=== PATIENT | female | born 1940 | race Caucasian/White ===

== ENCOUNTER 2016-05-26 11:51 | Emergency (ER) | payer OTHER ==
[~2016-05-26] VITALS: Ht 160 cm; Wt 85.0 kg
[~2016-05-26 11:51] MED LIST: ACET-1311 PO; ASPI81TA28 PO; ATOR-24 PO; DIPH25CA65 PO; EPP3/2 IM; FURO-85 PO; GUAI1TAB75 PO; HYDR-4717 PO; HYDR5SYP11 PO; METO25TA56 PO; MULT-506 PO; POTA-74 PO; PRLSR20 PO
[2016-05-26 12:00] VITALS: TEMP 37.7; Ht 160 cm; Wt 85.0 kg
[2016-05-26] MEDS ORDERED: PHEN-905 PO (12:45)
--- NOTE | 2016-05-26 12:51 | EMERGENCY ROOM VISIT NOTE ---
History Report prepared by Lina: Benedict Montague Under the Supervision of: Dr. James Pedersen M.D. First contact with patient: 12:45 Chief Complaint: SHORTNESS OF BREATH Stated Complaint: CHEST PAIN, SOB NOT FELT WELL ALL WEEK Nursing Triage Summary: presents to the ER with c/o shortness of breath that started approx 1 week ago, spouse wanted to take to doctors and decline. progressively worsened. States hard to get air in, feels like tugging to get air in, heaviness. Came to er today with c/o freq cough, productive clear to yellow.Generalized aching pain, nausea, loose stools starting today has not been eating, sm amt oatmeal this am, drinking small amounts, not at norm. History of Present Illness The patient is a 75 year old female who presents to the Emergency Room with complaints of a persistent productive cough for the past week. The cough produces yellowish-clear sputum. The patient experiences some chest pain when she coughs. She also complains of shortness of breath and generalized body aches. The patient was febrile upon arrival to the ED. She did not have any Tylenol today. She denies abdominal pain or pain/swelling of the legs. The patient has lost weight recently. She is not on blood thinners. The patient had her influenza immunizations this year. Her is also sick with similar symptoms. The patient denies any history of lung disease. She does have a history of CAD and is s/p CABG. Source of History: patient Onset: one week Position: other (respiratory) Quality: other (productive cough) Timing: other (persistent) Associated Symptoms: + SOB, + chest pain, + fevers, No abdominal pain Review of Systems See HPI for pertinent positives & negatives. A total of 10 systems reviewed and were otherwise negative. Past Medical & Surgical Medical Problems: (1) Accelerated hypertension (2) Acute respiratory failure (3) Angioedema (4) HTN (hypertension) (5) Varicose veins Old medical records were reviewed. Nurse's notes were reviewed and I agree with. Family History Hypertension Social History Smoking Status: Never Smoker Drug Use: none Marital Status: Housing Status: lives with significant other Occupation Status: retired Current/Historical Medications Scheduled Aspirin (Aspirin Ec), 81 MG PO DAILY Atorvastatin (Lipitor), 40 MG PO QAM Furosemide (Lasix), 20 MG PO QAM Hydralazine Hcl (Apresoline), 50 MG PO TID Levofloxacin (Levaquin), 500 MG PO DAILY Metoprolol Tartrate (Lopressor) (Lopressor), 25 MG PO BID Multivitamin (Multivitamin), 1 TAB PO QAM Omeprazole (Prilosec), 20 MG PO BID Potassium Chloride (Potassium Chloride Er), 10 MEQ PO QPM Scheduled PRN Acetaminophen (Tylenol), 650 MG PO Q4H PRN for Pain or Fever Diphenhydramine Hcl (Benadryl Allergy), 25 MG PO Q8 PRN for Allergy Needs Epinephrine (Epipen 2-Derrick), 0.3 MG IM UD PRN for ALLERGIC REACTION Guaifenesin La (Guaifenesin Er), 600 MG PO Q12H PRN for Congestion Gxhjhbvgizxwq-Krwujjrwbp-Ctswa (Nyquil Severe Cold/Flu 5-6.25-10-325 mg/15Ml), Unknown Dose PO PM PRN for Cough Allergies Coded Allergies: Lisinopril (Verified Allergy, Severe, Angioedema, 05/26/16) Physical Exam Vital Signs Date Time Temp Pulse Resp B/P Pulse Ox O2 Delivery O2 Flow Rate FiO2 05/26/16 16:12 67 18 160/80 95 05/26/16 15:17 75 24 175/89 95 Room Air 05/26/16 13:00 95 Room Air 05/26/16 13:00 66 05/26/16 12:35 66 18 184/74 95 Room Air 05/26/16 12:29 95 Room Air 05/26/16 12:00 37.7 73 18 203/91 96 Room Air Physical Exam General: Older female who has a dry intermittent hacking cough. No respiratory distress. Alert and oriented 3. HEENT: Normal cephalic atraumatic. Pupils are equal round and reactive to light. Sclerae anicteric. Extraocular movements are intact. Oropharynx is pink with moist mucous membranes. No swelling of the mouth lips or tongue. Neck: Supple with a midline trachea. No meningeal signs or stiffness, no JVD or bruits. No Stridor. Chest: Scattered rhonchi with good air movement. Heart: regular rate and rhythm. Abdomen: Soft nontender, nondistended without rebound guarding or rigidity. Extremities: No cyanosis clubbing or edema. No calf tenderness or assymetry Spine/Back. Non tender to palpation. No CVA tenderness Skin: Good turgor without rashes. Neurologic exam: Cranial nerves two through 12 are intact. Motor and sensation are intact and symmetrical throughout. Medical Decision & Procedures ER Provider Diagnostic Interpretation: X-ray results as stated below per interpretation by me and the radiologist: CHEST ONE VIEW PORTABLE CLINICAL HISTORY: Chest pain. COMPARISON STUDY: Chest radiograph December 03, 2015. FINDINGS: Lung volumes are normal. There is no pneumothorax or pleural effusion. Mild left basilar opacity is suggestive of atelectasis. There are median sternotomy wires. Mild cardiomegaly is unchanged. There is no evidence of pulmonary edema. IMPRESSION: No acute findings. Stable cardiomegaly. Electronically signed by: Adarsh Kessler M.D. 05/26/2016 1:17 PM Dictated Date/Time: 05/26/2016 1:16 PM Laboratory Results 05/26/16 13:20 Red Blood Count 4.03, Mean Corpuscular Volume 94.8, Mean Corpuscular Hemoglobin 32.8, Mean Corpuscular Hemoglobin Concent 34.6, Mean Platelet Volume 9.8, Neutrophils (%) (Auto) 76.2, Lymphocytes (%) (Auto) 14.2, Monocytes (%) (Auto) 7.4, Eosinophils (%) (Auto) 1.6, Basophils (%) (Auto) 0.3, Neutrophils # (Auto) 5.67, Lymphocytes # (Auto) 1.06, Monocytes # (Auto) 0.55, Eosinophils # (Auto) 0.12, Basophils # (Auto) 0.02 05/26/16 13:20 Test 05/26/16 12:40 05/26/16 13:20 05/26/16 13:35 Influenza Type A Antigen Neg for Influ A (NEG) Influenza Type B Antigen Neg for Influ B (NEG) White Blood Count 7.44 K/uL (4.8-10.8) Red Blood Count 4.03 M/uL (4.2-5.4) Hemoglobin 13.2 g/dL (12.0-16.0) Hematocrit 38.2 % (37-47) Mean Corpuscular Volume 94.8 fL (80-100) Mean Corpuscular Hemoglobin 32.8 pg (25-34) Mean Corpuscular Hemoglobin Concent 34.6 g/dl (32-36) Platelet Count 136 K/uL (130-400) Mean Platelet Volume 9.8 fL (7.4-10.4) Neutrophils (%) (Auto) 76.2 % Lymphocytes (%) (Auto) 14.2 % Monocytes (%) (Auto) 7.4 % Eosinophils (%) (Auto) 1.6 % Basophils (%) (Auto) 0.3 % Neutrophils # (Auto) 5.67 K/uL (1.4-6.5) Lymphocytes # (Auto) 1.06 K/uL (1.2-3.4) Monocytes # (Auto) 0.55 K/uL (0.11-0.59) Eosinophils # (Auto) 0.12 K/uL (0-0.5) Basophils # (Auto) 0.02 K/uL (0-0.2) RDW Standard Deviation 46.7 fL (36.4-46.3) RDW Coefficient of Variation 13.5 % (11.5-14.5) Immature Granulocyte % (Auto) 0.3 % Immature Granulocyte # (Auto) 0.02 K/uL (0.00-0.02) Prothrombin Time 11.8 SECONDS (9.0-12.0) Prothromb Time International Ratio 1.1 (0.9-1.1) Activated Partial Thromboplast Time 36.0 SECONDS (21.0-31.0) Partial Thromboplastin Ratio 1.4 Anion Gap 12.0 mmol/L (3-11) Est Creatinine Clear Calc Drug Dose 30.4 ml/min Estimated GFR () 35.7 Estimated GFR (Non- 30.8 BUN/Creatinine Ratio 11.8 (10-20) Calcium Level 8.8 mg/dl (8.5-10.1) Total Bilirubin 0.9 mg/dl (0.2-1) Direct Bilirubin 0.4 mg/dl (0-0.2) Aspartate Amino Transf (AST/SGOT) 92 U/L (15-37) Alanine Aminotransferase (ALT/SGPT) 112 U/L (12-78) Alkaline Phosphatase 81 U/L (45-117) Total Creatine Kinase 51 U/L (26-192) Creatine Kinase MB 1.0 ng/ml (0.5-3.6) Creatine Kinase MB Ratio 2.0 (0-3.0) Total Protein 7.6 gm/dl (6.4-8.2) Albumin 3.4 gm/dl (3.4-5.0) Lipase 185 U/L (73-393) Bedside Troponin I 0.020 ng/ml (0-0.045) NM-Zew-P-Type Natriuretic Peptide 1306 pg/ml (0-1800) Laboratory studies as stated above per my review. Medications Administered Medications (Trade) Dose Ordered Sig/Isidro Route Start Time Stop Time Status Last Admin Dose Admin Sodium Chloride 250 ml @ 999 mls/hr Q16M STAT IV 05/26/16 12:53 05/26/16 13:08 DC 05/26/16 14:20 999 MLS/HR Sodium Chloride (Nss 1000ml) 1,000 ml @ 100 mls/hr Q10H STAT IV 05/26/16 12:53 05/26/16 16:28 DC 05/26/16 14:50 100 MLS/HR Albuterol/ Ipratropium (Duoneb) 3 ml NOW STAT INH 05/26/16 12:53 05/26/16 12:56 DC 05/26/16 14:20 3 ML Levofloxacin (Levaquin Tab) 500 mg NOW STAT PO 05/26/16 15:29 05/26/16 15:32 DC 05/26/16 15:29 500 MG Albuterol (Ventolin Hfa Inhaler) 2 puffs NOW ONCE INH 05/26/16 15:30 05/26/16 15:32 DC 05/26/16 15:30 2 PUFFS ECG Indication: SOB/dyspnea Rate (beats per minute): 74 Rhythm: normal sinus Findings: no acute ischemic change, other (LVH with repolarization) Comparison ECG Date: 2015 Change: no significant change ED Course 1247: Past medical records reviewed. The patient was evaluated in room C3, and a complete history and physical examination were performed. 1253: DuoNeb 3 ml INH, NSS 1000 ml @ 100 mls/hr, NSS 250 ml @ 999 mls/hr. 1525: Reassessed the patient. Discussed the findings with her. She verbalized understanding and agreement of the treatment plan. The patient is ready for discharge. 1529: Levofloxacin 500 mg PO. 1530: Albuterol 2 puffs INH. Medical Decision Differential diagnosis includes influenza, bronchitis, pneumonia, CHF, ACS, arrhythmia, electrolyte or metabolic abnormality. This patient comes in as described above. She was placed in room C3. She is here for treatment and evaluation of a cough and URI type symptoms. She has some mild rhonchi on exam. She appears in no respiratory distress. She has a hacking cough. Her is also sick. IV access was established. EKG was obtained as well as multiple blood testing obtained. EKG compared to the old shows no acute ischemic changes or significant ectopy. Her troponin is not elevated and her symptoms are atypical for cardiac disease. Chest x-ray was unremarkable. She is resting comfortably. Influenza swab was negative. I think most likely this is a bronchitis. She's had this before. In fact, her last visit was for bronchitis she tolerated Levaquin well I will put her on Levaquin 500 mg was given here orally as well as prescription once a day. She was also given an inhaler that she can use albuterol if needed. She was given a DuoNeb here and she is resting comfortably. She should follow with her regular doctor on Saturday for recheck and return to the ER if: Worsening of symptoms, shortness of breath, fever or chills, any new problems or concerns Impression Primary Impression: Acute bronchitis Scribe Attestation The scribe's documentation has been prepared under my direction and personally reviewed by me in its entirety. I confirm that the note above accurately reflects all work, treatment, procedures, and medical decision making performed by me. Departure Information Dispostion Home / Self-Care Prescriptions Levofloxacin (Levaquin) 500 Mg Tab 500 MG PO DAILY, #7 TAB Prov: James Pedersen M.D. 05/26/16 Referrals No Doctor, Assigned (PCP) Forms HOME CARE DOCUMENTATION FORM, IMPORTANT VISIT INFORMATION Patient Instructions My [facility] Additional Instructions Rest. Drink plenty of fluids. Use Levaquin once a day for next 10 days. May use inhaler 2 puffs every 4 hours as needed. Follow-up with your doctor Saturday for recheck. Return sooner if: Worsening of symptoms, shortness of breath, fever or chills, any new problems or concerns. Return to ER over the weekend if symptoms worsen.
[2016-05-26] MEDS ORDERED: SODIUM CHLORIDE 0.9% 1000ML 1,000 ML IV STA (12:53)
[2016-05-26] MEDS ORDERED: SODIUM CHLORIDE 0.9% 1000ML 250 ML IV STA (12:53)
[2016-05-26] MEDS ORDERED: ALBUT/IPRATROP 3MG/0.5MG NEB 3 ML VIAL INH STA (12:53)
[2016-05-26 13:00] VITALS: O2SAT 95
--- NOTE | 2016-05-26 13:18 | DIAGNOSTIC IMAGING REPORT ---
CHEST ONE VIEW PORTABLE CLINICAL HISTORY: Chest pain. COMPARISON STUDY: Chest radiograph December 03, 2015. FINDINGS: Lung volumes are normal. There is no pneumothorax or pleural effusion. Mild left basilar opacity is suggestive of atelectasis. There are median sternotomy wires. Mild cardiomegaly is unchanged. There is no evidence of pulmonary edema. IMPRESSION: No acute findings. Stable cardiomegaly. Electronically signed by: Adarsh Kessler M.D. 05/26/2016 1:17 PM Dictated Date/Time: 05/26/2016 1:16 PM
[2016-05-26 13:43] LABS: BASO % 0.3 %; BASO ABS # 0.02 K/uL (0-0.2); COMPLETE YES; EOS % 1.6 %; HEMATOCRIT 38.2 % (37-47); IG% 0.3 %; LYMPH % 14.2 %; LYMPH ABS # 1.06 K/uL (1.2-3.4); MEAN CELL VOLUME 94.8 fL (80-100); MEAN CORPUSCULAR HEMOGLOBIN 32.8 pg (25-34); MEAN CORPUSCULAR HGB CONC 34.6 g/dl (32-36); MEAN PLATELET VOLUME 9.8 fL (7.4-10.4); MONO % 7.4 %; NEUT % 76.2 %; PLATELET COUNT 136 K/uL (130-400); RED BLOOD COUNT 4.03 M/uL (4.2-5.4); WHITE BLOOD COUNT 7.44 K/uL (4.8-10.8)
[2016-05-26 13:50] LABS: POINT OF CARE TROPONIN I 0.02 ng/ml (0-0.045)
[2016-05-26 13:51] LABS: INR 1.1 (0.9-1.1); PARTIAL THROMBOPLASTIN RATIO 1.4; PROTHROMBIN TIME (PATIENT) 11.8 SECONDS (9.0-12.0)
[2016-05-26 14:09] LABS: BUN/CREATININE RATIO 11.8 (10-20); CALCIUM 8.8 mg/dl (8.5-10.1); CREATININE 1.6 mg/dl (0.60-1.20); POTASSIUM 3.4 mmol/L (3.5-5.1)
[2016-05-26] MEDS ORDERED: LEVOFLOXACIN 500 MG TAB PO STA (15:29)
[2016-05-26] MEDS ORDERED: ALBUTEROL HFA 8 GM INHALER INH ONE (15:30)
[2016-05-26] MEDS ORDERED: LEVO-366 PO (15:36)
[2016-05-26 16:12] VITALS: BP 160/80; PULSE 67; O2SAT 95
== END 2016-05-26 16:14 | disposition home or self-care (01) ==
LOC: C.EDB 11:52 → C.EDC 16:14
DX: J20.9 Acute bronchitis, unspecified (principal); I10 Essential (primary) hypertension; I25.10 Atherosclerotic heart disease of native coronary artery without angina pectoris; Z95.1 Presence of aortocoronary bypass graft; Z79.82 Long term (current) use of aspirin; Z79.899 Other long term (current) drug therapy; Z82.49 Family history of ischemic heart disease and other diseases of the circulatory system

== ENCOUNTER → 2016-07-06 | Outpatient (CLI) | payer OTHER ==
[~2016-07-06] MED LIST changes: -HYDR5SYP11 PO; +IBUP-1050 PO; +LEVO-366 PO; +LPT/20 PO; +OXYC1TAB3 PO; +PHEN-905 PO
--- NOTE | 2016-07-06 15:35 | DIAGNOSTIC IMAGING REPORT ---
PELVIS AND RIGHT HIP RADIOGRAPHS CLINICAL HISTORY: Right hip pain. No known injury. COMPARISON: CT of the chest abdomen and pelvis March 30, 2015. FINDINGS: The sacroiliac joints and symphysis pubis are intact. There is no acute fracture within visualized portions of the pelvis or hips. The iliac crests were not included on this exam. Alignment of both hips is anatomic. There is mild to moderate joint space narrowing and osteophytosis of both hips. There is no evidence for avascular necrosis. IMPRESSION: 1. No acute fracture of the right hip. 2. 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 Electronically signed by: Adarsh Kessler M.D. 07/06/2016 3:34 PM Dictated Date/Time: 07/06/2016 3:32 PM
== END | disposition home or self-care (01) ==
LOC: C.RDSM 15:15
PROVIDERS: ATTEND Physician Assistant
DX: M16.0 Bilateral primary osteoarthritis of hip (principal)

== ENCOUNTER 2016-09-26 15:11 | Emergency (ER) | payer OTHER ==
[~2016-09-26] VITALS: Ht 160 cm; Wt 88.2 kg
[~2016-09-26 15:11] MED LIST changes: -ACET-1311 PO; -EPP3/2 IM; -FURO-85 PO; -HYDR-4717 PO; -IBUP-1050 PO; -LPT/20 PO; -MULT-506 PO; -OXYC1TAB3 PO; -POTA-74 PO
[2016-09-26 15:16] VITALS: TEMP 36.7
[2016-09-26] MEDS ORDERED: OXYCODONE HCL IR 5 MG TAB (IMMEDIATE RELEASE) PO STA (15:37)
[2016-09-26] MEDS ORDERED: ONDANSETRON INJ 2 MG/ML 2 ML VIAL IV STA (15:40)
[2016-09-26] MEDS ORDERED: MoRPHine SULFATE 4 MG/ML 1 ML CARP\\VIAL IV PRN (15:45)
--- NOTE | 2016-09-26 15:50 | DIAGNOSTIC IMAGING REPORT ---
SINGLE VIEW CHEST CLINICAL HISTORY: Dyspnea. FINDINGS: An AP, portable, upright chest radiograph is compared to study dated 05/26/2016. The examination is degraded by portable technique, large body habitus, and patient rotation. The patient is status post midline sternotomy. The heart is enlarged and there is atherosclerotic calcification of the thoracic aorta. The pulmonary vasculature is noncongested. Chronic interstitial thickening is similar to previous. There is mild bibasilar atelectasis. No airspace consolidation or large pleural effusion is identified. No pneumothorax is seen. The skeletal structures are osteopenic. The bony thorax is grossly intact. IMPRESSION: Cardiomegaly with no acute cardiopulmonary abnormality. Electronically signed by: Get Hanson M.D. 09/26/2016 3:49 PM Dictated Date/Time: 09/26/2016 3:47 PM
[2016-09-26 15:52] VITALS: O2SAT 93
[2016-09-26 16:09] VITALS: Ht 160 cm; Wt 88.2 kg
[2016-09-26 16:27] LABS: BASO % 0.3 %; BASO ABS # 0.02 K/uL (0-0.2); COMPLETE YES; EOS % 2.4 %; HEMATOCRIT 38.7 % (37-47); IG% 0.5 %; LYMPH % 27.9 %; LYMPH ABS # 1.85 K/uL (1.2-3.4); MEAN CELL VOLUME 99.2 fL (80-100); MEAN CORPUSCULAR HEMOGLOBIN 32.1 pg (25-34); MEAN CORPUSCULAR HGB CONC 32.3 g/dl (32-36); MEAN PLATELET VOLUME 9.8 fL (7.4-10.4); MONO % 7.2 %; NEUT % 61.7 %; PLATELET COUNT 185 K/uL (130-400); WHITE BLOOD COUNT 6.64 K/uL (4.8-10.8)
[2016-09-26 16:51] LABS: PARTIAL THROMBOPLASTIN RATIO 1.3; PROTHROMBIN TIME (PATIENT) 10.8 SECONDS (9.0-12.0)
[2016-09-26 16:52] LABS: ALB/GLOB RATIO 0.9 (0.9-2); ALKALINE PHOSPHATASE 93 U/L (45-117); ALT/SGPT 47 U/L (12-78); AST/SGOT 41 U/L (15-37); BLOOD UREA NITROGEN 19 mg/dl (7-18); BUN/CREATININE RATIO 12.4 (10-20); CALCIUM 8.6 mg/dl (8.5-10.1); CARBON DIOXIDE 24 mmol/L (21-32); CHLORIDE 109 mmol/L (98-107); GLUCOSE 107 mg/dl (70-99); MAGNESIUM 2.5 mg/dl (1.8-2.4); POTASSIUM 3.8 mmol/L (3.5-5.1); SODIUM 141 mmol/L (136-145)
--- NOTE | 2016-09-26 17:14 | DIAGNOSTIC IMAGING REPORT ---
ULTRASOUND VENOUS DOPPLER LWR EXT BILA CLINICAL HISTORY: Bilateral leg pain and cramping COMPARISON STUDY: September 2012 FINDINGS: Real-time and color flow Doppler imaging were performed. Flow was seen within the femoral, popliteal and calf veins with no intraluminal thrombus demonstrated. The saphenous vein is patent. IMPRESSION: No evidence of lower extremity DVT. Electronically signed by: Nitin Cavanaugh M.D. 09/26/2016 5:12 PM Dictated Date/Time: 09/26/2016 5:12 PM
[2016-09-26 17:48] LABS: URINE APPEARANCE CLEAR (CLEAR); URINE BILIRUBIN NEG (NEG); URINE COLOR YELLOW; URINE NITRITE NEG (NEG); URINE SPECIFIC GRAVITY 1.008 (1.000-1.030); UROBILINOGEN NEG (NEG)
[2016-09-26 17:54] LABS: MANUAL MICROSCOPIC REQUIRED? NO; REVIEW REQ? NO
[2016-09-26] MEDS ORDERED: OXYC1TAB3 PO (19:50)
--- NOTE | 2016-09-26 19:56 | EMERGENCY ROOM VISIT NOTE ---
History Report prepared by Lina: Tevin Luna Under the Supervision of: Dr. Gibson Trejo D.O. First contact with patient: 15:20 Chief Complaint: ILLNESS Stated Complaint: NAUSEATED,LEG AND FOOT CRAMPING History of Present Illness The patient is a 75 year old female who presents to the Emergency Room with complaints of waxing and waning bilateral foot and leg cramping beginning four days ago. She states that her entire legs are cramping. She also complains of bilateral foot swelling today. The patient denies any nausea, vomiting, or SOB. She notes that she has been having intermittent "jags" of lower chest pain. She has no history of similar symptoms. The patient has a history of a quadruple bypass. She called her PCP who referred her to the ED for concerns of her potassium level. She has a history of chronic low back pain, but denies any new back pain. The patient has no known history of DVT or PE. Source of History: patient Onset: Four days ago Position: leg (bilateral), foot (bilateral) Quality: cramping Timing: waxes/wanes Associated Symptoms: + chest pain (intermittent "jags"), No SOB, No nausea, No vomiting, No back pain (new) Review of Systems See HPI for pertinent positives & negatives. A total of 10 systems reviewed and were otherwise negative. Past Medical & Surgical Medical Problems: (1) Accelerated hypertension (2) Acute respiratory failure (3) Angioedema (4) HTN (hypertension) (5) Varicose veins Family History Hypertension Social History Smoking Status: Never Smoker Drug Use: none Marital Status: Housing Status: lives with significant other Occupation Status: retired Current/Historical Medications Scheduled Atorvastatin (Lipitor), 40 MG PO QAM Furosemide (Lasix), 20 MG PO QAM Hydralazine Hcl (Apresoline), 50 MG PO TID Metoprolol Tartrate (Lopressor) (Lopressor), 25 MG PO BID Multivitamin (Multivitamin), 1 TAB PO QAM Omeprazole (Prilosec), 20 MG PO BID Potassium Chloride (Potassium Chloride Er), 10 MEQ PO QPM Scheduled PRN Acetaminophen (Tylenol), 650 MG PO Q4H PRN for Pain or Fever Epinephrine (Epipen 2-Derrick), 0.3 MG IM UD PRN for ALLERGIC REACTION Oxycodone Immediate Rel Tab (Roxicodone Ir), 1 TAB PO Q4H PRN for Severe Pain Allergies Coded Allergies: Lisinopril (Verified Allergy, Severe, Angioedema, 09/26/16) Physical Exam Vital Signs Date Time Temp Pulse Resp B/P (MAP) Pulse Ox O2 Delivery O2 Flow Rate FiO2 09/26/16 20:07 60 18 146/82 94 09/26/16 17:43 60 18 184/99 97 Room Air 09/26/16 17:20 64 16 187/72 94 Room Air 09/26/16 16:12 56 09/26/16 15:52 93 Room Air 09/26/16 15:16 36.7 61 20 193/81 97 Room Air Physical Exam GENERAL: Patient is awake, alert, and very anxious appearing. Appears uncomfortable and anxious. EYES: The conjunctivae are clear. The pupils are round and reactive. EARS, NOSE, MOUTH AND THROAT: The nose is without any evidence of any deformity. Mucous membranes are moist tongue is midline NECK: The neck is nontender and supple. RESPIRATORY: Diminished at both bases. No tachypnea or conversational dyspnea. CARDIOVASCULAR: Regular rate and rhythm noted there no murmurs rubs or gallops normal S1 normal S2 GASTROINTESTINAL: The abdomen is soft. Bowel sounds are present in all quadrants. Abdomen is nontender MUSCULOSKELETAL/EXTREMITIES: There is no evidence of gross deformity full range of motion is noted in the hips and shoulders. No swelling noted over the joints. ROM intact. Diffuse muscle tenderness appreciated. SKIN: There is no obvious evidence of any rash. Pedal edema bilaterally. DP pulses symmetric. Warm and dry NEUROLOGIC: Patient is awake alert and oriented x3 strength is symmetric patellar reflexes are 2+ bilaterally Medical Decision & Procedures ER Provider Diagnostic Interpretation: Radiology results as stated below per my review and radiologist interpretation: ULTRASOUND VENOUS DOPPLER LWR EXT BILA FINDINGS: Real-time and color flow Doppler imaging were performed. Flow was seen within the femoral, popliteal and calf veins with no intraluminal thrombus demonstrated. The saphenous vein is patent. IMPRESSION: No evidence of lower extremity DVT. Electronically signed by: Nitin Cavanaugh M.D. SINGLE VIEW CHEST FINDINGS: An AP, portable, upright chest radiograph is compared to study dated 05/26/2016. The examination is degraded by portable technique, large body habitus, and patient rotation. The patient is status post midline sternotomy. The heart is enlarged and there is atherosclerotic calcification of the thoracic aorta. The pulmonary vasculature is noncongested. Chronic interstitial thickening is similar to previous. There is mild bibasilar atelectasis. No airspace consolidation or large pleural effusion is identified. No pneumothorax is seen. The skeletal structures are osteopenic. The bony thorax is grossly intact. IMPRESSION: Cardiomegaly with no acute cardiopulmonary abnormality. Electronically signed by: Get Hanson M.D. Laboratory Results 09/26/16 16:01 Red Blood Count 3.90, Mean Corpuscular Volume 99.2, Mean Corpuscular Hemoglobin 32.1, Mean Corpuscular Hemoglobin Concent 32.3, Mean Platelet Volume 9.8, Neutrophils (%) (Auto) 61.7, Lymphocytes (%) (Auto) 27.9, Monocytes (%) (Auto) 7.2, Eosinophils (%) (Auto) 2.4, Basophils (%) (Auto) 0.3, Neutrophils # (Auto) 4.10, Lymphocytes # (Auto) 1.85, Monocytes # (Auto) 0.48, Eosinophils # (Auto) 0.16, Basophils # (Auto) 0.02 09/26/16 16:01 Test 09/26/16 16:01 09/26/16 17:30 White Blood Count 6.64 K/uL (4.8-10.8) Red Blood Count 3.90 M/uL (4.2-5.4) Hemoglobin 12.5 g/dL (12.0-16.0) Hematocrit 38.7 % (37-47) Mean Corpuscular Volume 99.2 fL (80-100) Mean Corpuscular Hemoglobin 32.1 pg (25-34) Mean Corpuscular Hemoglobin Concent 32.3 g/dl (32-36) Platelet Count 185 K/uL (130-400) Mean Platelet Volume 9.8 fL (7.4-10.4) Neutrophils (%) (Auto) 61.7 % Lymphocytes (%) (Auto) 27.9 % Monocytes (%) (Auto) 7.2 % Eosinophils (%) (Auto) 2.4 % Basophils (%) (Auto) 0.3 % Neutrophils # (Auto) 4.10 K/uL (1.4-6.5) Lymphocytes # (Auto) 1.85 K/uL (1.2-3.4) Monocytes # (Auto) 0.48 K/uL (0.11-0.59) Eosinophils # (Auto) 0.16 K/uL (0-0.5) Basophils # (Auto) 0.02 K/uL (0-0.2) RDW Standard Deviation 49.6 fL (36.4-46.3) RDW Coefficient of Variation 13.9 % (11.5-14.5) Immature Granulocyte % (Auto) 0.5 % Immature Granulocyte # (Auto) 0.03 K/uL (0.00-0.02) Prothrombin Time 10.8 SECONDS (9.0-12.0) Prothromb Time International Ratio 1.0 (0.9-1.1) Activated Partial Thromboplast Time 33.4 SECONDS (21.0-31.0) Partial Thromboplastin Ratio 1.3 Anion Gap 8.0 mmol/L (3-11) Est Creatinine Clear Calc Drug Dose 33.1 ml/min Estimated GFR () 38.5 Estimated GFR (Non- 33.3 BUN/Creatinine Ratio 12.4 (10-20) Calcium Level 8.6 mg/dl (8.5-10.1) Magnesium Level 2.5 mg/dl (1.8-2.4) Total Bilirubin 0.5 mg/dl (0.2-1) Aspartate Amino Transf (AST/SGOT) 41 U/L (15-37) Alanine Aminotransferase (ALT/SGPT) 47 U/L (12-78) Alkaline Phosphatase 93 U/L (45-117) Total Creatine Kinase 39 U/L (26-192) Creatine Kinase MB < 0.5 ng/ml (0.5-3.6) Creatine Kinase MB Ratio (0-3.0) Troponin I < 0.015 ng/ml (0-0.045) Pro-B-Type Natriuretic Peptide 1165 pg/ml (0-1800) Total Protein 7.0 gm/dl (6.4-8.2) Albumin 3.3 gm/dl (3.4-5.0) Globulin 3.7 gm/dl (2.5-4.0) Albumin/Globulin Ratio 0.9 (0.9-2) Urine Color YELLOW Urine Appearance CLEAR (CLEAR) Urine pH 5.0 (4.5-7.5) Urine Specific [place] 1.008 (1.000-1.030) Urine Protein NEG (NEG) Urine Glucose (UA) NEG (NEG) Urine Ketones NEG (NEG) Urine Occult Blood NEG (NEG) Urine Nitrite NEG (NEG) Urine Bilirubin NEG (NEG) Urine Urobilinogen NEG (NEG) Urine Leukocyte Esterase NEG (NEG) Laboratory results per my review. Medications Administered Medications (Trade) Dose Ordered Sig/Isidro Route Start Time Stop Time Status Last Admin Dose Admin Morphine Sulfate (MoRPHine SULFATE INJ) 4 mg Q15M PRN IV 09/26/16 15:45 09/26/16 20:28 DC 09/26/16 17:45 4 MG Ondansetron HCl (Zofran Inj) 4 mg NOW STAT IV 09/26/16 15:40 09/26/16 15:41 DC 09/26/16 16:10 4 MG Oxycodone HCl (Roxicodone Immediate Rel 5MG Home Pack) 1 homepack UD ONCE PO 09/26/16 20:00 09/26/16 20:01 DC 09/26/16 20:03 1 HOMEPACK ECG Indication: chest pain Rate (beats per minute): 57 Rhythm: sinus bradycardia Findings: no ectopy, other (LVH by voltage criteria. Diffuse T-wave abnormality. ) Comparison ECG Date: May 26, 2016 Change: no significant change ED Course 1535: The patient was evaluated in room B5. A complete history and physical examination were performed. 1537: Ordered Roxicodone Immediate Rel Tab 5 mg PO. 1540: Ordered Zofran Inj 4 mg IV. 1545: Ordered Morphine Sulfate 4 mg IV. 2000: Ordered Roxicodone Immediate Rel 5 mg homepack PO Upon reevaluation, the patient is resting comfortably. I discussed the results and treatment plan with her. She verbalized agreement of the treatment plan. The patient was discharged home. Medical Decision Differential diagnosis: Etiologies such as DVT, musculoskeletal, infection, joint effusion, trauma, lymphedema, idiopathic, CHF, as well as others were entertained. Blood pressure screening: Patient was found to have an elevated blood pressure and was referred to their primary doctor for recheck and further treatment. Medication Reconciliation: I attest that I have personally reviewed the patient' s current medications list. Nursing notes reviewed. Additional history is obtained from the patient's significant other. The patient is a 75-year-old female who presented to the emergency department for an evaluation of lower extremity pain. The patient had no trauma. She states that she has back pain but this is chronic and not new. The patient did not have any focal neurologic deficits. Her pulses were symmetric in both feet. She did not have any signs of cellulitis. Dopplers did not reveal any signs of DVT. The patient at this time does not complaining of any chest pain or shortness of breath. I asked her this question multiple times. She has a mild elevation in her creatinine and with normal lower extremity Dopplers I do not feel that she requires any further workup for venous thromboembolic disease. I discussed the patient's laboratory and radiographic studies with her. I recommended that she rest and avoid any strenuous activity. She was treated with pain medication in the emergency department and on subsequent reevaluation was feeling much better. She was encouraged to follow-up with the family doctor soon as possible and discuss the possibility that she may require further testing if symptoms do not improve such as arterial Dopplers or the workup to ensure that this is not referred pain from her chronic back pain. She was also encouraged return to the emergency department immediately if symptoms change worsen or the need arises. Impression Primary Impression: Lower extremity pain Additional Impression: Muscle cramp Scribe Attestation The scribe's documentation has been prepared under my direction and personally reviewed by me in its entirety. I confirm that the note above accurately reflects all work, treatment, procedures, and medical decision making performed by me. Departure Information Dispostion Home / Self-Care Prescriptions Oxycodone Immediate Rel Tab (ROXICODONE IR) 5 Mg Tab 1 TAB PO Q4H Y for Severe Pain, #20 TAB Prov: Gibson Trejo, DO 09/26/16 Referrals Suleman Sands M.D. (PCP) Forms HOME CARE DOCUMENTATION FORM, IMPORTANT VISIT INFORMATION, WORK / SCHOOL INSTRUCTIONS Patient Instructions My [facility] Additional Instructions Call your family in the morning to schedule a follow-up appointment. I would recommend further studies if the pain is not improved. You may require Dopplers of the legs to evaluate the blood supply or possibly further workup on her back to determine if this pain is coming from your back pain. Rest and avoid any strenuous activity. Continue taking Tylenol as directed for mild pain. Return to the emergency Department immediately if symptoms change worsen or the need arises. Problem Qualifiers
[2016-09-26] MEDS ORDERED: OXYCODONE IR HOME PACK PO ONE (20:00)
[2016-09-26 20:07] VITALS: BP 146/82; PULSE 60; O2SAT 94
[2017-01-22] MEDS ORDERED: MULT-506 PO (12:33)
== END 2016-09-26 20:07 | disposition home or self-care (01) ==
LOC: C.EDB 15:12
DX: R25.2 Cramp and spasm (principal); Z95.1 Presence of aortocoronary bypass graft; M54.5 Low back pain; G89.29 Other chronic pain; I10 Essential (primary) hypertension; Z82.49 Family history of ischemic heart disease and other diseases of the circulatory system; Z79.899 Other long term (current) drug therapy

== ENCOUNTER 2017-01-22 14:49 | Emergency (ER) | payer OTHER ==
[~2017-01-22] VITALS: Ht 157.5 cm; Wt 82.0 kg
[~2017-01-22 14:49] MED LIST changes: -ASPI81TA28 PO; -DIPH25CA65 PO; -GUAI1TAB75 PO; -LEVO-366 PO; +MULT-506 PO; +OXYC1TAB3 PO; -PHEN-905 PO
[2017-01-22 14:52] VITALS: TEMP 36.5; Ht 157.5 cm; Wt 82.0 kg
[2017-01-22] MEDS ORDERED: TRAMADOL/ACETAMINOPHEN 37.5/325MG TAB PO PRN (15:45)
--- NOTE | 2017-01-22 15:45 | EMERGENCY ROOM VISIT NOTE ---
History First contact with patient: 14:56 Chief Complaint: LEG PAIN,LEG INJURY Stated Complaint: LEFT LEG PAIN History of Present Illness The patient is a 76 year old female who presents to the Emergency Room with complaints of with left leg pain for 1.5 days. -Pt says that the pain began suddenly on Saturday evening as a sharp pain isolated to the upper anterior, left lower extremity. -Pt says that throughout the day on Saturday, the pain began to migrate down the extremity to just below the knee. -Pt denies that the pain is better or worse with walking. Pt says that the pain stays the same no matter how much she walks -Pt denies a precipitating injury. The pain seems to have began suddenly Saturday evening. -The patient does report falling a couple weeks ago, but denies any subsequent injuries and denies trouble with her left leg following the fall. -Pt denies recent immobilization: long car rides or surgery -Pt denies cough, but does report subjective feeling of fever. -Pt has a PMH of ACS, CAD with a 4 vessel CABG -Pt is not currently on a anticoagulant. Review of Systems see below Constitutional: No fever, No chills, No sweats Respiratory: No cough, No sputum, No wheezing, No shortness of breath Cardiovascular: No chest pain, No edema, No palpitations Abdomen: No pain, No nausea, No vomiting, No diarrhea, No constipation Musculoskeletal: + joint pain, + muscle pain, + calf pain, No swelling Past Medical/Surgical History Medical Problems: (1) Accelerated hypertension (2) Acute respiratory failure (3) Angioedema (4) HTN (hypertension) (5) Varicose veins Family History Hypertension Social History Smoking Status: Never Smoker Drug Use: none Marital Status: Housing Status: lives with significant other Occupation Status: retired Current/Historical Medications Scheduled Atorvastatin (Atorvastatin Calcium), 20 MG PO DAILY Furosemide (Lasix), 20 MG PO QAM Hydralazine Hcl (Apresoline), 50 MG PO TID Metoprolol Tartrate (Lopressor) (Lopressor), 25 MG PO BID Multivitamin (Multivitamin), 1 TAB PO WK Omeprazole (Prilosec), 20 MG PO BID Potassium Chloride (Potassium Chloride Er), 10 MEQ PO QPM Scheduled PRN Acetaminophen (Tylenol), 650 MG PO Q4H PRN for Pain or Fever Epinephrine (Epipen 2-Derrick), 0.3 MG IM UD PRN for ALLERGIC REACTION Ibuprofen (Advil), 400 MG PO Q6 PRN for Pain Oxycodone Immediate Rel Tab (Roxicodone Ir), 1 TAB PO Q4H PRN for Severe Pain Physical Exam Vital Signs Date Time Temp Pulse Resp B/P (MAP) Pulse Ox O2 Delivery O2 Flow Rate FiO2 01/22/17 18:00 60 18 179/83 98 Room Air 01/22/17 16:31 53 22 213/89 98 Room Air 01/22/17 14:52 36.5 57 20 203/82 95 Room Air Physical Exam see below General Appearance: WD/WN, + mild distress Head: normocephalic, atraumatic Respiratory/Chest: chest non-tender, lungs clear, normal breath sounds, no respiratory distress, no accessory muscle use Cardiovascular: regular rate, rhythm, no edema, no gallop, no JVD, no murmur , normal peripheral pulses Extremities: no pedal edema, normal range of motion, + pertinent finding ( popliteal, dorsalis pedis and posterior tibial pulses are symmetric between bialteral limbs. Pt has no appreciable changes in color or temp of the skin of the left extremity. ) Medical Decision & Procedures ER Provider Diagnostic Interpretation: L VENOUS DOPP LOWER EXT UNILAT HISTORY: 76 years-old Female left lower extremity pain acute left lower extremity pain COMPARISON: Duplex study 09/26/2016 TECHNIQUE: Multiple real-time sonographic images of the left lower extremity deep venous structures were obtained assessing grayscale appearance, color and spectral flow FINDINGS: There is normal flow, augmentation and phasicity within the left lower extremity deep venous system. IMPRESSION: No sonographic evidence of deep venous thrombosis within the left lower extremity. The above report was generated using voice recognition software. It may contain grammatical, syntax or spelling errors. Laboratory Results 01/22/17 15:55 Red Blood Count 3.79, Mean Corpuscular Volume 97.1, Mean Corpuscular Hemoglobin 31.1, Mean Corpuscular Hemoglobin Concent 32.1, Mean Platelet Volume 10.0, Neutrophils (%) (Auto) 69.5, Lymphocytes (%) (Auto) 20.9, Monocytes (%) (Auto) 6.2, Eosinophils (%) (Auto) 3.0, Basophils (%) (Auto) 0.3, Neutrophils # (Auto) 4.86, Lymphocytes # (Auto) 1.46, Monocytes # (Auto) 0.43, Eosinophils # (Auto) 0.21, Basophils # (Auto) 0.02 01/22/17 15:55 Test 01/22/17 15:55 White Blood Count 6.99 K/uL (4.8-10.8) Red Blood Count 3.79 M/uL (4.2-5.4) Hemoglobin 11.8 g/dL (12.0-16.0) Hematocrit 36.8 % (37-47) Mean Corpuscular Volume 97.1 fL (80-100) Mean Corpuscular Hemoglobin 31.1 pg (25-34) Mean Corpuscular Hemoglobin Concent 32.1 g/dl (32-36) Platelet Count 161 K/uL (130-400) Mean Platelet Volume 10.0 fL (7.4-10.4) Neutrophils (%) (Auto) 69.5 % Lymphocytes (%) (Auto) 20.9 % Monocytes (%) (Auto) 6.2 % Eosinophils (%) (Auto) 3.0 % Basophils (%) (Auto) 0.3 % Neutrophils # (Auto) 4.86 K/uL (1.4-6.5) Lymphocytes # (Auto) 1.46 K/uL (1.2-3.4) Monocytes # (Auto) 0.43 K/uL (0.11-0.59) Eosinophils # (Auto) 0.21 K/uL (0-0.5) Basophils # (Auto) 0.02 K/uL (0-0.2) RDW Standard Deviation 52.0 fL (36.4-46.3) RDW Coefficient of Variation 14.7 % (11.5-14.5) Immature Granulocyte % (Auto) 0.1 % Immature Granulocyte # (Auto) 0.01 K/uL (0.00-0.02) Activated Partial Thromboplast Time 35.8 SECONDS (21.0-31.0) Partial Thromboplastin Ratio 1.4 Anion Gap 8.0 mmol/L (3-11) Est Creatinine Clear Calc Drug Dose 43.4 ml/min Estimated GFR () 58.2 Estimated GFR (Non- 50.3 BUN/Creatinine Ratio 14.7 (10-20) Calcium Level 9.1 mg/dl (8.5-10.1) Medications Administered Medications (Trade) Dose Ordered Sig/Isidro Route Start Time Stop Time Status Last Admin Dose Admin Tramadol/ Acetaminophen (Ultracet Tab) 1 tab ONE PRN PO 01/22/17 15:45 01/22/17 16:32 DC 01/22/17 16:36 1 TAB Tramadol HCl (Ultram Home Pack) 1 homepack UD ONCE PO 01/22/17 18:00 01/22/17 18:01 DC 01/22/17 17:59 1 HOMEPACK Medical Decision 76 year old female presents to the ED with 2 days of left leg pain Considering the following differential: DVT, peripheral artery disease, myositis , muscle strain Considering patient's PMHx of CAD and development of the pain without a precipitating injury, the pt was evaluated for vascular causes of lower extremity pain. During the physical exam, I was looking for acute signs of arterial occlusion, comparing the left extremity to the right. There were no noticeable changes in the color, temperature of the skin and patients had symmetrical pulses between the two limbs. This exam included palpating the following pulses: popliteal, dorsalis pedis and posterior tibial. Pt had normal ROM throughout left lower extremity. Pt denies point tenderness with palpation of the joint space of the knee. While the patient described constant pain, the patient did appear to have increased pain with palpation of the anterior femur. Following the vascular exam, we decided to order a Doppler USG of the left lower extremity to evaluate for possible DVT. The USG should no evidence of DVT. At this point it is unclear if the cause of the pain is vascular or MSK in etiology. While the patients history of CAD causes suspicion, the exam of the leg was otherwise unremarkable for acute ischemia. Pt describes a fall a couple weeks ago, but denies any issues with her leg following this fall. The leg pain appears to developed without a clear precipitating event. The patient needs an outpatient workup. Pt's pain is currently controlled. Impression Primary Impression: Leg pain, left Departure Information Dispostion Home / Self-Care Condition GOOD Referrals Suleman Sands M.D. (PCP) Patient Instructions My [facility] Additional Instructions Mrs. Parker, Elpidio came into the Emergency department with left leg pain. After doing a physical exam, you were found to have normal color, pulses and temperature which is reassuring. Additionally, we did a venous ultrasound of your leg to see if you had a blood clot. The ultrasound was normal, no blood clots were seen. We advise you to follow up with your primary care doctor regarding your leg pain. We also recommend physical therapy. The pain maybe related to the previous fall that you mentioned.
[2017-01-22] MEDS ORDERED: LPT/20 PO (15:55)
[2017-01-22] MEDS ORDERED: IBUP-1050 PO (15:56)
--- NOTE | 2017-01-22 16:02 | EMERGENCY ROOM VISIT NOTE ---
ED Visit Note First contact with patient: 14:56 The patient was seen and examined with Dr. Laguerre, resident physician. We discussed the case and treatments ordered, reviewed the results, and determine the disposition. Please refer to the resident's note for additional details. I have been directly involved with the management and disposition as well as independently evaluated the patient as documented in this note. Seen and evaluated at bedside. Diffuse pain. However, no symptoms of claudication noted. Patient w/ excellent DP pulse, warm extremity. Did have calf pain and +Pamella's sign. patient does not take ASA or plavix even given h/o of CABG x 4. 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 Patient had labs completed. DVT US neg acute. Patient's pain mildly improved. Able to ambulate. No obvious signs of trauma, no falls, NV intact to DP/SP/tib nerves to motor and sensory. Patient given f/u, d/c, and return precautions and d/c'ed to home.
[2017-01-22 16:08] LABS: BASO % 0.3 %; BASO ABS # 0.02 K/uL (0-0.2); COMPLETE YES; HEMATOCRIT 36.8 % (37-47); IG% 0.1 %; LYMPH % 20.9 %; LYMPH ABS # 1.46 K/uL (1.2-3.4); MEAN CELL VOLUME 97.1 fL (80-100); MEAN CORPUSCULAR HEMOGLOBIN 31.1 pg (25-34); MEAN CORPUSCULAR HGB CONC 32.1 g/dl (32-36); MONO % 6.2 %; NEUT % 69.5 %; PLATELET COUNT 161 K/uL (130-400); RED BLOOD COUNT 3.79 M/uL (4.2-5.4); WHITE BLOOD COUNT 6.99 K/uL (4.8-10.8)
[2017-01-22 16:17] LABS: PARTIAL THROMBOPLASTIN RATIO 1.4
[2017-01-22 16:29] LABS: BUN/CREATININE RATIO 14.7 (10-20); CALCIUM 9.1 mg/dl (8.5-10.1); CREATININE 1.06 mg/dl (0.60-1.20); POTASSIUM 3.9 mmol/L (3.5-5.1)
--- NOTE | 2017-01-22 17:13 | DIAGNOSTIC IMAGING REPORT ---
L VENOUS DOPP LOWER EXT UNILAT HISTORY: 76 years-old Female left lower extremity pain acute left lower extremity pain COMPARISON: Duplex study 09/26/2016 TECHNIQUE: Multiple real-time sonographic images of the left lower extremity deep venous structures were obtained assessing grayscale appearance, color and spectral flow FINDINGS: There is normal flow, augmentation and phasicity within the left lower extremity deep venous system. IMPRESSION: No sonographic evidence of deep venous thrombosis within the left lower extremity. The above report was generated using voice recognition software. It may contain grammatical, syntax or spelling errors. Electronically signed by: Vikas Braxton M.D. 01/22/2017 5:12 PM Dictated Date/Time: 01/22/2017 5:10 PM
[2017-01-22 18:00] VITALS: BP 179/83; PULSE 60; O2SAT 98
[2017-01-22] MEDS ORDERED: TRAMADOL HCL 50 MG HOME PACK PO ONE (18:00)
[2017-01-22] MEDS ORDERED: ACET-1311 PO (18:53)
[2017-01-22] MEDS ORDERED: HYDR-4717 PO (18:58)
[2017-01-22] MEDS ORDERED: EPP3/2 IM (18:58)
[2017-01-22] MEDS ORDERED: FURO-85 PO (19:03)
[2017-01-22] MEDS ORDERED: POTA-74 PO (19:03)
== END 2017-01-22 18:06 | disposition home or self-care (01) ==
LOC: C.EDB 14:50 → C.EDC 18:06
DX: M79.605 Pain in left leg (principal); I25.10 Atherosclerotic heart disease of native coronary artery without angina pectoris; Z95.1 Presence of aortocoronary bypass graft; I10 Essential (primary) hypertension; Z82.49 Family history of ischemic heart disease and other diseases of the circulatory system; Z79.899 Other long term (current) drug therapy

== ENCOUNTER 2018-12-29 20:23 | Observation (INO) ==
--- OUTSIDE RECORDS SUMMARY | 2018-12-29 20:25 | External Medical Summary | Continuity of Care Document ---
:1940 Author Name Paramjit Ortiz Address Unavailable Unavailable , Care Team Providers Name Role Phone Lisa Okeefe M.D. Unavailable [email or web address] Loco OKEEFE M.D. Unavailable Unavailable Brenda PACKER Unavailable Unavailable Cesar CASTRO Unavailable Unavailable Unavailable Unavailable Unavailable Problems Postnasal drip (784.91) (R09.82) Bowel incontinence (787.60) (R15.9) Joint pain, hip (719.45) (M25.559) Calf cramp (729.82) (R25.2) Pain in joint of left shoulder (719.41) (M25.512) Varicose veins (454.9) (I83.90) Lumbago (724.2) (M54.5) Diverticulosis (562.10) (K57.90) Urticaria (708.9) (L50.9) Screening for thyroid disorder (V77.0) (Z13.29) Limb pain (729.5) (M79.609) Encounter for screening for cardiovascular disorders (V81.2) (Z13.6) Tonsillar calculus (474.8) (J35.8) 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) Pre-operative exam (V72.84) (Z01.818) Plantar fasciitis (728.71) (M72.2) Seborrheic keratosis (702.19) (L82.1) Impaired fasting glucose (790.21) (R73.01) Dyspnea on exertion (786.09) (R06.09) Atypical chest pain (786.59) (R07.89) Hypertension (401.9) (I10) Back pain (724.5) (M54.9) Medical non-compliance (V15.81) (Z91.19) Angina pectoris (413.9) (I20.9) Renal artery stenosis (440.1) (I70.1) Postoperative pain (338.18) (G89.18) Postoperative anemia (285.9) (D64.9) Need for prophylactic measure (V07.9) (Z29.9) Constipation (564.00) (K59.00) Respiratory arrest (799.1) (R09.2) Angioedema (995.1) (T78.3XXA) CAD (coronary artery disease) (414.00) (I25.10) Ankle joint pain (719.47) (M25.579) Acute respiratory distress (518.82) (R06.03) Allergies and Adverse Reactions Lisinopril TABS (Allergy) Reaction: Lis oedema Medications Atorvastatin Calcium 80 MG Oral Tablet; Take 1 tablet daily Refills: 0 Aspirin EC Low Dose 81 MG Oral Tablet Delayed Release; Take 1 tablet daily Refills: 0 hydrALAZINE HCl - 50 MG Oral Tablet; HANNA E TABLET 3 times daily-hold when systolic bl pressure<90 Refills: 0 Combivent Respimat AERS; 1 puff qid Refills: 0 EpiPen 2-Derrick 0.3 MG/0.3ML DAVION; 0.3mg IM prnthroat swelling-use only when have severe throat/tongue swelling and not able to get medical service right away Refills: 0 Metoprolol Tartrate 25 MG Oral Tablet; Take 1 tablet twice d aily Refills: 0 PredniSONE (Derrick) TABS; as directed Refills: 0 Colace 100 MG Oral Capsule; Take 1 capsule twice daily Refills: 0 Plus 27-1 MG TABS; TAKE 1 TABLET DAILY. Quantity: 1 Refills: 3 Omeprazole 20 MG Oral Capsule Delayed Release; Take 1 capsul e twice daily Refills: 0 Procedures History of Cholecystectomy Status: Compl eted History of Total Abd Hysterect W/ Bilat Ovary Remov & Entero kenyetta Status: Completed Repair History of Appendectomy Status: Complete d History of Fiberoptic Examinations Sigmoidoscopy Status: Completed History of Colonoscopy (Fiberoptic) Stat us: Completed Immunizations Pneumococcal polysaccharide vaccine, 23 valent On: 0 16:10 Lot #: [id number], [employer] Influenza On: 09-Jan-2010 16:09 Lot #: [id number], [employer] Influenza On: 06-Apr-2013 10:06 Lot #: [id number], [employer] Family History Father Family history of Coronary Artery Disease Status: Active Mother Family history of Dementia Status: Active Brother Family history of Family Health Status Of Brother - Status: Active Sister Family history of Family Health Status Of Sister - Alive Sta tus: Active Social History - Smoking Status Never smoker Plan of Treatment Planned Observations Planned Goals not documented Results No Known Results Results not documented
[2018-12-29] MEDS ORDERED: ALBUT/IPRATROP 3MG/0.5MG NEB 3 ML VIAL NEB STA ×2 (21:20→22:42)
--- NOTE | 2018-12-29 21:52 | XRay Report ---
XR chest 1V portable HISTORY: 78 years-old Female sob acute shortness of breath COMPARISON: Chest radiograph 09/26/2016 TECHNIQUE: Portable AP view of the chest FINDINGS: Cardiac silhouette is mildly enlarged, unchanged. Prior median sternotomy with findings suggestive of probable CABG. No pneumothorax, pleural effusion, focal airspace consolidation or overt pulmonary ed swapna. Degenerative changes of the shoulders and spine. IMPRESSION: Cardiomegaly without acute process. The above report was generated using voice recognition software. It may contain grammatical, syntax o r spelling errors. Electronically signed by: Vikas Braxton M.D. 12/29/2018 9:51 PM
[2018-12-29 21:54] LABS: Basophils # (auto) 0.02 K/uL (0-0.2); Basophils % (auto) 0.3 %; Eosinophils # (auto) 0.21 K/uL (0-0.5); Eosinophils % (auto) 2.7 %; Hematocrit (blood only) 34.8 % (37-47); Hemoglobin 11.3 g/dL (12.0-16.0); Immature Granulocytes # (auto) 0.04 K/uL (0.00-0.02); Immature Granulocytes % (auto) 0.5 %; Lymphocytes # (auto) 1.23 K/uL (1.2-3.4); Lymphocytes % (auto) 15.8 %; Mean Corpuscular Hgb Conc 32.5 g/dL (32-36); Mean Corpuscular Volume 95.6 fL (80-100); Mean Platelet Volume 10.2 fL (7.4-10.4); Monocytes % (auto) 5.1 %; Neutrophils # (auto) 5.89 K/uL (1.4-6.5); Neutrophils % (auto) 75.6 %; Platelet Count 173 K/uL (130-400); RDW Coefficient of Variation 15.8 % (11.5-14.5); RDW Standard Deviation 55.2 fL (36.4-46.3); Red Blood Count 3.64 M/uL (4.2-5.4); White Blood Count 7.79 K/uL (4.8-10.8)
[2018-12-29 22:03] LABS: INR 1.1 (0.9-1.1); Prothrombin Time 10.9 Seconds (9.0-12.0)
[2018-12-29 22:17] LABS: Alanine Aminotransferase 21 U/L (12-78); Albumin Level 3.5 gm/dl (3.4-5.0); Aspartate Aminotransferase 20 U/L (15-37); BUN Creatinine Ratio 14.5 (10-20); Blood Urea Nitrogen 18 mg/dl (7-18); Calcium 9.2 mg/dl (8.5-10.1); Carbon Dioxide 24 mmol/L (21-32); Chloride 108 mmol/L (98-107); Est GFR (African American) 48.9; Est GFR (Non-African American) 42.2; Glucose 90 mg/dl (70-99); Magnesium 2.3 mg/dl (1.8-2.4); Potassium 3.6 mmol/L (3.5-5.1); Sodium 141 mmol/L (136-145)
[2018-12-29 22:28] LABS: Albumin Globulin Ratio 0.8 (0.9-2); Alkaline Phosphatase 95 U/L (45-117); Bilirubin,Total 0.8 mg/dl (0.2-1); Globulin 4.5 gm/dl (2.5-4.0); NT Pro B Type Natriuretic Pept 2087 pg/ml (0-1800); Troponin I < 0.015 ng/ml (0-0.045)
[2018-12-29] MEDS ORDERED: BENZONATATE 100 MG CAPSULE PO ONE (22:42)
[2018-12-29] MEDS ORDERED: IOVERSOL 100ml IV PRN (23:13)
[2018-12-29] MEDS ORDERED: methylPREDNISolone 125 MG/2 ML VIAL IV STA (23:33)
[2018-12-29] MEDS ORDERED: cefTRIAXone SODIUM 2,000 MG/70 ML BAG IV STA (23:55)
[2018-12-29] MEDS ORDERED: AZITHROMYCIN 250 MG TAB PO ONE (23:55)
[2018-12-30] MEDS ORDERED: ONDANSETRON INJ 2 MG/ML 2 ML VIAL IV PRN (01:12)
[2018-12-30] MEDS ORDERED: ACETAMINOPHEN 325 MG TAB PO PRN (01:12)
[2018-12-30] MEDS ORDERED: EPINEPHRINE ADULT AUTO-INJECT 0.3 MG SYR IM PRN (01:12)
[2018-12-30] MEDS ORDERED: ALBUT/IPRATROP 3MG/0.5MG NEB 3 ML VIAL NEB PRN (01:12)
[2018-12-30] MEDS ORDERED: GUAIFENESIN/CODEINE 100MG/10MG 5ML UDC ONE (01:41)
--- NOTE | 2018-12-30 01:47 | History and Physical Report ---
DATE OF ADMISSION: 12/30/2018 CHIEF COMPLAINT: Cough and fever. HISTORY OF PRESENT ILLNESS: This is an 78-year-old female with past medical history significant for hyperlipidemia, renal artery stenosis, hypertension, CAD status post CABG, chronic kidney disease stage III, generalized osteoarthritis, nocturnal muscle cramps, history of angioedema, presents with cough and shortness of breath going on for the last 1 week. The patient says symptoms started last Saturday with runny nose, cough, not feeling well, states it lasted for 2-3 days and she improved for a couple of days. Again, the symptoms came back and not feeling well. She lives with her daughter and son-in-law , but right now, they are in [place] and daughter actually visited a couple of times last week and she took her temperature, they were running high at 100-102 degrees. As she was not feeling well, she came here. Her vitals were stable. No leukocytosis. Chest x-ray was okay, but CAT scan showed right middle lobe infiltrates. Received Rocephin and azithromycin. We were called for admission. She has some chest pain while she is coughing. She ambulates without any help at home, but lately she is feeling weak and tired, poor appetite. No nausea, no vomiting, mild sweating, no headache, no dizziness, no blurred visions, no earache, no sore throat. Normal bowel movements. No bloody stools or black stools. She is having frequent urination, but denies any burning micturition or hematuria. No swelling in the legs, no rash. Currently resting comfortably and hemodynamically stable. ALLERGIES: LISINOPRIL CAUSED ANGIOEDEMA. PAST MEDICAL HISTORY: As mentioned above. PAST SURGICAL HISTORY: CABG, ligation of oviducts, appendectomy, cholecystectomy, total abdominal hysterectomy with removal of tubes. MEDICATIONS: The patient is on atorvastatin 20 mg p.o. daily, Lasix 20 mg p.o. daily, Lopressor 25 mg p.o. b.i.d., omeprazole 20 mg p.o. daily, potassium chloride 10 mEq p.o. daily, hydralazine 50 mg p.o. t.i.d., Claritin 10 mg p.o. daily, epinephrine p.r.n., aspirin 81 mg p.o. daily. FAMILY HISTORY: Significant for brother who of [place] at age 68. Father of [place] at age of 68. Paternal grandmother at age 60. SOCIAL HISTORY: , currently lives with daughter and son-in-law. No smoking, alcohol or drug use. REVIEW OF SYMPTOMS: As per HPI. Rest of review of symptoms is negative. PHYSICAL EXAMINATION: GENERAL: The patient is of moderate built, not in acute distress. VITAL SIGNS: Temperature 36.6, pulse 66, respiratory rate 20, blood pressure 117/67, oxygen 96% on room air. HEENT: No pallor, no icterus. Pupils equal, round, and reactive to light. NECK: No JVD, no neck masses, no carotid bruits. CARDIOVASCULAR: S1, S2 heard, regular rate and rhythm, no murmur, no gallop. RESPIRATORY SYSTEM: Normal AP diameter. No accessory muscle use. No wheezing, no crackles. ABDOMEN: Soft, bowel sounds present, nontender. No distention. CENTRAL NERVOUS SYSTEM: Cranial nerves II-XII grossly intact. Nonfocal. EXTREMITIES: No edema, no erythema. LABORATORY DATA: WBC 7.7, hemoglobin 11.3, hematocrit 34.8, platelets 173. PT 10.9, INR 1.1. Sodium 141, potassium 3.6, chloride 108, bicarbonate 24, BUN 18, creatinine 1.2, serum glucose 90, calcium 9.2, magnesium 2.3, total bilirubin 0.8, AST 20, ALT 21, alkaline phosphatase is 95. Troponin I less than 0.015. BNP 2087. TSH 3.8. Chest x-ray, cardiomegaly without acute process. CT of the chest, unofficial report, right middle lobe infiltrate. EKG: Sinus bradycardia with first-degree AV block with rate of 58, incomplete right bundle branch block, no acute ST changes seen. ASSESSMENT AND PLAN: This is an 78-year-old female who presents with cough and fever going on for 1 week. 1. Cough and fever, most likely secondary to community-acquired pneumonia, right middle lobe infiltrate on CAT scan. We will follow the official report. The patient does not have any symptoms of dysphagia and aspiration. Received Rocephin and azithromycin in the ER. We will continue with Rocephin and p.o. doxycycline. Follow the cultures. Follow the response. Monitor on the medical floor. Grayson smith 2. Coronary artery disease, status post coronary artery bypass graft. Continue statin, Lopressor and aspirin. Currently stable. 3. History of hypertension. Continue hydralazine, Lopressor, and Lasix. Monitor the blood pressure. 4. Hyperlipidemia. Continue statin. 5. Chronic kidney disease stage III, baseline creatinine of 1.2, which is baseline. We will follow the labs. 6. Deep venous thrombosis prophylaxis, sequential compression devices for now. 7. Disposition: Admit to medical floor. PT and OT prior to discharge. Expect to discharge home and follow with family doctor and Social Service to help with discharge planning. Level 1 full code. MTDD
[2018-12-30] MEDS ORDERED: SODIUM CHLORIDE 0.9% 1000ML 1,000 ML IV SCH ×2 (03:20→16:00)
--- NOTE | 2018-12-30 06:50 | CT Scan Report ---
CT OF THE CHEST WITH IV CONTRAST CLINICAL HISTORY: Shortness of breath. Cough. COMPARISON STUDY: Chest CT March 30, 2015. Chest radiograph performed December 29, 2018. TECHNIQUE: Following IV administration of 94 mL of Optiray-320, helical axial images of the chest we re obtained. Sagittal and coronal reconstructions were viewed as well as maximal intensity projectio ns on an independent 3-D workstation. Automated exposure control was utilized for the study. A dose lowering technique was utilized adhering to the principles of ALARA. CT DOSE: 675.03 mGy.cm FINDINGS: There are median sternotomy wires and postoperative findings from bypass grafting. The hea rt is moderately enlarged. There is no pericardial effusion. No central pulmonary embolus is identifi ed. There is no pneumothorax or pleural effusion. Mild groundglass opacities within the right middle lobe are noted. Minimal lingular groundglass opacity is noted. Central airways are patent. No suspici ous osseous lesions are noted. There are calcified granulomas within the liver and spleen. Visualized portions of several left renal lesions measure water attenuation. IMPRESSION: 1. Minimal groundglass opacities within the right middle lobe and lingula which favor a mild infectio us process. 2. Moderate cardiomegaly. Electronically signed by: Adarsh Kessler M.D. 12/30/2018 6:48 AM
[2018-12-30] MEDS: FUROSEMIDE 20 MG TAB PO SCH (08:58)
[2018-12-30] MEDS: ATORVASTATIN 20 MG TAB PO SCH (08:58)
[2018-12-30] MEDS: METOPROLOL TARTRATE 25 MG TAB PO SCH ×2 (08:58→20:03)
[2018-12-30] MEDS: HydrALAZINE TAB 50 MG TAB PO SCH ×3 (08:58→20:02)
[2018-12-30] MEDS: MULTIVITAMIN TAB PO SCH (08:58)
[2018-12-30] MEDS: PANTOprazole 40 MG TAB PO SCH (08:58)
[2018-12-30] MEDS: LORATADINE 10 MG TAB PO SCH (08:58)
[2018-12-30] MEDS: ASPIRIN 81 MG ECTAB PO SCH (08:58)
[2018-12-30] MEDS: DOXYCYCLINE HYCLATE 100 MG CAP PO SCH ×2 (08:59→20:01)
[2018-12-30 14:32] LABS: Appearance Urine Clear (Clear); Bacteria Urine Automated Negative (Negative); Bilirubin Urine Negative (Negative); Blood Urine Negative (Negative); Color Urine Dark Yellow; Glucose Urine UA Negative (Negative); Ketones Urine Negative (Negative); Leukocyte Esterase Urine 1+ (Negative); Nitrite Urine Negative (Negative); Protein Urine Negative (Negative); RBC Urine Automated 0-4 /hpf (0-4); Specific Gravity Urine 1.041 (1.000-1.030); Urobilinogen Urine Negative (Negative)
[2018-12-30] MEDS: AMLODIPINE BESYLATE 5 MG TAB PO SCH (16:37)
--- NOTE | 2018-12-30 16:52 | Hospitalist Progress Note ---
Date of Service December 30, 2018 Assessment & Plan (1) Pneumonia: Complaining of shortness of breath with cough for a few days before admission CT of the chest showed infiltration involving the right middle lobe and lingular area She has been getting intravenous ceftriaxone and oral doxycycline Clinically little better We will continue current antibiotics (2) Accelerated hypertension: Has history of high blood pressure Has been on beta-giovanni metoprolol 25 mg twice a day Systolic blood pressure noted to be more than 180 Heart rate is 61-will not increase any beta-giovanni Add amlodipine 5 mg daily (3) History of quadruple bypass: History of cardiac bypass surgery Denies any chest pain in the palpitation No change in her current medications for the heart Hyperlipidemia Continue statin Chronic kidney disease stage III Kidney function is worse compared with yesterday We will monitor p.m. DVT prophylaxis SCDs and subcu heparin CODE STATUS Full Subjective 12/30 Patient is seen and examined in medical floor She was admitted cough and fever for some time to have right middle lobe and lingular infiltration A little better since admission with decreasing cough and shortness of breath Denies any fever and/or chills and no chest pain and/or palpitation Review of Systems Review of Systems: All systems reviewed and are unremarkable except as noted Respiratory: + cough; no dyspnea and no hemoptysis Cardiovascular: no chest pain Gastrointestinal: no abdominal pain Physical Exam Physical Exam: No apparent distress at rest Constitutional: well developed, well nourished, + ill appearing and + obese; no acute distress Eyes: PERRL, conjunctivae normal, anicteric sclerae ENMT: external ear and nose normal, oropharynx normal Neck: trachea midline, no thyromegaly Respiratory: no respiratory distress Auscultation: + diminished lung sounds Cardiovascular: Rate/Rhythm: regular rate and regular rhythm Heart Sounds: no murmur Gastrointestinal (Abdomen): Inspection/Auscultation: abdomen normal to inspection Percussion/Palpation: abdomen soft Musculoskeletal: No acute arthritis in any of the joints Neurologic: moves all extremities; no focal motor deficits Lymphatic: no cervical or axillary lymphadenopathy Results & Data Vital Signs (Past 12 Hours) Vital Signs Temp Pulse Resp BP Pulse Ox 12/30/18 15:00 36.6 C 61 18 180/77 H 97 12/30/18 07:10 36.9 C 62 16 169/79 H 94 Laboratory Results Short CBC 12/29/18 Range/Units 21:31 WBC 7.79 (4.8-10.8) K/uL Hgb 11.3 L (12.0-16.0) g/dL Hct 34.8 L (37-47) % Plt Count 173 (130-400) K/uL BMP 12/29/18 21:31 Sodium 141 Potassium 3.6 Chloride 108 H Carbon Dioxide 24 BUN 18 Creatinine 1.21 H Glucose 90 Calcium 9.2 Cardiac Enzymes 12/29/18 Range/Units 21:31 Troponin I < 0.015 (0-0.045) ng/ml Liver Function 12/29/18 Range/Units 21:31 Total Bilirubin 0.8 (0.2-1) mg/dl AST 20 (15-37) U/L ALT 21 (12-78) U/L Alkaline Phosphatase 95 (45-117) U/L Albumin 3.5 (3.4-5.0) gm/dl Urine 12/30/18 Range/Units 13:40 Urine Color Dark Yellow Urine Appearance Clear (Clear) Urine pH 5.0 (4.5-7.5) Ur Specific Collins 1.041 H (1.000-1.030) Urine Protein Negative (Negative) Urine Glucose (UA) Negative (Negative) Medications Administered Current Inpatient Medications Acetaminophen (Tylenol) 650 mg PO Q4H PRN PRN Reason: pain/fever Stop: 01/29/19 01:11 Albuterol (Duoneb) 3 ml NEB Q4H PRN PRN Reason: Shortness Of Breath Or Wheezing Stop: 01/29/19 01:11 Amlodipine Besylate (Norvasc) [facility] Stop: 01/29/19 15:59 Last Admin: 12/30/18 16:37 Dose: 5 mg Documented by: Aspirin (Ecotrin Ectab) 81 mg PO DAILY [facility] Stop: 01/29/19 08:59 Last Admin: 12/30/18 08:58 Dose: 81 mg Documented by: Atorvastatin Calcium (Lipitor) 20 mg PO DAILY [facility] Stop: 01/29/19 08:59 Last Admin: 12/30/18 08:58 Dose: 20 mg Documented by: Doxycycline Hyclate (Vibramycin) 100 mg PO BID [facility] Stop: 01/06/19 08:59 Last Admin: 12/30/18 08:59 Dose: 100 mg Documented by: Epinephrine HCl (Epipen) 0.3 mg IM UD PRN PRN Reason: Allergic Reaction Stop: 01/29/19 01:11 Furosemide (Lasix) 20 mg PO QAM [facility] Stop: 01/29/19 08:59 Last Admin: 12/30/18 08:58 Dose: 20 mg Documented by: Guaifenesin/Codeine Phosphate (Robitussin-Ac Sugar Free) 5 ml PO Q6H PRN PRN Reason: Cough Stop: 01/29/19 01:11 Hydralazine HCl (Apresoline) 50 mg PO TID [facility] Stop: 01/29/19 08:59 Last Admin: 12/30/18 13:06 Dose: 50 mg Documented by: Ceftriaxone Sodium 1,000 mg/ (Dextrose) 60 mls @ 100 mls/hr IV Q24H [facility]; Protocol Stop: 01/06/19 21:59 Loratadine (Claritin) 10 mg PO DAILY [facility] Stop: 01/29/19 08:59 Last Admin: 12/30/18 08:58 Dose: 10 mg Documented by: Metoprolol Tartrate (Lopressor) 25 mg PO BID [facility] Stop: 01/29/19 08:59 Last Admin: 12/30/18 08:58 Dose: 25 mg Documented by: Multivitamins (Multivitamin Tab) 1 tab PO DAILY [facility] Stop: 01/29/19 08:59 Last Admin: 12/30/18 08:58 Dose: 1 tab Documented by: Ondansetron HCl (Zofran) 4 mg IV Q6H PRN PRN Reason: Nausea Stop: 01/29/19 01:11 Pantoprazole Sodium (Protonix) 40 mg PO DAILY [facility] Stop: 01/29/19 08:59 Last Admin: 12/30/18 08:58 Dose: 40 mg Documented by: Potassium Chloride (Klor-Con M10) 10 meq PO QPM [facility] Stop: 01/29/19 20:59 (1) Pneumonia Laterality: right Lung location: middle lobe of lung Pneumonia type: due to unspecified organism Qualified Code(s): J18.1 - Lobar pneumonia, unspecified organism
[2018-12-30] MEDS: POTASSIUM CHLORIDE 10 MEQ TABCR PO SCH (20:02)
[2018-12-30] MEDS: cefTRIAXone SODIUM 1,000 MG in DEXTROSE 5% 50 ML IV SCH (21:19)
[2018-12-30] MEDS: HEPARIN SOD 5,000 UNIT/0.5 ML VIAL SQ SCH (21:19)
[2018-12-30] MEDS: GUAIFENESIN/CODEINE 100MG/10MG 5ML UDC PO PRN (21:29)
[2018-12-31 07:33] LABS: Basophils # (auto) 0.02 K/uL (0-0.2); Basophils % (auto) 0.2 %; Eosinophils # (auto) 0.07 K/uL (0-0.5); Eosinophils % (auto) 0.7 %; Hematocrit (blood only) 30.7 % (37-47); Hemoglobin 9.8 g/dL (12.0-16.0); Immature Granulocytes # (auto) 0.03 K/uL (0.00-0.02); Immature Granulocytes % (auto) 0.3 %; Mean Corpuscular Hemoglobin 30.2 pg (25-34); Mean Corpuscular Hgb Conc 31.9 g/dL (32-36); Mean Corpuscular Volume 94.5 fL (80-100); Monocytes # (auto) 0.68 K/uL (0.11-0.59); Monocytes % (auto) 7.2 %; Neutrophils # (auto) 6.79 K/uL (1.4-6.5); Neutrophils % (auto) 71.6 %; Platelet Count 175 K/uL (130-400); RDW Standard Deviation 55.4 fL (36.4-46.3); Red Blood Count 3.25 M/uL (4.2-5.4); White Blood Count 9.49 K/uL (4.8-10.8)
[2018-12-31 07:58] LABS: BUN Creatinine Ratio 22.7 (10-20); Calcium 9.3 mg/dl (8.5-10.1); Creatinine Clr Calc Pharmacy 32.8 ml/min; Est GFR (African American) 42.5; Est GFR (Non-African American) 36.7; Magnesium 2.2 mg/dl (1.8-2.4); Potassium 3.9 mmol/L (3.5-5.1)
[2018-12-31] MEDS: HydrALAZINE TAB 50 MG TAB PO SCH ×3 (08:47→20:27)
[2018-12-31] MEDS: DOXYCYCLINE HYCLATE 100 MG CAP PO SCH ×2 (08:47→20:27)
[2018-12-31] MEDS: MULTIVITAMIN TAB PO SCH (08:47)
[2018-12-31] MEDS: FUROSEMIDE 20 MG TAB PO SCH (08:47)
[2018-12-31] MEDS: AMLODIPINE BESYLATE 5 MG TAB PO SCH (08:47)
[2018-12-31] MEDS: ASPIRIN 81 MG ECTAB PO SCH (08:47)
[2018-12-31] MEDS: LORATADINE 10 MG TAB PO SCH (08:47)
[2018-12-31] MEDS: ATORVASTATIN 20 MG TAB PO SCH (08:47)
[2018-12-31] MEDS: PANTOprazole 40 MG TAB PO SCH (08:47)
[2018-12-31] MEDS: HEPARIN SOD 5,000 UNIT/0.5 ML VIAL SQ SCH ×2 (08:48→20:31)
[2018-12-31] MEDS: METOPROLOL TARTRATE 25 MG TAB PO SCH ×2 (08:52→20:27)
[2018-12-31] MEDS: GUAIFENESIN/CODEINE 100MG/10MG 5ML UDC PO PRN ×3 (08:55→22:02)
--- NOTE | 2018-12-31 14:43 | Emergency Department Note ---
Entered by Teodora Mabry acting as a scribe for Rivka Gallardo DO History of Present Illness General Chief complaint: Respiratory Problems Stated complaint: COLD, CHEST Time Seen by Provider: 12/29/18 20:55 Source: patient History of Present Illness Onset (ago): week(s) 1 Location: left (lung) and right (lung) Pain Consistency: + other (Worsening) Quality: + other (Pressure) Exacerbated By: + movement Associated symptoms: + chest pain, + cough, + fever/chills (Positive fever. Negative chills.), + shortness of breath and + other (Cold, sore throat, wheezing) Treatments prior to arrival: none The patient is an 78 year old female presenting to the Emergency Department complaining of worsening shortness of breath starting 1 week ago. The patient reports that she has a cough and cold. She states that her throat is sore. She explains that she had a fever a few days ago but did not have chills. She notes that she is short of breath and wheezing. She adds that she felt a pain in her chest [employer] that she describes as a pressure. The patient reports that moving around worsens her symptoms. She states that she took no medications for her symptoms [employer]. She denies smoking tobacco, history of pneumonia, history of asthma and history of COPD. No recent travel, no known sick contacts. No hx of CHF. Home Medications Home Medications Medication Instructions Recorded Confirmed Type acetaminophen [Tylenol Extra 1,000 mg PO Q6H PRN 12/29/18 12/29/18 History Strength] aspirin 81 mg PO DAILY 12/29/18 12/29/18 History atorvastatin 20 mg PO DAILY 12/29/18 12/29/18 History epinephrine [EpiPen] 0.3 mg IM DIRECTED PRN 12/29/18 12/29/18 History furosemide 20 mg PO QAM 12/29/18 12/29/18 History hydralazine 50 mg PO TID 12/29/18 12/29/18 History loratadine 10 mg PO DAILY 12/29/18 12/29/18 History metoprolol tartrate 25 mg PO BID 12/29/18 12/29/18 History multivitamin 1 tab PO DAILY 12/29/18 12/29/18 History omeprazole 20 mg PO QAM 12/29/18 12/29/18 History potassium chloride 10 meq PO QPM 12/29/18 12/29/18 History Allergies Allergy/AdvReac Type Severity Reaction Status Date / Time lisinopril Allergy Severe Angioedema Verified 12/29/18 22:20 Past Med/Surg History Medical History Varicose veins Accelerated hypertension Surgical History History of quadruple bypass Social History Preferred Language: Cuban Communication Ability: Effective [employer]ossing [employer] Required: No Beliefs That Will Affect Care: None marital status: Single Current Living Situation: Alone Other Information That Helps Us Care for You: No Feels Safe at Home: Yes Safety Concerns: Feels Safe At This Time Smoking Status: Never smoker Do You Dip or Chew Tobacco: No ; Hx Alcohol Use: No Hx Substance Use: No Review of Systems See HPI for pertinent positives & negatives. and A total of 10 systems reviewed and were otherwise negative Physical Exam Vital Signs Vital Signs - 24 hr 12/29/18 20:28 12/29/18 20:43 12/29/18 20:57 Temperature 97.9 F Temperature Source Oral Sepsis Recent Fever Within 48 Hours No Sepsis Action Taken by Nursing No Action Required Pulse Rate 53 L 59 L Pulse Rate [Apical] Pulse Rate [Exercises] Pulse Rate [Left Apical] Respiratory Rate 18 24 Respiratory Rate [Exercises] Respiratory Effort / Characteristics Respiratory Depth Normal Blood Pressure 163/79 H Blood Pressure [Right Arm] Blood Pressure Mean 107 Blood Pressure Mean [Right Arm] Pulse Oximetry 96 97 Pulse Oximetry [Exercises] Oxygen Delivery Method Room Air Room Air Room Air 12/29/18 21:32 12/29/18 21:49 12/29/18 22:15 Temperature Temperature Source Sepsis Recent Fever Within 48 Hours Sepsis Action Taken by Nursing Pulse Rate Pulse Rate [Apical] 54 L Pulse Rate [Exercises] Pulse Rate [Left Apical] 53 L 64 Respiratory Rate 20 18 17 Respiratory Rate [Exercises] Respiratory Effort / Characteristics Non-Labored Spontaneous Respiratory Depth Normal Blood Pressure Blood Pressure [Right Arm] 208/84 H 181/79 H Blood Pressure Mean Blood Pressure Mean [Right Arm] 125 113 Pulse Oximetry 96 96 96 Pulse Oximetry [Exercises] Oxygen Delivery Method Room Air Room Air Room Air 12/29/18 22:51 12/29/18 23:55 12/30/18 00:00 Temperature Temperature Source Sepsis Recent Fever Within 48 Hours Sepsis Action Taken by Nursing Pulse Rate Pulse Rate [Apical] Pulse Rate [Exercises] 74 Pulse Rate [Left Apical] 61 66 Respiratory Rate 18 20 Respiratory Rate [Exercises] 22 Respiratory Effort / Characteristics Non-Labored Spontaneous Respiratory Depth Blood Pressure Blood Pressure [Right Arm] 178/67 H Blood Pressure Mean Blood Pressure Mean [Right Arm] 104 Pulse Oximetry 96 96 Pulse Oximetry [Exercises] 95 Oxygen Delivery Method Room Air Room Air Room Air GENERAL: alert, ill appearing, well nourished, no distress, non-toxic EYE EXAM: normal conjunctiva, PERRL and EOM's grossly intact OROPHARYNX: no exudate, no erythema, lips, buccal mucosa, and tongue normal and mucous membranes are moist NECK: supple, no nuchal rigidity, no adenopathy, non-tender LUNGS: Clear to auscultation. Normal chest wall mechanics. Frequent cough. Bilateral expiratory wheeze. HEART: no murmurs, S1 normal and S2 normal ABDOMEN: abdomen soft, non-tender, normo-active bowel sounds, no masses, no rebound or guarding. BACK: Back is symmetrical on inspection and there is no deformity, no midline tenderness, no CVA tenderness. SKIN: no rashes and no bruising UPPER EXTREMITIES: upper extremities are grossly normal. FROM, nml pulses b/l. LOWER EXTREMITIES: No pitting edema. FROM, nml pulses b/l. NEURO EXAM: Normal sensorium, cranial nerves II-XII grossly intact, normal speech, no gross weakness of arms, no gross weakness of legs. Course 2103: The patient was evaluated in room A4B, and a complete history and physical examination were performed. 2231: I reevaluated the patient at this time who reported that she feels improved after her nebulizer. Decreased wheezing on repeat lung exam. 4: The patient is undergoing an ambulatory trial at this time. Increased WOB despite no hypoxia. 0000: I reevaluated the patient at this time. Pneumonia seen on CT. I discussed the patients options. Patient with increased work of breathing despite hypoxia. Patient lives alone. 0006: I discussed the patient's case with Dr. Gloria Goodwin hospitalist. He will evaluate the patient for further management. Consultations Consultation #1: I discussed the patient's case [facility]. He will evaluate the patient for further management. Time: 00:06 Administered Medications Acetaminophen (Tylenol) 650 mg PO Q4H PRN PRN Reason: pain/fever Stop: 01/29/19 01:11 Last Admin: 12/31/18 14:03 Dose: 650 mg Documented by: [id number] Albuterol (Duoneb) 3 ml NEB Q4H PRN PRN Reason: Shortness Of Breath Or Wheezing Stop: 01/29/19 01:11 Last Admin: 12/31/18 13:25 Dose: 3 ml Documented by: [id number] Amlodipine Besylate (Norvasc) 5 mg PO QAM [facility] Stop: 01/29/19 15:59 Last Admin: 12/31/18 08:47 Dose: 5 mg Documented by: [id number] Admin: 12/30/18 16:37 Dose: 5 mg Documented by: [id number] Aspirin (Ecotrin Ectab) 81 mg PO DAILY [facility] Stop: 01/29/19 08:59 Last Admin: 12/31/18 08:47 Dose: 81 mg Documented by: [id number] Admin: 12/30/18 08:58 Dose: 81 mg Documented by: [id number] Atorvastatin Calcium (Lipitor) 20 mg PO DAILY [facility] Stop: 01/29/19 08:59 Last Admin: 12/31/18 08:47 Dose: 20 mg Documented by: [id number] Admin: 12/30/18 08:58 Dose: 20 mg Documented by: [id number] Doxycycline Hyclate (Vibramycin) 100 mg PO BID [facility] Stop: 01/06/19 08:59 Last Admin: 12/31/18 08:47 Dose: 100 mg Documented by: [id number] Admin: 12/30/18 20:01 Dose: 100 mg Documented by: [id number] Admin: 12/30/18 08:59 Dose: 100 mg Documented by: [id number] Furosemide (Lasix) 20 mg PO QAM [facility] Stop: 01/29/19 08:59 Last Admin: 12/31/18 08:47 Dose: 20 mg Documented by: [id number] Admin: 12/30/18 08:58 Dose: 20 mg Documented by: [id number] Guaifenesin/Codeine Phosphate (Robitussin-Ac Sugar Free) 5 ml PO Q6H PRN PRN Reason: Cough Stop: 01/29/19 01:11 Last Admin: 12/31/18 08:55 Dose: 5 ml Documented by: [id number] Admin: 12/30/18 21:29 Dose: 5 ml Documented by: [id number] Heparin Sodium (Porcine) (Heparin Sodium (Porcine)) 5,000 units SQ Q12 [facility]OLE Stop: 01/29/19 20:59 Last Admin: 12/31/18 08:48 Dose: 5,000 units Documented by: [id number] Cosigned by: [id number] Admin: 12/30/18 21:19 Dose: 5,000 units Documented by: [id number] Cosigned by: [id number] Hydralazine HCl (Apresoline) 50 mg PO TID CAROLE Stop: 01/29/19 08:59 Last Admin: 12/31/18 14:05 Dose: 50 mg Documented by: [id number] Admin: 12/31/18 08:47 Dose: 50 mg Documented by: [id number] Admin: 12/30/18 20:02 Dose: 50 mg Documented by: [id number] Admin: 12/30/18 13:06 Dose: 50 mg Documented by: [id number] Admin: 12/30/18 08:58 Dose: 50 mg Documented by: [id number] Ceftriaxone Sodium 1,000 mg/ (Dextrose) 60 mls @ 100 mls/hr IV Q24H [facility]; Protocol Stop: 01/06/19 21:59 Last Infusion: 12/30/18 21:58 Dose: 0 mls/hr Documented by: [id number] Admin: 12/30/18 21:19 Dose: 100 mls/hr Documented by: [id number] Loratadine (Claritin) 10 mg PO DAILY CAROLE Stop: 01/29/19 08:59 Last Admin: 12/31/18 08:47 Dose: 10 mg Documented by: [id number] Admin: 12/30/18 08:58 Dose: 10 mg Documented by: [id number] Metoprolol Tartrate (Lopressor) 25 mg PO BID CAROLE Stop: 01/29/19 08:59 Last Admin: 12/31/18 08:52 Dose: Not Given Documented by: [id number] Admin: 12/30/18 20:03 Dose: Not Given Documented by: [id number] Admin: 12/30/18 08:58 Dose: 25 mg Documented by: [id number] Multivitamins (Multivitamin Tab) 1 tab PO DAILY CAROLE Stop: 01/29/19 08:59 Last Admin: 12/31/18 08:47 Dose: 1 tab Documented by: [id number] Admin: 12/30/18 08:58 Dose: 1 tab Documented by: [id number] Pantoprazole Sodium (Protonix) 40 mg PO DAILY CAROLE Stop: 01/29/19 08:59 Last Admin: 12/31/18 08:47 Dose: 40 mg Documented by: [id number] Admin: 12/30/18 08:58 Dose: 40 mg Documented by: [id number] Potassium Chloride (Klor-Con M10) 10 meq PO QPM CAROLE Stop: 01/29/19 20:59 Last Admin: 12/30/18 20:02 Dose: 10 meq Documented by: [id number] Discontinued Medications Albuterol (Duoneb) 3 ml NEB NOW STA Stop: 12/29/18 21:21 Last Admin: 12/29/18 21:48 Dose: 3 ml Documented by: [id number] Albuterol (Duoneb) 3 ml NEB NOW STA Stop: 12/29/18 22:43 Last Admin: 12/29/18 22:51 Dose: 3 ml Documented by: [id number] Azithromycin (Zithromax) 500 mg PO NOW ONE Stop: 12/29/18 23:56 Last Admin: 12/30/18 00:13 Dose: 500 mg Documented by: [id number] Benzonatate (Tessalon Perle) 100 mg PO NOW ONE Stop: 12/29/18 22:43 Last Admin: 12/29/18 22:47 Dose: 100 mg Documented by: [id number] Guaifenesin/Codeine Phosphate (Robitussin-Ac Sugar Free) Confirm Administered Dose 5 ml .ROUTE .STK-MED ONE Stop: 12/30/18 01:42 Last Admin: 12/30/18 01:43 Dose: 5 ml Documented by: [id number] Ceftriaxone Sodium (Rocephin) 2,000 mg in 70 mls @ 140 mls/hr IV NOW STA Stop: 12/30/18 00:24 Last Infusion: 12/30/18 00:44 Dose: 0 mls/hr Documented by: [id number] Admin: 12/30/18 00:13 Dose: 140 mls/hr Documented by: [id number] Sodium Chloride (Nss 1000ml) 1,000 mls @ 75 mls/hr IV .[id number] CAROLE Stop: 12/30/18 16:00 Last Infusion: 12/30/18 16:18 Dose: 0 mls/hr Documented by: [id number] Admin: 12/30/18 04:04 Dose: 75 mls/hr Documented by: [id number] Ioversol (Optiray 320 100ml) 100 ml IV ONCE PRN PRN Reason: Interaction Checking Stop: 01/02/19 23:12 Last Admin: 12/29/18 23:14 Dose: 94 ml Documented by: [id number] Methylprednisolone (Solumedrol) 60 mg IV NOW STA Stop: 12/29/18 23:34 Last Admin: 12/29/18 23:46 Dose: 60 mg Documented by: [id number] Medical Decision Making Differential Diagnosis Differential diagnoses includes but is not limited to pneumonia, bronchitis, COPD/Asthma exacerbation, pneumothorax, pulmonary embolism, congestive heart failure, acute coronary syndrome. Medical Records Attestation: I reviewed the patient's medical records. Home Medications Current Medication List: was personally reviewed by me Laboratory Data Attestation: I reviewed the patient's lab results. Result diagrams: 12/31/18 07:13 12/31/18 07:13 Lab Results 12/29/18 12/29/18 12/29/18 Range/Units 21:31 21:31 21:31 WBC 7.79 (4.8-10.8) K/uL RBC 3.64 L (4.2-5.4) M/uL Hgb 11.3 L (12.0-16.0) g/dL Hct 34.8 L (37-47) % MCV 95.6 (80-100) fL MCH 31.0 (25-34) pg MCHC 32.5 (32-36) g/dL RDW Std Deviation 55.2 H (36.4-46.3) fL RDW Coeff of Filiberto 15.8 H (11.5-14.5) % Plt Count 173 (130-400) K/uL MPV 10.2 (7.4-10.4) fL Immature Gran % (Auto) 0.5 % Neut % (Auto) 75.6 % Lymph % (Auto) 15.8 % Sutton % (Auto) 5.1 % Eos % (Auto) 2.7 % Baso % (Auto) 0.3 % Immature Gran # (Auto) 0.04 H (0.00-0.02) K/uL Neut # (Auto) 5.89 (1.4-6.5) K/uL Lymph # (Auto) 1.23 (1.2-3.4) K/uL Sutton # (Auto) 0.40 (0.11-0.59) K/uL Eos # (Auto) 0.21 (0-0.5) K/uL Baso # (Auto) 0.02 (0-0.2) K/uL PT 10.9 (9.0-12.0) Seconds INR 1.1 (0.9-1.1) Sodium 141 (136-145) mmol/L Potassium 3.6 (3.5-5.1) mmol/L Chloride 108 H (98-107) mmol/L Carbon Dioxide 24 (21-32) mmol/L Anion Gap 8.0 (3-11) BUN 18 (7-18) mg/dl Creatinine 1.21 H (0.6-1.2) mg/dl Est Cr Clr Drug Dosing Not Reportable Est GFR ( Amer) 48.9 Est GFR (Non-Af Amer) 42.2 BUN/Creatinine Ratio 14.5 (10-20) Glucose 90 (70-99) mg/dl Calcium 9.2 (8.5-10.1) mg/dl Magnesium 2.3 (1.8-2.4) mg/dl Total Bilirubin 0.8 (0.2-1) mg/dl AST 20 (15-37) U/L ALT 21 (12-78) U/L Alkaline Phosphatase 95 (45-117) U/L Troponin I < 0.015 (0-0.045) ng/ml NT-Pro-B Natriuret Pep 2087 H (0-1800) pg/ml Total Protein 8.0 (6.4-8.2) gm/dl Albumin 3.5 (3.4-5.0) gm/dl Globulin 4.5 H (2.5-4.0) gm/dl Albumin/Globulin Ratio 0.8 L (0.9-2) TSH 3.820 (0.300-4.500) uIu/ml Imaging Data Radiologist's Impression: Radiology results as stated below per my review and the radiologist's interpretation: CT CHEST With Contrast: Enhancement is not veryrobust. No central pulmonaryembolus. Verymild groundglass opacities in the right middle lobe. Patchyatelectasis and scarring. No effusion. Cardiomegalyand surgical changes. Old granulomatous disease. Radiologist: Ana Hightower M.D. Study ready at 23:24 and initial results transmitted at 23:50 XR chest 1V portable HISTORY: 78 years-old Female sob acute shortness of breath COMPARISON: Chest radiograph 09/26/2016 TECHNIQUE: Portable AP view of the chest FINDINGS: Cardiac silhouette is mildly enlarged, unchanged. Prior median sternotomy with findings suggestive of probable CABG. No pneumothorax, pleural effusion, focal airspace consolidation or overt pulmonary edema. Degenerative changes of the shoulders and spine. IMPRESSION: Cardiomegaly without acute process. The above report was generated using voice recognition software. It may contain grammatical, syntax or spelling errors. Electronically signed by: Vikas Braxton M.D. 12/29/2018 9:51 PM ECG Data Attestation: I personally reviewed and interpreted this ECG as follows: Indication: back/shoulder pain Rate (beats per minute): 58 Rhythm: sinus bradycardia Findings: + other (Normal QRS and QTC. ), + 1st degree AV block and + left axis deviation; no acute ischemic change Blood Pressure Blood Pressure Findings: Elevated blood pressure Blood Pressure Disposition: further management by hospitalist MDM Narrative Pt ill appearing with initial wheezing and increased WOB despite no hypoxia. Pt found to have right sided pneumonia on CT chest. No fever and VS stable. Based on CURB 65 score, I offered by discharge vs additional inpatient observation. Given that she lives alone and feels markedly SOB with exertion, she would prefer to have additional evaluation. I do feel this is reasonable given her age. Pt improved with nebs here. No recent hospitalizations. Pt covered for CAP. No evidence of overt CHF despite elevated BNP. No evidence of bact eremia/sepsis. Impression & Plan Pneumonia, Acute dyspnea, Elevated brain natriuretic peptide (BNP) level Discharge Plan Visit Data *Final* Discharge Date/Time: 12/30/18 01:02 Chief Complaint: Respiratory Problems Stated Complaint: COLD, CHEST ED Provider: Rivka Gallardo Discharge Problem: Pneumonia, Acute dyspnea, Elevated brain natriuretic peptide (BNP) level Patient Disposition: Admitted As Inpatient Discharge Instructions Interventions: ED Discharge Assessment Last Done: 12/30/18 01:02 Discharge Problem: Pneumonia Qualifiers: Pneumonia type: due to unspecified organism Laterality: right Lung location: middle lobe of lung Qualified Code(s): J18.1 - Lobar pneumonia, unspecified organism The scribe's documentation has been prepared under my direction and personally reviewed by me in its entirety. I confirm that the note above accurately reflects all work, treatment, procedures, and medical decision making performed by me.
[2018-12-31] MEDS ORDERED: COUGH DROP (SUGAR FREE) LOZ 24 LOZ/1 BOX BUCCAL ONE (16:00)
--- NOTE | 2018-12-31 19:37 | Hospitalist Progress Note ---
Date of Service December 31, 2018 Assessment & Plan (1) Pneumonia: Complaining of shortness of breath with cough for a few days before admission CT of the chest showed infiltration involving the right middle lobe and lingular area Continue intravenous ceftriaxone and oral doxycycline Clinically improves (2) Accelerated hypertension: Has history of high blood pressure Continue metoprolol 25 mg twice a day and amlodipine BP stable (3) History of quadruple bypass: History of cardiac bypass surgery Denies any chest pain in the palpitation No change in her current medications for the heart Hyperlipidemia Continue statin Chronic kidney disease stage III Kidney function is worse compared with yesterday We will monitor p.m. DVT prophylaxis SCDs and subcu heparin CODE STATUS Full Subjective Pt was seen and examined Lying in bed with no distress Pt said that breathing seems to improve now She said that early today she was not feeling well Denies any chest pain, palpitation, dizziness and SOB Physical Exam Physical Exam: General- No acute distress Head- atraumatic Eyes- PERRL, EOMI, ENT- oropharynx clear Neck- supple, no JVD Lungs- +diminished breath sound Heart- regular rhythm; no murmur Abdomen- normal bowel sounds, soft, nontender Extremities- no calf tenderness Neuro- alert, oriented x 3; PERRL, EOMI; no facial palsy; no dysarthria Skin- warm & dry Results & Data Vital Signs (Past 12 Hours) Vital Signs Temp Pulse Resp BP BP Pulse Ox 12/31/18 15:03 36.3 C L 71 22 129/66 94 12/31/18 14:05 78 132/66 95 12/31/18 13:25 71 17 98 12/31/18 12:57 36.6 C 72 20 138/74 98 (1) Pneumonia Laterality: right Lung location: middle lobe of lung Pneumonia type: due to unspecified organism Qualified Code(s): J18.1 - Lobar pneumonia, unspecified organism
[2018-12-31] MEDS: POTASSIUM CHLORIDE 10 MEQ TABCR PO SCH (20:27)
[2018-12-31] MEDS: cefTRIAXone SODIUM 1,000 MG in DEXTROSE 5% 50 ML IV SCH (22:02)
[2019-01-01] MEDS: AMLODIPINE BESYLATE 5 MG TAB PO SCH (07:44)
[2019-01-01] MEDS: ATORVASTATIN 20 MG TAB PO SCH (07:44)
[2019-01-01] MEDS: FUROSEMIDE 20 MG TAB PO SCH (07:45)
[2019-01-01] MEDS: ASPIRIN 81 MG ECTAB PO SCH (07:45)
[2019-01-01] MEDS: HydrALAZINE TAB 50 MG TAB PO SCH ×2 (07:45→14:02)
[2019-01-01] MEDS: HEPARIN SOD 5,000 UNIT/0.5 ML VIAL SQ SCH (07:46)
[2019-01-01] MEDS: PANTOprazole 40 MG TAB PO SCH (07:46)
[2019-01-01] MEDS: LORATADINE 10 MG TAB PO SCH (07:46)
[2019-01-01] MEDS: METOPROLOL TARTRATE 25 MG TAB PO SCH (07:46)
[2019-01-01] MEDS: DOXYCYCLINE HYCLATE 100 MG CAP PO SCH (07:46)
[2019-01-01] MEDS: MULTIVITAMIN TAB PO SCH (07:46)
[2019-01-01 09:18] LABS: Hematocrit (blood only) 34.3 % (37-47); Mean Corpuscular Hemoglobin 30.7 pg (25-34); Mean Corpuscular Hgb Conc 32.1 g/dL (32-36); Mean Corpuscular Volume 95.8 fL (80-100); Mean Platelet Volume 10.3 fL (7.4-10.4); Platelet Count 196 K/uL (130-400); RDW Coefficient of Variation 16.4 % (11.5-14.5); Red Blood Count 3.58 M/uL (4.2-5.4); White Blood Count 6.94 K/uL (4.8-10.8)
[2019-01-01 10:12] LABS: BUN Creatinine Ratio 19.3 (10-20); Calcium 9.1 mg/dl (8.5-10.1); Creatinine Clr Calc Pharmacy 30.8 ml/min; Est GFR (African American) 39.3; Est GFR (Non-African American) 33.9; Potassium 3.3 mmol/L (3.5-5.1)
[2019-01-01] MEDS ORDERED: POTASSIUM CHLORIDE 10 MEQ TABCR PO STA (12:03)
--- NOTE | 2019-01-01 15:06 | Hospitalist Progress Note ---
Date of Service January 01, 2019 Assessment & Plan (1) Pneumonia: Complaining of shortness of breath with cough for a few days before admission CT of the chest showed infiltration involving the right middle lobe and lingular area Continue intravenous ceftriaxone and oral doxycycline Clinically improves (2) Accelerated hypertension: Has history of high blood pressure Continue metoprolol 25 mg twice a day and amlodipine BP stable (3) History of quadruple bypass: History of cardiac bypass surgery Denies any chest pain in the palpitation No change in her current medications for the heart Hyperlipidemia Continue statin Chronic kidney disease stage III Creatinine 1.4 today, baseline 1.2 to 1.4 Advised pt to hold Lasix tomorrow and Saturday Will check BMP on Saturday DVT prophylaxis SCDs and subcu heparin CODE STATUS Full Disposition Follow up with your primary care provider Dr. Sands on 01/05 @ 3:10 PM Check BMP on Saturday Subjective Pt was seen and examined Sitting in chair with no distress Pt said that she feels much better today She said that her breathing feels much better She said that cough improves She would like to go home today Denies any chest pain, palpitation, dizziness and SOB Physical Exam Physical Exam: General- No acute distress Head- atraumatic Eyes- PERRL, EOMI, ENT- oropharynx clear Neck- supple, no JVD Lungs- +diminished breath sound Heart- regular rhythm; no murmur Abdomen- normal bowel sounds, soft, nontender Extremities- no calf tenderness Neuro- alert, oriented x 3; PERRL, EOMI; no facial palsy; no dysarthria Skin- warm & dry Results & Data Vital Signs (Past 12 Hours) Vital Signs Temp Pulse Resp BP BP Pulse Ox 01/01/19 14:01 68 156/74 H 01/01/19 07:08 36.7 C 68 20 157/81 H 95 (1) Pneumonia Laterality: right Lung location: middle lobe of lung Pneumonia type: due to unspecified organism Qualified Code(s): J18.1 - Lobar pneumonia, unspecified or ganism
[2019-01-01] MEDS: GUAIFENESIN/CODEINE 100MG/10MG 5ML UDC PO PRN (15:51)
--- NOTE | 2019-01-02 08:52 | Discharge Summary ---
Date of Service January 01, 2019 Admission HPI Per Admitting Provider CHIEF COMPLAINT: Cough and fever. HISTORY OF PRESENT ILLNESS: This is an 78-year-old female with past medical history significant for hyperlipidemia, renal artery stenosis, hypertension, CAD status post CABG, chronic kidney disease stage III, generalized osteoarthritis, nocturnal muscle cramps, history of angioedema, presents with cough and shortness of breath going on for the last 1 week. The patient says symptoms started last Saturday with runny nose, cough, not feeling well, states it lasted for 2-3 days and she improved for a couple of days. Again, the symptoms came back and not feeling well. She lives with her daughter and son-in-law , but right now, they are in [place] and daughter actually visited a couple of times last week and she took her temperature, they were running high at 100-102 degrees. As she was not feeling well, she came here. Her vitals were stable. No leukocytosis. Chest x-ray was okay, but CAT scan showed right middle lobe infiltrates. Received Rocephin and azithromycin. We were called for admission. She has some chest pain while she is coughing. She ambulates without any help at home, but lately she is feeling weak and tired, poor appetite. No nausea, no vomiting, mild sweating, no headache, no dizziness, no blurred visions, no earache, no sore throat. Normal bowel movements. No bloody stools or black stools. She is having frequent urination, but denies any burning micturition or hematuria. No swelling in the legs, no rash. Currently resting comfortably and hemodynamically stable. Admission Exam Per Admitting Provider GENERAL: The patient is of moderate built, not in acute distress. VITAL SIGNS: Temperature 36.6, pulse 66, respiratory rate 20, blood pressure 117/67, oxygen 96% on room air. HEENT: No pallor, no icterus. Pupils equal, round, and reactive to light. NECK: No JVD, no neck masses, no carotid bruits. CARDIOVASCULAR: S1, S2 heard, regular rate and rhythm, no murmur, no gallop. RESPIRATORY SYSTEM: Normal AP diameter. No accessory muscle use. No wheezing, no crackles. ABDOMEN: Soft, bowel sounds present, nontender. No distention. CENTRAL NERVOUS SYSTEM: Cranial nerves II-XII grossly intact. Nonfocal. EXTREMITIES: No edema, no erythema. Principal Diagnosis Pneumonia Hypertension Chronic kidney disease stage III Dyslipidemia Discharge Exam General- No acute distress Head- atraumatic Eyes- PERRL, EOMI, ENT- oropharynx clear Neck- supple, no JVD Lungs- +diminished breath sound Heart- regular rhythm; no murmur Abdomen- normal bowel sounds, soft, nontender Extremities- no calf tenderness Neuro- alert, oriented x 3; PERRL, EOMI; no facial palsy; no dysarthria Skin- warm & dry Discharge Data Allergies Allergy/AdvReac Type Severity Reaction Status Date / Time lisinopril Allergy Severe Angioedema Verified 12/29/18 22:20 Consultations 12/30/18 01:12 Consult Case Management - Discharge Planning Routine Ordered Studies 12/29/18 22:42 CT chest w con Urgent CT OF THE CHEST WITH IV CONTRAST CLINICAL HISTORY: Shortness of breath. Cough. COMPARISON STUDY: Chest CT March 30, 2015. Chest radiograph performed December 29, 2018. TECHNIQUE: Following IV administration of 94 mL of Optiray-320, helical axial images of the chest were obtained. Sagittal and coronal reconstructions were viewed as well as maximal intensity projections on an independent 3-D workstation. Automated exposure control was utilized for the study. A dose lowering technique was utilized adhering to the principles of ALARA. CT DOSE: 675.03 mGy.cm FINDINGS: There are median sternotomy wires and postoperative findings from bypass grafting. The heart is moderately enlarged. There is no pericardial effusion. No central pulmonary embolus is identified. There is no pneumothorax or pleural effusion. Mild groundglass opacities within the right middle lobe are noted. Minimal lingular groundglass opacity is noted. Central airways are patent. No suspicious osseous lesions are noted. There are calcified granulomas within the liver and spleen. Visualized portions of several left renal lesions measure water attenuation. IMPRESSION: 1. Minimal groundglass opacities within the right middle lobe and lingula which favor a mild infectious process. 2. Moderate cardiomegaly. Electronically signed by: Adarsh Kessler M.D. 12/30/2018 6:48 AM Dictated: 12/30/18641 Transcribed: 12/30/18641 XR chest 1V portable HISTORY: 78 years-old Female sob acute shortness of breath COMPARISON: Chest radiograph 09/26/2016 TECHNIQUE: Portable AP view of the chest FINDINGS: Cardiac silhouette is mildly enlarged, unchanged. Prior median sternotomy with findings suggestive of probable CABG. No pneumothorax, pleural effusion, focal airspace consolidation or overt pulmonary edema. Degenerative changes of the shoulders and spine. IMPRESSION: Cardiomegaly without acute process. The above report was generated using voice recognition software. It may contain grammatical, syntax or spelling errors. Electronically signed by: Vikas Braxton M.D. 12/29/2018 9:51 PM Dictated: 12/29/182149 Transcribed: 12/29/182149 Hospital Course (1) Pneumonia: Complaining of shortness of breath with cough for a few days before admission CT of the chest showed infiltration involving the right middle lobe and lingular area Continue intravenous ceftriaxone and oral doxycycline Clinically improves (2) Accelerated hypertension: Has history of high blood pressure Continue metoprolol 25 mg twice a day and amlodipine BP stable (3) History of quadruple bypass: History of cardiac bypass surgery Denies any chest pain in the palpitation No change in her current medications for the heart Hyperlipidemia Continue statin Chronic kidney disease stage III Creatinine 1.4 today, baseline 1.2 to 1.4 Advised pt to hold Lasix tomorrow and Saturday Will check BMP on Saturday DVT prophylaxis SCDs and subcu heparin CODE STATUS Full Disposition Follow up with your primary care provider Dr. Sands on 01/05 @ 3:10 PM Check BMP on Saturday Total Time Total Time Spent Total Time Spent (In Minutes): 35 minutes Total Time Includes: Examination of the Patient, Discharge Planning, Medication Reconciliation, Communication With Other Providers and Other Discharge Plan Discharge Items Patient Disposition: Home - Self-Care Reason For Visit: COUGH/FEVER, ILLNESS Discharge Diagnosis: Pneumonia Hypertension Chronic kidney disease stage III Activity: Resume your previous activity Activity Comment: as tolerated Non-emergency contact: Primary Care Provider Call non-emergency contact if: you have any medication questions and your temperature is above 101 Follow-up/Referrals: Suleman Sands MD [Primary Care Provider] - Diet: Heart Healthy Addtl Attending Provider Instructions: Follow up with your primary care provider Dr. Sands on 01/05 @ 3:10 PM Check BMP on Saturday to monitor electrolytes and kidney function (Lab order given) Hold Lasix tomorrow and Saturday, OK to resume it on Saturday Fall precaution Complete course of antibiotic Continue monitor your blood pressure and bring blood pressure log at your next appointment with your physician Pending Studies at Discharge: No Stand-Alone Forms: My [facility] Medications and DC Order Prescriptions: New doxycycline hyclate 100 mg Capsule 100 mg PO BID 5 Days Qty: 10 RF: 0 amlodipine [Norvasc] 5 mg Tablet 5 mg PO QAM 30 Days Qty: 30 RF: 0 guaifenesin 200 mg tablet 200 mg PO TID PRN (Reason: cough) Qty: 15 RF: 0 Continued multivitamin Tablet 1 tab PO DAILY RF: 0 atorvastatin 20 mg tablet 20 mg PO DAILY RF: 0 potassium chloride 10 mEq tablet extended release 10 meq PO QPM RF: 0 acetaminophen [Tylenol Extra Strength] 500 mg Tablet 1,000 mg PO Q6H PRN (Reason: Fever Or Pain) RF: 0 omeprazole 20 mg capsule,delayed release(DR/EC) 20 mg PO QAM RF: 0 hydralazine 50 mg tablet 50 mg PO TID RF: 0 furosemide 20 mg tablet 20 mg PO QAM RF: 0 epinephrine [EpiPen] 0.3 mg/0.3 mL Auto-Injector 0.3 mg IM DIRECTED PRN (Reason: Allergic Reaction) RF: 0 metoprolol tartrate 25 mg tablet 25 mg PO BID RF: 0 aspirin 81 mg Tablet,Delayed Release (Dr/Ec) 81 mg PO DAILY RF: 0 loratadine 10 mg Tablet 10 mg PO DAILY RF: 0 Discharge Orders: Discharge Order (Routine); Ordered 01/01/19 Ordered By: Travis Balderas Admission Data Admit Date/Time: 12/30/18 01:01 Attending Provider: Travis Balderas Admit Provider: Malik Castro Primary Care Provider: Suleman Sands Other Providers: Davie Mcdowell Other Interventions: Discharge Summary Assessment (RN) Last Done: 01/01/19 15:46 DC Date/Time DO NOT enter until pt leaves facility: 01/01/19 18:23
== END 2019-01-01 18:23 | disposition home or self-care (01) ==
LOC: ED 20:23 → 3W 20:23 → SUATTDRO 12-30 01:01 → 3W 12-30 01:02

== ENCOUNTER 2019-06-13 14:32 | Inpatient (IN) ==
[2019-06-13] MEDS ORDERED: SODIUM CHLORIDE 0.9% 250 ML IV PRN ×3 (14:49→21:17)
[2019-06-13] MEDS ORDERED: SODIUM CHLORIDE 0.9% 500 ML IV SCH (15:00)
[2019-06-13 15:31] LABS: Basophils # (auto) 0.02 K/uL (0-0.2); Basophils % (auto) 0.5 %; Eosinophils # (auto) 0.05 K/uL (0-0.5); Eosinophils % (auto) 1.3 %; Hematocrit (blood only) 21.7 % (37-47); Immature Granulocytes # (auto) 0.01 K/uL (0.00-0.02); Immature Granulocytes % (auto) 0.3 %; Lymphocytes % (auto) 23.7 %; Mean Corpuscular Hemoglobin 30.7 pg (25-34); Mean Corpuscular Hgb Conc 32.3 g/dL (32-36); Mean Corpuscular Volume 95.2 fL (80-100); Monocytes # (auto) 0.23 K/uL (0.11-0.59); Monocytes % (auto) 6.1 %; Neutrophils # (auto) 2.58 K/uL (1.4-6.5); Neutrophils % (auto) 68.1 %; Platelet Count 192 K/uL (130-400); RDW Coefficient of Variation 17.4 % (11.5-14.5); RDW Standard Deviation 60.6 fL (36.4-46.3); Red Blood Count 2.28 M/uL (4.2-5.4); White Blood Count 3.79 K/uL (4.8-10.8)
[2019-06-13 15:42] LABS: INR 1.1 (0.9-1.1); Partial Thromboplastin Time 27.9 Seconds (21.0-31.0); Prothrombin Time 11.5 Seconds (9.0-12.0)
[2019-06-13 15:47] LABS: Alanine Aminotransferase 15 U/L (12-78); Albumin Level 3.2 gm/dl (3.4-5.0); Aspartate Aminotransferase 12 U/L (15-37); BUN Creatinine Ratio 16.3 (10-20); Blood Urea Nitrogen 41 mg/dl (7-18); Calcium 8.9 mg/dl (8.5-10.1); Carbon Dioxide 25 mmol/L (21-32); Chloride 111 mmol/L (98-107); Est GFR (African American) 20.5; Est GFR (Non-African American) 17.6; Glucose 128 mg/dl (70-99); Lipase 149 U/L (73-393); Potassium 3.7 mmol/L (3.5-5.1); Sodium 141 mmol/L (136-145)
[2019-06-13 15:52] LABS: Albumin Globulin Ratio 0.7 (0.9-2); Alkaline Phosphatase 71 U/L (45-117); Bilirubin,Total 0.6 mg/dl (0.2-1); Globulin 4.6 gm/dl (2.5-4.0); Total Protein 7.8 gm/dl (6.4-8.2); Troponin I < 0.015 ng/ml (0-0.045)
[2019-06-13 15:58] LABS: Ovalocytes 1+
[2019-06-13] MEDS ORDERED: FUROSEMIDE 40 MG/4 ML VIAL IV ONE (16:41)
--- NOTE | 2019-06-13 16:50 | History & Physical Report ---
Date of Service June 13, 2019 Assessment & Plan (1) GI bleed: Complains to have bright red blood per rectum with intermittent black tarry stool for the last 2 weeks Went to see her PCP with shortness of breath and extreme tiredness Noted to hemoglobin of 6.9 and was advised to come into the hospital In ER stool was negative for any blood and her hemoglobin noted to be 7.0 Likely has upper/lower GI bleed Besides aspirin she has been taking any other NSAID She has had colonoscopy many many years back and EGD years back as well We will monitor H&H every 6 hourly and give her 2 units of blood transfusion with Lasix in between Continue Protonix 40 mg IV twice daily Check a stool for Hemoccult GI consult for possible EGD and colonoscopy on Saturday Present on Admission?: Yes (2) Anemia: Presented with symptomatic anemia Denies any chest pain (3) FORREST (acute kidney injury): She has FORREST on CKD Creatinine went up to 2.49 from her usual of 1.5 In part due to dehydration and in part due to bleeding with increasing BUN We will give cautious amount of intravenous fluid Monitor PRP Has history of renal artery stenosis which is contributing (4) S/P CABG x 4: Remote history of CAD status post CABG x4 Denies any chest pain but complains to have shortness of breath on exertion EKG did show junctional rhythm, LV hypertrophy with associated T wave changes difficult to pinpoint on ischemic changes Troponin has been negative but will trend We will hold any beta-giovanni for now We will get echo to evaluate LV function with recent shortness of breath on minimal exertion May need to have cardiac evaluation while in the hospital (5) Hypertension: Blood pressure remains stable (6) Renal artery stenosis: Sees Dr. Graves. DVT prophylaxis SCDs with ongoing GI bleed CODE STATUS DNR/DNI Discussed with the patient and the daughter History of Present Illness Chief Complaint: Weakness, tiredness and very short of breath with minimal exertion for the last 2 weeks Primary Care Provider: Suleman Sands MD She is an 78-year-old female with significant past medical history of renal artery stenosis, hypertensive kidney disease stage III, status post CABG x4, hypertension, hyperlipidemia, generalized osteoarthritis and benign essential tremor and apparently has been complaining of increasing weakness, tiredness with legs giving way and shortness of breath which has been going on for the last 2 weeks. She was seen by her PCP today and was noted to have a hemoglobin of 6.9 from that point she was sent into the emergency room for further evaluation. She mentioned to have bright red rectal bleed occasionally for the last 2 weeks and also black tarry stool in between. She denies any abdominal pain but complains to have some epigastric discomfort without nausea and or vomiting. She has been taking her usual dose of aspirin but has not taken any NSAID use as an outpatient. She has had colonoscopy years ago and cannot remember when she had any upper endoscopy. She denies any chest pain and/or palpitation at rest. Denies any fever and/or chills. Denies any numbness and/or tingling involving any of the extremities. Allergies Allergy/AdvReac Type Severity Reaction Status Date / Time lisinopril Allergy Severe Angioedema Verified 06/13/19 15:38 Home Medications Home Medications Medication Instructions Recorded Confirmed Type acetaminophen [Tylenol Extra 1,000 mg PO Q6H PRN 12/29/18 06/13/19 History Strength] aspirin 81 mg PO QAM 12/29/18 06/13/19 History atorvastatin 20 mg PO QPM 12/29/18 06/13/19 History epinephrine [EpiPen] 0.3 mg IM DIRECTED PRN 12/29/18 06/13/19 History furosemide 20 mg PO DIRECTED 12/29/18 06/13/19 History hydralazine 50 mg PO TID 12/29/18 06/13/19 History loratadine 10 mg PO QPM 12/29/18 06/13/19 History metoprolol tartrate 25 mg PO BID 12/29/18 06/13/19 History potassium chloride 10 meq PO DIRECTED 12/29/18 06/13/19 History amlodipine 5 mg PO DIRECTED 06/13/19 06/13/19 History citalopram 10 mg PO QAM 06/13/19 06/13/19 History Past Med/Surg History Social History Preferred Language: German Communication Ability: Effective Casserole Preparer Required: No Beliefs That Will Affect Care: None marital status: Single Current Living Situation: Alone Other Information That Helps Us Care for You: No Feels Safe at Home: Yes Safety Concerns: Feels Safe At This Time Smoking Status: Never smoker Do You Dip or Chew Tobacco: No ; Second Hand Exposure: No ; Tobacco Cessation Education Requested by Patient: No Hx Alcohol Use: No Hx Substance Use: No Review of Systems Review of Systems: All systems reviewed & are unremarkable except as noted in HPI & below Physical Exam Physical Exam: Lying in bed comfortably with minimal shortness of breath at re st Constitutional: well developed, well nourished, + ill appearing and + obese; no acute distress Eyes: PERRL, conjunctivae normal, anicteric sclerae ENMT: external ear and nose normal, oropharynx normal Neck: trachea midline, no thyromegaly Respiratory: normal respiratory effort Auscultation: lungs clear to auscultation bilaterally and + crackles (Minimal crackles at the bases) Cardiovascular: Rate/Rhythm: regular rate and regular rhythm Heart Sounds: no murmur Extremities: no edema Gastrointestinal (Abdomen): Inspection/Auscultation: abdomen normal to inspection and normal bowel sounds Percussion/Palpation: + abdomen tender (Mildly tender in the epigastrium) and abdomen soft Musculoskeletal: No acute arthritis in any joints Neurologic: Alert, awake and oriented times, generally weak but no focal sensory or motor deficit appreciated Lymphatic: no cervical or axillary lymphadenopathy Results & Data Vital Signs (Past 12 Hours) Vital Signs Temp Pulse Resp BP Pulse Ox 06/13/19 15:11 60 20 96 06/13/19 14:36 36.4 C L 62 16 119/66 97 Laboratory Results Short CBC 06/13/19 Range/Units 15:10 WBC 3.79 L (4.8-10.8) K/uL Hgb 7.0 L (12.0-16.0) g/dL Hct 21.7 L (37-47) % Plt Count 192 (130-400) K/uL BMP 06/13/19 15:10 Sodium 141 Potassium 3.7 Chloride 111 H Carbon Dioxide 25 BUN 41 H Creatinine 2.49 H Glucose 128 H Calcium 8.9 Cardiac Enzymes 06/13/19 Range/Units 15:10 Troponin I < 0.015 (0-0.045) ng/ml Liver Function 06/13/19 Range/Units 15:10 Total Bilirubin 0.6 (0.2-1) mg/dl AST 12 L (15-37) U/L ALT 15 (12-78) U/L Alkaline Phosphatase 71 (45-117) U/L Albumin 3.2 L (3.4-5.0) gm/dl Medications Administered Current Inpatient Medications Sodium Chloride (Nss) 250 mls @ 15 mls/hr IV .[id number] PRN PRN Reason: For Transfusion Stop: 06/14/19 00:50 Sodium Chloride (Nss) 250 mls @ 15 mls/hr IV .[id number] PRN PRN Reason: For Transfusion Stop: 06/14/19 03:39 Code Status & VTE Plan VTE Prophylaxis Plan VTE Prophylaxis will be ordered: Yes (1) GI bleed GI bleed type/associated pathology: unspecified gastrointestinal hemorrhage type Qualified Code(s): K92.2 - Gastrointestinal hemorrhage, unspecified (2) Anemia Anemia type: unspecified type Qualified Code(s): D64.9 - Anemia, unspecified
[2019-06-13] MEDS ORDERED: PANTOprazole 40 MG in SYRINGE 0 ML IV ONE (17:00)
--- NOTE | 2019-06-13 17:20 | XRay Report ---
XR chest 1V portable CLINICAL HISTORY: 78 years-old Female presenting with SOB. TECHNIQUE: Portable upright AP view of the chest was obtained. COMPARISON: 12/29/2018. FINDINGS: Atherosclerosis of the aortic arch. Cardiac silhouette enlarged. Median sternotomy wires and coronary artery bypass graft rings noted. Mild pulmonary vascular prominence. No focal opacity. No large effu varghese or pneumothorax. Degenerative changes of the thoracic spine. Upper abdomen normal. IMPRESSION: 1. Cardiomegaly with mild volume overload. No advanced congestive changes. No other evidence of acut e cardiopulmonary disease. ACT 112: Negative or not required by law. Electronically signed by: Christiano Arreguin M.D. 06/13/2019 5:18 PM
--- NOTE | 2019-06-13 18:51 | Emergency Department Note ---
Entered by Larissa Hernández acting as a scribe for Gaudencio Painting DO History of Present Illness General Chief complaint: Abnormal Labs/Diagnostic Testing Stated complaint: ABNORMAL LAB WORK Source: patient and family History of Present Illness Onset (ago): week(s) 3 Location: abdomen Pain Consistency: + constant Maximum Pain Intensity: 0 Current Pain Intensity: 0 Relieved By: + none Associated symptoms: + weakness and + other (bloody stool, fatigue) The patient is a 78 year old female who presents to the Emergency Room with complaints of abnormal hemoglobin and bloody stool. The patients hemoglobin is at 6. She has had bloody stool for the past few weeks. She notes that it is brighter red, and the blood is within the stool and on the outside. The patient confirms that she has noticed dark stool at times too. She has complains of weakness and fatigue. The patient takes Aspirin each morning and is not on any blood thinners. She complains of shortness of breath when she is up and walking. She denies chest pain. Her daughter reports that she has lost 6-7 pounds in the last week or so. Home Medications Home Medications Medication Instructions Recorded Confirmed Type acetaminophen [Tylenol Extra 1,000 mg PO Q6H PRN 12/29/18 06/13/19 History Strength] aspirin 81 mg PO QAM 12/29/18 06/13/19 History atorvastatin 20 mg PO QPM 12/29/18 06/13/19 History epinephrine [EpiPen] 0.3 mg IM DIRECTED PRN 12/29/18 06/13/19 History furosemide 20 mg PO DIRECTED 12/29/18 06/13/19 History hydralazine 50 mg PO TID 12/29/18 06/13/19 History loratadine 10 mg PO QPM 12/29/18 06/13/19 History metoprolol tartrate 25 mg PO BID 12/29/18 06/13/19 History potassium chloride 10 meq PO DIRECTED 12/29/18 06/13/19 History amlodipine 5 mg PO DIRECTED 06/13/19 06/13/19 History citalopram 10 mg PO QAM 06/13/19 06/13/19 History Allergies Allergy/AdvReac Type Severity Reaction Status Date / Time lisinopril Allergy Severe Angioedema Verified 06/13/19 15:38 Past Med/Surg History Social History Preferred Language: Hungarian Communication Ability: Effective Clinical Lab Clerk Required: No Beliefs That Will Affect Care: None marital status: Single Current Living Situation: Alone Other Information That Helps Us Care for You: No Feels Safe at Home: Yes Safety Concerns: Feels Safe At This Time Smoking Status: Never smoker Do You Dip or Chew Tobacco: No ; Second Hand Exposure: No ; Tobacco Cessation Education Requested by Patient: No Hx Alcohol Use: No Hx Substance Use: No Review of Systems See HPI for pertinent positives & negatives. and A total of 10 systems reviewed and were otherwise negative Physical Exam Vital Signs Vital Signs - 24 hr 06/13/19 14:36 06/13/19 15:11 06/13/19 15:19 Temperature 36.4 C L Temperature Source Oral Pulse Rate 62 60 58 L Pulse Rate from SpO2 Sensor 59 L Pulse Rhythm Regular Pulse Strength Normal Respiratory Rate 16 20 21 Respiratory Effort / Characteristics Non-Labored Respiratory Depth Normal Respiratory Pattern Regular Blood Pressure 119/66 Blood Pressure Mean 83 Blood Pressure Position Sitting Pulse Oximetry 97 96 96 Oxygen Delivery Method Room Air Room Air Sepsis Recent Fever Within 48 Hours No Sepsis New/Unexplained Change in Mental Status No Sepsis Action Taken by Nursing No Action Required 06/13/19 15:20 06/13/19 15:24 06/13/19 15:30 Temperature Temperature Source Pulse Rate 58 L 60 57 L Pulse Rate from SpO2 Sensor 58 L 58 L 60 Pulse Rhythm Pulse Strength Respiratory Rate 20 20 18 Respiratory Effort / Characteristics Respiratory Depth Respiratory Pattern Blood Pressure 136/58 L Blood Pressure Mean 85 Blood Pressure Position Pulse Oximetry 97 95 96 Oxygen Delivery Method Sepsis Recent Fever Within 48 Hours Sepsis New/Unexplained Change in Mental Status Sepsis Action Taken by Nursing 06/13/19 15:40 06/13/19 15:50 06/13/19 16:00 Temperature Temperature Source Pulse Rate 57 L 56 L 59 L Pulse Rate from SpO2 Sensor 58 L 56 L 58 L Pulse Rhythm Pulse Strength Respiratory Rate 19 20 17 Respiratory Effort / Characteristics Respiratory Depth Respiratory Pattern Blood Pressure Blood Pressure Mean Blood Pressure Position Pulse Oximetry 96 97 97 Oxygen Delivery Method Sepsis Recent Fever Within 48 Hours Sepsis New/Unexplained Change in Mental Status Sepsis Action Taken by Nursing 06/13/19 16:06 06/13/19 16:10 06/13/19 16:20 Temperature Temperature Source Pulse Rate 59 L 60 54 L Pulse Rate from SpO2 Sensor 59 L 59 L 56 L Pulse Rhythm Pulse Strength Respiratory Rate 17 22 14 Respiratory Effort / Characteristics Respiratory Depth Respiratory Pattern Blood Pressure 137/61 Blood Pressure Mean 93 Blood Pressure Position Pulse Oximetry 95 96 96 Oxygen Delivery Method Sepsis Recent Fever Within 48 Hours Sepsis New/Unexplained Change in Mental Status Sepsis Action Taken by Nursing 06/13/19 16:30 Temperature Temperature Source Pulse Rate 59 L Pulse Rate from SpO2 Sensor 63 Pulse Rhythm Pulse Strength Respiratory Rate 21 Respiratory Effort / Characteristics Respiratory Depth Respiratory Pattern Blood Pressure Blood Pressure Mean Blood Pressure Position Pulse Oximetry 95 Oxygen Delivery Method Sepsis Recent Fever Within 48 Hours Sepsis New/Unexplained Change in Mental Status Sepsis Action Taken by Nursing GENERAL: Sitting up in bed, pale, disheveled, alert, well nourished, no dis tress, non-toxic EYE EXAM: normal conjunctiva OROPHARYNX: no exudate, no erythema, lips, buccal mucosa, and tongue normal and mucous membranes are moist NECK: supple, no nuchal rigidity, no adenopathy, non-tender LUNGS: Clear to auscultation. Normal chest wall mechanics HEART: no murmurs, S1 normal and S2 normal ABDOMEN: abdomen soft, non-tender, normo-active bowel sounds, no masses, no rebound or guarding. BACK: Back is symmetrical on inspection and there is no deformity, no midline tenderness, no CVA tenderness. SKIN: no rashes and no bruising UPPER EXTREMITIES: upper extremities are grossly normal. LOWER EXTREMITIES: No pitting edema. NEURO EXAM: Normal sensorium, cranial nerves II-XII grossly intact, normal speech, no gross weakness of arms, no gross weakness of legs. Course Course ED COURSE: Vital signs were reviewed and were normal. The patients medical record was reviewed The above diagnostic studies were performed and reviewed. ED treatments and interventions as stated above. 1441: The patient was evaluated in room A04B. A complete history and physical examination was performed. 1449: The rectal exam was heme negative. 1553: I spoke to Dr. Pitt, [facility] hospitalist, who agreed to take over care of the patient. The patient is agreeable to this. I discussed my findings with the patient and she understands and agrees with the treatment plan. Based on the patients age, coexisting illnesses, exam and lab findings the decision to treat as an inpatient was made. The patient remained stable while under my care. The patient will be evaluated for further management. Administered Medications Discontinued Medications Sodium Chloride (Nss) 500 mls @ 999 mls/hr IV .Q31M CAROLE Stop: 06/13/19 15:30 Last Infusion: 06/13/19 16:07 Dose: 0 mls/hr Documented by: [id number] Admin: 06/13/19 15:30 Dose: 999 mls/hr Documented by: [id number] Pantoprazole Sodium 40 mg/ (Syringe) 10 mls @ 5 mls/min IV NOW ONE Stop: 06/13/19 17:01 Last Admin: 06/13/19 17:15 Dose: 5 mls/min Documented by: [id number] Medical Decision Making Differential Diagnosis Differential diagnosis includes etiologies such as diverticulosis, AVM, coag ulopathy, colitis, inflammatory bowel disease, malignancy, Belinda-Marie tear, esophagitis, peptic ulcer disease, variceal bleed, gastritis, epistaxis, fissure, hemorrhoids, as well as others were entertained. Medical Records Attestation: I reviewed the patient's medical records. Home Medications Current Medication List: was personally reviewed by me Laboratory Data Attestation: I reviewed the patient's lab results. Result diagrams: 06/13/19 15:10 06/13/19 15:10 Lab Results 06/13/19 06/13/19 06/13/19 Range/Units 15:10 15:10 15:10 WBC 3.79 L (4.8-10.8) K/uL RBC 2.28 L (4.2-5.4) M/uL Hgb 7.0 L (12.0-16.0) g/dL Hct 21.7 L (37-47) % MCV 95.2 (80-100) fL MCH 30.7 (25-34) pg MCHC 32.3 (32-36) g/dL RDW Std Deviation 60.6 H (36.4-46.3) fL RDW Coeff of Filiberto 17.4 H (11.5-14.5) % Plt Count 192 (130-400) K/uL MPV 9.0 (7.4-10.4) fL Immature Gran % (Auto) 0.3 % Neut % (Auto) 68.1 % Lymph % (Auto) 23.7 % [place] % (Auto) 6.1 % Eos % (Auto) 1.3 % Baso % (Auto) 0.5 % Immature Gran # (Auto) 0.01 (0.00-0.02) K/uL Neut # (Auto) 2.58 (1.4-6.5) K/uL Lymph # (Auto) 0.90 L (1.2-3.4) K/uL [place] # (Auto) 0.23 (0.11-0.59) K/uL Eos # (Auto) 0.05 (0-0.5) K/uL Baso # (Auto) 0.02 (0-0.2) K/uL Ovalocytes 1+ PT (9.0-12.0) Seconds INR (0.9-1.1) APTT (21.0-31.0) Seconds PTT Ratio Sodium 141 (136-145) mmol/L Potassium 3.7 (3.5-5.1) mmol/L Chloride 111 H (98-107) mmol/L Carbon Dioxide 25 (21-32) mmol/L Anion Gap 5.0 (3-11) BUN 41 H (7-18) mg/dl Creatinine 2.49 H (0.6-1.2) mg/dl Est Cr Clr Drug Dosing Not Reportable Est GFR ( Amer) 20.5 Est GFR (Non-Af Amer) 17.6 BUN/Creatinine Ratio 16.3 (10-20) Glucose 128 H (70-99) mg/dl Calcium 8.9 (8.5-10.1) mg/dl Total Bilirubin 0.6 (0.2-1) mg/dl AST 12 L (15-37) U/L ALT 15 (12-78) U/L Alkaline Phosphatase 71 (45-117) U/L Troponin I < 0.015 (0-0.045) ng/ml Total Protein 7.8 (6.4-8.2) gm/dl Albumin 3.2 L (3.4-5.0) gm/dl Globulin 4.6 H (2.5-4.0) gm/dl Albumin/Globulin Ratio 0.7 L (0.9-2) Lipase 149 (73-393) U/L Blood Type A Positive Blood Type Recheck Antibody Screen NEGATIVE Crossmatch See Detail 06/13/19 06/13/19 Range/Units 15:10 16:33 WBC (4.8-10.8) K/uL RBC (4.2-5.4) M/uL Hgb (12.0-16.0) g/dL Hct (37-47) % MCV (80-100) fL MCH (25-34) pg MCHC (32-36) g/dL RDW Std Deviation (36.4-46.3) fL RDW Coeff of Filiberto (11.5-14.5) % Plt Count (130-400) K/uL MPV (7.4-10.4) fL Immature Gran % (Auto) % Neut % (Auto) % Lymph % (Auto) % [place] % (Auto) % Eos % (Auto) % Baso % (Auto) % Immature Gran # (Auto) (0.00-0.02) K/uL Neut # (Auto) (1.4-6.5) K/uL Lymph # (Auto) (1.2-3.4) K/uL [place] # (Auto) (0.11-0.59) K/uL Eos # (Auto) (0-0.5) K/uL Baso # (Auto) (0-0.2) K/uL Ovalocytes PT 11.5 (9.0-12.0) Seconds INR 1.1 (0.9-1.1) APTT 27.9 (21.0-31.0) Seconds PTT Ratio 1.0 Sodium (136-145) mmol/L Potassium (3.5-5.1) mmol/L Chloride (98-107) mmol/L Carbon Dioxide (21-32) mmol/L Anion Gap (3-11) BUN (7-18) mg/dl Creatinine (0.6-1.2) mg/dl Est Cr Clr Drug Dosing Est GFR ( Amer) Est GFR (Non-Af Amer) BUN/Creatinine Ratio (10-20) Glucose (70-99) mg/dl Calcium (8.5-10.1) mg/dl Total Bilirubin (0.2-1) mg/dl AST (15-37) U/L ALT (12-78) U/L Alkaline Phosphatase (45-117) U/L Troponin I (0-0.045) ng/ml Total Protein (6.4-8.2) gm/dl Albumin (3.4-5.0) gm/dl Globulin (2.5-4.0) gm/dl Albumin/Globulin Ratio (0.9-2) Lipase (73-393) U/L Blood Type Blood Type Recheck A Positive Antibody Screen Crossmatch ECG Data Attestation: I personally reviewed and interpreted this ECG as follows: Indication: + abdominal pain Rate (beats per minute): 58 Rhythm: + sinus rhythm ECG [place]: + Left axis deviation ECG ST segments: + T-wave inversions (lateral, septal) ECG Findings: + PVCs and + Other (poor baseline) Comparison ECG Date: from (12/29/18) Change: the following changes noted (TWI and PVCs are new) Blood Pressure Blood Pressure Findings: Normal blood pressure Blood Pressure Disposition: did not require urgent referral MDM Narrative Patient is an 78-year-old female who presents the ER for weakness referred in by PCP for low hemoglobin. She also admits to exertional shortness of breath. IV was established blood work was obtained and showed a mild leukopenia 3.7. Hemoglobin was down to 7 from 11. She admits to bright red blood per rectum for the past month and some intermittent dark tarry stools. Denies any blood thinners. INR is normal. BMP with a creatinine 2.49 up from a baseline of 1.4. BUN was elevated consistent with dehydration and possible combination of GI bleed. No significant transaminitis. Bilirubin unremarkable. Troponin was negative. Lipase unremarkable. Patient was typed and crossed for 2 units. Blood never present while in the ER. Chest x-ray was unremarkable. She has absolutely no abdominal pain. Discussed with hospitalist for admission and patient was updated bedside. Continuous Cardiac Monitoring: An order was placed for continuous cardiac monitoring. The monitor shows a rate of 60 with 119/66. Impression & Plan GI bleed, Anemia, FORREST (acute kidney injury) Discharge Plan Visit Data *Final* Discharge Date/Time: 06/13/19 16:58 Chief Complaint: Abnormal Labs/Diagnostic Testing Stated Complaint: ABNORMAL LAB WORK ED Provider: Gaudencio Painting Discharge Problem: GI bleed, Anemia, FORREST (acute kidney injury) Patient Disposition: Admitted As Inpatient Discharge Instructions Interventions: ED Discharge Assessment Last Done: 06/13/19 16:58 Discharge Problem: GI bleed Qualifiers: GI bleed type/associated pathology: unspecified gastrointestinal hemorrhage type Qualified Code(s): K92.2 - Gastrointestinal hemorrhage, unspecified Anemia Qualifiers: Anemia type: unspecified type Qualified Code(s): D64.9 - Anemia, unspecified The figueroaibe's documentation has been prepared under my direction and personally reviewed by me in its entirety. I confirm that the note above accurately reflects all work, treatment, procedures, and medical decision making performed by me.
[2019-06-13] MEDS: POTASSIUM CHLORIDE 10 MEQ TABCR PO SCH (20:16)
[2019-06-13] MEDS: PANTOprazole 40 MG in SYRINGE 0 ML IV SCH (20:16)
[2019-06-13] MEDS: HydrALAZINE TAB 50 MG TAB PO SCH (20:20)
[2019-06-13] MEDS: LORATADINE 10 MG TAB PO SCH (20:21)
[2019-06-13] MEDS: ATORVASTATIN 20 MG TAB PO SCH (20:21)
[2019-06-13] MEDS ORDERED: FUROSEMIDE 40 MG in SYRINGE 0 ML IV ONE (20:30)
[2019-06-13 21:11] LABS: Hemoglobin 7.4 g/dL (12.0-16.0)
[2019-06-14 05:47] LABS: Basophils # (auto) 0.01 K/uL (0-0.2); Basophils % (auto) 0.3 %; Eosinophils # (auto) 0.06 K/uL (0-0.5); Eosinophils % (auto) 1.5 %; Hematocrit (blood only) 26.3 % (37-47); Hemoglobin 8.5 g/dL (12.0-16.0); Immature Granulocytes # (auto) 0.01 K/uL (0.00-0.02); Immature Granulocytes % (auto) 0.3 %; Lymphocytes # (auto) 0.79 K/uL (1.2-3.4); Lymphocytes % (auto) 20.3 %; Mean Corpuscular Hemoglobin 29.9 pg (25-34); Mean Corpuscular Hgb Conc 32.3 g/dL (32-36); Mean Corpuscular Volume 92.6 fL (80-100); Mean Platelet Volume 9.8 fL (7.4-10.4); Monocytes # (auto) 0.29 K/uL (0.11-0.59); Monocytes % (auto) 7.4 %; Neutrophils # (auto) 2.74 K/uL (1.4-6.5); Neutrophils % (auto) 70.2 %; Platelet Count 168 K/uL (130-400); RDW Coefficient of Variation 17.4 % (11.5-14.5); RDW Standard Deviation 58.5 fL (36.4-46.3); Red Blood Count 2.84 M/uL (4.2-5.4)
[2019-06-14 06:16] LABS: BUN Creatinine Ratio 16.4 (10-20); Calcium 8.7 mg/dl (8.5-10.1); Creatinine Clr Calc Pharmacy 19.4 ml/min; Est GFR (African American) 23.5; Est GFR (Non-African American) 20.3; Potassium 3.4 mmol/L (3.5-5.1)
[2019-06-14] MEDS: CITALOPRAM 20 MG TAB PO SCH (08:51)
[2019-06-14] MEDS: PANTOprazole 40 MG in SYRINGE 0 ML IV SCH ×2 (08:51→21:18)
[2019-06-14] MEDS: HydrALAZINE TAB 50 MG TAB PO SCH ×3 (08:51→21:18)
[2019-06-14] MEDS: POTASSIUM CHLORIDE 10 MEQ TABCR PO SCH ×2 (08:52→21:18)
[2019-06-14] MEDS: AMLODIPINE BESYLATE 5 MG TAB PO SCH (08:52)
--- NOTE | 2019-06-14 13:26 | History & Physical Report ---
Date of Service June 14, 2019 History of Present Illness Primary Care Provider: Suleman Sands MD Chart reviewed. 78 yo female with PMh sig mult comorbids, CKD seen by PCP on Saturday c/o SOB x 2-3 weeks, incidentally noted to have hgb of 6.9 from baseline 10-11 with normal MCV referred for admission. Intermittent dark stool x 2-3 weeks + daily ASA, no other NSAIDs. On admission, normotensive, soto, heme neg. Overnight, received 2 U PRBC with rise in hgb to 8. A/p: Anemia - DDX = AVM's, PUD, occult malignancy, outlet bleeding. EGD, cscopy tomorrow. Allergies Allergy/AdvReac Type Severity Reaction Status Date / Time lisinopril Allergy Severe Angioedema Verified 06/13/19 15:38 Home Medications Home Medications Medication Instructions Recorded Confirmed Type acetaminophen [Tylenol Extra 1,000 mg PO Q6H PRN 12/29/18 06/13/19 History Strength] aspirin 81 mg PO QAM 12/29/18 06/13/19 History atorvastatin 20 mg PO QPM 12/29/18 06/13/19 History epinephrine [EpiPen] 0.3 mg IM DIRECTED PRN 12/29/18 06/13/19 History furosemide 20 mg PO DIRECTED 12/29/18 06/13/19 History hydralazine 50 mg PO TID 12/29/18 06/13/19 History loratadine 10 mg PO QPM 12/29/18 06/13/19 History metoprolol tartrate 25 mg PO BID 12/29/18 06/13/19 History potassium chloride 10 meq PO DIRECTED 12/29/18 06/13/19 History amlodipine 5 mg PO DIRECTED 06/13/19 06/13/19 History citalopram 10 mg PO QAM 06/13/19 06/13/19 History Past Med/Surg History Social History Preferred Language: Maltese Communication Ability: Effective Gift Shop Assistant Required: No Beliefs That Will Affect Care: None marital status: Single Current Living Situation: Alone Other Information That Helps Us Care for You: No Feels Safe at Home: Yes Safety Concerns: Feels Safe At This Time Smoking Status: Never smoker Do You Dip or Chew Tobacco: No ; Second Hand Exposure: No ; Tobacco Cessation Education Requested by Patient: No Hx Alcohol Use: No Hx Substance Use: No Results & Data Vital Signs (Past 12 Hours) Vital Signs Temp Pulse Pulse Resp BP Pulse Ox 06/14/19 11:37 36.6 C 62 24 125/59 L 93 06/14/19 07:52 62 06/14/19 07:29 36.7 C 57 L 23 134/58 L 96 06/14/19 03:19 36.5 C 67 19 145/65 H 95 Code Status & VTE Plan VTE Prophylaxis Plan VTE Prophylaxis will be ordered: Yes
[2019-06-14] MEDS ORDERED: LAVAGE SOLUTION 4000ML PO SCH (15:00)
[2019-06-14] MEDS ORDERED: bisacodyL 10 MG SUPP PR ONE (17:00)
--- NOTE | 2019-06-14 20:46 | Hospitalist Progress Note ---
Date of Service June 14, 2019 Assessment & Plan (1) GI bleed: Hemodynamically stable. Hgb 7.0 --> 8.5 after 2 units pRBC's. Continue PPI. GI consulted. Upper and lower endoscopies planned for tomorrow. (2) Acute blood loss anemia: As noted above. (3) Coronary artery disease: No anginal symptoms. Hold aspirin temporarily because of GI bleed. Metoprolol held for suspected junctional rhythm. EKG's reviewed. Difficult to interpret initial EKG due to baseline artifact. EKG this morning looks like SR vs WAP. Resume metoprolol with caution pending final EKG review. Continue amlodipine. (4) Hypertension: As noted above. (5) FORREST (acute kidney injury): Serum creatinine at time of admission 2.49 compared to baseline of 1.4 in December 2018. Acute kidney injury, probably secondary to GI bleeding. Hold furosemide. Creatinine today 2.22. Follow. (6) CKD (chronic kidney disease), stage III: As noted above. (7) DVT prophylaxis: No anticoagulants secondary to GI bleeding. SCDs. Ambulate. (8) Discharge planning issues: Anticipated discharge to home. Family Medicine follow-up with Dr. Sands. Admission and Anticipated Discharge Date Admission Date: June 13, 2019 Subjective Recheck for GI bleeding and other problems. Patient seen in their room around 1330. No further rectal bleeding. No abdominal pain, nausea, vomiting. Received 2 units pRBC's yesterday. Review of Systems: Constitutional- no fever. Cardiac- no chest pain. Pulmonary- no cough or SOB. GI- as noted above. - no urinary symptoms. Otherwise, as noted above. Physical Exam Constitutional: no acute distress Respiratory: no respiratory distress Auscultation: lungs clear to auscultation bilaterally Cardiovascular: Rate/Rhythm: regular rate and regular rhythm Vessels: no JVD Extremities: no calf tenderness and no edema Gastrointestinal (Abdomen): normal bowel sounds, soft, nontender, no hepatosplenomegaly Skin: no rashes, warm and dry Psychiatric: Orientation: alert and oriented x 3 (O x 3, but with some mild confusion (e.g., meds)) Results & Data ([facility]) Vital Signs (Past 12 Hours) Vital Signs Temp Pulse Pulse Pulse Resp BP Pulse Ox 06/14/19 19:05 36.3 C L 62 17 150/57 H 98 06/14/19 15:29 64 06/14/19 15:07 36.9 C 64 16 119/52 L 95 06/14/19 13:36 63 151/61 H 06/14/19 11:37 36.6 C 62 24 125/59 L 93 Laboratory Results 06/14/19 05:20 06/14/19 05:20 (1) GI bleed GI bleed type/associated pathology: unspecified gastrointestinal hemorrhage type Qualified Code(s): K92.2 - Gastrointestinal hemorrhage, unspecified
[2019-06-14] MEDS: ACETAMINOPHEN 500 MG TAB PO PRN (21:18)
[2019-06-14] MEDS: LORATADINE 10 MG TAB PO SCH (21:18)
[2019-06-14] MEDS: ATORVASTATIN 20 MG TAB PO SCH (21:18)
[2019-06-14] MEDS: METOPROLOL TARTRATE 25 MG TAB PO SCH (21:20)
[2019-06-15 05:54] LABS: Hemoglobin 9.6 g/dL (12.0-16.0); Mean Corpuscular Hemoglobin 29.8 pg (25-34); Mean Corpuscular Volume 93.2 fL (80-100); Platelet Count 214 K/uL (130-400); RDW Coefficient of Variation 17.6 % (11.5-14.5); RDW Standard Deviation 59.1 fL (36.4-46.3); Red Blood Count 3.22 M/uL (4.2-5.4); White Blood Count 5.26 K/uL (4.8-10.8)
[2019-06-15 06:31] LABS: BUN Creatinine Ratio 13.3 (10-20); Calcium 8.9 mg/dl (8.5-10.1); Est GFR (African American) 21.4; Est GFR (Non-African American) 18.4; Potassium 3.4 mmol/L (3.5-5.1)
[2019-06-15] MEDS ORDERED: D5W AND 1/2NSS + 20MEQ KCL 20 MEQ/1,000 ML BAG IV SCH (07:15)
--- NOTE | 2019-06-15 08:54 | Anesthesiology Consultation ---
Date of Service June 15, 2019 Assessment & Plan (1) Encounter for pre-operative examination: Chart Review Chart Review: Acceptable Risk for Surgery and Patient NOT seen in Pre Admission Testing Consults Requested none ASA ASA3 Proposed Anesthesia Anesthesia Type: MAC Risk / Benefits Reviewed With: PT / POA / Parent / Guardian, Accepts Plan and Informed Consent Obtained Additional Notes GI bleed s/p 2 PRBCs - no N/V right now History Surgery Operation Date: 06/15/19 16:00 Proposed Procedures p Colonoscopy EGD Dr. Gould - Bouchra Gould MD Height/Weight Height: 5 ft 2 in Weight: 77 kg Allergies Allergy/AdvReac Type Severity Reaction Status Date / Time lisinopril Allergy Severe Angioedema Verified 06/13/19 15:38 Medications Home Medications Medication Instructions Recorded Confirmed Last Taken acetaminophen [Tylenol Extra 1,000 mg PO Q6H PRN 12/29/18 06/13/19 06/13/19 08:3 0 Strength] 1000 MG aspirin 81 mg PO QAM 12/29/18 06/13/19 06/13/19 atorvastatin 20 mg PO QPM 12/29/18 06/13/19 06/12/19 epinephrine [EpiPen] 0.3 mg IM DIRECTED PRN 12/29/18 06/13/19 Unknown furosemide 20 mg PO DIRECTED 12/29/18 06/13/19 06/13/19 hydralazine 50 mg PO TID 12/29/18 06/13/19 06/13/19 08:30 loratadine 10 mg PO QPM 12/29/18 06/13/19 06/12/19 metoprolol tartrate 25 mg PO BID 12/29/18 06/13/19 06/13/19 08:30 potassium chloride 10 meq PO DIRECTED 12/29/18 06/13/19 06/12/19 amlodipine 5 mg PO DIRECTED 06/13/19 06/13/19 Unknown citalopram 10 mg PO QAM 06/13/19 06/13/19 06/13/19 Active Medications Generic Name Dose Route Start Last Admin Trade Name Freq PRN Reason Stop Dose Admin Acetaminophen 1,000 mg 06/13/19 17:26 06/14/19 21:18 Tylenol PO 07/13/19 17:25 1,000 mg Q6H PRN Administration Fever Or Pain Amlodipine Besylate 5 mg 06/14/19 09:00 06/15/19 09:31 Norvasc PO 07/14/19 08:59 5 mg DAILY CAROLE Administration Atorvastatin Calcium 20 mg 06/13/19 21:00 06/14/19 21:18 Lipitor PO 07/13/19 20:59 20 mg QPM CAROLE Administration Citalopram Hydrobromide 10 mg 06/14/19 09:00 06/15/19 09:31 Celexa PO 07/14/19 08:59 10 mg QAM CAROLE Administration Hydralazine HCl 50 mg 06/13/19 21:00 06/15/19 09:30 Apresoline PO 07/13/19 20:59 50 mg TID CAROLE Administration Pantoprazole Sodium 40 mg/ 10 mls @ 5 mls/min 06/13/19 21:00 06/15/19 09:32 Syringe IV 07/13/19 20:59 5 mls/min BID@0900,2100 CAROLE Administration Potassium Chloride/Dextrose/Sod Cl 20 meq in 1,000 mls @ 150 mls/hr 06/15/19 07:15 06/15/19 09:29 D5w And 1/2nss + 20meq Kcl IV 06/15/19 13:54 150 mls/hr .Q6H40M CAROLE Administration Loratadine 10 mg 06/13/19 21:00 06/14/19 21:18 Claritin PO 07/13/19 20:59 10 mg QPM CAROLE Administration Metoprolol Tartrate 25 mg 06/14/19 21:00 06/15/19 09:30 Lopressor PO 07/14/19 20:59 25 mg BID CAROLE Administration Potassium Chloride 10 meq 06/13/19 21:00 06/15/19 09:31 Klor-Con M10 PO 07/13/19 20:59 10 meq BID CAROLE Administration NPO Date Last Intake of Fluids: 06/15/19 Time Last Intake of Fluids: 09:45 Date Last Intake of Solids: 06/11/19 Time Last Intake of Solids: 18:00 Past Medical History Medical History Accelerated hypertension Coronary artery disease Varicose veins Exercise / Class Metabolic Activity III < 4 Walking/Shop/Light housework Negative for chest pain, positive for sob Past Surgical History Surgical History History of quadruple bypass Past Anesthesia History No Hx of Anesthesia Complications History of PONV No Hx of PONV Social History Smoking Status: Never smoker Do You Dip or Chew Tobacco: No Hx Alcohol Use: No Hx Substance Use: No substance use type: does not use Review of Systems Patient denies active symptoms of GERD. Positive for nausea during prep. Physical Exam Vital Signs Last Vital Signs Temp 36.8 C 06/15/19 09:38 Pulse 62 06/15/19 08:01 Resp 16 06/15/19 08:01 BP 145/53 H 06/15/19 08:01 Pulse Ox 93 06/15/19 08:01 Constitutional + obese ENMT Mouth: + dentures and + edentulous; no TMJ abnormality and oral opening not small Thyromental Distance: < 3.5 Finger Breadths Mallampati Class: II Neck normal visual inspection; neck extension not limited Respiratory normal respiratory effort Auscultation: lungs clear to auscultation bilaterally Cardiovascular Rate/Rhythm: regular rate and regular rhythm Heart Sounds: no murmur Neurologic moves all extremities Psychiatric Orientation: alert and oriented x 3 Testing Laboratory Results 06/15/19 05:35 06/15/19 05:35 PT 11.5 Seconds (9.0-12.0) 06/13/19 15:10 INR 1.1 (0.9-1.1) 06/13/19 15:10 APTT 27.9 Seconds (21.0-31.0) 06/13/19 15:10 Blood Type A Positive 06/13/19 15:10 Antibody Screen NEGATIVE 06/13/19 15:10 Electrocardiogram Date: 06/14/19 Sinus rhythm (61) with 1st degree A-V block with frequent Premature ventricular complexes and Fusion complexes ST & T wave abnormality, consider inferolateral ischemia Prolonged QT Abnormal ECG When compared with ECG of 13-JUN-2019 15:11, (unconfirmed) Sinus rhythm has replaced Junctional rhythm Chest X-Ray Date: 06/13/19 1. Cardiomegaly with mild volume overload. No advanced congestive changes. No other evidence of acute cardiopulmonary disease. Echocardiogram Date: 06/14/19 EF: 55-60% LV Function: normal moderate tricuspid regurg, mild pulmonary HTN, mild concentric LVH
[2019-06-15] MEDS: METOPROLOL TARTRATE 25 MG TAB PO SCH ×2 (09:30→20:56)
[2019-06-15] MEDS: HydrALAZINE TAB 50 MG TAB PO SCH ×3 (09:30→20:55)
[2019-06-15] MEDS: CITALOPRAM 20 MG TAB PO SCH (09:31)
[2019-06-15] MEDS: POTASSIUM CHLORIDE 10 MEQ TABCR PO SCH ×2 (09:31→20:56)
[2019-06-15] MEDS: AMLODIPINE BESYLATE 5 MG TAB PO SCH (09:31)
[2019-06-15] MEDS: PANTOprazole 40 MG in SYRINGE 0 ML IV SCH ×2 (09:32→20:57)
[2019-06-15] MEDS ORDERED: LIDOCAINE HCL 2% 2 ML VIAL/AMP(20MG/ML) INFIL ONE (12:03)
[2019-06-15] MEDS ORDERED: PROPOFOL IV EMULSION 10 MG/ML 20 ML VIAL IV ONE ×2 (12:03→12:54)
--- NOTE | 2019-06-15 12:04 | History & Physical Bridge Note ---
Date of Service June 15, 2019 History & Physical Bridge Note I have examined the patient, reviewed the History & Physical and in the interval since the performance of the History & Physical I have noted the following changes of clinical significance: no changes noted EGD/Colonoscopy today
--- NOTE | 2019-06-15 12:52 | GI REPORT ---
Patient Name: Vani Parker Procedure Date: 06/15/2019 12:11 PM Date of : 1940 Admit Type: Inpatient Age: 78 Gender: Female Attending MD: Bouchra Gould MD Procedure: Upper GI endoscopy Providers: Bouchra Gould MD Referring MD: Richi Hastings Indications: Anemia Medicines: Propofol per Anesthesia Complications: No immediate complications. Estimated Blood Loss: Estimated blood loss: none. Procedure: Pre-Anesthesia Assessment: - Prior to the procedure, a History and Physical was performed, and patient medications, allergies and sensitivities were reviewed. The patient's tolerance of previous anesthesia was reviewed. - The risks and benefits of the procedure and the sedation options and risks were discussed with the patient. All questions were answered and informed consent was obtained. - Patient identification and proposed procedure were verified prior to the procedure by the physician and the nurse. The procedure was verified in the procedure room. - Pre-procedure physical examination revealed no contraindications to sedation. After obtaining informed consent, the endoscope was passed under direct vision. Throughout the procedure, the patient's blood pressure, pulse, and oxygen saturations were monitored continuously. The Endoscope was introduced through the mouth, and advanced to the second part of duodenum. The upper GI endoscopy was accomplished without difficulty. The patient tolerated the procedure well. Findings: The examined esophagus was normal. The entire examined stomach was normal. One non-bleeding superficial duodenal ulcer with no stigmata of bleeding was found in the duodenal bulb. The lesion was 4 mm in largest dimension. The second portion of the duodenum was normal. Impression: - Normal esophagus. - Normal stomach. - One small superficial non-bleeding duodenal ulcer with no stigmata of bleeding. - Normal second portion of the duodenum. Recommendation: - No ibuprofen, naproxen, or other non-steroidal anti-inflammatory drugs. - Use a proton pump inhibitor PO daily for 3 months. - Perform a colonoscopy today. Bouchra Gould MD 06/15/2019 12:51:56 PM This report has been signed electronically. Note Initiated On: 06/15/2019 12:11 PM Number of Addenda: 0 I attest to the content of the Intraoperative Record and orders documented therein, exceptions below {[id number]}
[2019-06-15] MEDS ORDERED: ePHEDrine sulfate 50 MG/ML SYR ONE (12:54)
--- NOTE | 2019-06-15 12:55 | GI REPORT ---
Patient Name: Vani Parker Procedure Date: 06/15/2019 12:10 PM Date of : 1940 Admit Type: Inpatient Age: 78 Gender: Female Attending MD: Bouchra Gould MD Procedure: Colonoscopy Providers: Bouchra Gould MD Referring MD: Richi Hastings Indications: Anemia Medicines: Propofol per Anesthesia Complications: No immediate complications. Estimated Blood Loss: Estimated blood loss: none. Procedure: Pre-Anesthesia Assessment: - Prior to the procedure, a History and Physical was performed, and patient medications, allergies and sensitivities were reviewed. The patient's tolerance of previous anesthesia was reviewed. - The risks and benefits of the procedure and the sedation options and risks were discussed with the patient. All questions were answered and informed consent was obtained. - Patient identification and proposed procedure were verified prior to the procedure by the physician and the nurse. The procedure was verified in the procedure room. - Pre-procedure physical examination revealed no contraindications to sedation. After I obtained informed consent, the scope was passed under direct vision. Throughout the procedure, the patient's blood pressure, pulse, and oxygen saturations were monitored continuously. The Colonoscope was introduced through the anus and advanced to the terminal ileum. The colonoscopy was performed without difficulty. The patient tolerated the procedure well. The quality of the bowel preparation was good. The terminal ileum, ileocecal valve, appendiceal orifice, and rectum were photographed. Findings: The perianal and digital rectal examinations were normal. The terminal ileum appeared normal. Two sessile polyps were found in the ascending colon. The polyps were 6 mm in size. These polyps were removed with a cold snare. Resection and retrieval were complete. Verification of patient identification for the specimen was done by the physician and nurse using the patient's name and date. Multiple small and large-mouthed diverticula were found in the sigmoid colon. Non-bleeding internal hemorrhoids were found during retroflexion. The hemorrhoids were small. Impression: - The examined portion of the ileum was normal. No blood seen in the entire exam. - Two 6 mm polyps in the ascending colon, removed with a cold snare. Resected and retrieved. - Diverticulosis in the sigmoid colon. - Non-bleeding internal hemorrhoids. Recommendation: - Await pathology results. - Repeat colonoscopy for surveillance based on pathology results. - To visualize the small bowel, perform video capsule endoscopy at appointment to be scheduled as OP. - Recall GI if needed. Bouchra Gould MD 06/15/2019 12:55:09 PM This report has been signed electronically. Note Initiated On: 06/15/2019 12:10 PM Number of Addenda: 0 I attest to the content of the Intraoperative Record and orders documented therein, exceptions below {[id number]}
--- NOTE | 2019-06-15 13:06 | Electrocardiogram Report ---
Test Reason : Blood Pressure : / mmHG Vent. Rate : 058 BPM Atrial Rate : 277 BPM P-R Int : 000 ms QRS Dur : 110 ms QT Int : 504 ms P-R-T Axes : 000 -20 128 degrees QTc Int : 494 ms Sinus rhythm with 1st degree A-V block with pvcs Incomplete left bundle block Left ventricular hypertrophy with repolarization abnormality Prolonged QT Abnormal ECG When compared with ECG of 29-DEC-2018 21:30, T wave amplitude has increased in Inferior leads T wave inversion more evident in Lateral leads Confirmed by Tee Mcwilliams ([id number]) on 06/15/2019 1:06:17 PM Referred By: REFERRED SELF Confirmed By:Tee Mcwilliams
--- NOTE | 2019-06-15 13:10 | Anesthesiology Progress Note ---
Date of Service June 15, 2019 Anesthesia Post Procedure Vital Signs Vital Signs: Temp Pulse Pulse Pulse Resp BP Pulse Ox 06/15/19 13:07 60 16 118/52 L 95 06/15/19 12:55 67 16 134/61 97 06/15/19 11:48 36.7 C 61 18 126/77 97 06/15/19 09:38 36.8 C 06/15/19 08:01 36.3 C L 62 16 145/53 H 93 06/15/19 03:54 36.4 C L 55 L 18 119/62 96 06/15/19 00:05 55 L 06/14/19 23:32 37.0 C 57 L 17 109/49 L 95 06/14/19 19:05 36.3 C L 62 17 150/57 H 98 06/14/19 15:29 64 06/14/19 15:07 36.9 C 64 16 119/52 L 95 06/14/19 13:36 63 151/61 H Transfer of Care Handoff Completed per policy Notes Mental Status: alert / awake / arousable and participated in evaluation Nausea / Vomiting: adequately controlled Pain: adequately controlled Airway Patency, RR, SpO2: stable & adequate BP & HR: stable & adequate Hydration State: stable & adequate Anesthetic Complications: no major complications apparent and Pt Satisfied with anesthetic care
--- NOTE | 2019-06-15 13:21 | Electrocardiogram Report ---
Test Reason : Blood Pressure : / mmHG Vent. Rate : 061 BPM Atrial Rate : 061 BPM P-R Int : 270 ms QRS Dur : 112 ms QT Int : 488 ms P-R-T Axes : 060 -28 135 degrees QTc Int : 491 ms Sinus rhythm with 1st degree A-V block with frequent Premature ventricular complexes and Fusion compl exes Prolonged QT Abnormal ECG When compared with ECG of 13-JUN-2019 15:11, (unconfirmed) No significant change Confirmed by Tee Mcwilliams ([id number]) on 06/15/2019 1:21:18 PM Referred By: REFERRED SELF Confirmed By:Tee Mcwilliams
[2019-06-15] MEDS: ACETAMINOPHEN 500 MG TAB PO PRN ×2 (14:46→23:31)
[2019-06-15] MEDS: ATORVASTATIN 20 MG TAB PO SCH (20:56)
[2019-06-15] MEDS: LORATADINE 10 MG TAB PO SCH (20:56)
--- NOTE | 2019-06-15 21:27 | Hospitalist Progress Note ---
Date of Service June 15, 2019 Assessment & Plan (1) GI bleed: Received PPI. Hemodynamically stable. Hgb 7.0 --> 8.6 after 2 units pRBC's. GI consulted. EGD- small duodenal ulcer with no stigmata of bleeding. Colonoscopy-diverticulosis without bleeding, small polyps, internal hemorrhoids not currently bleeding. Outpatient capsule endoscopy recommended. (2) Acute blood loss anemia: As noted above. (3) Coronary artery disease: No anginal symptoms. Hold aspirin temporarily because of GI bleed. Metoprolol held for possible junctional rhythm, but EKG is interpreted as sinus rhythm upon formal interpretation. Resumed metoprolol. Continue amlodipine. (4) Hypertension: As noted above. (5) FORREST (acute kidney injury): Serum creatinine at time of admission 2.49 compared to baseline of 1.4 in December 2018. Acute kidney injury, probably secondary to GI bleeding. Hold furosemide. Creatinine today 2.40. Follow. (6) CKD (chronic kidney disease), stage III: As noted above. (7) DVT prophylaxis: No anticoagulants secondary to GI bleeding. SCDs. Ambulate. (8) Discharge planning issues: Anticipated discharge to home. Family Medicine follow-up with Dr. Sands. Admission and Anticipated Discharge Date Admission Date: June 13, 2019 Subjective Recheck for GI bleeding and other problems. Patient seen in their room around 1850. Busy day with EGD and colonoscopy. Patient thought that maybe she saw some blood this morning with bowel prep, but none reported by nursing staff. Mild nausea, no emesis. Review of Systems: Constitutional- no fever. Cardiac- no chest pain. Pulmonary- no cough or SOB. GI- as noted above. - no urinary symptoms. Otherwise, as noted above. Physical Exam Constitutional: no acute distress Respiratory: no respiratory distress Auscultation: lungs clear to auscultation bilaterally Cardiovascular: Rate/Rhythm: regular rate and regular rhythm Vessels: no JVD Extremities: no calf tenderness and no edema Gastrointestinal (Abdomen): normal bowel sounds, soft, nontender, no hepatosplenomegaly Skin: no rashes, warm and dry Psychiatric: Orientation: alert Results & Data ([facility] [place]) Vital Signs (Past 12 Hours) Vital Signs Temp Pulse Pulse Resp BP BP Pulse Ox 06/15/19 19:05 36.9 C 58 L 16 126/48 L 95 06/15/19 18:30 54 L 13 06/15/19 18:15 56 L 16 06/15/19 18:00 58 L 21 06/15/19 17:45 60 16 06/15/19 17:30 59 L 14 06/15/19 17:15 60 17 06/15/19 17:00 59 L 17 06/15/19 16:45 60 13 06/15/19 16:30 62 15 06/15/19 16:17 36.7 C 61 61 17 119/48 L 119/48 L 96 06/15/19 16:15 63 19 06/15/19 16:00 61 20 06/15/19 15:45 64 21 06/15/19 15:30 65 22 06/15/19 15:15 63 21 133/54 L 06/15/19 15:00 63 38 H 139/57 L 06/15/19 14:45 65 15 132/57 L 06/15/19 14:30 63 24 131/60 06/15/19 14:15 58 L 23 142/59 H 06/15/19 14:00 65 28 H 138/63 06/15/19 13:51 63 25 H 140/53 L 06/15/19 13:50 63 23 128/55 L 06/15/19 13:46 12 06/15/19 13:24 63 18 115/56 L 93 06/15/19 13:07 60 16 118/52 L 95 06/15/19 12:55 67 16 134/61 97 06/15/19 11:48 36.7 C 61 18 126/77 97 06/15/19 09:38 36.8 C Laboratory Results Laboratory Results - last 24 hr 06/13/19 06/15/19 06/15/19 15:10 05:35 05:35 WBC 5.26 RBC 3.22 L Hgb 9.6 L Hct 30.0 L MCV 93.2 MCH 29.8 MCHC 32.0 RDW Std Deviation 59.1 H RDW Coeff of Filiberto 17.6 H Plt Count 214 MPV 10.0 Sodium 137 Potassium 3.4 L Chloride 107 Carbon Dioxide 21 Anion Gap 9.0 BUN 32 H Creatinine 2.40 H Est Cr Clr Drug Dosing 18.0 Est GFR ( Amer) 21.4 Est GFR (Non-Af Amer) 18.4 BUN/Creatinine Ratio 13.3 Glucose 102 H Calcium 8.9 Crossmatch See Detail (1) GI bleed GI bleed type/associated pathology: unspecified gastrointestinal hemorrhage type Qualified Code(s): K92.2 - Gastrointestinal hemorrhage, unspecified
[2019-06-16 05:54] LABS: Hematocrit (blood only) 25.1 % (37-47); Hemoglobin 8.1 g/dL (12.0-16.0); Mean Corpuscular Hemoglobin 29.9 pg (25-34); Mean Corpuscular Hgb Conc 32.3 g/dL (32-36); Mean Corpuscular Volume 92.6 fL (80-100); Mean Platelet Volume 9.2 fL (7.4-10.4); Platelet Count 148 K/uL (130-400); RDW Coefficient of Variation 17.4 % (11.5-14.5); RDW Standard Deviation 58.7 fL (36.4-46.3); Red Blood Count 2.71 M/uL (4.2-5.4); White Blood Count 4.27 K/uL (4.8-10.8)
[2019-06-16 06:39] LABS: Calcium 8.1 mg/dl (8.5-10.1); Creatinine Clr Calc Pharmacy 18.8 ml/min; Est GFR (African American) 22.5; Est GFR (Non-African American) 19.4; Potassium 3.6 mmol/L (3.5-5.1)
--- NOTE | 2019-06-16 07:08 | Gastroenterology Progress Note ---
Date of Service June 16, 2019 Assessment & Plan (1) Acute blood loss anemia: 78 year old female s/p EGD/Colonoscopy yesterday for evaluation of dark stools, anemia. Non-bleeding duodenal ulcer, Two 6 mm polyps in the ascending colon, removed with a cold snare. Diverticulosis in the sigmoid colon, Non- bleeding internal hemorrhoids. - PO PPI daily - OP VCE - No NSAIDs - Advance diet as tolerated - Trend H&H - Monitor and document GI output - Transfuse PRN per primary service - GI to sign off. Thank you for allowing us to participate in the care of this patient. Please call with any acute changes, questions or concerns. Please see addendum below with additional recommendation from my supervising physician. Admission and Anticipated Discharge Date Admission Date: June 13, 2019 Supervising Physician Co-Signing Physician Notes I have discussed the patient's management with the advanced practitioner. Please refer to the nurse practitioner's note for the documented findings and plan of care. Subjective Pt was seen and evaluated, chart reviewed No acute events overnight No abd pain No nausea, vomiting Yet to move bowels since EGD/Colonoscopy yesterday Review of Systems Constitutional: no fever and no body aches Respiratory: no cough and no dyspnea Cardiovascular: no chest pain Gastrointestinal: no abdominal pain, no coffee ground emesis, no hematemesis, no blood in stools and no melena Physical Exam Constitutional: WD/WN, vitals as above Neck: trachea midline Gastrointestinal (Abdomen): Percussion/Palpation: abdomen soft; abdomen nontender, no guarding and abdomen not rigid Skin: no rashes, warm and dry Results & Data ([facility]) Vital Signs (Past 12 Hours) Vital Signs Temp Pulse Pulse Resp BP Pulse Ox 06/16/19 03:03 36.9 C 59 L 18 121/54 L 94 06/16/19 00:02 60 06/15/19 23:23 37.0 C 62 17 124/49 L 95 Laboratory Results 06/16/19 06/16/19 06/13/19 Range/Units 05:39 05:39 15:10 WBC 4.27 L (4.8-10.8) K/uL RBC 2.71 L (4.2-5.4) M/uL Hgb 8.1 L (12.0-16.0) g/dL Hct 25.1 L (37-47) % MCV 92.6 (80-100) fL MCH 29.9 (25-34) pg MCHC 32.3 (32-36) g/dL RDW Std Deviation 58.7 H (36.4-46.3) fL RDW Coeff of Filiberto 17.4 H (11.5-14.5) % Plt Count 148 (130-400) K/uL MPV 9.2 (7.4-10.4) fL Sodium 140 (136-145) mmol/L Potassium 3.6 (3.5-5.1) mmol/L Chloride 112 H (98-107) mmol/L Carbon Dioxide 21 (21-32) mmol/L Anion Gap 7.0 (3-11) BUN 28 H (7-18) mg/dl Creatinine 2.30 H (0.6-1.2) mg/dl Est Cr Clr Drug Dosing 18.8 ml/min Est GFR ( Amer) 22.5 Est GFR (Non-Af Amer) 19.4 BUN/Creatinine Ratio 12.0 (10-20) Glucose 91 (70-99) mg/dl Calcium 8.1 L (8.5-10.1) mg/dl Crossmatch See Detail
--- NOTE | 2019-06-16 07:52 | Anesthesiology Progress Note ---
Date of Service June 16, 2019 Anesthesia Post Procedure Vital Signs Vital Signs: Temp Pulse Pulse Resp BP BP Pulse Ox 06/16/19 03:03 36.9 C 59 L 18 121/54 L 94 06/16/19 00:02 60 06/15/19 23:23 37.0 C 62 17 124/49 L 95 06/15/19 19:05 36.9 C 58 L 16 126/48 L 95 06/15/19 18:30 54 L 13 06/15/19 18:15 56 L 16 06/15/19 18:00 58 L 21 06/15/19 17:45 60 16 06/15/19 17:30 59 L 14 06/15/19 17:15 60 17 06/15/19 17:00 59 L 17 06/15/19 16:45 60 13 06/15/19 16:30 62 15 06/15/19 16:17 36.7 C 61 61 17 119/48 L 119/48 L 96 06/15/19 16:15 63 19 06/15/19 16:00 61 20 06/15/19 15:45 64 21 06/15/19 15:30 65 22 06/15/19 15:15 63 21 133/54 L 06/15/19 15:00 63 38 H 139/57 L 06/15/19 14:45 65 15 132/57 L 06/15/19 14:30 63 24 131/60 06/15/19 14:15 58 L 23 142/59 H 06/15/19 14:00 65 28 H 138/63 06/15/19 13:51 63 25 H 140/53 L 06/15/19 13:50 63 23 128/55 L 06/15/19 13:46 12 06/15/19 13:24 63 18 115/56 L 93 06/15/19 13:07 60 16 118/52 L 95 06/15/19 12:55 67 16 134/61 97 06/15/19 11:48 36.7 C 61 18 126/77 97 06/15/19 09:38 36.8 C 06/15/19 08:01 36.3 C L 62 16 145/53 H 93 Notes Mental Status: alert / awake / arousable and participated in evaluation Nausea / Vomiting: adequately controlled Pain: adequately controlled Airway Patency, RR, SpO2: stable & adequate BP & HR: stable & adequate Hydration State: stable & adequate
[2019-06-16] MEDS: POTASSIUM CHLORIDE 10 MEQ TABCR PO SCH ×2 (08:03→20:17)
[2019-06-16] MEDS: HydrALAZINE TAB 50 MG TAB PO SCH ×3 (08:03→20:17)
[2019-06-16] MEDS: METOPROLOL TARTRATE 25 MG TAB PO SCH ×2 (08:03→20:17)
[2019-06-16] MEDS: CITALOPRAM 20 MG TAB PO SCH (08:04)
[2019-06-16] MEDS: PANTOprazole 40 MG TAB PO SCH (08:04)
[2019-06-16] MEDS: AMLODIPINE BESYLATE 5 MG TAB PO SCH (08:04)
--- NOTE | 2019-06-16 19:28 | Hospitalist Progress Note ---
Date of Service June 16, 2019 Assessment & Plan (1) GI bleed: Dark stools for 2-3 weeks. Hgb 6.9 in clinic. Takes low dose aspirin, no NSAID's. Received PPI. Hemodynamically stable. Hgb 7.0 --> 9.6 after 2 units pRBC's. GI consulted. EGD- small duodenal ulcer with no stigmata of bleeding. Colonoscopy-diverticulosis without bleeding, small polyps, internal hemorrhoids not currently bleeding. Outpatient capsule endoscopy recommended. (2) Duodenal ulcer: EGD- small duodenal ulcer with no stigmata of bleeding. Avoid NSAID's. Continue PPI. (3) Colonic polyp: Colonoscopy-diverticulosis without bleeding, small polyps (sessile, 6 mm, ascending colon), internal hemorrhoids not currently bleeding. Pathology = tubular adenomas. Surveillance per GI. (4) Acute blood loss anemia: Baseline Hgb around 11. Hgb 7.0 at time of admission and becky to 9.6 after 2 units pRBC's. Hgb today = 8.1. No need for further transfusion at this time. Recheck H/H in a.m. (5) Coronary artery disease: No anginal symptoms. Hold aspirin temporarily because of GI bleed. Metoprolol held for possible junctional rhythm, but EKGs interpreted as sinus rhythm upon formal interpretation. Resumed metoprolol. Continue amlodipine. Restart aspirin in a few days. (6) Hypertension: As noted above. (7) FORREST (acute kidney injury): Serum creatinine at time of admission 2.49 compared to baseline of 1.4 in December 2018. Acute kidney injury, probably secondary to GI bleeding +/- ATN. Hold furosemide. Creatinine today 2.30. IV fluids tonight. Recheck labs in a.m. (8) CKD (chronic kidney disease), stage III: As noted above. (9) DVT prophylaxis: No anticoagulants secondary to GI bleeding. SCDs. Ambulate. (10) Discharge planning issues: Anticipated discharge to home. Family Medicine follow-up with Dr. Sands. Daughter given update by phone. Admission and Anticipated Discharge Date Admission Date: June 13, 2019 Subjective Recheck for GI bleeding and other problems. Patient seen in their room around 1900. Doing fairly well. Noted a small amount of blood in toilet water. No nausea, vomiting, abdominal pain. Ambulated in hallway. Review of Systems: Constitutional- no fever. Cardiac- no chest pain. Pulmonary- no cough or SOB. GI- as noted above. - no urinary symptoms. Otherwise, as noted above. Physical Exam Constitutional: no acute distress Respiratory: no respiratory distress Auscultation: lungs clear to auscultation bilaterally Cardiovascular: Rate/Rhythm: regular rate and regular rhythm Heart Sounds: + murmur (II/ sys murmur LSB) Vessels: no JVD Extremities: no calf tenderness and no edema Gastrointestinal (Abdomen): normal bowel sounds, soft, nontender, no hepatosplenomegaly Skin: no rashes, warm and dry Psychiatric: Orientation: alert Results & Data ([facility]) Vital Signs (Past 12 Hours) Vital Signs Temp Pulse Pulse Resp BP Pulse Ox 06/16/19 16:00 78 06/16/19 15:14 37.2 C 63 17 128/52 L 95 06/16/19 10:53 36.9 C 75 25 H 155/61 H 95 06/16/19 09:11 61 06/16/19 08:00 36.8 C 58 L 15 128/53 L 96 Laboratory Results 06/16/19 05:39 06/16/19 05:39 (1) GI bleed GI bleed type/associated pathology: unspecified gastrointestinal hemorrhage type Qualified Code(s): K92.2 - Gastrointestinal hemorrhage, unspecified
[2019-06-16] MEDS ORDERED: LACTATED RINGER'S 1,000 ML IV SCH (20:15)
[2019-06-16] MEDS: LORATADINE 10 MG TAB PO SCH (20:17)
[2019-06-16] MEDS: ATORVASTATIN 20 MG TAB PO SCH (20:17)
[2019-06-17 07:29] LABS: Hematocrit (blood only) 24.1 % (37-47); Hemoglobin 7.8 g/dL (12.0-16.0); Mean Corpuscular Hemoglobin 29.9 pg (25-34); Mean Corpuscular Hgb Conc 32.4 g/dL (32-36); Mean Corpuscular Volume 92.3 fL (80-100); Mean Platelet Volume 9.6 fL (7.4-10.4); Platelet Count 142 K/uL (130-400); RDW Coefficient of Variation 17.4 % (11.5-14.5); RDW Standard Deviation 58.8 fL (36.4-46.3); Red Blood Count 2.61 M/uL (4.2-5.4); White Blood Count 4.18 K/uL (4.8-10.8)
[2019-06-17 08:04] LABS: BUN Creatinine Ratio 11.9 (10-20); Calcium 8.3 mg/dl (8.5-10.1); Creatinine Clr Calc Pharmacy 19.2 ml/min; Est GFR (African American) 22.8; Est GFR (Non-African American) 19.6; Potassium 3.7 mmol/L (3.5-5.1)
[2019-06-17] MEDS ORDERED: SODIUM CHLORIDE 0.9% 250 ML IV PRN (08:30)
[2019-06-17] MEDS: AMLODIPINE BESYLATE 5 MG TAB PO SCH (09:19)
[2019-06-17] MEDS: HydrALAZINE TAB 50 MG TAB PO SCH ×3 (09:20→20:47)
[2019-06-17] MEDS: PANTOprazole 40 MG TAB PO SCH (09:20)
[2019-06-17] MEDS: METOPROLOL TARTRATE 25 MG TAB PO SCH ×2 (09:21→20:46)
[2019-06-17] MEDS: CITALOPRAM 20 MG TAB PO SCH (09:21)
[2019-06-17] MEDS: POTASSIUM CHLORIDE 10 MEQ TABCR PO SCH ×2 (10:09→20:46)
--- NOTE | 2019-06-17 14:05 | Hospitalist Progress Note ---
Date of Service June 17, 2019 Assessment & Plan (1) GI bleed: Dark stools for 2-3 weeks. Hgb 6.9 in clinic. Takes low dose aspirin, no NSAID's. Received PPI. Hemodynamically stable. Hgb 7.0 --> 9.6 after 2 units pRBC's. Now Hgb 7.8, transfuse another 1 unit of pRBC (06/16) GI consulted. EGD- small duodenal ulcer with no stigmata of bleeding. Colonoscopy-diverticulosis without bleeding, small polyps, internal hemorrhoids not currently bleeding. Outpatient capsule endoscopy recommended. (2) Duodenal ulcer: EGD- small duodenal ulcer with no stigmata of bleeding. Avoid NSAID's. Continue PPI. (3) Colonic polyp: Colonoscopy-diverticulosis without bleeding, small polyps (sessile, 6 mm, ascending colon), internal hemorrhoids not currently bleeding. Pathology = tubular adenomas. Surveillance per GI. (4) Acute blood loss anemia: Baseline Hgb around 11. Hgb 7.0 at time of admission and becky to 9.6 after 2 units pRBC's. Hgb today = 7.8, will transfuse 1 unit of pRBC (06/16), goal Hgb above 8 Cont. to monitor H/H (5) Coronary artery disease: No anginal symptoms. Hold aspirin temporarily because of GI bleed. Metoprolol held for possible junctional rhythm, but EKGs interpreted as sinus rhythm upon formal interpretation. Resumed metoprolol. Continue amlodipine. Restart aspirin in a few days. Reported per nursing poss. second degree block, will obtain 12 lead EKG (06/17/2019) Pt w/o any symptoms (6) Hypertension: As noted above. (7) FORREST (acute kidney injury): Serum creatinine at time of admission 2.49 compared to baseline of 1.4 in December 2018. Acute kidney injury, probably secondary to GI bleeding +/- ATN. Hold furosemide. Creatinine today 2.30. IV fluids received, Cr essentially unchanged at 2.3 Cont. to monitor renal function Try to avoid nephrotoxic agents (8) CKD (chronic kidney disease), stage III: As noted above. (9) DVT prophylaxis: No anticoagulants secondary to GI bleeding. SCDs. Ambulate. (10) Discharge planning issues: Anticipated discharge to home. Family Medicine follow-up with Dr. Rozick. Daughter given update by phone by Dr. Evans. Admission and Anticipated Discharge Date Admission Date: June 13, 2019 Subjective Pt is sitting up in the chair, in NAD but appears tired. Reports seeing blood in toilet bowl but can not remember when . Denies any blood today. Per nursing staff no BM and no blood reported since colonoscopy. Will need to cont. to monitor. Hgb 7.8 today, will transfuse 1 unit of pRBC. Cr remains elevated at 2.3 Review of Systems Review of Systems: All systems reviewed & are unremarkable except as noted in HPI & below Constitutional: + fatigue; no fever and no chills Respiratory: no cough and no dyspnea Cardiovascular: no chest pain and no palpitations Gastrointestinal: + blood in stools; no abdominal pain, no nausea and no vomiting Physical Exam Physical Exam: Constitutional: elderly female sitting up in the chair, in no acute distress, appears tired HEENT: NC/AT, EOMI Respiratory: no respiratory distress Auscultation: lungs clear to auscultation bilaterally, no wheezing, rhonchi, crackles noted Cardiovascular: Rate/Rhythm: regular rate and regular rhythm Heart Sounds: + murmur (II/ sys murmur LSB) Vessels: no JVD Extremities: no calf tenderness and no edema Gastrointestinal (Abdomen): normal bowel sounds, soft,obese, nontender, nondistended Skin: no rashes, warm and dry Neuro: no facial asymmetry, speech fluent, moves extremities spontaneously Psychiatric: Orientation: alert and oriented, answers questions appropriately Results & Data ([facility]) Vital Signs (Past 12 Hours) Vital Signs Temp Pulse Pulse Resp BP BP Pulse Ox 06/17/19 12:36 36.8 C 63 18 138/67 06/17/19 12:35 36.6 C 58 L 18 145/67 H 93 06/17/19 12:06 36.8 C 61 20 149/67 H 06/17/19 11:51 36.1 C L 55 L 18 134/66 97 06/17/19 11:31 36.8 C 57 L 18 123/66 96 06/17/19 07:00 37 C 59 L 20 136/65 93 06/17/19 05:06 36.8 C 63 18 133/65 94 Laboratory Results 06/17/19 06/17/19 06/17/19 Range/Units 09:01 07:09 07:09 WBC 4.18 L (4.8-10.8) K/uL RBC 2.61 L (4.2-5.4) M/uL Hgb 7.8 L (12.0-16.0) g/dL Hct 24.1 L (37-47) % MCV 92.3 (80-100) fL MCH 29.9 (25-34) pg MCHC 32.4 (32-36) g/dL RDW Std Deviation 58.8 H (36.4-46.3) fL RDW Coeff of Filiberto 17.4 H (11.5-14.5) % Plt Count 142 (130-400) K/uL MPV 9.6 (7.4-10.4) fL Sodium 137 (136-145) mmol/L Potassium 3.7 (3.5-5.1) mmol/L Chloride 111 H (98-107) mmol/L Carbon Dioxide 19 L (21-32) mmol/L Anion Gap 7.0 (3-11) BUN 27 H (7-18) mg/dl Creatinine 2.28 H (0.6-1.2) mg/dl Est Cr Clr Drug Dosing 19.2 ml/min Est GFR ( Amer) 22.8 Est GFR (Non-Af Amer) 19.6 BUN/Creatinine Ratio 11.9 (10-20) Glucose 92 (70-99) mg/dl Calcium 8.3 L (8.5-10.1) mg/dl Blood Type A Positive Antibody Screen NEGATIVE Crossmatch See Detail Medications Administered Current Inpatient Medications Acetaminophen (Tylenol) 1,000 mg PO Q6H PRN PRN Reason: Fever Or Pain Stop: 07/13/19 17:25 Last Admin: 06/15/19 23:31 Dose: 1,000 mg Documented by: Amlodipine Besylate (Norvasc) 5 mg PO DAILY [facility] Stop: 07/14/19 08:59 Last Admin: 06/17/19 09:19 Dose: 5 mg Documented by: Atorvastatin Calcium (Lipitor) 20 mg PO QPM [facility] Stop: 07/13/19 20:59 Last Admin: 06/16/19 20:17 Dose: 20 mg Documented by: Citalopram Hydrobromide (Celexa) 10 mg PO QAM [facility] Stop: 07/14/19 08:59 Last Admin: 06/17/19 09:21 Dose: 10 mg Documented by: Diphenhydramine HCl (Benadryl Capsule) 25 mg PO Q6H PRN PRN Reason: Itching Stop: 07/16/19 11:37 Last Admin: 06/16/19 12:47 Dose: 25 mg Documented by: Hydralazine HCl (Apresoline) 50 mg PO TID [facility] Stop: 07/13/19 20:59 Last Admin: 06/17/19 09:20 Dose: 50 mg Documented by: Sodium Chloride (Nss) 250 mls @ 15 mls/hr IV .[id number] PRN PRN Reason: For Transfusion Stop: 06/17/19 18:31 Loratadine (Claritin) 10 mg PO QPM [facility] Stop: 07/13/19 20:59 Last Admin: 06/16/19 20:17 Dose: 10 mg Documented by: Metoprolol Tartrate (Lopressor) 25 mg PO BID [facility] Stop: 07/14/19 20:59 Last Admin: 06/17/19 09:21 Dose: 25 mg Documented by: Pantoprazole Sodium (Protonix) 40 mg PO QAM [facility] Stop: 07/16/19 08:59 Last Admin: 06/17/19 09:20 Dose: 40 mg Documented by: Potassium Chloride (Klor-Con M10) 10 meq PO BID [facility] Stop: 07/13/19 20:59 Last Admin: 06/17/19 10:09 Dose: 10 meq Documented by: (1) GI bleed GI bleed type/associated pathology: unspecified gastrointestinal hemorrhage type Qualified Code(s): K92.2 - Gastrointestinal hemorrhage, unspecified
[2019-06-17 15:16] LABS: Hematocrit (blood only) 28.9 % (37-47); Hemoglobin 9.6 g/dL (12.0-16.0)
--- NOTE | 2019-06-17 16:38 | Electrocardiogram Report ---
Test Reason : Blood Pressure : / mmHG Vent. Rate : 060 BPM Atrial Rate : 060 BPM P-R Int : 304 ms QRS Dur : 110 ms QT Int : 478 ms P-R-T Axes : 088 -25 125 degrees QTc Int : 478 ms Sinus rhythm with 1st degree A-V block Left ventricular hypertrophy with QRS widening and repolarization abnormality ST depression in Inferolateral leads , consider ischemia Abnormal ECG When compared with ECG of 14-JUN-2019 06:37, Fusion complexes are no longer Present Premature ventricular complexes are no longer Present Otherwise no significant change Confirmed by Augusto Ayon ([id number]) on 06/17/2019 4:38:02 PM Referred By: REFERRED SELF Confirmed By:Augusto Ayon
[2019-06-17] MEDS: ATORVASTATIN 20 MG TAB PO SCH (20:46)
[2019-06-17] MEDS: LORATADINE 10 MG TAB PO SCH (20:47)
[2019-06-18 07:20] LABS: Hematocrit (blood only) 27.4 % (37-47); Hemoglobin 9.1 g/dL (12.0-16.0); Mean Corpuscular Hemoglobin 30.7 pg (25-34); Mean Corpuscular Hgb Conc 33.2 g/dL (32-36); Mean Corpuscular Volume 92.6 fL (80-100); Mean Platelet Volume 9.5 fL (7.4-10.4); Platelet Count 141 K/uL (130-400); RDW Coefficient of Variation 17.7 % (11.5-14.5); RDW Standard Deviation 59.7 fL (36.4-46.3); Red Blood Count 2.96 M/uL (4.2-5.4); White Blood Count 4.57 K/uL (4.8-10.8)
[2019-06-18 07:56] LABS: BUN Creatinine Ratio 14.1 (10-20); Calcium 8.8 mg/dl (8.5-10.1); Creatinine Clr Calc Pharmacy 19.3 ml/min; Est GFR (African American) 22.8; Est GFR (Non-African American) 19.6; Magnesium 1.8 mg/dl (1.8-2.4); Phosphorus 3.2 mg/dl (2.5-4.9); Potassium 4.1 mmol/L (3.5-5.1)
[2019-06-18] MEDS: CITALOPRAM 20 MG TAB PO SCH (08:07)
[2019-06-18] MEDS: HydrALAZINE TAB 50 MG TAB PO SCH ×3 (08:07→20:07)
[2019-06-18] MEDS: PANTOprazole 40 MG TAB PO SCH (08:08)
[2019-06-18] MEDS: POTASSIUM CHLORIDE 10 MEQ TABCR PO SCH ×2 (08:08→20:08)
[2019-06-18] MEDS: AMLODIPINE BESYLATE 5 MG TAB PO SCH (08:08)
--- NOTE | 2019-06-18 10:05 | Communication Note ---
Date of Service: June 18, 2019 Outpatient appointment for Video Capsule Endoscopy consent scheduled on 07/15/2019 at 2PM. Patient to arrive at [facility] at 1:45PM. Address: [address] [place] [address] Jayne RODRÍGUEZ [id number]. Call [phone] if need to change or cancel appointment
[2019-06-18] MEDS: METOPROLOL TARTRATE 25 MG TAB PO SCH ×2 (10:30→20:07)
[2019-06-18] MEDS ORDERED: POLYETHYLENE (MIRALAX) 17 GM PACK PO PRN (11:37)
--- NOTE | 2019-06-18 18:37 | Hospitalist Progress Note ---
Date of Service June 18, 2019 Assessment & Plan (1) GI bleed: Dark stools for 2-3 weeks. Hgb 6.9 in clinic. Takes low dose aspirin, no NSAID's. Received PPI. Hemodynamically stable. Hgb 7.0 --> 9.6 after 2 units pRBC's. Hgb 7.8 on 06/16, transfused another 1 unit of pRBC (06/16) GI consulted. EGD- small duodenal ulcer with no stigmata of bleeding. Colonoscopy-diverticulosis without bleeding, small polyps, internal hemorrhoids not currently bleeding. Outpatient capsule endoscopy recommended. Outpatient appointment for Video Capsule Endoscopy consent scheduled on 07/15/2019 at 2PM. Patient to arrive at [facility] at 1:45PM. Address: [address] [place] [id number]. Call [phone] if need to change or cancel appointment (2) Duodenal ulcer: EGD- small duodenal ulcer with no stigmata of bleeding. Avoid NSAID's. Continue PPI. (3) Colonic polyp: Colonoscopy-diverticulosis without bleeding, small polyps (sessile, 6 mm, ascending colon), internal hemorrhoids not currently bleeding. Pathology = tubular adenomas. Surveillance per GI. (4) Acute blood loss anemia: Baseline Hgb around 11. Hgb 7.0 at time of admission and becky to 9.6 after 2 units pRBC's. Hgb 7.8 on 06/16, transfused 1 unit of pRBC (06/16), goal Hgb above 8 Cont. to monitor H/H current hgb 9.1, no blood reported since colonoscopy on 06/14 (5) Coronary artery disease: No anginal symptoms. Hold aspirin temporarily because of GI bleed. Metoprolol held for possible junctional rhythm, but EKGs interpreted as sinus rhythm upon formal interpretation. Resumed metoprolol. Continue amlodipine. Restart aspirin in a few days. Reported per nursing poss. second degree block, obtained 12 lead EKG (06/17/2019) Pt w/o any symptoms Per official report - NSR w/ 1 st degree AV block (6) Hypertension: As noted above. (7) FORREST (acute kidney injury): Serum creatinine at time of admission 2.49 compared to baseline of 1.4 in December 2018. Acute kidney injury, probably secondary to GI bleeding +/- ATN. Hold furosemide. Creatinine today 2.30. IV fluids received, Cr essentially unchanged at 2.3 Cont. to monitor renal function Try to avoid nephrotoxic agents (8) CKD (chronic kidney disease), stage III: As noted above. (9) DVT prophylaxis: No anticoagulants secondary to GI bleeding. SCDs. Ambulate. (10) Discharge planning issues: Anticipated discharge to home. Family Medicine follow-up with Dr. Sands. Daughter updated over the phone today, on 06/17. She can be reached at [phone]. Admission and Anticipated Discharge Date Admission Date: June 13, 2019 Subjective Pt is sitting up in the chair, in NAD but appears tired. Per nursing staff no BM and no blood reported since colonoscopy. Will need to cont. to monitor. Hgb 9.1 today, s/p transfusion of 1 unit of pRBC yesterday. Cr remains elevated at 2.3 Also, pt has lower lip tremor, discussed with her daughter over the phone today - this is chronic and not a new finding. Review of Systems Review of Systems: All systems reviewed & are unremarkable except as noted in HPI & below Constitutional: no fever and no chills Respiratory: no cough and no dyspnea Cardiovascular: no chest pain, no palpitations and no edema Gastrointestinal: no abdominal pain, no nausea and no vomiting no BM since colonoscopy Physical Exam Physical Exam: Constitutional: elderly female sitting up in the chair, in no acute distress, appears tired HEENT: NC/AT, EOMI Respiratory: no respiratory distress Auscultation: lungs clear to auscultation bilaterally, no wheezing, rhonchi, crackles noted Cardiovascular: Rate/Rhythm: regular rate and regular rhythm Heart Sounds: + murmur (II/ sys murmur LSB) Vessels: no JVD Extremities: no calf tenderness and no edema Gastrointestinal (Abdomen): normal bowel sounds, soft,obese, nontender, nondis tended Skin: no rashes, warm and dry Neuro: no facial asymmetry, speech fluent,lower lip tremor (chronic), moves extremities spontaneously Psychiatric: Orientation: alert and oriented, answers questions appropriately Results & Data ([facility]) Vital Signs (Past 12 Hours) Vital Signs Temp Pulse Pulse Pulse Resp BP Pulse Ox 06/18/19 16:03 56 L 06/18/19 16:01 36.7 C 61 20 128/64 94 06/18/19 13:35 150/67 H 06/18/19 11:16 36.6 C 59 L 18 133/75 96 06/18/19 10:29 67 124/66 06/18/19 07:52 36.6 C 55 L 18 141/66 H 96 06/18/19 07:31 56 L Laboratory Results 06/18/19 06/18/19 06/17/19 Range/Units 06:58 06:58 09:01 WBC 4.57 L (4.8-10.8) K/uL RBC 2.96 L (4.2-5.4) M/uL Hgb 9.1 L (12.0-16.0) g/dL Hct 27.4 L (37-47) % MCV 92.6 (80-100) fL MCH 30.7 (25-34) pg MCHC 33.2 (32-36) g/dL RDW Std Deviation 59.7 H (36.4-46.3) fL RDW Coeff of Filiberto 17.7 H (11.5-14.5) % Plt Count 141 (130-400) K/uL MPV 9.5 (7.4-10.4) fL Sodium 138 (136-145) mmol/L Potassium 4.1 (3.5-5.1) mmol/L Chloride 111 H (98-107) mmol/L Carbon Dioxide 22 (21-32) mmol/L Anion Gap 6.0 (3-11) BUN 32 H (7-18) mg/dl Creatinine 2.28 H (0.6-1.2) mg/dl Est Cr Clr Drug Dosing 19.3 ml/min Est GFR ( Amer) 22.8 Est GFR (Non-Af Amer) 19.6 BUN/Creatinine Ratio 14.1 (10-20) Glucose 93 (70-99) mg/dl Calcium 8.8 (8.5-10.1) mg/dl Phosphorus 3.2 (2.5-4.9) mg/dl Magnesium 1.8 (1.8-2.4) mg/dl Crossmatch See Detail Medications Administered Current Inpatient Medications Acetaminophen (Tylenol) 1,000 mg PO Q6H PRN PRN Reason: Fever Or Pain Stop: 07/13/19 17:25 Last Admin: 06/15/19 23:31 Dose: 1,000 mg Documented by: Amlodipine Besylate (Norvasc) 5 mg PO DAILY [facility] Stop: 07/14/19 08:59 Last Admin: 06/18/19 08:08 Dose: 5 mg Documented by: Atorvastatin Calcium (Lipitor) 20 mg PO QPM [facility] Stop: 07/13/19 20:59 Last Admin: 06/17/19 20:46 Dose: 20 mg Documented by: Citalopram Hydrobromide (Celexa) 10 mg PO QAM [facility] Stop: 07/14/19 08:59 Last Admin: 06/18/19 08:07 Dose: 10 mg Documented by: Diphenhydramine HCl (Benadryl Capsule) 25 mg PO Q6H PRN PRN Reason: Itching Stop: 07/16/19 11:37 Last Admin: 06/16/19 12:47 Dose: 25 mg Documented by: Hydralazine HCl (Apresoline) 50 mg PO TID [facility] Stop: 07/13/19 20:59 Last Admin: 06/18/19 13:35 Dose: 50 mg Documented by: Loratadine (Claritin) 10 mg PO QPM [facility] Stop: 07/13/19 20:59 Last Admin: 06/17/19 20:47 Dose: 10 mg Documented by: Metoprolol Tartrate (Lopressor) 25 mg PO BID [facility] Stop: 07/14/19 20:59 Last Admin: 06/18/19 10:30 Dose: 25 mg Documented by: Pantoprazole Sodium (Protonix) 40 mg PO QAM [facility] Stop: 07/16/19 08:59 Last Admin: 06/18/19 08:08 Dose: 40 mg Documented by: Polyethylene Glycol (Miralax Powder Packet) 17 gm PO DAILY PRN PRN Reason: Constipation Stop: 07/18/19 11:36 Last Admin: 06/18/19 12:27 Dose: 17 gm Documented by: Polyethylene Glycol (Miralax Powder Packet) 17 gm PO QAM [facility] Stop: 07/19/19 08:59 Potassium Chloride (Klor-Con M10) 10 meq PO BID [facility] Stop: 07/13/19 20:59 Last Admin: 06/18/19 08:08 Dose: 10 meq Documented by: (1) GI bleed GI bleed type/associated pathology: unspecified gastrointestinal hemorrhage type Qualified Code(s): K92.2 - Gastrointestinal hemorrhage, unspecified
[2019-06-18] MEDS ORDERED: SODIUM CHLORIDE 0.9% 1000ML 500 ML IV ONE (18:57)
[2019-06-18] MEDS ORDERED: POLYETHYLENE (MIRALAX) 17 GM PACK PO ONE (19:00)
[2019-06-18] MEDS: ATORVASTATIN 20 MG TAB PO SCH (20:07)
[2019-06-18] MEDS: LORATADINE 10 MG TAB PO SCH (20:07)
[2019-06-19 06:51] LABS: Hematocrit (blood only) 28.7 % (37-47); Hemoglobin 9.4 g/dL (12.0-16.0)
[2019-06-19 07:28] LABS: BUN Creatinine Ratio 15.9 (10-20); Calcium 8.8 mg/dl (8.5-10.1); Creatinine Clr Calc Pharmacy 20.3 ml/min; Est GFR (African American) 24.2; Est GFR (Non-African American) 20.8; Potassium 4.4 mmol/L (3.5-5.1)
[2019-06-19] MEDS: CITALOPRAM 20 MG TAB PO SCH (08:42)
[2019-06-19] MEDS: HydrALAZINE TAB 50 MG TAB PO SCH ×2 (08:42→14:35)
[2019-06-19] MEDS: AMLODIPINE BESYLATE 5 MG TAB PO SCH (08:43)
[2019-06-19] MEDS: POTASSIUM CHLORIDE 10 MEQ TABCR PO SCH (08:43)
[2019-06-19] MEDS: METOPROLOL TARTRATE 25 MG TAB PO SCH (08:43)
[2019-06-19] MEDS: PANTOprazole 40 MG TAB PO SCH (08:44)
[2019-06-19] MEDS ORDERED: POLYETHYLENE (MIRALAX) 17 GM PACK PO SCH (09:00)
--- NOTE | 2019-06-19 10:34 | Ultrasound Report ---
US renal/blad retro comp HISTORY: 78 years-old Female FORREST on CKD ? hydronephrosis acute on chronic kidney disease COMPARISON: Duplex renal artery study and CTA exam 03/30/2015 TECHNIQUE: Multiple real-time sonographic images of the kidneys and urinary bladder were obtained ass essing grayscale appearance and color flow FINDINGS: The right kidney measures 10.3 x 4.4 x 4.1 cm and demonstrates diffuse cortical thinning with mildly increased echogenicity of the parenchyma. No right-sided renal calculi, hydronephrosis or suspicious mass lesions. Multiple right-sided renal cysts are redemonstrated measuring up to 2.7 x 3.2 x 2.7 cm. There is an inferior pole hypoechoic lesion (thick-walled which is suboptimally visualized secondary to obscuring ribs which measures 3.4 x 2.4 x 2.8 cm. Left kidney measures 10.1 x 5.1 x 5.7 cm. Diffuse cortical thinning of the left kidney is noted with increased echogenicity. Multiple large left-sided renal cysts redemonstrated measuring up to 5.1 x 4. 1 x 6.2 cm. No definite left-sided renal calculi or hydronephrosis. Urinary bladder is decompressed and not well evaluated. Ureteral jets not identified. IMPRESSION: 1. Mild atrophy with increased echogenicity of the bilateral kidneys suggests chronic medical renal d isease. 2. No renal calculi or hydronephrosis. 3. Multiple bilateral renal cysts. Hypoechoic lesion of the inferior pole right kidney measuring up t o 3.4 cm is suboptimally evaluated secondary to shadowing from overlying ribs and is incompletely katya racterized on this study. This likely represents a complex cyst however could be correlated with a no nemergent follow-up renal protocol CT of the abdomen. ACT 112: Positive. There are findings on this exam that require communication between the performing entity and the patient following Patient Test Result Information Act ([place] Act 112) guidelines. The above report was generated using voice recognition software. It may contain grammatical, syntax o r spelling errors. Electronically signed by: Vikas Braxton M.D. 06/19/2019 10:33 AM
--- NOTE | 2019-06-19 11:12 | Nephrology Consultation ---
Date of Consultation June 19, 2019 Assessment & Plan (1) FORREST (acute kidney injury): Patient with acute kidney injury on CKD. Baseline creatinine of 1.3 and creatinine now at 2.1. Etiology of worsening renal function likely hemodynamically been entered in setting of anemia and possibly blood loss. Will obtain urinalysis, urine protein creatinine ratio and renal ultrasound to rule out obstructive uropathy. -From renal standpoint patient can be discharged and continue monitoring of deja l function as an outpatient. If discharged patient will need to repeat a BMP next week and follow-up with PCP and Dr. Menjivar in 1 to 2 weeks. (2) Hypertension: Blood pressure is controlled on current regimen. Given advanced age systolic blood pressure of 140 at 150 is a reasonable goal. (3) Anemia of renal disease: Patient with anemia of renal disease and possibly GI blood loss. Patient will need erythropoietin but this can be given as outpatient. Recommend referral to [facility] anemia clinic. This will be coordinated by the nephrology office. History of Present Illness Reason for Consultation: FORREST on CKD Requesting Physician: Pablo Coughlin MD Attending Physician: Pablo Coughlin MD History of Present Illness This is 78-year-old female with past medical history of hypertension, coronary disease status post four-vessel CABG, osteoarthritis, obstructive sleep apnea on CPAP and CKD stage III with baseline creatinine of 1.3 in February 2019 was admitted on 06/13/2019 with symptomatic anemia hemoglobin of 7.6. She required up to 3 units of blood this admission. Her creatinine on admission was 2.49 and has slightly decreased to 2.1 today. Patient feels well denies any shortness of breath or leg swelling. She denies NSAID use. Hemoglobin is fairly stable at 9.4. She is status post EGD and colonoscopy and there was no source of active bleeding although she had another bleeding ulcer and diverticulosis. She follows with Dr. Menjivar in renal clinic. Allergies Allergy/AdvReac Type Severity Reaction Status Date / Time lisinopril Allergy Severe Angioedema Verified 06/13/19 15:38 Home Medications Home Medications Medication Instructions Recorded Confirmed Type acetaminophen [Tylenol Extra 1,000 mg PO Q6H PRN 12/29/18 06/13/19 History Strength] aspirin 81 mg PO QAM 12/29/18 06/13/19 History atorvastatin 20 mg PO QPM 12/29/18 06/13/19 History epinephrine [EpiPen] 0.3 mg IM DIRECTED PRN 12/29/18 06/13/19 History furosemide 20 mg PO DIRECTED 12/29/18 06/13/19 History hydralazine 50 mg PO TID 12/29/18 06/13/19 History loratadine 10 mg PO QPM 12/29/18 06/13/19 History metoprolol tartrate 25 mg PO BID 12/29/18 06/13/19 History potassium chloride 10 meq PO DIRECTED 12/29/18 06/13/19 History amlodipine 5 mg PO DIRECTED 06/13/19 06/13/19 History citalopram 10 mg PO QAM 06/13/19 06/13/19 History Patient History Medical History Accelerated hypertension Coronary artery disease Varicose veins Surgical History History of quadruple bypass Social History Preferred Language: Chadian Communication Ability: Effective Communications Equipment Operator Required: No Beliefs That Will Affect Care: None marital status: Single Current Living Situation: Alone Other Information That Helps Us Care for You: No Feels Safe at Home: Yes Safety Concerns: Feels Safe At This Time Smoking Status: Never smoker Do You Dip or Chew Tobacco: No ; Second Hand Exposure: No ; Tobacco Cessation Education Requested by Patient: No Hx Alcohol Use: No Hx Substance Use: No Review of Systems Review of Systems: All systems reviewed & are unremarkable except as noted in HPI & below Physical Exam Physical Exam: General exam: Appears comfortable, no acute distress HEENT: Pupils are equal and reactive to light Neck: No JVD, neck is supple trachea is midline Respiratory system: Clear breath sounds bilaterally. Gastrointestinal: Abdomen is soft, non distended, non tender, bowel sounds are present CVS: Regular rate and rhythm. No murmurs, rubs or gallops Musculoskeletal: No joint or muscle tenderness Extremities: Non tender, no edema, peripheral pulses are present Neuro: Oriented, no tremors, no focal neurological deficits Skin: No rashes Results & Data Vital Signs (Past 12 Hours) Vital Signs Temp Pulse Pulse Resp BP Pulse Ox 06/19/19 07:30 63 06/19/19 07:12 37.4 C 62 18 146/68 H 93 06/19/19 03:15 37.6 C H 66 18 126/67 92 06/18/19 23:35 62 Laboratory Results 06/19/19 06:40
--- NOTE | 2019-06-19 12:45 | Discharge Summary ---
Date of Service June 19, 2019 Admission HPI Per Admitting Provider She is an 78-year-old female with significant past medical history of renal artery stenosis, hypertensive kidney disease stage III, status post CABG x4, hypertension, hyperlipidemia, generalized osteoarthritis and benign essential tremor and apparently has been complaining of increasing weakness, tiredness with legs giving way and shortness of breath which has been going on for the last 2 weeks. She was seen by her PCP today and was noted to have a hemoglobin of 6.9 from that point she was sent into the emergency room for further evaluation. She mentioned to have bright red rectal bleed occasionally for the last 2 weeks and also black tarry stool in between. She denies any abdominal pain but complains to have some epigastric discomfort without nausea and or vomiting. She has been taking her usual dose of aspirin but has not taken any NSAID use as an outpatient. She has had colonoscopy years ago and cannot remember when she had any upper endoscopy. She denies any chest pain and/or palpitation at rest. Denies any fever and/or chills. Denies any numbness and/or tingling involving any of the extremities. Admission Exam Per Admitting Provider Physical Exam: Lying in bed comfortably with minimal shortness of breath at rest Constitutional: well developed, well nourished, + ill appearing and + obese; no acute distress Eyes: PERRL, conjunctivae normal, anicteric sclerae ENMT: external ear and nose normal, oropharynx normal Neck: trachea midline, no thyromegaly Respiratory: normal respiratory effort Auscultation: lungs clear to auscultation bilaterally and + crackles (Minimal crackles at the bases) Cardiovascular: Rate/Rhythm: regular rate and regular rhythm Heart Sounds: no murmur Extremities: no edema Gastrointestinal (Abdomen): Inspection/Auscultation: abdomen normal to inspection and normal bowel sounds Percussion/Palpation: + abdomen tender (Mildly tender in the epigastrium) and abdomen soft Musculoskeletal: No acute arthritis in any joints Neurologic: Alert, awake and oriented times, generally weak but no focal sensory or motor deficit appreciated Lymphatic: no cervical or axillary lymphadenopathy Principal Diagnosis Anemia (symptomatic) likely secondary to CKD and poss. GI bleed FORREST on CKD GI bleed Discharge Exam Constitutional: elderly female sitting up in the chair, in no acute distress HEENT: NC/AT, EOMI Respiratory: no respiratory distress Auscultation: lungs clear to auscultation bilaterally, no wheezing, rhonchi, crackles noted Cardiovascular: Rate/Rhythm: regular rate and regular rhythm Heart Sounds: + murmur (II/ sys murmur LSB) Vessels: no JVD Extremities: no calf tenderness and no edema Gastrointestinal (Abdomen): normal bowel sounds, soft,obese, nontender, nondistended Skin: no rashes, warm and dry Neuro: no facial asymmetry, speech fluent,lower lip tremor (chronic), moves extremities spontaneously Psychiatric: Orientation: alert and oriented, answers questions appropriately Discharge Data Allergies Allergy/AdvReac Type Severity Reaction Status Date / Time lisinopril Allergy Severe Angioedema Verified 06/13/19 15:38 Consultations 06/13/19 15:51 ED Decision to Admit Stat 06/13/19 16:36 Consult Gastroenterology Routine 06/18/19 13:50 Consult Nephrology Routine Procedures Performed Operation Date: 06/15/19 16:00 Actual Procedures p Esophagogastroduodenoscopy - Bouchra Gould MD s Colonoscopy Polypectomy - Bouchra Gould MD Ordered Studies 06/19/19 10:00 US renal/blad retro comp Routine IMPRESSION: 1. Mild atrophy with increased echogenicity of the bilateral kidneys suggests chronic medical renal disease. 2. No renal calculi or hydronephrosis. 3. Multiple bilateral renal cysts. Hypoechoic lesion of the inferior pole right kidney measuring up to 3.4 cm is suboptimally evaluated secondary to shadowing from overlying ribs and is incompletely characterized on this study. This likely represents a complex cyst however could be correlated with a nonemergent follow- up renal protocol CT of the abdomen. Renal CT 06/19/2019 IMPRESSION: 1. Suboptimal examination without IV contrast. The examination is also degraded by motion artifact. 2. No acute abnormality is identified in the abdomen. 3. There are numerous bilateral renal cysts, similar appearance to 03/30/2015 CT scan. There is no evidence of solid mass lesion on this unenhanced examination. 4. Cardiomegaly and trace pleural effusions. 5. Groundglass change is noted at both lung bases. This could represent a component of congestive failure or possibly a mild infectious/inflammatory pneumonitis. Clinical correlation will be required. CXR 06/13/2019 IMPRESSION: 1. Cardiomegaly with mild volume overload. No advanced congestive changes. No other evidence of acute cardiopulmonary disease. Echocardiogram 06/14/2019 Mild conc. LVH, EF 55-60% LV syst. function is normal RV syst. function is normal LA size is normal RA size is normal Moderate tricuspid regurg. Mild pulmonary hypertension. Hospital Course (1) GI bleed: Dark stools for 2-3 weeks. Bright red blood per rectum reported. Hgb 6.9 in clinic. Takes low dose aspirin, no NSAID's. Received PPI. Hemodynamically stable. Hgb 7.0 --> 9.6 after 2 units pRBC's. Hgb 7.8 on 06/16, transfused another 1 unit of pRBC (06/16) Current Hgb 9.4, stable (06/19/2019), pt had BM, no blood reported GI consulted. EGD- small duodenal ulcer with no stigmata of bleeding. Colonoscopy-diverticulosis without bleeding, small polyps, internal hemorrhoids not currently bleeding. Outpatient capsule endoscopy recommended. Outpatient appointment for Video Capsule Endoscopy consent scheduled on 07/15/2019 at 2PM. Patient to arrive at [facility] at 1:45PM. Address: [address] [place] [id number]. Call [phone] if need to change or cancel appointment (2) Duodenal ulcer: EGD- small duodenal ulcer with no stigmata of bleeding. Avoid NSAID's. Continue PPI. (3) Colonic polyp: Colonoscopy-diverticulosis without bleeding, small polyps (sessile, 6 mm, ascending colon), internal hemorrhoids not currently bleeding. Pathology = tubular adenomas. Surveillance per GI. (4) Acute blood loss anemia: Acute blood loss anemia in the setting of Chronic Anemia secondary to CKD Baseline Hgb around 11. Hgb 7.0 at time of admission and becky to 9.6 after 2 units pRBC's. Hgb 7.8 on 06/16, transfused 1 unit of pRBC (06/16), goal Hgb above 8 Cont. to monitor H/H current hgb 9.4, no blood reported since colonoscopy on 06/14 Recommend to check H/H as outpt - Patient will need erythropoietin but this can be given as outpatient. Recommend referral to [facility] anemia clinic. This will be coordinated by the nephrology office. (5) Coronary artery disease: No anginal symptoms. Hold aspirin temporarily because of GI bleed. Metoprolol held for possible junctional rhythm, but EKGs interpreted as sinus rhythm upon formal interpretation. Resumed metoprolol. Continue amlodipine. Restart aspirin on discharge if no new issues arise. Reported per nursing poss. second degree block, obtained 12 lead EKG (06/17/2019) Pt w/o any symptoms Per official report - NSR w/ 1 st degree AV block (6) Hypertension: As noted above. (7) FORREST (acute kidney injury): Serum creatinine at time of admission 2.49 compared to baseline of 1.4 in December 2018. Acute kidney injury, probably secondary to GI bleeding +/- ATN, poor hemodynamic status in the setting of poss. blood loss Held furosemide on admission Creatinine 2.30. IV fluids received, Cr essentially unchanged at 2.3 Cont. to monitor renal function Try to avoid nephrotoxic agents Nephrology consulted - UA, urine protein/Cr ratio and renal U/S obtained, labs pending Pt will need to follow up w/ plumbing contractor Dr. Menjivar in 1-2 weeks. (8) CKD (chronic kidney disease), stage III: As noted above. (9) Discharge planning issues: Anticipated discharge to home. Family Medicine follow-up with Dr. Sands. Daughter updated at the bedside. She can also be reached at [phone]. Total Time Total Time Spent Total Time Spent (In Minutes): 50 Total Time Includes: Examination of the Patient, Discharge Planning, Medication Reconciliation and Communication With Other Providers Discharge Plan Discharge Items Patient Disposition: Home - Self-Care Reason For Visit: SYMPTOMATIC ANEMIA, GI BLEED Discharge Diagnosis: Anemia (symptomatic) likely secondary to CKD and poss. GI bleed FORREST on CKD GI bleed Activity: As commented below Non-emergency contact: Primary Care Provider, [id number] [employer] Er Call non-emergency contact if: you have any medication questions and your symptoms worsen Follow-up/Referrals: Suleman Sands MD [Primary Care Provider] - 06/24/19 3:15 pm Diet: Heart Healthy Addtl Attending Provider Instructions: Make sure to follow up with primary care doctor in 1 week. Start taking pantoprazole daily. Do not take any NSAIDs - such as Ibuprofen, Motrin, Aleve. You can take Tylenol (acetaminophen) for pain - 1,000mg 3 times a day, max dose is 3,000 mg. For more severe pain, please take tramadol half a tablet (25 mg) or whole tablet (50 mg) 2 to 3 times a day. You will need to have blood work checked to monitor your kidney function (BMP) and anemia (Hemoglobin/ Hematocrit). Also recommend to monitor your blood pressure at home and keep a log of these numbers. Bring this log to your appointment with primary care doctor and as well as to your kidney doctor appointment. Please bring this discharge information to your primary care doctor appointment. Addtl [employer] Consultant Provider Instructions: Per Nephrology (kidney doctor): Patient will need to repeat a BMP next week and follow-up with Primary care doctor and Dr. Menjivar (kidney doctor) in 1 to 2 weeks. Patient will need erythropoietin but this can be given as outpatient. Recommend referral to [facility] anemia clinic. This will be coordinated by the nephrology office. Per Gastroenterology: Outpatient appointment for Video Capsule Endoscopy consent scheduled on 07/15/2019 at 2PM. Patient to arrive at [facility] at 1:45PM. Address: [address] [place] [id number]. Call [phone] if need to change or cancel appointment Pending Studies at Discharge: Yes Studies:: UA, protein/Cr ratio - ordered by nephrology Stand-Alone Forms: My [facility], Smoking Cessation Medications and DC Order Prescriptions: New pantoprazole 40 mg Tablet,Delayed Release (Dr/Ec) 40 mg PO QAM 30 Days Qty: 30 RF: 0 tramadol 50 mg tablet 50 mg PO BID PRN (Reason: pain) Qty: 10 RF: 0 Continued atorvastatin 20 mg tablet 20 mg PO QPM RF: 0 potassium chloride 10 mEq tablet extended release 10 meq PO DIRECTED RF: 0 acetaminophen [Tylenol Extra Strength] 500 mg Tablet 1,000 mg PO Q6H PRN (Reason: Fever Or Pain) RF: 0 hydralazine 50 mg tablet 50 mg PO TID RF: 0 furosemide 20 mg tablet 20 mg PO DIRECTED RF: 0 epinephrine [EpiPen] 0.3 mg/0.3 mL Auto-Injector 0.3 mg IM DIRECTED PRN (Reason: Allergic Reaction) RF: 0 metoprolol tartrate 25 mg tablet 25 mg PO BID RF: 0 aspirin 81 mg Tablet,Delayed Release (Dr/Ec) 81 mg PO QAM RF: 0 loratadine 10 mg Tablet 10 mg PO QPM RF: 0 citalopram 10 mg tablet 10 mg PO QAM RF: 0 amlodipine 5 mg tablet 5 mg PO DIRECTED RF: 0 Discharge Orders: Discharge Order (Routine); Ordered 06/19/19 Ordered By: Pablo Coughlin Admission Data Admit Date/Time: 06/13/19 16:36 Attending Provider: Pablo Coughlin Admit Provider: Davie Mcdowell Primary Care Provider: Suleman Sands Other Providers: Davie Mcdowell ; Mindy Cornejo ; Richi Evans ; Kelley Todd
[2019-06-19] MEDS: ACETAMINOPHEN 500 MG TAB PO PRN (13:14)
[2019-06-19] MEDS ORDERED: OXYCODONE HCL IR 5 MG TAB (IMMEDIATE RELEASE) PO STA (14:02)
--- NOTE | 2019-06-19 14:27 | CT Scan Report ---
CT SCAN OF THE ABDOMEN WITHOUT IV CONTRAST CLINICAL HISTORY: Left renal lesion questioned by ultrasound. COMPARISON STUDY: Abdominal CT dated 03/30/2015. Renal ultrasound dated 06/19/2019. TECHNIQUE: CT scan of the abdomen is performed from the lung bases to the pelvic inlet. Images are re viewed in the axial, sagittal, and coronal planes. IV contrast was not administered for this examinat ion. Note that the examination is suboptimal without IV contrast. The examination is also degraded by motion artifact. A dose lowering technique was utilized adhering to the principles of ALARA. CT DOSE: 518.92 mGy.cm FINDINGS: Lung bases: The heart is enlarged and without pericardial effusion. The coronary arteries are densely calcified. There is diminished attenuation of the cardiac blood pool as compared to the myocardium s uggesting anemia. There are trace pleural effusions. Patchy groundglass change is present at both cassidy g bases. Liver: The unenhanced liver is normal in size, contour, and attenuation. There is minimal intrahepati c biliary ductal dilatation. Scattered hepatic granulomas are observed. Gallbladder: Surgically absent. Spleen: Normal in size and attenuation. There are numerous calcified splenic granulomas. Pancreas: The unenhanced pancreas is atrophic and grossly unremarkable. Adrenal glands: Unremarkable. Kidneys: The unenhanced kidneys demonstrate cortical atrophy and are without hydronephrosis. There ar e no renal calculi identified. There are numerous bilateral renal cysts which measure up to 5.7 cm. A thin calcified septation is noted within a left upper pole cyst. There is no evidence of contour def orming solid renal mass lesion by CT. Abdominal vasculature: The abdominal aorta is normal in course and caliber noting advanced atheroscle rotic calcification. Bowel: There is no evidence of bowel obstruction Peritoneum: There is no intraperitoneal free air or abdominal ascites. Lymphadenopathy: None. Skeletal structures: The skeletal structures are osteopenic. Moderate lumbosacral spondylosis is obse rved. No lytic or blastic lesions are seen. IMPRESSION: 1. Suboptimal examination without IV contrast. The examination is also degraded by motion artifact. 2. No acute abnormality is identified in the abdomen. 3. There are numerous bilateral renal cysts, similar appearance to 03/30/2015 CT scan. There is no ev idence of solid mass lesion on this unenhanced examination. 4. Cardiomegaly and trace pleural effusions. 5. Groundglass change is noted at both lung bases. This could represent a component of congestive alberto lure or possibly a mild infectious/inflammatory pneumonitis. Clinical correlation will be required. ACT 112: Negative or not required by law. Electronically signed by: Get Hanson M.D. 06/19/2019 2:25 PM
[2019-06-19] MEDS ORDERED: TRAMADOL HCL 50 MG TABLET PO STA (15:46)
[2019-06-19 16:11] LABS: Appearance Urine Clear (Clear); Bacteria Urine Automated Negative (Negative); Bilirubin Urine Negative (Negative); Blood Urine 3+ (Negative); Cast Urine Automated 0 /lpf (0-5); Color Urine Yellow; Glucose Urine UA Negative (Negative); Ketones Urine Negative (Negative); Leukocyte Esterase Urine Negative (Negative); Nitrite Urine Negative (Negative); Protein Urine 1+ (Negative); RBC Urine Automated >30 /hpf (0-4); Specific Gravity Urine 1.012 (1.000-1.030); Urobilinogen Urine Negative (Negative); pH Urine 5.5 (4.5-7.5)
[2019-06-19 16:27] LABS: Creatinine Urine Random 53.6 mg/dl; Protein Creatinine Ratio Urine 0.8 (0-0.2); Total Protein Urine Random 42.5 mg/dl (0-11.9)
== END 2019-06-19 16:45 | disposition home or self-care (01) | DRG 377 ==
LOC: ED 14:32 → SUATTDRO 16:36 → 2E 16:36 → 2W 06-16 20:07

== ENCOUNTER 2019-06-23 12:34 | Inpatient (IN) ==
[2019-06-23] MEDS ORDERED: ONDANSETRON INJ 2 MG/ML 2 ML VIAL IV STA ×2 (12:53→13:18)
--- NOTE | 2019-06-23 12:53 | Emergency Department Note ---
History of Present Illness General Chief complaint: Abdominal Pain Stated complaint: SEVERE STOMACH PAIN,WEAK Time Seen by Provider: 06/23/19 12:48 History of Present Illness Provider complaint: Abdominal Pain Onset (ago): day(s) 2 Location: abdomen Severity: severe Maximum Pain Intensity: 7 78-year-old female presents emergency department abdominal pain. Patient is reports that her abdominal pain began 2 days ago. She reports her abdominal pain is located in the left upper quadrant. No radiation of the pain. She reports her pain is severe. She denies any blood in her stools or dark black stools. No vomiting. She does report nausea. Home Medications Home Medications Medication Instructions Recorded Confirmed Type aspirin 81 mg PO QAM 12/29/18 06/23/19 History atorvastatin 20 mg PO QAM 12/29/18 06/23/19 History epinephrine [EpiPen] 0.3 mg IM DIRECTED PRN 12/29/18 06/23/19 History furosemide 20 mg PO DIRECTED 12/29/18 06/23/19 History hydralazine 50 mg PO TID 12/29/18 06/23/19 History loratadine 10 mg PO HS 12/29/18 06/23/19 History metoprolol tartrate 25 mg PO BID 12/29/18 06/23/19 History potassium chloride 10 meq PO DIRECTED 12/29/18 06/23/19 History amlodipine 5 mg PO DIRECTED 06/13/19 06/23/19 History pantoprazole 40 mg PO QAM 30 Days #30 tab 06/19/19 06/23/19 Rx tramadol 50 mg PO BID PRN #10 tab 06/19/19 06/23/19 Rx Allergies Allergy/AdvReac Type Severity Reaction Status Date / Time lisinopril Allergy Severe Angioedema Verified 06/23/19 14:12 Past Med/Surg History Medical History (Updated 06/23/19 @ 18:38 by Nasir Lewis) Anemia of renal disease Benign essential tremor CKD (chronic kidney disease), stage III Colonic polyp Coronary artery disease Duodenal ulcer Hyperlipidemia Hypertension Renal artery stenosis Surgical History (Updated 06/23/19 @ 16:40 by Nicolette Mitchell PA-C) History of appendectomy History of cholecystectomy History of hysterectomy with oophorectomy History of quadruple bypass S/P CABG x 4 Family History (Updated 06/23/19 @ 16:40 by Nicolette Mitchell PA-C) Father Coronary heart disease Pulmonary embolism Mother Cancer Sister Parkinson disease Social History (Updated 06/23/19 @ 16:44 by Nicolette Mitchell PA-C) Preferred Language: Croatian Communication Ability: Effective [employer] Administrative Technician Required: No Beliefs That Will Affect Care: None marital status: Current Living Situation: Alone Current Living Situation Comment: apartment; filing for divorce Feels Safe at Home: Yes Smoking Status: Never smoker Second Hand Exposure: No ; Hx Alcohol Use: No Hx Substance Use: No Review of Systems A total of 10 systems reviewed and were otherwise negative Physical Exam Vital Signs Vital Signs - 24 hr 06/23/19 12:37 06/23/19 13:14 06/23/19 13:52 Temperature 36.5 C Temperature Source Oral Pulse Rate 65 Pulse Rate [Left] 59 L Pulse Rate from SpO2 Sensor Pulse Rhythm [Left] Regular Respiratory Rate 20 20 Respiratory Effort / Characteristics Non-Labored Respiratory Depth Normal Respiratory Pattern Regular Blood Pressure 120/58 L Blood Pressure [Left Arm] 141/69 H Blood Pressure Mean 78 Blood Pressure Mean [Left Arm] 93 Blood Pressure Position Sitting Pulse Oximetry 91 95 91 Oxygen Delivery Method Room Air Room Air Oxygen Flow Rate Sepsis Recent Fever Within 48 Hours No Sepsis New/Unexplained Change in Mental Status No Sepsis Action Taken by Nursing No Action Required 06/23/19 14:12 06/23/19 14:30 06/23/19 14:58 Temperature Temperature Source Pulse Rate 56 L 57 L Pulse Rate [Left] Pulse Rate from SpO2 Sensor 59 L 57 L Pulse Rhythm [Left] Respiratory Rate 21 17 Respiratory Effort / Characteristics Respiratory Depth Respiratory Pattern Blood Pressure 142/68 H 162/66 H Blood Pressure [Left Arm] Blood Pressure Mean 113 101 Blood Pressure Mean [Left Arm] Blood Pressure Position Pulse Oximetry 91 90 87 L Oxygen Delivery Method Room Air Oxygen Flow Rate Sepsis Recent Fever Within 48 Hours Sepsis New/Unexplained Change in Mental Status Sepsis Action Taken by Nursing 06/23/19 15:00 06/23/19 15:30 06/23/19 16:00 Temperature Temperature Source Pulse Rate 59 L 59 L 57 L Pulse Rate [Left] 59 L Pulse Rate from SpO2 Sensor 59 L 58 L 58 L Pulse Rhythm [Left] Regular Respiratory Rate 21 16 14 Respiratory Effort / Characteristics Non-Labored Respiratory Depth Normal Respiratory Pattern Regular Blood Pressure 141/61 H 131/67 127/75 Blood Pressure [Left Arm] 141/61 H Blood Pressure Mean 95 104 102 Blood Pressure Mean [Left Arm] 87 Blood Pressure Position Pulse Oximetry 94 95 95 Oxygen Delivery Method Nasal Cannula Nasal Cannula Oxygen Flow Rate 2 2 Sepsis Recent Fever Within 48 Hours Sepsis New/Unexplained Change in Mental Status Sepsis Action Taken by Nursing 06/23/19 16:31 06/23/19 17:00 06/23/19 17:44 Temperature Temperature Source Pulse Rate 59 L 59 L 59 L Pulse Rate [Left] Pulse Rate from SpO2 Sensor 59 L 59 L 59 L Pulse Rhythm [Left] Respiratory Rate 18 18 16 Respiratory Effort / Characteristics Respiratory Depth Respiratory Pattern Blood Pressure 138/54 L 137/63 139/63 Blood Pressure [Left Arm] Blood Pressure Mean 95 106 91 Blood Pressure Mean [Left Arm] Blood Pressure Position Pulse Oximetry 94 96 94 Oxygen Delivery Method Oxygen Flow Rate Sepsis Recent Fever Within 48 Hours Sepsis New/Unexplained Change in Mental Status Sepsis Action Taken by Nursing Physical Exam GENERAL: She is oriented to person, place, and time. She appears well-developed and well-nourished. She does not appear distressed. HENT: Exam performed. -Head: Normocephalic and atraumatic. -Right Ear: External ear normal. No mastoid tenderness. -Left Ear: External ear normal. No mastoid tenderness. -Mouth/Throat: The oropharynx is clear and moist. No trismus in the jaw. No dental abscesses or uvula swelling. No oropharyngeal exudate or tonsillar abscesses. EYES: Conjunctivae and EOM are normal. Pupils are equal, round, and reactive to light. Right eye exhibits no discharge. Left eye exhibits no discharge. No scleral icterus. NECK: Normal range of motion. Neck supple. No JVD present. No spinous process tenderness present. No carotid bruit present. No rigidity. No tracheal deviation and normal range of motion present. No Brudzinski's sign and no Kernig's sign noted. CV: Normal rate, regular rhythm, normal heart sounds and intact distal pulses. There is no peripheral edema. Palpable radial pulses bue. PULM/CHEST: Effort normal and breath sounds normal. No respiratory distress. No stridor. She has no wheezes. She has no rales. -Chest Wall: She exhibits no tenderness. ABD: The abdomen is soft. Bowel sounds are normal. She has no distension. No mass is present. Pain on palpation of her left upper quadrant.. There is no rebound, no guarding, no Goode's sign and no tenderness at McBurney's point. Rovsig negative MUSC/SKEL: Normal range of motion. There is no peripheral edema, tenderness or deformity. LYMPH: No cervical adenopathy. NEURO: She is alert and oriented to person, place, and time. She has normal strength. No cranial nerve deficit or sensory deficit. Coordination and gait normal. GCS eye subscore is 4. GCS verbal subscore is 5. GCS motor subscore is 6. Cerebellar tests wnl. SKIN: Skin is warm and dry. She is not diaphoretic. PSYCH: She has a normal mood and affect. Behavior is normal. Judgment and thought content normal. Course Course 1249: The patient was evaluated in room B9. A complete history and physical exam was performed. EMR reviewed. Patient was seen in the emergency department on June 12 and admitted for GI bleed and acute kidney injury. Her hemoglobin at that time was down to 7 from baseline 11. Her creatinine was up to 2.49 from baseline of 1.4. She was discharged from the hospital 4 days ago. She also has a history of renal artery stenosis, hypertensive kidney disease stage III, status post CABG 4, hypertension, hyperlipidemia. Colonoscopy was done on June 14 which showed 2 polyps that were removed. There were also multiple diverticula. EGD done on June 14 showed normal esophagus normal stomach with 1 superficial nonbleeding duodenal ulcer. Patient was discharged with a hemoglobin of 9.4 on June 18 and a creatinine of 2.[address] of the abdomen on June 18 showed no acute abnormality. 1540: Labs within normal limits. Patient's oxygen saturation did drop to the 80s on room air. Supplemental oxygen was applied which improved the patient's oxygen saturation. Spoke with Nicolette Isabel [facility] hospitalist who states to admit to Dr. Castro. She is requesting that a CT of the abdomen reordered. Given her CT of the abdomen without contrast was -4 days ago, will obtain CT of the abdomen with oral contrast due to impaired kidney function. Administered Medications Sodium Chloride (Nss) 500 mls @ 125 mls/hr IV .Q4H CAROLE Stop: 07/23/19 12:59 Last Admin: 06/23/19 14:51 Dose: 125 mls/hr Documented by: [id number] Discontinued Medications Morphine Sulfate (Morphine Sulfate) 4 mg IV NOW STA Stop: 06/23/19 13:19 Last Admin: 06/23/19 14:51 Dose: 4 mg Documented by: [id number] Ondansetron HCl (Zofran) 4 mg IV NOW STA Stop: 06/23/19 12:54 Last Admin: 06/23/19 14:52 Dose: 4 mg Documented by: [id number] Medical Decision Making Laboratory Data Result diagrams: 06/23/19 14:07 06/23/19 14:11 Lab Results 06/23/19 06/23/19 06/23/19 Range/Units 13:24 13:24 13:24 WBC Not Reportable RBC Not Reportable Hgb Not Reportable Hct Not Reportable MCV Not Reportable MCH Not Reportable MCHC (32-36) g/dL RDW Std Deviation (36.4-46.3) fL RDW Coeff of Filiberto (11.5-14.5) % Plt Count (130-400) K/uL MPV (7.4-10.4) fL Immature Gran % (Auto) % Neut % (Auto) % Lymph % (Auto) % Carson % (Auto) % Eos % (Auto) % Baso % (Auto) % Immature Gran # (Auto) (0.00-0.02) K/uL Neut # (Auto) (1.4-6.5) K/uL Lymph # (Auto) (1.2-3.4) K/uL Carson # (Auto) (0.11-0.59) K/uL Eos # (Auto) (0-0.5) K/uL Baso # (Auto) (0-0.2) K/uL Absolute Nucleated RBC (0-0) K/uL Nucleated RBC % (auto) % PT Cancelled INR Cancelled APTT Cancelled PTT Ratio Cancelled Sodium 137 (136-145) mmol/L Potassium TNP Chloride 109 H (98-107) mmol/L Carbon Dioxide 22 (21-32) mmol/L Anion Gap 7.0 (3-11) BUN 34 H (7-18) mg/dl Creatinine 2.56 H (0.6-1.2) mg/dl Est Cr Clr Drug Dosing 18.1 ml/min Est GFR ( Amer) 19.8 Est GFR (Non-Af Amer) 17.1 BUN/Creatinine Ratio 13.2 (10-20) Glucose 145 H (70-99) mg/dl Lactate (0.4-2.0) mmol/L Calcium 9.2 (8.5-10.1) mg/dl Magnesium TNP Total Bilirubin 1.4 H (0.2-1) mg/dl Direct Bilirubin TNP AST TNP ALT 17 (12-78) U/L Alkaline Phosphatase 75 (45-117) U/L Troponin I (0-0.045) ng/ml NT-Pro-B Natriuret Pep (0-1800) pg/ml Total Protein 8.1 (6.4-8.2) gm/dl Albumin 2.9 L (3.4-5.0) gm/dl Lipase 83 (73-393) U/L Procalcitonin (0-0.5) ng/ml Stl C. diff Tox B Gene (Neg) Influenza Type A (PCR) (Neg) Influenza Type B (PCR) (Neg) 06/23/19 06/23/19 06/23/19 Range/Units 13:24 13:30 14:07 WBC 5.65 RBC 3.04 L Hgb 9.2 L Hct 28.3 L MCV 93.1 MCH 30.3 MCHC 32.5 (32-36) g/dL RDW Std Deviation 56.3 H (36.4-46.3) fL RDW Coeff of Filiberto 16.5 H (11.5-14.5) % Plt Count 152 (130-400) K/uL MPV 9.7 (7.4-10.4) fL Immature Gran % (Auto) 0.2 % Neut % (Auto) 81.9 % Lymph % (Auto) 11.3 % Carson % (Auto) 5.7 % Eos % (Auto) 0.5 % Baso % (Auto) 0.4 % Immature Gran # (Auto) 0.01 (0.00-0.02) K/uL Neut # (Auto) 4.63 (1.4-6.5) K/uL Lymph # (Auto) 0.64 L (1.2-3.4) K/uL Carson # (Auto) 0.32 (0.11-0.59) K/uL Eos # (Auto) 0.03 (0-0.5) K/uL Baso # (Auto) 0.02 (0-0.2) K/uL Absolute Nucleated RBC (0-0) K/uL Nucleated RBC % (auto) % PT INR APTT PTT Ratio Sodium (136-145) mmol/L Potassium Chloride (98-107) mmol/L Carbon Dioxide (21-32) mmol/L Anion Gap (3-11) BUN (7-18) mg/dl Creatinine (0.6-1.2) mg/dl Est Cr Clr Drug Dosing ml/min Est GFR ( Amer) Est GFR (Non-Af Amer) BUN/Creatinine Ratio (10-20) Glucose (70-99) mg/dl Lactate 1.6 (0.4-2.0) mmol/L Calcium (8.5-10.1) mg/dl Magnesium Total Bilirubin (0.2-1) mg/dl Direct Bilirubin AST ALT (12-78) U/L Alkaline Phosphatase (45-117) U/L Troponin I (0-0.045) ng/ml NT-Pro-B Natriuret Pep (0-1800) pg/ml Total Protein (6.4-8.2) gm/dl Albumin (3.4-5.0) gm/dl Lipase (73-393) U/L Procalcitonin (0-0.5) ng/ml Stl C. diff Tox B Gene Negative Cdiff Gene (Neg) Influenza Type A (PCR) (Neg) Influenza Type B (PCR) (Neg) 06/23/19 06/23/19 06/23/19 Range/Units 14:07 14:11 16:33 WBC RBC Hgb Hct MCV MCH MCHC (32-36) g/dL RDW Std Deviation (36.4-46.3) fL RDW Coeff of Filiberto (11.5-14.5) % Plt Count (130-400) K/uL MPV (7.4-10.4) fL Immature Gran % (Auto) % Neut % (Auto) % Lymph % (Auto) % Carson % (Auto) % Eos % (Auto) % Baso % (Auto) % Immature Gran # (Auto) (0.00-0.02) K/uL Neut # (Auto) (1.4-6.5) K/uL Lymph # (Auto) (1.2-3.4) K/uL Carson # (Auto) (0.11-0.59) K/uL Eos # (Auto) (0-0.5) K/uL Baso # (Auto) (0-0.2) K/uL Absolute Nucleated RBC (0-0) K/uL Nucleated RBC % (auto) % PT 11.9 INR 1.1 APTT 29.6 PTT Ratio 1.1 Sodium (136-145) mmol/L Potassium 3.8 Chloride (98-107) mmol/L Carbon Dioxide (21-32) mmol/L Anion Gap (3-11) BUN (7-18) mg/dl Creatinine (0.6-1.2) mg/dl Est Cr Clr Drug Dosing ml/min Est GFR ( Amer) Est GFR (Non-Af Amer) BUN/Creatinine Ratio (10-20) Glucose (70-99) mg/dl Lactate (0.4-2.0) mmol/L Calcium (8.5-10.1) mg/dl Magnesium 2.1 Total Bilirubin (0.2-1) mg/dl Direct Bilirubin 0.4 H AST 17 ALT (12-78) U/L Alkaline Phosphatase (45-117) U/L Troponin I < 0.015 (0-0.045) ng/ml NT-Pro-B Natriuret Pep 9933 H (0-1800) pg/ml Total Protein (6.4-8.2) gm/dl Albumin (3.4-5.0) gm/dl Lipase (73-393) U/L Procalcitonin 0.11 (0-0.5) ng/ml Stl C. diff Tox B Gene (Neg) Influenza Type A (PCR) (Neg) Influenza Type B (PCR) (Neg) 06/23/19 Range/Units 16:36 WBC RBC Hgb Hct MCV MCH MCHC (32-36) g/dL RDW Std Deviation (36.4-46.3) fL RDW Coeff of Filiberto (11.5-14.5) % Plt Count (130-400) K/uL MPV (7.4-10.4) fL Immature Gran % (Auto) % Neut % (Auto) % Lymph % (Auto) % Carson % (Auto) % Eos % (Auto) % Baso % (Auto) % Immature Gran # (Auto) (0.00-0.02) K/uL Neut # (Auto) (1.4-6.5) K/uL Lymph # (Auto) (1.2-3.4) K/uL Carson # (Auto) (0.11-0.59) K/uL Eos # (Auto) (0-0.5) K/uL Baso # (Auto) (0-0.2) K/uL Absolute Nucleated RBC (0-0) K/uL Nucleated RBC % (auto) % PT INR APTT PTT Ratio Sodium (136-145) mmol/L Potassium Chloride (98-107) mmol/L Carbon Dioxide (21-32) mmol/L Anion Gap (3-11) BUN (7-18) mg/dl Creatinine (0.6-1.2) mg/dl Est Cr Clr Drug Dosing ml/min Est GFR ( Amer) Est GFR (Non-Af Amer) BUN/Creatinine Ratio (10-20) Glucose (70-99) mg/dl Lactate (0.4-2.0) mmol/L Calcium (8.5-10.1) mg/dl Magnesium Total Bilirubin (0.2-1) mg/dl Direct Bilirubin AST ALT (12-78) U/L Alkaline Phosphatase (45-117) U/L Troponin I (0-0.045) ng/ml NT-Pro-B Natriuret Pep (0-1800) pg/ml Total Protein (6.4-8.2) gm/dl Albumin (3.4-5.0) gm/dl Lipase (73-393) U/L Procalcitonin (0-0.5) ng/ml Stl C. diff Tox B Gene (Neg) Influenza Type A (PCR) Neg for Influ A (Neg) Influenza Type B (PCR) Neg for Influ B (Neg) Imaging Data Radiologist's Impression: CT abdomen w oral con only CT DOSE: 479.88 mGy.cm CLINICAL HISTORY: Left upper quadrant abdominal pain TECHNIQUE: The patient was scanned following administration of dilute oral contrast. No intravenous contrast was administered. A dose lowering technique was utilized adhering to the principles of ALARA. COMPARISON STUDY: June 19, 2019 FINDINGS: The visualized portions of the lung bases reveal trace bilateral pleural effusions. There are bilateral lower lung zone groundglass opacities similar to the prior study the heart is enlarged There is scattered hepatic granulomas. There is no intrahepatic biliary ductal dilatation. No masses are identified in this noncontrast study The gallbladder is surgically absent. There is mild dilatation of the common bile duct, likely secondary to prior cholecystectomy No splenic masses are visualized. The spleen is borderline enlarged measuring 12 cm. No pancreatic masses are visualized. No adrenal masses are visualized. There are multiple bilateral renal cysts. There is a thin wall calcification within one of the left renal cyst. Cysts measure up to 57 mm in diameter. There is stable dilatation of the left renal pelvis. There is no evidence of abdominal aortic dilatation. There is no upper abdominal lymphadenopathy. There is no pathologic upper abdominal bowel dilatation. IMPRESSION: 1. No significant change from the preceding study 2. Persistent bilateral renal cysts with stable mild dilatation left renal pelvis 3. Trace bilateral pleural effusions. Persistent groundglass opacities involving both lung bases. ACT 112: Negative or not required by law. Electronically signed by: Nitin Cavanaugh M.D. 06/23/2019 5:51 PM Dictated: 06/23/[id number] Transcribed: 06/23/191743 ECG Data Indication: + abdominal pain Rate (beats per minute): 58 Rhythm: + sinus bradycardia ECG ST segments: + Normal ST segments Additional Comments: Sinus rhythm with rate of 58. CO interval 264. QRS and QTc intervals are within normal limits. First-degree AV block present. PVCs present. T wave inversion in lead aVL. Left ventricular hypertrophy present. [facility] Narrative 1249: The patient was evaluated in room B9. A complete history and physical exam was performed. EMR reviewed. Patient was seen in the emergency department on June 12 and admitted for GI bleed and acute kidney injury. Her hemoglobin at that time was down to 7 from baseline 11. Her creatinine was up to 2.49 from baseline of 1.4. She was discharged from the hospital 4 days ago. She also has a history of renal artery stenosis, hypertensive kidney disease stage III, status post CABG 4, hypertension, hyperlipidemia. Colonoscopy was done on June 14 which showed 2 polyps that were removed. There were also multiple diverti cula. EGD done on June 14 showed normal esophagus normal stomach with 1 superficial nonbleeding duodenal ulcer. Patient was discharged with a hemoglobin of 9.4 on June 18 and a creatinine of 2.[address] of the abdomen on June 18 showed no acute abnormality. 1540: Labs within normal limits. Patient's oxygen saturation did drop to the 80s on room air. Supplemental oxygen was applied which improved the patient's oxygen saturation. Spoke with Nicolette Isabel [facility] hospitalist who states to admit to Dr. Castro. She is requesting that a CT of the abdomen reordered. Given her CT of the abdomen without contrast was -4 days ago, will obtain CT of the abdomen with oral contrast due to impaired kidney function. Impression & Plan Hypoxia, Abdominal pain Discharge Plan Visit Data Chief Complaint: Abdominal Pain Stated Complaint: SEVERE STOMACH PAIN,WEAK ED Provider: Nasir Lewis Discharge Problem: Hypoxia, Abdominal pain Patient Disposition: Being Evaluated by Hospitalist Forms Stand Alone Forms: [facility] Prescriptions Prescriptions: No Action atorvastatin 20 mg tablet 20 mg PO QAM RF: 0 potassium chloride 10 mEq tablet extended release 10 meq PO DIRECTED RF: 0 hydralazine 50 mg tablet 50 mg PO TID RF: 0 furosemide 20 mg tablet 20 mg PO DIRECTED RF: 0 epinephrine [EpiPen] 0.3 mg/0.3 mL Auto-Injector 0.3 mg IM DIRECTED PRN (Reason: Allergic Reaction) RF: 0 metoprolol tartrate 25 mg tablet 25 mg PO BID RF: 0 aspirin 81 mg Tablet,Delayed Release (Dr/Ec) 81 mg PO QAM RF: 0 loratadine 10 mg Tablet 10 mg PO HS RF: 0 amlodipine 5 mg tablet 5 mg PO DIRECTED RF: 0 pantoprazole 40 mg Tablet,Delayed Release (Dr/Ec) 40 mg PO QAM 30 Days Qty: 30 RF: 0 tramadol 50 mg tablet 50 mg PO BID PRN (Reason: pain) Qty: 10 RF: 0 Referrals Referrals: Suleman Sands MD [Primary Care Provider] - Discharge Problem: Abdominal pain Qualifiers: Abdominal location: left upper quadrant Qualified Code(s): R10.12 - Left upper quadrant pain
[2019-06-23] MEDS ORDERED: MoRPHine SULFATE 4 MG/ML 1 ML CARP\\VIAL IV STA (13:18)
[2019-06-23 13:54] LABS: Alanine Aminotransferase 17 U/L (12-78); Albumin Level 2.9 gm/dl (3.4-5.0); Alkaline Phosphatase 75 U/L (45-117); BUN Creatinine Ratio 13.2 (10-20); Bilirubin,Total 1.4 mg/dl (0.2-1); Blood Urea Nitrogen 34 mg/dl (7-18); Calcium 9.2 mg/dl (8.5-10.1); Carbon Dioxide 22 mmol/L (21-32); Chloride 109 mmol/L (98-107); Creatinine Clr Calc Pharmacy 18.1 ml/min; Est GFR (African American) 19.8; Est GFR (Non-African American) 17.1; Glucose 145 mg/dl (70-99); Lipase 83 U/L (73-393); Sodium 137 mmol/L (136-145); Total Protein 8.1 gm/dl (6.4-8.2)
--- NOTE | 2019-06-23 14:12 | XRay Report ---
XR abdomen 2V w PA chest CLINICAL HISTORY: abdominal pain hx of PUD pain. Nausea. COMPARISON STUDY: 06/13/2019 FINDINGS: Mild stable cardiomegaly. Prior median sternotomy. Mild prominence of pulmonary vasculature . Nonobstructive bowel pattern. Degenerative change of the bony structures throughout. IMPRESSION: 1. Mild pulmonary vascular congestion. 2. No acute process in the abdomen. ACT 112: Negative or not required by law. The above report was generated using voice recognition software. It may contain grammatical, syntax or spelling errors. Electronically signed by: Suleman Epperson M.D. 06/23/2019 2:11 PM
[2019-06-23 14:19] LABS: Basophils # (auto) 0.02 K/uL (0-0.2); Basophils % (auto) 0.4 %; Eosinophils # (auto) 0.03 K/uL (0-0.5); Eosinophils % (auto) 0.5 %; Hematocrit (blood only) 28.3 % (37-47); Hemoglobin 9.2 g/dL (12.0-16.0); Immature Granulocytes # (auto) 0.01 K/uL (0.00-0.02); Immature Granulocytes % (auto) 0.2 %; Lymphocytes # (auto) 0.64 K/uL (1.2-3.4); Lymphocytes % (auto) 11.3 %; Mean Corpuscular Hemoglobin 30.3 pg (25-34); Mean Corpuscular Hgb Conc 32.5 g/dL (32-36); Mean Corpuscular Volume 93.1 fL (80-100); Mean Platelet Volume 9.7 fL (7.4-10.4); Monocytes # (auto) 0.32 K/uL (0.11-0.59); Monocytes % (auto) 5.7 %; Neutrophils # (auto) 4.63 K/uL (1.4-6.5); Neutrophils % (auto) 81.9 %; Platelet Count 152 K/uL (130-400); RDW Coefficient of Variation 16.5 % (11.5-14.5); RDW Standard Deviation 56.3 fL (36.4-46.3); Red Blood Count 3.04 M/uL (4.2-5.4); White Blood Count 5.65 K/uL (4.8-10.8)
[2019-06-23 14:29] LABS: INR 1.1 (0.9-1.1); Partial Thromboplastin Ratio 1.1; Partial Thromboplastin Time 29.6 Seconds (21.0-31.0); Prothrombin Time 11.9 Seconds (9.0-12.0)
[2019-06-23 14:30] LABS: Potassium 3.8 mmol/L (3.5-5.1)
[2019-06-23 14:35] LABS: Aspartate Aminotransferase 17 U/L (15-37); Magnesium 2.1 mg/dl (1.8-2.4)
[2019-06-23] MEDS: SODIUM CHLORIDE 0.9% 500 ML IV SCH ×2 (14:51→20:23)
--- NOTE | 2019-06-23 16:41 | History & Physical Report ---
Date of Service June 23, 2019 Assessment & Plan (1) Acute diastolic CHF (congestive heart failure): This is a 86-year-old female who has significant past medical history of CAD with history of CABG x4, HTN, HLD, CKD stage III, renal artery stenosis, benign essential tremor, duodenal ulcer who presents to ED secondary to left upper quadrant abdominal pain x3 to 4 days. Pt appears to have acute decompensation of diastolic CHF based on my physical exam findings, elevated pro bnp and CXR with concern for pulm vasc congestion Probnp ordered and elevated at 9933, (previously 12/2018 ~2,000) cr elevated further to 2.56 last echo 06/2019 revealed normal EF 55-60%, mild pulm HTN, mod TR admit to telemetry Lasix 20mg IV x 1 now and monitor response strict I and O, daily weight (2) Pneumonitis: abn chest ct revealed marked progression in the bilateral multifocal groundglass pulmonary opacities. The findings are nonspecific but infectious/inflammatory process is favored over pulmonary edema. Prior chest CT from 12/30/18 revealed minimal ground glass opacities w/in RML and lingula This was also mentioned in Renal CT on 06/18 Will cover with IV Cefepime and doxy for now given recent hospitalization consult pulmonology given findings and mild hypoxia pt denies recent travel or exposure to infected individual with Covid-19, feel pt low risk She is afebrile w/o complaint of significant cough/sob Influenza negative and procal WNL (3) Hypoxia: 2/2 to mild decompensation of diastolic chf as well as component of infectious/inflammatory pneumonitis (4) Weakness: Consult PT OT Patient with prolonged hospitalization 06/12-06/18 Patient may have element of deconditioning (5) Duodenal ulcer: Recent diagnosis via EGD on 06/15/2019 Continue Protonix H&H is stable Add Carafate (6) LUQ abdominal pain: Maybe in setting of previously diagnosed duodenal ulcer clear liquid diet for now, advance as tolerated Continue PPI, add Carafate Low threshold to reconsult GI (7) FORREST (acute kidney injury): FORREST on CKD stage 3 Baseline creatinine 1.3-1.4 on 12/2018 Presented during recent admission with creatinine of 2.49 It was thought FORREST may have been secondary to hypovolemia, ATN in setting of blood loss Lasix has been on hold Creatinine today higher at 2.[address] along with a renal ultrasound which revealed chronic renal disease along with multiple cysts, nephrology was on board total urine protein high at 42.5, protein/creatinine ratio high 0.8 possible renal function elevation in setting of CHF monitor - if worsened in a.m. low threshold to consult nephro (8) Thrush, oral: Nystatin oral suspension 4 times daily x7 days Patient denies dysphagia (9) Anemia of renal disease: H&H stable at 9.2 and 20.3 Discharge hemoglobin on 06/18 was 9.4 (10) Coronary artery disease: hx CABG x4 On ASA, statin, metoprolol Patient denies chest pain, EKG without ST or T wave change, troponin WNL (11) Hypertension: Blood pressure stable on hydralazine, metoprolol She has been off amlodipine per patient (12) Hyperlipidemia: Continue statin (13) DVT prophylaxis: SCD/TEDS due to recent GIB Disposition: admit to [facility] tele Follow up: PCP Dr. Sands upon discharge Pt was seen and examined in collaboration with Dr. Castro, please see addendum History of Present Illness Chief Complaint: Left upper quadrant abdominal pain x3 to 4 days. Primary Care Provider: Suleman Sands MD This is a 86-year-old female who has significant past medical history of CAD with history of CABG x4, HTN, HLD, CKD stage III, renal artery stenosis, benign essential tremor, duodenal ulcer who presents to ED secondary to left upper quadrant abdominal pain x3 to 4 days. Of significance patient recently hospitalized on 06/12 to 06/18 secondary to bright red blood per rectum and admission hemoglobin of 6.9 on aspirin therapy. She also had FORREST. She underwent EGD and colonoscopy which revealed a nonbleeding duodenal ulcer as well as colon polyps. She required 3 units PRBC per patient and was placed on daily Protonix. She was also seen and evaluated by nephrology secondary to an FORREST with a creatinine of 2.49 on admission. She underwent renal ultrasound which revealed atrophy significant for chronic renal disease as well as multiple notable cyst. She was stabilized and discharged to home. Since being home she is overall felt unwell and weak. She has been having left upper quadrant abdominal pain that feels similar to prior presentation; however her pain approximately 10 days ago was on the right side. She complains of pain in her left upper quadrant, nonradiating, currently /10, it comes and goes lasting seconds to minutes and goes away, described as stabbing, nothing makes it better or worse, does not seem to be affected by food and unable to attribute certain pattern to pain. Recalls similar pain to previous admission. Her last bowel movement was here in the ED which was diarrhea. Prior to that her last BM was approximately 2 to 3 days ago. Denies any difficulty urinating, dysuria, increased frequency urgency with urination, hematuria, melena, hematochezia. She does admit to feeling feverish but denies any chills or sweats. She denies any lightheadedness, dizziness, syncope, chest pain, palpitations, hemoptysis, shortness breath at rest, nausea, vomiting, hematemesis. She does admit to having a mild cough that is occasionally productive and complains of dyspnea on exertion, both of which are chronic. Overall her appetite has been poor and feels she has lost a significant amount of weight. Weight this morning was 168. She does elicit that she has been undergoing a lot of stress in her life as her of 40 years left her approximately 9 months ago and his family took everything in their house. Since then she has been with her daughter and this is been very difficult on her. In ED patient remained hemodynamically stable. According to nurse she was saturating in the low 90s and did drop into the high 80s which required some oxygen supplementation. Lab work revealed stable H&H at 9.2 and 28.3, WBC 5.65, platelet 152, K3.8, BUN 34, creatinine 2.56, glucose 145, lactate 1.6, total bili 1.4, albumin 2.9, stool for C. difficile was negative. Her lipase was normal. CXR/KUB:Revealed mild pulmonary vascular congestion with no acute process in the abdomen. In ED she received IV Zofran, IV morphine with improvement of pain. A CT scan of abdomen with oral contrast has been ordered but not completed. Allergies Allergy/AdvReac Type Severity Reaction Status Date / Time lisinopril Allergy Severe Angioedema Verified 06/23/19 14:12 Home Medications Home Medications Medication Instructions Recorded Confirmed Type aspirin 81 mg PO QAM 12/29/18 06/23/19 History atorvastatin 20 mg PO QAM 12/29/18 06/23/19 History epinephrine [EpiPen] 0.3 mg IM DIRECTED PRN 12/29/18 06/23/19 History furosemide 20 mg PO DIRECTED 12/29/18 06/23/19 History hydralazine 50 mg PO TID 12/29/18 06/23/19 History loratadine 10 mg PO HS 12/29/18 06/23/19 History metoprolol tartrate 25 mg PO BID 12/29/18 06/23/19 History potassium chloride 10 meq PO DIRECTED 12/29/18 06/23/19 History amlodipine 5 mg PO DIRECTED 06/13/19 06/23/19 History pantoprazole 40 mg PO QAM 30 Days #30 tab 06/19/19 06/23/19 Rx tramadol 50 mg PO BID PRN #10 tab 06/19/19 06/23/19 Rx Past Med/Surg History Medical History (Updated 06/23/19 @ 20:05 by Nicolette Mitchell PA-C) Anemia of renal disease Benign essential tremor CKD (chronic kidney disease), stage III Colonic polyp Coronary artery disease Duodenal ulcer Hyperlipidemia Hypertension Renal artery stenosis Surgical History (Updated 06/23/19 @ 16:40 by Nicolette Mitchell PA-C) History of appendectomy History of cholecystectomy History of hysterectomy with oophorectomy History of quadruple bypass S/P CABG x 4 Family History (Updated 06/23/19 @ 16:40 by Nicolette Mitchell PA-C) Father Coronary heart disease Pulmonary embolism Mother Cancer Sister Parkinson disease Social History (Updated 06/23/19 @ 16:44 by Nicolette Mitchell PA-C) Preferred Language: French Communication Ability: Effective Weatherization Administrator Required: No Beliefs That Will Affect Care: None marital status: Current Living Situation: Alone Current Living Situation Comment: apartment; filing for divorce Feels Safe at Home: Yes Smoking Status: Never smoker Second Hand Exposure: No ; Hx Alcohol Use: No Hx Substance Use: No Review of Systems Review of Systems: All systems reviewed & are unremarkable except as noted in HPI & below Physical Exam Physical Exam: Constitutional: WD/WN, elderly, female, vitals as above, NAD, sitting up in bed, pleasant, conversing easily Head: Normocephalic, Atraumatic Eyes: PERRL, conjunctivae normal, anicteric sclerae ENMT: external ear and nose normal, oropharynx normal +Thrush, dry membranes Neck: trachea midline, no thyromegaly normal visual inspection Respiratory: normal respiratory effort, lungs clear to auscultation, no wheeze, rales, rhonchi on O2 via NC, normal insp/exp effort, no accessory muscle use Cardiovascular: RRR, 1/6 ELKE best heard RUSB, no edema Vessels: +JVD or carotid bruit Chest: normal inspection of chest Abdomen: normal bowel sounds, soft, tender to palpation left upper quadrant, no CVA tenderness, no hepatosplenomegaly Musculoskeletal: no cyanosis or clubbing, extremities motor strength 4/5 Skin: no rashes, warm and dry normal turgor Neurologic: PERRL, EOMI, accommodation nl, no face palsy, no dysarthria CN's II-XI intact bilaterally and moves all extremities Psychiatric: A+Ox3, dysthymic affect Lymphatic: no cervical or axillary lymphadenopathy : deferred Results & Data Vital Signs (Past 12 Hours) Vital Signs Temp Pulse Pulse Resp BP BP Pulse Ox 06/23/19 15:30 59 L 16 131/67 95 06/23/19 15:00 59 L 59 L 21 141/61 H 141/61 H 94 06/23/19 14:58 87 L 06/23/19 14:30 57 L 17 162/66 H 90 06/23/19 14:12 56 L 21 142/68 H 91 06/23/19 13:52 59 L 20 141/69 H 91 06/23/19 13:14 95 06/23/19 12:37 36.5 C 65 20 120/58 L 91 Laboratory Results Short CBC 06/23/19 06/23/19 06/23/19 Range/Units 13:24 13:24 14:07 WBC Not Reportable 5.65 Hgb Not Reportable 9.2 L Hct Not Reportable 28.3 L Plt Count 152 (130-400) K/uL Creatinine 2.56 H (0.6-1.2) mg/dl BMP 06/23/19 06/23/19 13:24 14:11 Sodium 137 Potassium TNP 3.8 Chloride 109 H Carbon Dioxide 22 BUN 34 H Creatinine 2.56 H Glucose 145 H Calcium 9.2 Liver Function 06/23/19 06/23/19 Range/Units 13:24 14:11 Total Bilirubin 1.4 H (0.2-1) mg/dl Direct Bilirubin TNP AST TNP 17 ALT 17 (12-78) U/L Alkaline Phosphatase 75 (45-117) U/L Albumin 2.9 L (3.4-5.0) gm/dl Diagnostic Findings CXR/KUB: IMPRESSION: 1. Mild pulmonary vascular congestion. 2. No acute process in the abdomen Medications Administered Sodium Chloride (Nss) 500 mls @ 125 mls/hr IV .Q4H CAROLE Stop: 07/23/19 12:59 Last Admin: 06/23/19 14:51 Dose: 125 mls/hr Documented by: [id number] Discontinued Medications Morphine Sulfate (Morphine Sulfate) 4 mg IV NOW STA Stop: 06/23/19 13:19 Last Admin: 06/23/19 14:51 Dose: 4 mg Documented by: [id number] Ondansetron HCl (Zofran) 4 mg IV NOW STA Stop: 06/23/19 12:54 Last Admin: 06/23/19 14:52 Dose: 4 mg Documented by: [id number] ECG Rate (beats per minute): 58 Rhythm: sinus bradycardia Findings: + PVC and + prolonged QT (QTC 481ms) Code Status & VTE Plan Code Status Full Code VTE Prophylaxis Plan VTE Prophylaxis will be ordered: Yes Reason for no VTE drug order: Contraindicated Supervising Physician Co-Signing Physician Notes Care coordinated with Nicolette Mitchell PA-C. Agree with able note. Patient seen and examined. Please refer to her notes for full details. Vital signs reviewed. Physical exam: General exam: Alert and oriented. Not in acute distress. CVS: S1 and S2 heard, regular rate and rhythm, no murmurs. RS: Clear to auscultation, no wheezing or crackles. ABD: Soft, bowel sounds present, nontender, no distention. CLIENT ACCOUNT REPRESENTATIVE: Nonfocal. EXT: No edema, no erythema. Labs: Reviewed. Assessment and plan: 78F with cad s/p cabg, ckd 3, diastolic chf, recent admission for gi bleed s/p egd which showed non bleeding duodenal ulcer also was having forrest and lasix was held and was discharged home currently daughter living with her comes with severe LUQ abdominal pain of few day durations. Several days ago had RUQ abdominal pain but that resolved now. HAd a loose bowel movement today. Has runny nose and cough. Sob on exertion. No fevers. hemodynamics stable. Ct abdomen unremarkable except for b/l basilar ground glass opacities of lungs. Was hypoxic in Er. Cxr mild congestion. Ct chest progression of bilateral ground glass opacities. Cr 2.5 Hypoxic mostly from mild acute diastolic chf and or pneumonitis. ordered iv la six 20mg and will follow the response. Also ordered iv abx and pulmonary consult. Will monitor renal function. Added carafate for duodenal ulcer and monitor for any improvement in abdominal pain for now. Other diagnosis and plan of care as per Nicolette Mitchell PA-C. Malik salvador MD.
[2019-06-23 16:48] LABS: Bilirubin Direct 0.4 mg/dl (0-0.2)
[2019-06-23 16:58] LABS: NT Pro B Type Natriuretic Pept 9933 pg/ml (0-1800); Troponin I < 0.015 ng/ml (0-0.045)
[2019-06-23 17:20] LABS: Influenza A virus by PCR Neg for Influ A (Neg); Influenza B virus by PCR Neg for Influ B (Neg)
--- NOTE | 2019-06-23 17:52 | CT Scan Report ---
CT abdomen w oral con only CT DOSE: 479.88 mGy.cm CLINICAL HISTORY: Left upper quadrant abdominal pain TECHNIQUE: The patient was scanned following administration of dilute oral contrast. No intravenous c ontrast was administered. A dose lowering technique was utilized adhering to the principles of ALARA . COMPARISON STUDY: June 19, 2019 FINDINGS: The visualized portions of the lung bases reveal trace bilateral pleural effusions. There are bilater al lower lung zone groundglass opacities similar to the prior study the heart is enlarged There is scattered hepatic granulomas. There is no intrahepatic biliary ductal dilatation. No masses are identified in this noncontrast study The gallbladder is surgically absent. There is mild dilatation of the common bile duct, likely second shauna to prior cholecystectomy No splenic masses are visualized. The spleen is borderline enlarged measuring 12 cm. No pancreatic masses are visualized. No adrenal masses are visualized. There are multiple bilateral renal cysts. There is a thin wall calcification within one of the left r enal cyst. Cysts measure up to 57 mm in diameter. There is stable dilatation of the left renal pelvis . There is no evidence of abdominal aortic dilatation. There is no upper abdominal lymphadenopathy. There is no pathologic upper abdominal bowel dilatation. IMPRESSION: 1. No significant change from the preceding study 2. Persistent bilateral renal cysts with stable mild dilatation left renal pelvis 3. Trace bilateral pleural effusions. Persistent groundglass opacities involving both lung bases. ACT 112: Negative or not required by law. Electronically signed by: Nitin Cavanaugh M.D. 06/23/2019 5:51 PM
[2019-06-23] MEDS ORDERED: FUROSEMIDE 40 MG/4 ML VIAL IV STA (18:44)
--- NOTE | 2019-06-23 19:25 | CT Scan Report ---
CT chest wo con CLINICAL HISTORY: Ground glass opacity COMPARISON STUDY: Abdominal pain. Abnormal chest x-ray. Prior abnormal CT scan. CT DOSE: 586.75 mGy.cm TECHNIQUE: CT of the thorax was performed from the thoracic inlet to the lung bases. Images are revi ewed in the axial, sagittal, and coronal planes. IV contrast was not administered for this examinatio n. A dose lowering technique was utilized adhering to the principles of ALARA. FINDINGS: Thyroid: Imaged portions of the thyroid gland are normal in appearance. Thoracic aorta: There is dilatation of ascending thoracic aorta which measures 4 cm. Heart: The heart is enlarged with coronary artery calcifications. Lungs and pleural spaces: There are dependent atelectatic changes. There are multifocal groundglass p ulmonary opacities, markedly progressive when compared the preceding study. An infectious/inflammator y process is favored over pulmonary edema. Clinical correlation and follow-up is advocated. Mediastinum: There are borderline enlarged mediastinal lymph nodes, likely reactive. Angie: There are borderline enlarged hilar lymph nodes. Axilla: There is no evidence of pathologic axillary lymphadenopathy. Upper abdomen: There are partially visualized left upper quadrant cysts, likely renal. Skeletal structures: There are postsurgical changes of midline sternotomy. There is ankylosis of the dorsal spine. IMPRESSION: 1. Cardiomegaly and coronary artery calcifications 2. Persistent dilatation of the ascending thoracic aorta which measures 4 cm. 3. Marked progression in the bilateral multifocal groundglass pulmonary opacities. The findings are n onspecific but infectious/inflammatory process is favored over pulmonary edema. Clinical correlation and follow-up is recommended. ACT 112: Negative or not required by law. Electronically signed by: Nitin Cavanaugh M.D. 06/23/2019 7:24 PM
[2019-06-23] MEDS ORDERED: SODIUM CHLORIDE 0.9% 1000ML 1,000 ML IV SCH (19:31)
[2019-06-23] MEDS ORDERED: POLYETHYLENE (MIRALAX) 17 GM PACK PO PRN (19:31)
[2019-06-23] MEDS ORDERED: ONDANSETRON INJ 2 MG/ML 2 ML VIAL IV PRN (19:31)
[2019-06-23] MEDS ORDERED: CEFEPIME CONSULT ACTIVE PRN (20:02)
[2019-06-23 20:11] LABS: Appearance Urine Cloudy (Clear); Bacteria Urine Automated Negative (Negative); Bilirubin Urine Negative (Negative); Blood Urine 3+ (Negative); Color Urine Dark Yellow; Epithelial Cell Urine Auto 20-30 /lpf (0-5); Glucose Urine UA Negative (Negative); Ketones Urine Negative (Negative); Leukocyte Esterase Urine Trace (Negative); Nitrite Urine Negative (Negative); Protein Urine 1+ (Negative); RBC Urine Automated >30 /hpf (0-4); Specific Gravity Urine 1.016 (1.000-1.030); Urobilinogen Urine Negative (Negative)
[2019-06-23] MEDS: METOPROLOL TARTRATE 25 MG TAB PO SCH (20:25)
[2019-06-23] MEDS: NYSTATIN SUSP 500,000 U/5 ML UDC PO SCH ×2 (20:26→21:31)
[2019-06-23] MEDS: SUCRALFATE 1 GM/10 ML UDC PO SCH ×2 (20:26→21:31)
[2019-06-23] MEDS: HydrALAZINE TAB 50 MG TAB PO SCH (20:26)
[2019-06-23] MEDS: LORATADINE 10 MG TAB PO SCH (20:27)
[2019-06-23] MEDS ORDERED: FUROSEMIDE 40 MG in SYRINGE 0 ML IV STA (20:35)
[2019-06-23] MEDS ORDERED: FUROSEMIDE 20 MG in SYRINGE 0 ML IV ONE (20:41)
[2019-06-23] MEDS: CEFEPIME 2,000 MG in SYRINGE 7.5 ML IV SCH (21:31)
[2019-06-23] MEDS: DOXYCYCLINE HYCLATE 100 MG CAP PO SCH (21:31)
--- NOTE | 2019-06-23 23:07 | Electrocardiogram Report ---
Test Reason : Blood Pressure : / mmHG Vent. Rate : 058 BPM Atrial Rate : 058 BPM P-R Int : 264 ms QRS Dur : 114 ms QT Int : 490 ms P-R-T Axes : 000 -26 125 degrees QTc Int : 481 ms Poor data quality, interpretation may be adversely affected Sinus bradycardia with 1st degree A-V block with frequent Premature ventricular complexes Left ventricular hypertrophy with repolarization abnormality Abnormal ECG When compared with ECG of 17-JUN-2019 12:35, Premature ventricular complexes are now Present Confirmed by Checo Cuello ([id number]) on 06/23/2019 11:07:42 PM Referred By: REFERRED SELF Confirmed By:Checo Cuello
[2019-06-24 07:06] LABS: Basophils # (auto) 0.01 K/uL (0-0.2); Basophils % (auto) 0.2 %; Eosinophils # (auto) 0.05 K/uL (0-0.5); Eosinophils % (auto) 1.2 %; Hematocrit (blood only) 25.9 % (37-47); Hemoglobin 8.4 g/dL (12.0-16.0); Immature Granulocytes # (auto) 0.01 K/uL (0.00-0.02); Immature Granulocytes % (auto) 0.2 %; Lymphocytes # (auto) 0.44 K/uL (1.2-3.4); Lymphocytes % (auto) 10.9 %; Mean Corpuscular Hemoglobin 29.8 pg (25-34); Mean Corpuscular Hgb Conc 32.4 g/dL (32-36); Mean Corpuscular Volume 91.8 fL (80-100); Mean Platelet Volume 9.6 fL (7.4-10.4); Monocytes # (auto) 0.29 K/uL (0.11-0.59); Monocytes % (auto) 7.2 %; Neutrophils # (auto) 3.22 K/uL (1.4-6.5); Neutrophils % (auto) 80.3 %; Platelet Count 130 K/uL (130-400); RDW Coefficient of Variation 16.4 % (11.5-14.5); RDW Standard Deviation 55.5 fL (36.4-46.3); Red Blood Count 2.82 M/uL (4.2-5.4); White Blood Count 4.02 K/uL (4.8-10.8)
[2019-06-24 07:37] LABS: Albumin Level 2.7 gm/dl (3.4-5.0); BUN Creatinine Ratio 13.5 (10-20); Calcium 8.6 mg/dl (8.5-10.1); Creatinine Clr Calc Pharmacy 17.1 ml/min; Est GFR (African American) 20.1; Est GFR (Non-African American) 17.3; Potassium 3.5 mmol/L (3.5-5.1)
[2019-06-24 07:40] LABS: Albumin Globulin Ratio 0.6 (0.9-2); Bilirubin,Total 1.6 mg/dl (0.2-1); Globulin 4.4 gm/dl (2.5-4.0); Total Protein 7.1 gm/dl (6.4-8.2)
[2019-06-24] MEDS: METOPROLOL TARTRATE 25 MG TAB PO SCH ×2 (08:17→20:33)
[2019-06-24] MEDS: HydrALAZINE TAB 50 MG TAB PO SCH ×3 (08:17→20:32)
[2019-06-24] MEDS: PANTOprazole 40 MG TAB PO SCH (08:17)
[2019-06-24] MEDS: ATORVASTATIN 20 MG TAB PO SCH (08:17)
[2019-06-24] MEDS: ASPIRIN 81 MG ECTAB PO SCH (08:18)
[2019-06-24] MEDS: DOXYCYCLINE HYCLATE 100 MG CAP PO SCH ×2 (08:18→20:32)
[2019-06-24] MEDS: NYSTATIN SUSP 500,000 U/5 ML UDC PO SCH ×4 (08:18→20:34)
[2019-06-24] MEDS: SUCRALFATE 1 GM/10 ML UDC PO SCH ×4 (08:18→20:34)
--- NOTE | 2019-06-24 15:09 | Pulmonary Consultation ---
Date of Consultation June 24, 2019 Assessment & Plan (1) Abnormal CT scan of lung: Impression: 78-year-old female presenting with abdominal pain found to have progression of pulmonary infiltrates. She does not have clear infectious symptomatology and procalcitonin and white blood cell count are normal. She is also afebrile. This is in the setting of recent transfusion and the differenti al would include transfusion associated circulatory overload (TACO) transfusion associated lung injury (TRALI). Other inflammatory etiologies including pulmonary hemorrhage would be on the differential although they appear less likely. I suspect this may represent fluid overload and atypical diastolic heart failure. Recommendations: 1. Diastolic dysfunction with probable fluid overload: Recommend aggressive diuresis. This is somewhat problematic given her kidney function. Close attention will need to be paid to her basic metabolic panel with diuretics. Aggressive blood pressure control with target blood pressure less than 125/75. 2. Hypoxemic respiratory failure: Continue supplemental oxygen titrated to keep saturations at or above 88%. 3. Abnormal CT scan: The patient will require a follow-up CT scan in 6 to 8 weeks to ensure resolution of the infiltrates. Her white count is normal and procalcitonin is negative so if cultures remain negative at 72 hours can likely de-escalate or discontinue antibiotics provided she remains afebrile. She is currently day #2 doxycycline and cefepime. (2) Acute diastolic CHF (congestive heart failure): (3) Hypoxia: History of Present Illness Attending Physician: Richi Evans MD History of Present Illness Asked by the hospitalist service to assist in evaluation management this patient with an abnormal CT scan. History is obtained from review electronic medical record as well as interview the patient. The patient is an 78-year-old female with a history of chronic kidney disease diastolic heart failure and hypertension who was just dismissed from the hospital June 18. She was initially admitted with fatigue. She was found to have a low-grade GI bleed. She received some packed red cells. EGD showed a small duodenal ulcer with no stigmata of bleeding. Outpatient capsule endoscopy was recommended. She was also found to have diverticulosis without obvious bleeding and a small sessile polyps. She had acute kidney injury with an elevated serum creatinine. She was to follow-up with nephrology in the outpatient setting. She did have an x-ray performed at that time which demonstrated cardiomegaly with mild pulmonary vascular congestion. Patient presented back to the emergency room 06/23/2019. Her complaints were essentially abdominal pain which she states started in the right upper quadrant and migrated over to the left upper quadrant. She did not report overt fevers chills or night sweats. No shortness of breath, cough, or hemoptysis or sputum production. She lives in an assisted living center and has no significant occupational or environmental exposures. She underwent a CT scan which showed progression of groundglass opacities. Influenza and procalcitonin were negative however BNP was markedly elevated. She was placed on cefepime and doxycycline for potential pneumonia. Allergies Allergy/AdvReac Type Severity Reaction Status Date / Time lisinopril Allergy Severe Angioedema Verified 06/23/19 14:12 Home Medications Home Medications Medication Instructions Recorded Confirmed Type aspirin 81 mg PO QAM 12/29/18 06/23/19 History atorvastatin 20 mg PO QAM 12/29/18 06/23/19 History epinephrine [EpiPen] 0.3 mg IM DIRECTED PRN 12/29/18 06/23/19 History furosemide 20 mg PO DIRECTED 12/29/18 06/23/19 History hydralazine 50 mg PO TID 12/29/18 06/23/19 History loratadine 10 mg PO HS 12/29/18 06/23/19 History metoprolol tartrate 25 mg PO BID 12/29/18 06/23/19 History potassium chloride 10 meq PO DIRECTED 12/29/18 06/23/19 History amlodipine 5 mg PO DIRECTED 06/13/19 06/23/19 History pantoprazole 40 mg PO QAM 30 Days #30 tab 06/19/19 06/23/19 Rx tramadol 50 mg PO BID PRN #10 tab 06/19/19 06/23/19 Rx Patient History Medical History (Updated 06/24/19 @ 15:07 by Cong Landers MD) Anemia of renal disease Benign essential tremor CKD (chronic kidney disease), stage III Colonic polyp Coronary artery disease Duodenal ulcer Hyperlipidemia Hypertension Renal artery stenosis Surgical History (Updated 06/23/19 @ 16:40 by Nicolette Mitchell PA-C) History of appendectomy History of cholecystectomy History of hysterectomy with oophorectomy History of quadruple bypass S/P CABG x 4 Family History (Updated 06/23/19 @ 16:40 by Nicolette Mitchell PA-C) Father Coronary heart disease Pulmonary embolism Mother Cancer Sister Parkinson disease Social History (Updated 06/23/19 @ 16:44 by Nicolette Mitchell PA-C) Preferred Language: Sudanese Communication Ability: Effective Pigment Processor Required: No Beliefs That Will Affect Care: None marital status: Unknown Current Living Situation: Alone Current Living Situation Comment: apartment; filing for divorce Other Information That Helps Us Care for You: No Feels Safe at Home: Yes Safety Concerns: Feels Safe At This Time Smoking Status: Never smoker Second Hand Exposure: No ; Hx Alcohol Use: No Hx Substance Use: No Review of Systems Review of Systems: Please refer to admission H&P Physical Exam Physical Exam: Constitutional: WD/WN, elderly, female, vitals as above, NAD, sitting up in bed, pleasant, conversing easily Head: Normocephalic, Atraumatic Eyes: PERRL, conjunctivae normal, anicteric sclerae ENMT: external ear and nose normal, oropharynx normal +Thrush, dry membranes Neck: trachea midline, no thyromegaly normal visual inspection Respiratory: normal respiratory effort, lungs clear to auscultation, no wheeze, rales, rhonchi on O2 via NC, normal insp/exp effort, no accessory muscle use Cardiovascular: RRR, 1/6 ELKE best heard RUSB, no edema Vessels: +JVD or carotid bruit Chest: normal inspection of chest Abdomen: normal bowel sounds, soft, tender to palpation left upper quadrant, no CVA tenderness, no hepatosplenomegaly Musculoskeletal: no cyanosis or clubbing, extremities motor strength 4/5 Skin: no rashes, warm and dry normal turgor Neurologic: PERRL, EOMI, accommodation nl, no face palsy, no dysarthria CN's II-XI intact bilaterally and moves all extremities Psychiatric: A+Ox3, dysthymic affect Lymphatic: no cervical or axillary lymphadenopathy : deferred Results & Data ([facility]) Vital Signs (Past 12 Hours) Vital Signs Temp Pulse Pulse Resp BP BP Pulse Ox 06/24/19 14:58 36.5 C 67 19 129/66 92 06/24/19 11:38 36.7 C 58 L 18 114/69 94 06/24/19 07:16 36.9 C 62 18 150/74 H 93 06/24/19 07:05 62 Laboratory Results 06/24/19 06:49 06/24/19 06:49 BNP elevated over 9000. Diagnostic Findings CT of the chest from 06/23/2019 was reviewed and compared to prior CT from 12/29/2018. Since the 2018 film, there is been development of diffuse groun dglass opacities. Chest x-ray from 06/23/2019 was reviewed which did demonstrate some patchy alveolar infiltrates. Temo from 06/14/2019 showed an ejection fraction of 55 to 60% with concentric LVH. Right ventricular systolic function was normal. No ASD no PFO. No comment on diastolic filling parameters however E to E prime ratio is elevated at 10. PG Care Time/CCT Total # of Minutes Spent Total Time Spent with Patient: Total time spent is greater than 50% in coordination of care (as documented) at patient's floor/unit and/or counseling patient: Coding Level of Care Code 06126 Initial Inpt Care Lvl [address] scan of lung R91.8 Acute diastolic CHF (congestive heart failure) I50.31 Hypoxia R09.02 Time Spent (min) 50
--- NOTE | 2019-06-24 16:40 | Ultrasound Report ---
BILATERAL LOWER EXTREMITY VENOUS DOPPLER HISTORY: Atypical chest pain, r/o DVT COMPARISON STUDY: Venous Doppler 09/26/2016. FINDINGS: There is normal compressibility, flow, and augmentation within the bilateral lower extremit y deep venous systems. IMPRESSION: No DVT within the right or left lower extremity. ACT 112: Negative or not required by law. Electronically signed by: Justin Bates M.D. 06/24/2019 4:38 PM
[2019-06-24] MEDS ORDERED: FUROSEMIDE 40 MG/4 ML VIAL IV ONE (19:50)
[2019-06-24] MEDS ORDERED: FUROSEMIDE 40 MG in SYRINGE 0 ML IV ONE (20:00)
[2019-06-24] MEDS: CEFEPIME 2,000 MG in SYRINGE 7.5 ML IV SCH (20:31)
[2019-06-24] MEDS: LORATADINE 10 MG TAB PO SCH (20:32)
--- NOTE | 2019-06-24 21:29 | Hospitalist Progress Note ---
Date of Service June 24, 2019 Assessment & Plan (1) Abdominal pain: (2) Abnormal CT scan of lung: (3) Hypoxia: Supplemental O2 as needed. (4) Coronary artery disease: No anginal symptoms. (5) CKD (chronic kidney disease), stage III: CKD III with baseline creatinine around 1.3 - 1.4. History of hypertension and renovascular disease. Creatinine was 2.49 on 06/12 in the setting of GI bleed with Hgb of 7. Creatinine down to 2.17 on 06/19/19. Creatinine 2.56 at time of current admission. Creatinine today = 2.53. May have CHF as discussed above. Creatinine may improve or worsen with diuresis. Follow. (6) FORREST (acute kidney injury): As noted above. (7) Anemia: Baseline Hgb around 11 in Dec 2018. Recent admission for GI bleed; Hgb was 7 at time of admission. EGD showed small duodenal ulcer without hemorrhage; colonoscopy showed polyps, tics, internal hemorrhoids without active bleeding. Outpatient capsule endoscopy recommended. Received 3 units pRBC's. Discharge Hgb was 9.4. Hgb 9.2 at time of this admission. Hgb today = 8.4. No gross GI bleeding. Follow H/H. (8) Hypertension: Continue metoprolol and hydralazine. (9) Duodenal ulcer: EGD 06/15/19 demonstrated duodenal ulcer. Continue pantoprazole. (10) DVT prophylaxis: No anticoagulants because of recent GI bleed. SCD's. Ambulate. (11) Discharge planning issues: Discharge disposition to be determined. Family Medicine follow-up with Dr. Sands. Daughter given update by phone. Admission and Anticipated Discharge Date Admission Date: June 23, 2019 Subjective Recheck for multiple problems. Patient seen in their room around 1330. Out of bed in chair. No fever or cough. Wearing NC. No SOB at rest. Mild left inframammary vs LUQ abd pain with deep inspiration. Review of Systems: Constitutional- no fever. Cardiac- no anginal symptoms. Pulmonary- as noted above. GI- no nausea, vomiting, diarrhea, melena, hematochezia. - no urinary symptoms. Otherwise, as noted above. Physical Exam Constitutional: no acute distress Respiratory: no respiratory distress Auscultation: + rales (bibasilar) Cardiovascular: Rate/Rhythm: regular rate and regular rhythm Heart Sounds: + murmur (I/ sys murmur at base); no gallop and no cardiac rub Vessels: no JVD Extremities: + edema (trace pretibial); no calf tenderness Gastrointestinal (Abdomen): normal bowel sounds, soft, nontender, no hepatosplenomegaly Skin: no rashes, warm and dry Psychiatric: Orientation: alert Results & Data ([facility]) Vital Signs (Past 12 Hours) Vital Signs Temp Pulse Pulse Resp BP BP Pulse Ox 06/24/19 18:37 59 L 06/24/19 18:35 36.3 C L 60 19 120/69 96 06/24/19 14:58 36.5 C 67 19 129/66 92 06/24/19 13:20 94 06/24/19 11:38 36.7 C 58 L 18 114/69 94 Laboratory Results Laboratory Tests 06/24/19 06/24/19 06:49 06:49 WBC 4.02 L Hgb 8.4 L Plt Count 130 Sodium 137 Potassium 3.5 Chloride 108 H Carbon Dioxide 21 BUN 34 H Creatinine 2.53 H Glucose 99 (1) Abdominal pain Abdominal location: left upper quadrant Qualified Code(s): R10.12 - Left upper quadrant pain
[2019-06-25 06:03] LABS: Hematocrit (blood only) 24.6 % (37-47); Hemoglobin 8.1 g/dL (12.0-16.0); Mean Corpuscular Hemoglobin 29.8 pg (25-34); Mean Corpuscular Hgb Conc 32.9 g/dL (32-36); Mean Corpuscular Volume 90.4 fL (80-100); Mean Platelet Volume 9.9 fL (7.4-10.4); Platelet Count 119 K/uL (130-400); RDW Coefficient of Variation 16.2 % (11.5-14.5); RDW Standard Deviation 52.9 fL (36.4-46.3); Red Blood Count 2.72 M/uL (4.2-5.4)
[2019-06-25 06:36] LABS: BUN Creatinine Ratio 13.3 (10-20); Calcium 8.6 mg/dl (8.5-10.1); Creatinine Clr Calc Pharmacy 15.8 ml/min; Est GFR (African American) 18.1; Est GFR (Non-African American) 15.6; Potassium 3.1 mmol/L (3.5-5.1)
--- NOTE | 2019-06-25 08:05 | Hospitalist Progress Note ---
Date of Service June 25, 2019 Assessment & Plan Admission and Anticipated Discharge Date Admission Date: June 23, 2019 Results & Data ([facility]) Vital Signs (Past 12 Hours) Vital Signs Temp Pulse Pulse Resp BP BP Pulse Ox 06/25/19 07:10 36.8 C 60 20 127/64 96 06/25/19 04:00 37.1 C 67 19 137/64 96 06/25/19 01:00 59 L 06/24/19 22:17 36.9 C 61 17 140/61 95
[2019-06-25] MEDS: SUCRALFATE 1 GM/10 ML UDC PO SCH ×4 (08:23→20:11)
[2019-06-25] MEDS: NYSTATIN SUSP 500,000 U/5 ML UDC PO SCH ×4 (08:23→20:11)
[2019-06-25] MEDS: METOPROLOL TARTRATE 25 MG TAB PO SCH ×2 (08:24→20:12)
[2019-06-25] MEDS: ASPIRIN 81 MG ECTAB PO SCH (08:24)
[2019-06-25] MEDS: HydrALAZINE TAB 50 MG TAB PO SCH ×3 (08:24→20:11)
[2019-06-25] MEDS: ATORVASTATIN 20 MG TAB PO SCH (08:24)
[2019-06-25] MEDS: PANTOprazole 40 MG TAB PO SCH (08:24)
[2019-06-25] MEDS: DOXYCYCLINE HYCLATE 100 MG CAP PO SCH ×2 (08:24→20:12)
[2019-06-25] MEDS ORDERED: POTASSIUM CHLORIDE 20 MEQ TABCR PO ONE (08:25)
--- NOTE | 2019-06-25 08:44 | XRay Report ---
XR chest 1V portable CLINICAL HISTORY: hypoxia dyspnea COMPARISON STUDY: Prior median sternotomy FINDINGS: Prior median sternotomy. Diaphragms are smooth. Lungs are clear. IMPRESSION: No acute process. The lungs are clear. ACT 112: Negative or not required by law. The above report was generated using voice recognition software. It may contain grammatical, syntax or spelling errors. Electronically signed by: Suleman Epperson M.D. 06/25/2019 8:43 AM
[2019-06-25] MEDS ORDERED: FUROSEMIDE 20 MG in SYRINGE 0 ML IV SCH (09:00)
--- NOTE | 2019-06-25 12:46 | Pulmonology Progress Note ---
Date of Service June 25, 2019 Assessment & Plan (1) Abnormal CT scan of lung: Impression: 78-year-old female presenting with abdominal pain found to have progression of pulmonary infiltrates. She does not have clear infectious symptomatology and procalcitonin and white blood cell count are normal. She is also afebrile. This is in the setting of recent transfusion and the differential would include transfusion associated circulatory overload (TACO) transfusion associated lung injury (TRALI). Other inflammatory etiologies including pulmonary hemorrhage would be on the differential although they appear less likely. --Acute hypoxic respiratory failure Likely secondary to fluid overload secondary to diastolic dysfunction after receiving PRBCs on previous admission a week ago. Patient was negative to 90 as of yesterday. Her creatinine did bump up a little bit from 2.5-2.7 I do not think there is a significant bump Recommend resuming her home dose of Lasix. Would not give her any IV fluids also will be back to initial problem. Patient's flu was negative at the time of presentation. Does not give any signs or symptoms of an infection. Atypical infection can still be in the differential agree with doxycycline. Would recommend discontinuing cefepime Chest x-ray from today does show improvement compared to the one at presentation. Titrate down oxygen to goal saturation greater than 88% From pulmonary standpoint there is clinical improvement. Patient will need repeat CAT scan to be done in 6 to 8 weeks to ensure resolution of infiltrates. (2) Acute diastolic CHF (congestive heart failure): (3) Hypoxia: Subjective Patient seen and examined at bedside. No acute distress, no adverse events over night. Patient denies any chest pain, shortness of breath is improved to some extent. No nausea or vomiting. Good appetite. Denies any dysuria. No headache, no dizziness. Patient was saturating 99% on 4 L nasal cannula with heart rate of 63 at rest. Went down to 2 L nasal cannula. Review of Systems Review of Systems: All systems reviewed & are unremarkable except as noted in HPI & below Physical Exam Physical Exam: Constitutional: No acute distress HEENT: EOMI, PERRLA, moist mucous membranes Respiratory system: Decreased air entry bilaterally, mild crackles bilateral lower lobes more on the right side, no wheeze, no rhonchi CVS: S1-S2 positive, no murmurs or gallops Abdomen: Soft, nontender, nondistended, positive bowel sounds x4 Extremities: +2 pulses bilaterally radialis/ dorsalis pedis, no cyanosis, no edema, no clubbing Neuro: Awake alert oriented x3 Psych: Normal mood and affect Skin: no rashes, warm and dry Lymphatic: no cervical or axillary lymphadenopathy Results & Data ([facility]) Vital Signs (Past 12 Hours) Vital Signs Temp Pulse Pulse Resp BP Pulse Ox 06/25/19 11:42 37.0 C 60 18 96/56 L 96 06/25/19 08:20 67 06/25/19 08:00 58 L 06/25/19 07:10 36.8 C 60 20 127/64 96 06/25/19 04:00 37.1 C 67 19 137/64 96 06/25/19 01:00 59 L 06/25/19 05:36 06/25/19 05:36 Chest x-ray from today shows improvement in the infiltrates bilaterally. PG Care Time/CCT Total # of Minutes Spent Total Time Spent with Patient: Total time spent is greater than 50% in coordin ation of care (as documented) at patient's floor/unit and/or counseling patient: Coding Level of Care Code 23152 Subseq Hosp Care Lvl [address] scan of lung R91.8 Acute diastolic CHF (congestive heart failure) I50.31 Hypoxia R09.02
[2019-06-25 12:57] LABS: Appearance Urine Cloudy (Clear); Bacteria Urine Automated Negative (Negative); Bilirubin Urine Negative (Negative); Blood Urine 3+ (Negative); Color Urine Yellow; Epithelial Cell Urine Auto 20-30 /lpf (0-5); Glucose Urine UA Negative (Negative); Ketones Urine Negative (Negative); Leukocyte Esterase Urine Trace (Negative); Nitrite Urine Negative (Negative); Protein Urine 1+ (Negative); Specific Gravity Urine 1.017 (1.000-1.030); Urobilinogen Urine Negative (Negative)
[2019-06-25 13:23] LABS: Creatinine Urine Random 80.1 mg/dl; Protein Creatinine Ratio Urine 0.9 (0-0.2); Total Protein Urine Random 70.9 mg/dl (0-11.9)
--- NOTE | 2019-06-25 17:51 | Nephrology Consultation ---
Date of Consultation June 25, 2019 Assessment & Plan (1) Acute on chronic renal failure: baseline creatinine 1.2-1.4; presenting creatinine 2.6 on 06/22; was 2.2 on recent hospital d/c 06/08; last at her baseline in late february however then no interval labs until she presented ill earlier this month; so acuity of current creatinine tough to pin down. her admission urine is most consistent with ATN which is likeliest diagnosis in the setting of hemodynamic changes w/ recent bleeding and/or from exposure to antibiotics. her urine sediment could however also be interpreted consistently on past 3 checks as nephritic. pulmonary renal syndromes should be considered > though no cough, no hemoptysis. she does report several weeks of a pruritic rash (though it is hard to discern on exam) -- no fever -- concerning for interstital nephritis-- no proven benefit for empiric steroids and would not initiate; continue to doubt MAGY hx is clinically significant now or recently. -f/u urine eos x 3 (ordered); second uacm done as above -ordered ESR and anti GBM Ab, ANCA, complements for am draw; cannot rule out consideration of biopsy here though not a strong concern at this point -no further renal imaging at this time -daily bmp -cont strict I/O -no indication for urgent dialysis or dialysis planning at this time -she will need close f/u by renal at hospital d/c Present on Admission?: Yes (2) Hypoxia: pulmonary following > attributed to diastolic heart failure +/- w/ tACO component; infection not high on the differential and she is nearing completion of empiric abtc coverage; TRALI remains on differential but lower >02 has been weaned today down to 2L NC from 3.5 L this am; CXR has cleared -agree w/ stopping lasix for now/ reserving for PRN only Present on Admission?: Yes (3) Hypokalemia: K 3.1 today; had 20 mEq po K today; in the setting of loop diuretic therapy and not likely a manifestation of renovascular HTN -daily bmp -should improve now w/ lower lasix needs; did not have lasix today Present on Admission?: Yes (4) Anemia of chronic disease: her anemia is certainly not just from renal failure -- has notable and persistent leukopenia as well newly present and slowly progressive since presentation earlier this month. today w/ new thrombocytopenia which is mild but will bear monitoring -- ? bone marrow suppression from chronic illness or /and abtx -daily cbc for now -had been consideration at recent d/c to have her est in anemia clinic through nephro which we could still consider; may also given current public health crisis and how she has handled recent transfusions need to consider starting epo in house to minimize further pRBC -cont GI and renal f/u as OP Present on Admission?: Yes History of Present Illness Reason for Consultation: FORREST on CKD Requesting Physician: Dr Evans Attending Physician: Richi Evans MD History of Present Illness 78 y/o F whom I'm asked to see for forrest on CKD3 after she was admitted here 06/23/19 w/ hypoxia and has been undergoing gentle diuresis. PMH includes decades of HTN, CAD s/p 2016 CABG, osteoarthritis, ANTONIA on CPAP, essential tremor. She has a hx of renal artery stenosis -- I believe this is from her late 2014/early 2015 [facility] admission and few details available. She is also not infrequently admitted to hospital: she was admitted here in november 2018 w/ e coli septicemia and uti; admitted fall 2018 for shoulder surgery; admitted here earlier this alireza on 06/12w/ Gi bleeding. EGD at that admission showed nonbleeding duodenal ulcer; colonoscopy w/ tubular adenoma but no bleeding sourc e; plan was for outpt video capsule endoscopy. she did have 3 units pRBC that admission. she follows w/ me in ckd clinic (established 03/2019); plan had been to consider anemia clinic at hospital d/c. She does not wear 02nc at baseline. her MAGY was apparently dx'd in 2015, just prior to transfer to [facility] for urgent CABG. I have not had much sense that MAGY has been clinically relevant or active diagnosis. She had FORREST in late summer w/ peak creatinine in low 2's; she did return to baseline creatinine of 1.2-1.4 for several years. Sent for first admission this month after her creatinine was 2.4 and hgb 6.9 on 06/13/19. her creatinine hovered between 2.2-2.4 for the rest of that admission at was at 2.2 on 06/18. she presented w/ dyspnea and abdominal pain on 06/22, w/ creatinine 2.8. She has had no IV contrast. CT chest did show worsened infiltrates - pulmonary evaluated pt. Ultimately atyipcal HF was favored as etiology since she had no F, no cough, no leukocytosis and normal procalcitonin; though TACO and TRALI were also on differential. Allergies Allergy/AdvReac Type Severity Reaction Status Date / Time lisinopril Allergy Severe Angioedema Verified 06/23/19 14:12 Home Medications Home Medications Medication Instructions Recorded Confirmed Type aspirin 81 mg PO QAM 12/29/18 06/23/19 History atorvastatin 20 mg PO QAM 12/29/18 06/23/19 History epinephrine [EpiPen] 0.3 mg IM DIRECTED PRN 12/29/18 06/23/19 History furosemide 20 mg PO DIRECTED 12/29/18 06/23/19 History hydralazine 50 mg PO TID 12/29/18 06/23/19 History loratadine 10 mg PO HS 12/29/18 06/23/19 History metoprolol tartrate 25 mg PO BID 12/29/18 06/23/19 History potassium chloride 10 meq PO DIRECTED 12/29/18 06/23/19 History amlodipine 5 mg PO DIRECTED 06/13/19 06/23/19 History pantoprazole 40 mg PO QAM 30 Days #30 tab 06/19/19 06/23/19 Rx tramadol 50 mg PO BID PRN #10 tab 06/19/19 06/23/19 Rx Patient History Medical History (Updated 06/25/19 @ 20:10 by Alessia Menjivar MD, PhD) Anemia of renal disease Benign essential tremor CKD (chronic kidney disease), stage III Colonic polyp Coronary artery disease Duodenal ulcer Hyperlipidemia Hypertension Renal artery stenosis Surgical History (Updated 06/25/19 @ 18:47 by Alessia Menjivar MD, PhD) History of appendectomy History of cholecystectomy History of hysterectomy with oophorectomy History of lumbar surgery History of quadruple bypass S/P CABG x 4 Family History (Updated 06/23/19 @ 16:40 by Nicolette Mitchell PA-C) Father Coronary heart disease Pulmonary embolism Mother Cancer Sister Parkinson disease Social History (Updated 06/23/19 @ 16:44 by Nicolette Mitchell PA-C) Preferred Language: [place] Communication Ability: Effective Machine Hand Required: No Beliefs That Will Affect Care: None marital status: Unknown Current Living Situation: Alone Current Living Situation Comment: apartment; filing for divorce Other Information That Helps Us Care for You: No Feels Safe at Home: Yes Safety Concerns: Feels Safe At This Time Smoking Status: Never smoker Second Hand Exposure: No ; Hx Alcohol Use: No Hx Substance Use: No Review of Systems Review of Systems: All systems reviewed & are unremarkable except as noted in HPI & below Constitutional: + fatigue; no fever and no weakness Eyes: no worsening vision Ear, Nose, Mouth, Throat: no sore throat and no dysphagia Respiratory: + dyspnea; no cough Cardiovascular: no chest pain, no palpitations and no edema Gastrointestinal: + abdominal pain (improving but still persistent L lateral abdominal discomfort); no constipation and no diarrhea/loose stools Genitourinary: + urinary frequency (stable, chronic); no dysuria, no difficulty urinating, no urinary urgency, no hematuria and no flank pain Musculoskeletal: no joint pain, no swelling and no muscle weakness Integumentary: + rash and + pruritus c/o diffuse pruritic rash present x 2- 3 wks w/ some improvement Neurologic: + gait abnormality (stable chronic - uses cane at baseline) Physical Exam Constitutional: well developed and well nourished; no acute distress sitting up in chair on 3.5L 02nc Eyes: EOM intact bilaterally ENMT: Ears: no external ear abnormality Nose: no external nose abnormality Mouth: + dry oral mucous membranes Neck: no nuchal rigidity Respiratory: normal respiratory effort Auscultation: + diminished lung sounds, + crackles (bibasilar) and + rhonchi; no wheezes Cardiovascular: RRR, no murmur, no edema Gastrointestinal (Abdomen): Inspection/Auscultation: normal bowel sounds Percussion/Palpation: abdomen soft; abdomen nontender (including L mid axillary line) Musculoskeletal: Extremities: strength 5/5 throughout; no cyanosis and no clubbing Skin: + dry skin; no rashes and no excoriations could not appreciate theresa rash or even excoriations Neurologic: awake Motor/Sensory: + tremor (L leg and mandibular ) agarwal, some psychomotor slowing Psychiatric: A+Ox3, euthymic affect Genitourinary: no stern Results & Data Vital Signs (Past 12 Hours) Vital Signs Temp Pulse Pulse Resp BP BP Pulse Ox 06/25/19 15:40 61 06/25/19 15:10 36.4 C L 60 19 120/68 98 06/25/19 14:11 62 115/58 L 06/25/19 11:42 37.0 C 60 18 96/56 L 96 06/25/19 08:20 67 06/25/19 08:00 58 L 06/25/19 07:10 36.8 C 60 20 127/64 96 Laboratory Results 06/25/19 05:36 06/25/19 05:36 06/22 uacm 3+ blood, 1+ protein, 1015, 20-30 epis; +gran casts 06/23 uacm 3+ blood, 1+ protein 1017 again similar count epis; no casts; 900 mg proteinuria Diagnostic Findings renal u/s 06/19/19 The right kidney measures 10.3 x 4.4 x 4.1 cm and demonstrates diffuse cortical thinning with mildly increased echogenicity of the parenchyma. No right-sided renal calculi, hydronephrosis or suspicious mass lesions. Multiple right-sided renal cysts are redemonstrated measuring up to 2.7 x 3.2 x 2.7 cm. There is an inferior pole hypoechoic lesion (thick-walled which is suboptimally visualized secondary to obscuring ribs which measures 3.4 x 2.4 x 2.8 cm. Left kidney measures 10.1 x 5.1 x 5.7 cm. Diffuse cortical thinning of the left kidney is noted with increased echogenicity. Multiple large left-sided renal cysts redemonstrated measuring up to 5.1 x 4.1 x 6.2 cm. No definite left-sided renal calculi or hydronephrosis. Urinary bladder is decompressed and not well evaluated. Ureteral jets not identified. IMPRESSION: 1. Mild atrophy with increased echogenicity of the bilateral kidneys suggests chronic medical renal disease. 2. No renal calculi or hydronephrosis. 3. Multiple bilateral renal cysts. Hypoechoic lesion of the inferior pole right kidney measuring up to 3.4 cm is suboptimally evaluated secondary to shadowing from overlying ribs and is incompletely characterized on this study. This likely represents a complex cyst however could be correlated with a nonemergent follow-up renal protocol CT of the abdomen. cxr today IMPRESSION: No acute process. The lungs are clear. CT Chest 06/22 Thyroid: Imaged portions of the thyroid gland are normal in appearance. Thoracic aorta: There is dilatation of ascending thoracic aorta which measures 4 cm. Heart: The heart is enlarged with coronary artery calcifications. Lungs and pleural spaces: There are dependent atelectatic changes. There are multifocal groundglass pulmonary opacities, markedly progressive when compared the preceding study. An infectious/inflammatory process is favored over pulmonary edema. Clinical correlation and follow-up is advocated. Mediastinum: There are borderline enlarged mediastinal lymph nodes, likely reactive. Angie: There are borderline enlarged hilar lymph nodes. Axilla: There is no evidence of pathologic axillary lymphadenopathy. Upper abdomen: There are partially visualized left upper quadrant cysts, likely renal. Skeletal structures: There are postsurgical changes of midline sternotomy. There is ankylosis of the dorsal spine. IMPRESSION: 1. Cardiomegaly and coronary artery calcifications 2. Persistent dilatation of the ascending thoracic aorta which measures 4 cm. 3. Marked progression in the bilateral multifocal groundglass pulmonary opacities. The findings are nonspecific but infectious/inflammatory process is favored over pulmonary edema. Clinical correlation and follow-up is recommended. (1) Acute on chronic renal failure Acute renal failure type: unspecified Chronic kidney disease stage: stage 3 (moderate) Qualified Code(s): N17.9 - Acute kidney failure, unspecified; N18.3 - Chronic kidney disease, stage 3 (moderate)
[2019-06-25] MEDS: CEFEPIME 2,000 MG in SYRINGE 7.5 ML IV SCH (20:10)
[2019-06-25] MEDS: ACETAMINOPHEN 325 MG TAB PO PRN (20:10)
[2019-06-25] MEDS: LORATADINE 10 MG TAB PO SCH (20:12)
--- NOTE | 2019-06-25 20:39 | Hospitalist Progress Note ---
Date of Service June 25, 2019 Assessment & Plan (1) Abdominal pain: Patient complained of what seemed to be LUQ abdominal pain. CT of abdomen did not show any apparent acute process. Upon further questioning today, patient described mild pain under left breast with deep inspiration. Consider pulmonary embolism. Best not to do CTA because of renal disease. V/Q would probably be nondiagnostic. Venous duplex lower extremities negative. Symptoms improved. (2) Abnormal CT scan of lung: CT of lung without contrast: IMPRESSION: 1. Cardiomegaly and coronary artery calcifications 2. Persistent dilatation of the ascending thoracic aorta which measures 4 cm. 3. Marked progression in the bilateral multifocal groundglass pulmonary opacities. The findings are nonspecific but infectious/inflammatory process is favored over pulmonary edema. Clinical correlation and follow-up is recommended. ACT 112: Negative or not required by law. Electronically signed by: Nitin Cavanaugh M.D. 06/23/2019 7:24 PM No fever or cough. Seen in consultation by Pulmonary Medicine. Differential diagnosis includes CHF, TRALI from recent transfusions, and other etiologies. Pulmonary infection felt to be unlikely. Echo 06/14/19 showed mild concentric LVH, LVEF 55-60%. Received IV furosemide for suspected CHF. Chest x-ray improved. (3) Hypoxia: Supplemental O2 as needed. (4) Coronary artery disease: No anginal symptoms. (5) CKD (chronic kidney disease), stage III: CKD III with baseline creatinine around 1.3 - 1.4. History of hypertension and renovascular disease. Creatinine was 2.49 on 06/12 in the setting of GI bleed with Hgb of 7. Creatinine down to 2.17 on 06/19/19. Creatinine 2.56 at time of current admission. Creatinine today = 2.75 after receiving furosemide.. Nephrology consulted Follow. (6) FORREST (acute kidney injury): As noted above. (7) Anemia: Baseline Hgb around 11 in Dec 2018. Recent admission for GI bleed; Hgb was 7 at time of admission. EGD showed small duodenal ulcer without hemorrhage; colonoscopy showed polyps, tics, internal hemorrhoids without active bleeding. Outpatient capsule endoscopy recommended. Received 3 units pRBC's. Discharge Hgb was 9.4. Hgb 9.2 at time of this admission. Hgb today = 8.1. No gross GI bleeding. Recheck stools for OB. Follow H/H. (8) Hypertension: Continue metoprolol and hydralazine. (9) Duodenal ulcer: EGD 06/15/19 demonstrated duodenal ulcer. Continue pantoprazole. (10) DVT prophylaxis: No anticoagulants because of recent GI bleed. SCD's. Ambulate. (11) Discharge planning issues: Discharge disposition to be determined. Family Medicine follow-up with Dr. Sands. Daughter given update today by phone. Admission and Anticipated Discharge Date Admission Date: June 23, 2019 Subjective Recheck for multiple problems. Patient seen in their room around 1500. Feels better. No fever or cough. No SOB at rest. LUQ pain improved. Ambulated with assistance. Review of Systems: Constitutional- no fever. Cardiac- no anginal symptoms. Pulmonary- as noted above. GI- no nausea, vomiting, diarrhea, melena, hematochezia. - no urinary symptoms. Otherwise, as noted above. Physical Exam Constitutional: no acute distress Respiratory: normal respiratory effort, lungs clear to auscultation Cardiovascular: Rate/Rhythm: regular rate and regular rhythm Heart Sounds: + murmur (I/ sys murmur at base); no gallop and no cardiac rub Vessels: no JVD Extremities: + edema (trace pretibial); no calf tenderness Gastrointestinal (Abdomen): normal bowel sounds, soft, nontender, no hepatosplenomegaly Skin: no rashes, warm and dry Psychiatric: Orientation: alert Results & Data ([facility]) Vital Signs (Past 12 Hours) Vital Signs Temp Pulse Pulse Resp BP BP Pulse Ox 06/25/19 18:54 36.5 C 69 18 146/73 H 97 06/25/19 15:40 61 06/25/19 15:10 36.4 C L 60 19 120/68 98 06/25/19 14:11 62 115/58 L 06/25/19 11:42 37.0 C 60 18 96/56 L 96 Laboratory Results Laboratory Results - last 24 hr 06/25/19 06/25/19 06/25/19 05:36 05:36 12:46 WBC 3.90 L RBC 2.72 L Hgb 8.1 L Hct 24.6 L MCV 90.4 MCH 29.8 MCHC 32.9 RDW Std Deviation 52.9 H RDW Coeff of Filiberto 16.2 H Plt Count 119 L MPV 9.9 Sodium 136 Potassium 3.1 L Chloride 105 Carbon Dioxide 25 Anion Gap 6.0 BUN 37 H Creatinine 2.75 H Est Cr Clr Drug Dosing 15.8 Est GFR ( Amer) 18.1 Est GFR (Non-Af Amer) 15.6 BUN/Creatinine Ratio 13.3 Glucose 98 Calcium 8.6 Urine Color Yellow Urine Appearance Cloudy A Urine pH 5.0 Ur Specific Arvilla 1.017 Urine Protein 1+ H Urine Glucose (UA) Negative Urine Ketones Negative Urine Blood 3+ H Urine Nitrite Negative Urine Bilirubin Negative Urine Urobilinogen Negative Ur Leukocyte Esterase Trace H Urine WBC (Auto) 1-5 Urine RBC (Auto) 10-30 H U Hyaline Cast (Auto) 1-5 U Epithel Cells (Auto) 20-30 H Urine Bacteria (Auto) Negative Urine Yeast Not Reportable Ur Random Creatinine U Random Total Protein Protein/Creatinin Ratio Urine Legionella Ag Mycoplasma pneumon IgM 06/25/19 06/25/19 06/25/19 12:46 12:46 13:03 WBC RBC Hgb Hct MCV MCH MCHC RDW Std Deviation RDW Coeff of Filiberto Plt Count MPV Sodium Potassium Chloride Carbon Dioxide Anion Gap BUN Creatinine Est Cr Clr Drug Dosing Est GFR ( Amer) Est GFR (Non-Af Amer) BUN/Creatinine Ratio Glucose Calcium Urine Color Urine Appearance Urine pH Ur Specific Arvilla Urine Protein Urine Glucose (UA) Urine Ketones Urine Blood Urine Nitrite Urine Bilirubin Urine Urobilinogen Ur Leukocyte Esterase Urine WBC (Auto) Urine RBC (Auto) U Hyaline Cast (Auto) U Epithel Cells (Auto) Urine Bacteria (Auto) Urine Yeast Ur Random Creatinine 80.1 U Random Total Protein 70.9 H Protein/Creatinin Ratio 0.9 H Urine Legionella Ag Pending Mycoplasma pneumon IgM Pending (1) Abdominal pain Abdominal location: left upper quadrant Qualified Code(s): R10.12 - Left upper quadrant pain
[2019-06-25] MEDS ORDERED: POTASSIUM CHLORIDE 20 MEQ TABCR PO STA (20:47)
[2019-06-26 07:01] LABS: Basophils # (auto) 0.01 K/uL (0-0.2); Basophils % (auto) 0.2 %; Eosinophils # (auto) 0.08 K/uL (0-0.5); Hemoglobin 8.2 g/dL (12.0-16.0); Immature Granulocytes # (auto) 0.02 K/uL (0.00-0.02); Immature Granulocytes % (auto) 0.5 %; Lymphocytes # (auto) 0.85 K/uL (1.2-3.4); Lymphocytes % (auto) 21.1 %; Mean Corpuscular Hemoglobin 29.7 pg (25-34); Mean Corpuscular Hgb Conc 32.8 g/dL (32-36); Mean Corpuscular Volume 90.6 fL (80-100); Mean Platelet Volume 9.7 fL (7.4-10.4); Neutrophils # (auto) 2.66 K/uL (1.4-6.5); Neutrophils % (auto) 66.2 %; Platelet Count 136 K/uL (130-400); RDW Coefficient of Variation 16.2 % (11.5-14.5); RDW Standard Deviation 53.3 fL (36.4-46.3); Red Blood Count 2.76 M/uL (4.2-5.4); Reticulocyte % 0.8 % (0.5-2.0); Reticulocytes # 0.02 10^6/uL (0.02-0.10); White Blood Count 4.02 K/uL (4.8-10.8)
[2019-06-26 07:28] LABS: BUN Creatinine Ratio 14.9 (10-20); Calcium 8.5 mg/dl (8.5-10.1); Creatinine Clr Calc Pharmacy 13.8 ml/min; Est GFR (African American) 15.7; Est GFR (Non-African American) 13.5; Potassium 3.7 mmol/L (3.5-5.1)
[2019-06-26 07:32] LABS: Ferritin 290.2 ng/ml (8-388)
[2019-06-26] MEDS: ATORVASTATIN 20 MG TAB PO SCH (08:08)
[2019-06-26] MEDS: NYSTATIN SUSP 500,000 U/5 ML UDC PO SCH ×4 (08:08→22:18)
[2019-06-26] MEDS: ASPIRIN 81 MG ECTAB PO SCH (08:08)
[2019-06-26] MEDS: HydrALAZINE TAB 50 MG TAB PO SCH ×3 (08:08→22:20)
[2019-06-26] MEDS: PANTOprazole 40 MG TAB PO SCH (08:08)
[2019-06-26] MEDS: DOXYCYCLINE HYCLATE 100 MG CAP PO SCH ×2 (08:08→22:20)
--- NOTE | 2019-06-26 08:08 | Pulmonology Progress Note ---
Date of Service June 26, 2019 Assessment & Plan (1) Abnormal CT scan of lung: Impression: 78-year-old female presenting with abdominal pain found to have progression of pulmonary infiltrates. She does not have clear infectious symptomatology and procalcitonin and white blood cell count are normal. She is also afebrile. This is in the setting of recent transfusion and the differential would include transfusion associated circulatory overload (TACO) transfusion associated lung injury (TRALI). Other inflammatory etiologies including pulmonary hemorrhage would be on the differential although they appear less likely. --Acute hypoxic respiratory failure Likely secondary to fluid overload secondary to diastolic dysfunction after receiving PRBCs on previous admission a week ago. Status post diuresis. Creatinine going up. Diuresis has been on hold since . Nephrology on board. Thinking of pulmonary renal syndrome. Patient has baseline history of CKD. With significant improvement on chest x-ray with diuresis. It is low in differential but still a possibility. Patient's flu was negative at the time of presentation. Does not give any signs or symptoms of an infection. Atypical infection can still be in the differential agree with doxycycline for total of 5 days. Chest x-ray 06/25/2019 showed improvement in pulmonary infiltrate From pulmonary standpoint there is clinical improvement. Patient will need repeat CAT scan to be done in 6 to 8 weeks to ensure resolution of infiltrates. Make the patient walk on room air to see she maintains her saturation greater than 88% if she does desaturate she might need home O2. No further pulmonary recommendations. We will sign off. Recall if needed. (2) Acute diastolic CHF (congestive heart failure): (3) Hypoxia: Subjective Patient seen and examined at bedside. No acute distress, no adverse events overnight. Patient says her shortness of breath is improved. Denies any chest pain. No cough. Good appetite, no nausea or vomiting. No abdominal pain. No headache, no dizziness. Patient was saturating 97% on room air with heart rate of 62 at rest. Review of Systems Review of Systems: All systems reviewed & are unremarkable except as noted in HPI & below Physical Exam Physical Exam: Constitutional: No acute distress HEENT: EOMI, PERRLA, moist mucous membranes Respiratory system: Decreased air entry bilaterally, mild crackles bilateral lower lobes more on the right side, no wheeze, no rhonchi CVS: S1-S2 positive, no murmurs or gallops Abdomen: Soft, nontender, nondistended, positive bowel sounds x4 Extremities: +2 pulses bilaterally radialis/ dorsalis pedis, no cyanosis, no edema, no clubbing Neuro: Awake alert oriented x3 Psych: Normal mood and affect G/U: No [place]al Skin: no rashes, warm and dry Lymphatic: no cervical or axillary lymphadenopathy Results & Data ([facility]) Vital Signs (Past 12 Hours) Vital Signs Temp Pulse Pulse Resp BP BP Pulse Ox 06/26/19 07:24 36.5 C 54 L 16 127/63 94 06/26/19 04:44 37 C 61 18 122/69 90 06/26/19 00:00 62 06/25/19 22:35 37.0 C 62 16 118/68 97 06/26/19 06:35 06/26/19 06:35 PG Care Time/CCT Total # of Minutes Spent Total Time Spent with Patient: Total time spent is greater than 50% in coordination of care (as documented) at patient's floor/unit and/or counseling patient: Coding Level of Care Code 34793 Subseq Hosp Care Lvl [address] scan of lung R91.8 Acute diastolic CHF (congestive heart failure) I50.31 Hypoxia R09.02
[2019-06-26] MEDS: METOPROLOL TARTRATE 25 MG TAB PO SCH ×2 (08:10→22:19)
[2019-06-26 08:48] LABS: Folate (Folic Acid) 4.81 ng/ml (>5.38)
--- NOTE | 2019-06-26 19:13 | Hospitalist Progress Note ---
Date of Service June 26, 2019 Assessment & Plan (1) Abdominal pain: Patient complained of what seemed to be LUQ abdominal pain. CT of abdomen did not show any apparent acute process. Upon further questioning today, patient described mild pain under left breast with deep inspiration. Consider pulmonary embolism. Best not to do CTA because of renal disease. V/Q would probably be nondiagnostic. Venous duplex lower extremities negative. Symptoms improved. (2) Abnormal CT scan of lung: CT of lung without contrast: IMPRESSION: 1. Cardiomegaly and coronary artery calcifications 2. Persistent dilatation of the ascending thoracic aorta which measures 4 cm. 3. Marked progression in the bilateral multifocal groundglass pulmonary opacities. The findings are nonspecific but infectious/inflammatory process is favored over pulmonary edema. Clinical correlation and follow-up is recommended. ACT 112: Negative or not required by law. Electronically signed by: Nitin Cavanaugh M.D. 06/23/2019 7:24 PM No fever or cough. Seen in consultation by Pulmonary Medicine. Differential diagnosis includes CHF, TRALI from recent transfusions, and other etiologies. Pulmonary infection felt to be unlikely. Echo 06/14/19 showed mild concentric LVH, LVEF 55-60%. Received IV furosemide for suspected CHF. Chest x-ray improved, but BUN becky. Legionella urine Ag negative. Mycoplasma studies pending. Cont doxy. (3) Hypoxia: Supplemental O2 as needed. Wean as tolerated. (4) Coronary artery disease: No anginal symptoms. (5) CKD (chronic kidney disease), stage III: CKD III with baseline creatinine around 1.3 - 1.4. History of hypertension and renovascular disease. Creatinine was 2.49 on 06/12 in the setting of GI bleed with Hgb of 7. Creatinine down to 2.17 on 06/19/19. Creatinine 2.56 at time of current admission. Creatinine today = 3.1. Nephrology consulted. Watch fluid status. Follow. (6) FORREST (acute kidney injury): As noted above. (7) Anemia: Baseline Hgb around 11 in Dec 2018. Recent admission for GI bleed; Hgb was 7 at time of admission. EGD showed small duodenal ulcer without hemorrhage; colonoscopy showed polyps, tics, internal hemorrhoids without active bleeding. Outpatient capsule endoscopy recommended. Received 3 units pRBC's. Discharge Hgb was 9.4. Hgb 9.2 at time of this admission. Hgb today = 8.2. No gross GI bleeding. Recheck stools for OB. Fe levels OK. B12 normal. Folic acid low. SPEP pending. Follow H/H. (8) Hypertension: Continue metoprolol and hydralazine. (9) Duodenal ulcer: EGD 06/15/19 demonstrated duodenal ulcer. Continue pantoprazole. (10) DVT prophylaxis: No anticoagulants because of recent GI bleed. SCD's. Ambulate. (11) Discharge planning issues: Discharge disposition to be determined. Family Medicine follow-up with Dr. Sands. Daughter given update this evening by phone. Admission and Anticipated Discharge Date Admission Date: June 23, 2019 Subjective Recheck for multiple problems. Patient seen in their room around 1620. Tired. No fever or cough. No SOB at rest. Review of Systems: Constitutional- no fever. Cardiac- no anginal symptoms. Pulmonary- as noted above. GI- no nausea, vomiting, diarrhea, melena, hematochezia. - no urinary symptoms. Otherwise, as noted above. Physical Exam Constitutional: no acute distress Respiratory: normal respiratory effort, lungs clear to auscultation no respiratory distress Cardiovascular: Rate/Rhythm: regular rate and regular rhythm Heart Sounds: + murmur (I/ sys murmur at base); no gallop and no cardiac rub Vessels: no JVD Extremities: + edema (trace pretibial); no calf tenderness Gastrointestinal (Abdomen): normal bowel sounds, soft, nontender, no hepatosplenomegaly Skin: no rashes, warm and dry Psychiatric: Orientation: alert Results & Data ([facility]) Vital Signs (Past 12 Hours) Vital Signs Temp Pulse Pulse Resp BP BP Pulse Ox 06/26/19 15:21 36.6 C 58 L 18 158/71 H 97 06/26/19 15:20 57 L 06/26/19 13:12 92 06/26/19 11:30 36.9 C 63 20 118/62 93 06/26/19 10:32 62 20 146/69 H 92 06/26/19 09:07 56 L 06/26/19 07:24 36.5 C 54 L 16 127/63 94 Laboratory Results Laboratory Results - last 24 hr 06/25/19 06/26/19 06/26/19 12:46 06:35 06:35 WBC 4.02 L RBC 2.76 L Hgb 8.2 L Hct 25.0 L MCV 90.6 MCH 29.7 MCHC 32.8 RDW Std Deviation 53.3 H RDW Coeff of Filiberto 16.2 H Plt Count 136 MPV 9.7 Immature Gran % (Auto) 0.5 Neut % (Auto) 66.2 Lymph % (Auto) 21.1 George % (Auto) 10.0 Eos % (Auto) 2.0 Baso % (Auto) 0.2 Reticulocyte % (Auto) 0.8 Immature Gran # (Auto) 0.02 Neut # (Auto) 2.66 Lymph # (Auto) 0.85 L George # (Auto) 0.40 Eos # (Auto) 0.08 Baso # (Auto) 0.01 Reticulocyte # 0.02 ESR 63 H Sodium Potassium Chloride Carbon Dioxide Anion Gap BUN Creatinine Est Cr Clr Drug Dosing Est GFR ( Amer) Est GFR (Non-Af Amer) BUN/Creatinine Ratio Glucose Calcium Iron Transferrin Transferrin % Sat Ferritin Total Protein (PEP) Albumin (PEP) Laftv-7-Aryqersbp Vazhy-5-Nnlasaccw Lvpe-7-Acduiasa Ogyq-0-Mpuxowtl Gamma Globulins Monoclonal Peak 3 Ser Monoclonl Protein Ser Monoclonal Prot 2 PEP Interpretation Vitamin B12 Folate ANCA Glomerular Base Memb Ab Complement C3 Complement C4 Urine Legionella Ag SEE NOTE 06/26/19 06/26/19 06/26/19 06:35 06:35 06:35 WBC RBC Hgb Hct MCV MCH MCHC RDW Std Deviation RDW Coeff of Filiberto Plt Count MPV Immature Gran % (Auto) Neut % (Auto) Lymph % (Auto) George % (Auto) Eos % (Auto) Baso % (Auto) Reticulocyte % (Auto) Immature Gran # (Auto) Neut # (Auto) Lymph # (Auto) George # (Auto) Eos # (Auto) Baso # (Auto) Reticulocyte # ESR Sodium 137 Potassium 3.7 D Chloride 108 H Carbon Dioxide 23 Anion Gap 6.0 BUN 46 H Creatinine 3.10 H D Est Cr Clr Drug Dosing 13.8 Est GFR ( Amer) 15.7 Est GFR (Non-Af Amer) 13.5 BUN/Creatinine Ratio 14.9 Glucose 106 H Calcium 8.5 Iron 56 Transferrin 146 L Transferrin % Sat 27 Ferritin 290.2 Total Protein (PEP) Pending Albumin (PEP) Pending Sdlpv-8-Svoskojbw Pending Mbkwm-1-Ejgfkoonc Pending Fmhs-1-Djxadglt Pending Mlpa-3-Fldzrhxe Pending Gamma Globulins Pending Monoclonal Peak 3 Pending Ser Monoclonl Protein Pending Ser Monoclonal Prot 2 Pending PEP Interpretation Pending Vitamin B12 612 Folate 4.81 L ANCA Pending Glomerular Base Memb Ab Pending Complement C3 Pending Complement C4 Pending Urine Legionella Ag (1) Abdominal pain Abdominal location: left upper quadrant Qualified Code(s): R10.12 - Left upper quadrant pain
--- NOTE | 2019-06-26 20:39 | Nephrology Progress Note ---
Date of Service June 26, 2019 Assessment & Plan (1) Acute on chronic renal failure: baseline creatinine 1.2-1.4; presenting creatinine 2.6 on 06/22; was 2.2 on recent hospital d/c 06/08; last at her baseline in late february however then no interval labs until she presented ill earlier this month; so acuity of current creatinine tough to pin down. her admission urine is most consistent with ATN which is likeliest diagnosis in the setting of hemodynamic changes w/ recent bleeding and/or from exposure to antibiotics. her urine sediment could however also be interpreted consistently on past 3 checks as nephritic. pulmonary renal syndromes should be considered > though no cough, no hemoptysis. she does report several weeks of a pruritic rash (though it is hard to discern on exam) -- no fever -- concerning for interstital nephritis-- no proven benefit for empiric steroids and would not initiate; continue to doubt MAGY hx is clinically significant now or recently. ESR in 60s >> at least less concerning for GN though still possible -f/u urine eos x 3 (ordered) -f/u anti GBM Ab, ANCA, complements for am draw; cannot rule out consideration of biopsy here though not a strong concern at this point -no further renal imaging at this time -daily bmp -cont strict I/O -no indication for urgent dialysis or dialysis planning at this time -she will need close f/u by renal at hospital d/c (2) Hypoxia: improved. on RA. Pulm evaluated; recs for f/u set; pulm signed off. >attributed to diastolic heart failure +/- w/ TACO component; infection not high on the differential and she is nearing completion of empiric abtc coverage (doxycycline); TRALI remains on differential but lower >02 has been weaned today down to 2L NC from 3.5 L this am; CXR has cleared -agree w/ stopping lasix for now/ reserving for PRN only (3) Hypokalemia: K 3.7 today; improving off diuretic; no supplement needed (4) Anemia of chronic disease: her anemia is certainly not just from renal failure -- has notable and persistent leukopenia as well newly present and slowly progressive since presentation earlier this month. -- ? bone marrow suppression from chronic illness or /and abtx -daily cbc for now -had been consideration at recent d/c to have her est in anemia clinic through nephro which we could still consider; may also given current public health crisis and how she has handled recent transfusions need to consider starting epo in house to minimize further pRBC; transferrin satn 27% -cont GI and renal f/u as OP Admission and Anticipated Discharge Date Admission Date: June 23, 2019 Subjective seen on rounds this am at 0640; slept on RA; has ongoing itching; denies further L sided abd pain. no cough. no edema; no voiding concerns Review of Systems Review of Systems: All systems reviewed & are unremarkable except as noted in HPI & below Physical Exam Constitutional: well developed and well nourished; no acute distress lying in bed on RA HOB elevated Eyes: EOM intact bilaterally ENMT: Ears: no external ear abnormality Nose: no external nose abnormality Mouth: + dry oral mucous membranes Neck: no nuchal rigidity Respiratory: normal respiratory effort and able to speak in complete sentences (but some sob w/ speech); no respiratory distress Auscultation: + diminished lung sounds, + crackles (bibasilar) and + rhonchi; no wheezes Cardiovascular: Rate/Rhythm: regular rate and regular rhythm Heart Sounds: + murmur Extremities: no edema Gastrointestinal (Abdomen): Inspection/Auscultation: normal bowel sounds Percussion/Palpation: abdomen soft; abdomen nontender (including L mid axillary line) Musculoskeletal: Extremities: strength 5/5 throughout; no cyanosis and no clubbing Skin: + dry skin; no rashes and no excoriations Neurologic: awake Motor/Sensory: + tremor (L leg and mandibular ) Psychiatric: A+Ox3, euthymic affect Genitourinary: no stern Results & Data ([facility]) Vital Signs (Past 12 Hours) Vital Signs Temp Pulse Pulse Resp BP BP Pulse Ox 06/26/19 19:11 36.4 C L 60 18 143/75 H 95 06/26/19 15:21 36.6 C 58 L 18 158/71 H 97 06/26/19 15:20 57 L 06/26/19 13:12 92 06/26/19 11:30 36.9 C 63 20 118/62 93 06/26/19 10:32 62 20 146/69 H 92 06/26/19 09:07 56 L Laboratory Results 06/26/19 06:35 06/26/19 06:35 (1) Acute on chronic renal failure Acute renal failure type: unspecified Chronic kidney disease stage: stage 3 (moderate) Qualified Code(s): N17.9 - Acute kidney failure, unspecified; N18.3 - Chronic kidney disease, stage 3 (moderate)
[2019-06-26] MEDS: LORATADINE 10 MG TAB PO SCH (22:19)
[2019-06-27 07:17] LABS: Hematocrit (blood only) 23.9 % (37-47); Hemoglobin 7.9 g/dL (12.0-16.0); Mean Corpuscular Hemoglobin 29.7 pg (25-34); Mean Corpuscular Hgb Conc 33.1 g/dL (32-36); Mean Corpuscular Volume 89.8 fL (80-100); Mean Platelet Volume 9.9 fL (7.4-10.4); Platelet Count 145 K/uL (130-400); RDW Coefficient of Variation 16.4 % (11.5-14.5); RDW Standard Deviation 54.1 fL (36.4-46.3); Red Blood Count 2.66 M/uL (4.2-5.4); White Blood Count 4.34 K/uL (4.8-10.8)
[2019-06-27 07:57] LABS: BUN Creatinine Ratio 16.3 (10-20); Calcium 8.5 mg/dl (8.5-10.1); Creatinine Clr Calc Pharmacy 15.3 ml/min; Est GFR (African American) 17.7; Est GFR (Non-African American) 15.3; Potassium 3.4 mmol/L (3.5-5.1)
[2019-06-27] MEDS: DOXYCYCLINE HYCLATE 100 MG CAP PO SCH ×2 (08:23→21:06)
[2019-06-27] MEDS: METOPROLOL TARTRATE 25 MG TAB PO SCH ×2 (08:23→21:05)
[2019-06-27] MEDS: ATORVASTATIN 20 MG TAB PO SCH (08:23)
[2019-06-27] MEDS: PANTOprazole 40 MG TAB PO SCH (08:23)
[2019-06-27] MEDS: ASPIRIN 81 MG ECTAB PO SCH (08:23)
[2019-06-27] MEDS: NYSTATIN SUSP 500,000 U/5 ML UDC PO SCH ×4 (08:23→21:03)
[2019-06-27] MEDS: HydrALAZINE TAB 50 MG TAB PO SCH ×3 (08:23→21:04)
[2019-06-27] MEDS ORDERED: POTASSIUM CHLORIDE 20 MEQ TABCR PO ONE (08:23)
--- NOTE | 2019-06-27 13:53 | Hospitalist Progress Note ---
Date of Service June 27, 2019 Assessment & Plan (1) Hypoxia: Supplemental O2 as needed. Wean as tolerated. (2) Abnormal CT scan of lung: CT of lung without contrast: IMPRESSION: 1. Cardiomegaly and coronary artery calcifications 2. Persistent dilatation of the ascending thoracic aorta which measures 4 cm. 3. Marked progression in the bilateral multifocal groundglass pulmonary opacities. The findings are nonspecific but infectious/inflammatory process is favored over pulmonary edema. Clinical correlation and follow-up is recommended. ACT 112: Negative or not required by law. Electronically signed by: Nitin Cavanaugh M.D. 06/23/2019 7:24 PM No fever or cough. Seen in consultation by Pulmonary Medicine. Differential diagnosis includes CHF, TACO or TRALI from recent transfusions, and other etiologies. Pulmonary infection felt to be unlikely. Echo 06/14/19 showed mild concentric LVH, LVEF 55-60%. Received IV furosemide for suspected CHF. Chest x-ray improved, but BUN becky. Legionella urine Ag negative. Mycoplasma studies pending. Cont doxy. (3) Abdominal pain: Patient complained of what seemed to be LUQ abdominal pain. CT of abdomen did not show any apparent acute process. Upon further questioning today, patient described mild pain under left breast with deep inspiration. Consider pulmonary embolism. Best not to do CTA because of renal disease. V/Q would probably be nondiagnostic. Venous duplex lower extremities negative. Symptoms improved. (4) Coronary artery disease: No anginal symptoms. (5) CKD (chronic kidney disease), stage III: CKD III with baseline creatinine around 1.3 - 1.4. History of hypertension and renovascular disease. Creatinine was 2.49 on 06/12 in the setting of GI bleed with Hgb of 7. Creatinine down to 2.17 on 06/19/19. Creatinine 2.56 at time of current admission. Creatinine becky as high as 3.1; today = 2.8. Nephrology consulted. Watch fluid status. Follow. (6) FORREST (acute kidney injury): As noted above. (7) Anemia: Baseline Hgb around 11 in Dec 2018. Recent admission for GI bleed; Hgb was 7 at time of admission. EGD showed small duodenal ulcer without hemorrhage; colonoscopy showed polyps, tics, internal hemorrhoids without active bleeding. Outpatient capsule endoscopy recommended. Received 3 units pRBC's. Discharge Hgb was 9.4. Hgb 9.2 at time of this admission. Hgb today = 7.9. No gross GI bleeding. Recheck stools for OB. Fe levels OK. B12 normal. Folic acid low. SPEP pending. Follow H/H. (8) Hypertension: Continue metoprolol and hydralazine. (9) Duodenal ulcer: EGD 06/15/19 demonstrated duodenal ulcer. Continue pantoprazole. (10) DVT prophylaxis: No anticoagulants because of recent GI bleed. SCD's. Ambulate. (11) Discharge planning issues: Discharge disposition to be determined. Family Medicine follow-up with Dr. Sands. Daughter given update by phone. Admission and Anticipated Discharge Date Admission Date: June 23, 2019 Subjective Recheck for multiple problems. Patient seen in their room around 1330. Feels better. No fever or cough. No SOB at rest. No abdominal pain. Not ambulating much yet. Review of Systems: Constitutional- no fever. Cardiac- no anginal symptoms. Pulmonary- as noted above. GI- no nausea, vomiting, diarrhea, melena, hematochezia. - no urinary symptoms. Otherwise, as noted above. Physical Exam Constitutional: no acute distress Respiratory: normal respiratory effort, lungs clear to auscultation no respiratory distress Cardiovascular: Rate/Rhythm: regular rate and regular rhythm Heart Sounds: + murmur (I/ sys murmur at base); no gallop and no cardiac rub Vessels: no JVD Extremities: + edema (trace pretibial); no calf tenderness Gastrointestinal (Abdomen): normal bowel sounds, soft, nontender, no hepatosplenomegaly Skin: no rashes, warm and dry Psychiatric: Orientation: alert Results & Data ([facility]) Vital Signs (Past 12 Hours) Vital Signs Temp Pulse Pulse Resp BP Pulse Ox 06/27/19 11:32 36.5 C 62 18 138/74 97 06/27/19 09:00 62 06/27/19 07:38 36.9 C 61 18 148/65 H 93 06/27/19 04:45 36.9 C 61 18 126/67 94 Laboratory Results 06/27/19 06:57 06/27/19 06:57 (1) Abdominal pain Abdominal location: left upper quadrant Qualified Code(s): R10.12 - Left upper quadrant pain
--- NOTE | 2019-06-27 17:26 | Nephrology Progress Note ---
Date of Service June 27, 2019 Assessment & Plan (1) Acute on chronic renal failure: baseline creatinine 1.2-1.4; presenting creatinine 2.6 on 06/22; was 2.2 on recent hospital d/c 06/08; last at her baseline in late february however then no interval labs until she presented ill earlier this month; so acuity of current creatinine tough to pin down. her admission urine is most consistent with ATN which is likeliest diagnosis in the setting of hemodynamic changes w/ recent bleeding and/or from exposure to antibiotics. her urine sediment could however also be interpreted consistently on past 3 checks as nephritic. pulmonary renal syndromes should be considered > though no cough, no hemoptysis. she does report several weeks of a pruritic rash (though it is hard to discern on exam) -- no fever -- concerning for interstital nephritis-- no proven benefit for empiric steroids and would not initiate; continue to doubt MAGY hx is clinically significant now or recently. ESR in 60s >> at least less concerning for GN though still possible -f/u urine eos x 3 (ordered) << none back yet -f/u anti GBM Ab, ANCA, complements for am draw; cannot rule out consideration of biopsy here though not a strong concern at this point nor is she a great candidate for this on her own terms or during public health crisis -no further renal imaging at this time -daily bmp -cont strict I/O -no indication for urgent dialysis or dialysis planning at this time -she will need close f/u by renal at hospital d/c (2) Hypoxia: improved. on RA. Pulm evaluated; recs for f/u set; pulm signed off. >attributed to diastolic heart failure +/- w/ TACO component; infection not high on the differential and she is nearing completion of empiric abtc coverage (doxycycline); TRALI remains on differential but lower >remains on RA but very sob w/ exam maneuvers; CXR has cleared as of yesterday -agree w/ stopping lasix for now/ reserving for PRN only (3) Hypokalemia: K 3.4 again today; had another 20 mEq po x 1 today >encourage high K foods at d/c; will need to monitor bmp as well w/ anemia labs (4) Anemia of chronic disease: her anemia is certainly not just from renal failure -- has notable and persistent leukopenia as well newly present and slowly progressive since presentation earlier this month. -- ? bone marrow suppression from chronic illness or /and abtx -daily cbc for now -dose epo this evening 100SQ -at hospital d/c will enroll her in anemia clinic; will give [id number] units epo SQ x 1 today; iron stores are replete and needs no IV iron. given current public health crisis and how she has handled recent transfusions reasonable to start epo in house to minimize further pRBC (generally prefer in other situations to start as OP); transferrin satn 27% -cont GI and renal f/u as OP Admission and Anticipated Discharge Date Admission Date: June 23, 2019 Subjective seen on evening rounds; tired; tells me she feels better snd stronger though L sided abd pain; feels breathing better Review of Systems Review of Systems: All systems reviewed & are unremarkable except as noted in HPI & below Physical Exam Constitutional: well developed and well nourished; no acute distress (sob w/ speech/exam maneuvers) Eyes: EOM intact bilaterally ENMT: Ears: no external ear abnormality Nose: no external nose abnormality Mouth: + dry oral mucous membranes Neck: no nuchal rigidity Respiratory: normal respiratory effort and able to speak in complete sentences (but some sob w/ speech); no respiratory distress Auscultation: + diminished lung sounds, + crackles (bibasilar) and + rhonchi; no wheezes Cardiovascular: RRR, no murmur, no edema Rate/Rhythm: regular rate and regular rhythm Heart Sounds: + murmur Extremities: no edema Gastrointestinal (Abdomen): Inspection/Auscultation: normal bowel sounds Percussion/Palpation: abdomen soft; abdomen nontender (including L mid axillary line) Musculoskeletal: Extremities: strength 5/5 throughout; no cyanosis and no clubbing Skin: + dry skin; no rashes and no excoriations Neurologic: awake Motor/Sensory: + tremor (L leg and mandibular ) Psychiatric: A+Ox3, euthymic affect Results & Data ([facility]) Vital Signs (Past 12 Hours) Vital Signs Temp Pulse Pulse Resp BP Pulse Ox 06/27/19 15:11 36.4 C L 61 18 146/65 H 96 06/27/19 14:58 61 06/27/19 11:32 36.5 C 62 18 138/74 97 06/27/19 09:00 62 06/27/19 07:38 36.9 C 61 18 148/65 H 93 Laboratory Results 06/27/19 06:57 06/27/19 06:57 (1) Acute on chronic renal failure Acute renal failure type: unspecified Chronic kidney disease stage: stage 3 (moderate) Qualified Code(s): N17.9 - Acute kidney failure, unspecified; N18.3 - Chronic kidney disease, stage 3 (moderate)
[2019-06-27] MEDS ORDERED: EPOETIN ALFA 14,000 UNITS in SYRINGE 0 ML SQ SCH (19:00)
[2019-06-27] MEDS: LORATADINE 10 MG TAB PO SCH (21:04)
[2019-06-27] MEDS: TRAMADOL HCL 50 MG TABLET PO PRN (21:25)
[2019-06-28] MEDS: ACETAMINOPHEN 325 MG TAB PO PRN (02:57)
[2019-06-28 06:03] LABS: Hematocrit (blood only) 22.7 % (37-47); Hemoglobin 7.6 g/dL (12.0-16.0); Mean Corpuscular Hemoglobin 30.2 pg (25-34); Mean Corpuscular Hgb Conc 33.5 g/dL (32-36); Mean Corpuscular Volume 90.1 fL (80-100); Mean Platelet Volume 9.9 fL (7.4-10.4); Platelet Count 152 K/uL (130-400); RDW Coefficient of Variation 16.4 % (11.5-14.5); RDW Standard Deviation 53.6 fL (36.4-46.3); Red Blood Count 2.52 M/uL (4.2-5.4); White Blood Count 4.82 K/uL (4.8-10.8)
[2019-06-28 06:44] LABS: BUN Creatinine Ratio 18.9 (10-20); Calcium 8.4 mg/dl (8.5-10.1); Creatinine Clr Calc Pharmacy 16.3 ml/min; Est GFR (African American) 18.8; Est GFR (Non-African American) 16.2; Potassium 3.5 mmol/L (3.5-5.1)
[2019-06-28] MEDS: METOPROLOL TARTRATE 25 MG TAB PO SCH ×2 (08:11→20:41)
[2019-06-28] MEDS: ATORVASTATIN 20 MG TAB PO SCH (08:13)
[2019-06-28] MEDS: PANTOprazole 40 MG TAB PO SCH (08:13)
[2019-06-28] MEDS: HydrALAZINE TAB 50 MG TAB PO SCH ×3 (08:13→20:40)
[2019-06-28] MEDS: TRAMADOL HCL 50 MG TABLET PO PRN ×2 (08:13→20:39)
[2019-06-28] MEDS: ASPIRIN 81 MG ECTAB PO SCH (08:13)
[2019-06-28] MEDS: DOXYCYCLINE HYCLATE 100 MG CAP PO SCH ×2 (08:13→20:41)
[2019-06-28] MEDS: NYSTATIN SUSP 500,000 U/5 ML UDC PO SCH ×4 (08:13→20:41)
--- NOTE | 2019-06-28 10:23 | CT Scan Report ---
ABDOMEN AND PELVIS CT WITHOUT CONTRAST CT DOSE: 763.24 mGy.cm HISTORY: Acute left-sided abdominal pain left-sided abdominal pain TECHNIQUE: Multiaxial CT images of the abdomen and pelvis were performed without contrast. A dose lo wering technique was utilized adhering to the principles of ALARA. COMPARISON STUDY: CT chest, and abdomen 06/23/2019 FINDINGS: Trace pleural effusions with persistent bibasilar groundglass and minimal consolidative opacities. Th ere is no pneumatosis or pneumoperitoneum. Cardiomegaly. Prior median sternotomy. Coronary artery mary cifications. Spleen measures within the upper limits of normal in size. Multiple scattered calcified granulomata o f the spleen and liver. Moderate generalized pancreatic atrophy. Adrenal glands are unremarkable. No hepatic mass lesion. The gallbladder is either contracted or surgically absent. Limited evaluation of the solid abdominal organs without the use of IV contrast. Multiple bilateral renal cysts, several which are mildly complex on the left with septal calcificatio ns. The largest cyst of the left measures up to 5.3 cm. No ureteral calculi or obstructive uropathy. Unremarkable appearance of the urinary bladder. Hysterectomy. No adnexal mass lesions. Extensive calc ified plaque of the abdominal aorta and branch vessels. No aneurysm or adenopathy. No bowel obstruction. There is mild nonspecific thickening of the inferior rectum and anorectal junct ion, image 384 series 3. Extensive colonic diverticulosis without acute diverticulitis. Enteric contr ast is noted within the distal large bowel. Mild fecal retention. The appendix is not definitively se en it may be surgically absent. Mild diastases recti. Bones appear intact. Degenerative changes of th e spine, pelvis and hips. No suspicious bone lesions. IMPRESSION: 1. Nonspecific wall thickening of the inferior rectum and anorectal junction. Findings could be corre lated with clinical exam. 2. Colonic diverticulosis without acute diverticulitis. 3. Trace pleural effusions with persistent bibasilar opacities suggestive of atelectasis with pneumon itis. 4. Cardiomegaly with prior median sternotomy. 5. Additional findings as above. ACT 112: Negative or not required by law. The above report was generated using voice recognition software. It may contain grammatical, syntax o r spelling errors. Electronically signed by: Vikas Braxton M.D. 06/28/2019 10:22 AM
[2019-06-28] MEDS ORDERED: HYDROmorphone INJ 0.5 MG/0.5 ML SYR IV ONE (10:50)
[2019-06-28] MEDS ORDERED: HYDROmorphone INJ 0.5 MG/0.5 ML SYR IV PRN ×2 (10:50→15:53)
[2019-06-28] MEDS ORDERED: HYDROmorphone INJ 0.5 MG/0.5 ML SYR ONE (15:58)
--- NOTE | 2019-06-28 20:39 | Hospitalist Progress Note ---
Date of Service June 28, 2019 Assessment & Plan (1) Hypoxia: Supplemental O2 as needed. Wean as tolerated. (2) Abnormal CT scan of lung: CT of lung without contrast: IMPRESSION: 1. Cardiomegaly and coronary artery calcifications 2. Persistent dilatation of the ascending thoracic aorta which measures 4 cm. 3. Marked progression in the bilateral multifocal groundglass pulmonary opacities. The findings are nonspecific but infectious/inflammatory process is favored over pulmonary edema. Clinical correlation and follow-up is recommended. ACT 112: Negative or not required by law. Electronically signed by: Nitin Cavanaugh M.D. 06/23/2019 7:24 PM No fever or cough. Seen in consultation by Pulmonary Medicine. Differential diagnosis includes CHF, TACO or TRALI from recent transfusions, and other etiologies. Pulmonary infection felt to be unlikely. Echo 06/14/19 showed mild concentric LVH, LVEF 55-60%. Received IV furosemide for suspected CHF. Chest x-ray improved, but creatinine becky. Legionella urine Ag negative. Mycoplasma studies pending. Cont doxy. (3) Abdominal pain: Patient complained of what seemed to be LUQ abdominal pain day of admission. CT of abdomen did not show any apparent acute process. Symptoms improved, but worse today. Repeat CT abd/pelvis today- no change (tics without diverticulitis, renal cysts). Has atherosclerosis. Consider bowel ischemia. Lactate OK. Consult General Surgery if ongoing concerns. (4) Coronary artery disease: No anginal symptoms. (5) CKD (chronic kidney disease), stage III: CKD III with baseline creatinine around 1.3 - 1.4. History of hypertension and renovascular disease. Creatinine was 2.49 on 06/12 in the setting of GI bleed with Hgb of 7. Creatinine down to 2.17 on 06/19/19. Creatinine 2.56 at time of current admission. Creatinine becky as high as 3.1; today = 2.67. Nephrology consulted. Watch fluid status. Follow. (6) FORREST (acute kidney injury): As noted above. (7) Anemia: Baseline Hgb around 11 in Dec 2018. Recent admission for GI bleed; Hgb was 7 at time of admission. EGD showed small duodenal ulcer without hemorrhage; colonoscopy showed polyps, tics, internal hemorrhoids without active bleeding. Outpatient capsule endoscopy recommended. Received 3 units pRBC's. Discharge Hgb was 9.4. Hgb 9.2 at time of this admission. Hgb today = 7.6. No gross GI bleeding. Recheck stools for OB. Fe levels OK. B12 normal. Folic acid low. SPEP pending. Trying to avoid additional transfusions if possible. Received EPO. Follow H/H. (8) Hypertension: Continue metoprolol and hydralazine. (9) Duodenal ulcer: EGD 06/15/19 demonstrated duodenal ulcer. Continue pantoprazole. (10) DVT prophylaxis: No anticoagulants because of recent GI bleed. SCD's. Ambulate. (11) Discharge planning issues: Discharge disposition to be determined. Family Medicine follow-up with Dr. Sands. Daughter given update by phone. Admission and Anticipated Discharge Date Admission Date: June 23, 2019 Subjective Recheck for multiple problems. Patient seen in their room around 0850. Recurrent left-sided abdominal pain last night and this morning. Tramadol did not help much. Some nausea; no emesis; no bowel movement today. No dysuria or gross hematuria. Review of Systems: Constitutional- no fever. Cardiac- no anginal symptoms. Pulmonary- as noted above. GI- no nausea, vomiting, diarrhea, melena, hematochezia. - no urinary symptoms. Otherwise, as noted above. Physical Exam Constitutional: no acute distress Respiratory: normal respiratory effort, lungs clear to auscultation no respiratory distress Auscultation: + rales (bibasilar) Cardiovascular: Rate/Rhythm: regular rate and regular rhythm Heart Sounds: + murmur (I/ sys murmur at base); no gallop and no cardiac rub Vessels: no JVD Extremities: + edema (trace pretibial); no calf tenderness Gastrointestinal (Abdomen): Inspection/Auscultation: normal bowel sounds; abdomen not distended Percussion/Palpation: + abdomen tender (left lateral abdomen) Skin: no rashes, warm and dry Psychiatric: Orientation: alert Results & Data ([facility]) Vital Signs (Past 12 Hours) Vital Signs Temp Pulse Pulse Resp BP BP Pulse Ox 06/28/19 19:15 36.9 C 61 20 113/59 L 94 06/28/19 16:28 57 L 06/28/19 15:42 36.9 C 56 L 16 144/73 H 92 06/28/19 11:23 36.4 C L 58 L 18 161/66 H 94 06/28/19 09:00 57 L Laboratory Results Laboratory Results - last 24 hr 06/25/19 06/28/19 06/28/19 13:03 05:32 05:32 WBC 4.82 RBC 2.52 L Hgb 7.6 L Hct 22.7 L MCV 90.1 MCH 30.2 MCHC 33.5 RDW Std Deviation 53.6 H RDW Coeff of Filiberto 16.4 H Plt Count 152 MPV 9.9 Sodium 138 Potassium 3.5 Chloride 111 H Carbon Dioxide 20 L Anion Gap 7.0 BUN 50 H Creatinine 2.67 H Est Cr Clr Drug Dosing 16.3 Est GFR ( Amer) 18.8 Est GFR (Non-Af Amer) 16.2 BUN/Creatinine Ratio 18.9 Glucose 93 Lactate Calcium 8.4 L Mycoplasma pneumon IgM 140 06/28/19 11:08 WBC RBC Hgb Hct MCV MCH MCHC RDW Std Deviation RDW Coeff of Filiberto Plt Count MPV Sodium Potassium Chloride Carbon Dioxide Anion Gap BUN Creatinine Est Cr Clr Drug Dosing Est GFR ( Amer) Est GFR (Non-Af Amer) BUN/Creatinine Ratio Glucose Lactate 0.6 Calcium Mycoplasma pneumon IgM Diagnostic Findings CT ABDOMEN & PELVIS: FINDINGS: Trace pleural effusions with persistent bibasilar groundglass and minimal consolidative opacities. There is no pneumatosis or pneumoperitoneum. Cardiomegaly. Prior median sternotomy. Coronary artery calcifications. Spleen measures within the upper limits of normal in size. Multiple scattered calcified granulomata of the spleen and liver. Moderate generalized pancreatic atrophy. Adrenal glands are unremarkable. No hepatic mass lesion. The gallbladder is either contracted or surgically absent. Limited evaluation of the solid abdominal organs without the use of IV contrast. Multiple bilateral renal cysts, several which are mildly complex on the left with septal calcifications. The largest cyst of the left measures up to 5.3 cm. No ureteral calculi or obstructive uropathy. Unremarkable appearance of the urinary bladder. Hysterectomy. No adnexal mass lesions. Extensive calcified plaque of the abdominal aorta and branch vessels. No aneurysm or adenopathy. No bowel obstruction. There is mild nonspecific thickening of the inferior rectum and anorectal junction, image 384 series 3. Extensive colonic diverticulosis without acute diverticulitis. Enteric contrast is noted within the distal large bowel. Mild fecal retention. The appendix is not definitively seen it may be surgically absent. Mild diastases recti. Bones appear intact. Degenerative changes of the spine, pelvis and hips. No suspicious bone lesions. IMPRESSION: 1. Nonspecific wall thickening of the inferior rectum and anorectal junction. Findings could be correlated with clinical exam. 2. Colonic diverticulosis without acute diverticulitis. 3. Trace pleural effusions with persistent bibasilar opacities suggestive of atelectasis with pneumonitis. 4. Cardiomegaly with prior median sternotomy. 5. Additional findings as above. ACT 112: Negative or not required by law. The above report was generated using voice recognition software. It may contain grammatical, syntax or spelling errors. Electronically signed by: Vikas Braxton M.D. 06/28/2019 10:22 AM (1) Abdominal pain Abdominal location: left upper quadrant Qualified Code(s): R10.12 - Left upper quadrant pain
[2019-06-28] MEDS: LORATADINE 10 MG TAB PO SCH (20:40)
[2019-06-29 06:20] LABS: Hematocrit (blood only) 23.8 % (37-47); Hemoglobin 7.7 g/dL (12.0-16.0); Mean Corpuscular Hemoglobin 29.5 pg (25-34); Mean Corpuscular Hgb Conc 32.4 g/dL (32-36); Mean Corpuscular Volume 91.2 fL (80-100); Mean Platelet Volume 9.8 fL (7.4-10.4); Platelet Count 165 K/uL (130-400); RDW Coefficient of Variation 16.6 % (11.5-14.5); RDW Standard Deviation 55.3 fL (36.4-46.3); Red Blood Count 2.61 M/uL (4.2-5.4); White Blood Count 4.61 K/uL (4.8-10.8)
[2019-06-29 07:00] LABS: BUN Creatinine Ratio 18.9 (10-20); Calcium 9.2 mg/dl (8.5-10.1); Creatinine Clr Calc Pharmacy 17.1 ml/min; Est GFR (African American) 20.1; Est GFR (Non-African American) 17.3; Potassium 3.9 mmol/L (3.5-5.1)
[2019-06-29] MEDS: METOPROLOL TARTRATE 25 MG TAB PO SCH ×2 (08:56→20:39)
[2019-06-29] MEDS: HydrALAZINE TAB 50 MG TAB PO SCH ×3 (08:57→20:39)
[2019-06-29] MEDS: ASPIRIN 81 MG ECTAB PO SCH (08:57)
[2019-06-29] MEDS: NYSTATIN SUSP 500,000 U/5 ML UDC PO SCH ×4 (08:57→20:39)
[2019-06-29] MEDS: PANTOprazole 40 MG TAB PO SCH (08:57)
[2019-06-29] MEDS: DOXYCYCLINE HYCLATE 100 MG CAP PO SCH ×2 (08:57→20:39)
[2019-06-29] MEDS: ATORVASTATIN 20 MG TAB PO SCH (08:57)
--- NOTE | 2019-06-29 09:22 | Surgery Consultation ---
Date of Consultation June 29, 2019 Assessment & Plan (1) Abdominal pain: No acute abdominal findings CT normal x2 WBC normal, anemia stable will check amylase atypical pain but timing coincides with ulcer dx pt seen. as above. pain is very colicky and toward her left flank. considering recent colonoscopy and negative CT , no leukocytosis, doubt GI source. abdomen is soft with no peritoneal signs. W/u has repeatedly shown hematuria, renal cysts and a dilated renal pelvis. Would consider a urology opinion. There is no indication for operative intervention from my standpoint. History of Present Illness Attending Physician: Richi Evans MD History of Present Illness 78 y/o female c/o LUQ pain admitted 6 days ago for pain that was increasing over 3-4 days. Pain present for past 3 weeks, had superficial duodenal ulcer on EGD 06/14 and has been on daily Protonix. No nausea or vomiting. Stools have been dark. Appetite is good. No fevers or chills. Had essentially normal colonoscopy 06/14, two ascending polyps removed. H/o cholecystectomy. Allergies Allergy/AdvReac Type Severity Reaction Status Date / Time lisinopril Allergy Severe Angioedema Verified 06/23/19 14:12 Home Medications Home Medications Medication Instructions Recorded Confirmed Type aspirin 81 mg PO QAM 12/29/18 06/23/19 History atorvastatin 20 mg PO QAM 12/29/18 06/23/19 History epinephrine [EpiPen] 0.3 mg IM DIRECTED PRN 12/29/18 06/23/19 History furosemide 20 mg PO DIRECTED 12/29/18 06/23/19 History hydralazine 50 mg PO TID 12/29/18 06/23/19 History loratadine 10 mg PO HS 12/29/18 06/23/19 History metoprolol tartrate 25 mg PO BID 12/29/18 06/23/19 History potassium chloride 10 meq PO DIRECTED 12/29/18 06/23/19 History amlodipine 5 mg PO DIRECTED 06/13/19 06/23/19 History pantoprazole 40 mg PO QAM 30 Days #30 tab 06/19/19 06/23/19 Rx tramadol 50 mg PO BID PRN #10 tab 06/19/19 06/23/19 Rx Patient History Medical History Anemia of renal disease Benign essential tremor CKD (chronic kidney disease), stage III Colonic polyp Coronary artery disease Duodenal ulcer Hyperlipidemia Hypertension Renal artery stenosis Surgical History History of appendectomy History of cholecystectomy History of hysterectomy with oophorectomy History of lumbar surgery History of quadruple bypass S/P CABG x 4 Family History Father Coronary heart disease Pulmonary embolism Mother Cancer Sister Parkinson disease Social History Preferred Language: Indonesian Communication Ability: Effective Cmo Required: No Beliefs That Will Affect Care: None marital status: Unknown Current Living Situation: Alone Current Living Situation Comment: apartment; filing for divorce Other Information That Helps Us Care for You: No Feels Safe at Home: Yes Safety Concerns: Feels Safe At This Time Smoking Status: Never smoker Second Hand Exposure: No ; Hx Alcohol Use: No Hx Substance Use: No Review of Systems Constitutional: no fever, no chills and no sweats Respiratory: + pain on inspiration; no dyspnea Gastrointestinal: no heartburn, no nausea, no vomiting, no constipation, no diarrhea/loose stools and no blood in stools Physical Exam Constitutional: WD/WN, vitals as above Gastrointestinal (Abdomen): Inspection/Auscultation: abdomen not distended Percussion/Palpation: + abdomen tender (mild LUQ along/just below rib line) and abdomen soft; no guarding Results & Data Vital Signs (Past 12 Hours) Vital Signs Temp Pulse Pulse Resp BP Pulse Ox 06/29/19 07:00 37.0 C 58 L 18 129/66 92 06/29/19 04:09 37 C 59 L 18 125/68 93 06/29/19 00:00 58 L 06/28/19 23:23 37.1 C 60 18 138/67 94 PG Care Time/CCT Total # of Minutes Spent Total Time Spent with Patient: Total time spent is greater than 50% in coordination of care (as documented) at patient's floor/unit and/or counseling patient: Coding Level of Care Code 44144 Initial Inpt Care Lvl 3 Diagnoses Abdominal pain R10.12 Abdominal location: left upper quadrant (1) Abdominal pain Abdominal location: left upper quadrant Qualified Code(s): R10.12 - Left upper quadrant pain
--- NOTE | 2019-06-29 10:17 | Nephrology Progress Note ---
Date of Service June 29, 2019 Assessment & Plan (1) Acute on chronic renal failure: baseline creatinine 1.2-1.4; presenting creatinine 2.6 on 06/22; was 2.2 on recent hospital d/c 06/08; last at her baseline in late February however then no interval labs until she presented ill earlier this month; so acuity of current creatinine tough to pin down. Creatinine down to 2.5 from 2.6 yesterday. Her admission urine is most consistent with ATN which is likeliest diagnosis in the setting of hemodynamic changes w/ recent bleeding and/or from exposure to antibiotics. her urine sediment could however also be interpreted consistently on past 3 checks as nephritic. pulmonary renal syndromes should be considered > though no cough, no hemoptysis. she does report several weeks of a pruritic rash (though it is hard to discern on exam) -- no fever -- concerning for interstitial nephritis-- no proven benefit for empiric steroids and would not initiate; continue to doubt MAGY hx is clinically significant now or recently. ESR in 60s >> at least less concerning for GN though still possible -f/u urine eos x 3 (ordered) << none back yet -f/u anti GBM Ab, ANCA, complements for am draw; cannot rule out consideration of biopsy here though not a strong concern at this point nor is she a great ca ndidate for this on her own terms or during public health crisis -no further renal imaging at this time -daily bmp -cont strict I/O -no indication for urgent dialysis or dialysis planning at this time -she will need close f/u by renal at hospital d/c (2) Hypoxia: improved. on RA. Pulm evaluated; recs for f/u set; pulm signed off. >attributed to diastolic heart failure +/- w/ TACO component; infection not high on the differential and she is nearing completion of empiric abtc coverage (doxycycline); TRALI remains on differential but lower >remains on RA but very sob w/ exam maneuvers; -agree w/ stopping lasix for now/ reserving for PRN only (3) Hypokalemia: Potassium is better at 3.9 today; >encourage high K foods at d/c; will need to monitor bmp as well w/ anemia labs (4) Anemia of chronic disease: her anemia is certainly not just from renal failure -- has notable and persistent leukopenia as well newly present and slowly progressive since presentation earlier this month. -- ? bone marrow suppression from chronic illness or /and abtx. Received Epogen 14,000 units last Saturday. Will give another dose on Saturday if still in-house. -daily cbc for now -at hospital d/c will enroll her in anemia clinic; iron stores are replete and needs no IV iron. given current public health crisis and how she has handled recent transfusions reasonable to start epo in house to minimize further pRBC (generally prefer in other situations to start as OP); transferrin satn 27% -cont GI and renal f/u as OP Admission and Anticipated Discharge Date Admission Date: June 23, 2019 Subjective Patient complaining of pain in the left lower quadrant of the abdomen. No shortness of breath. No leg swelling. Creatinine is slightly better today. Review of Systems Review of Systems: All systems reviewed & are unremarkable except as noted in HPI & below Physical Exam Physical Exam: General exam: Appears comfortable, no acute distress HEENT: Pupils are equal and reactive to light Neck: No JVD, neck is supple trachea is midline Respiratory system: Clear breath sounds bilaterally. Gastrointestinal: Abdomen is soft, non distended, non tender even in the left lower quadrant, bowel sounds are present CVS: Regular rate and rhythm. No murmurs, rubs or gallops Musculoskeletal: No joint or muscle tenderness Extremities: Non tender, no edema, peripheral pulses are present Neuro: Oriented, no tremors, no focal neurological deficits Skin: No rashes Results & Data ([facility]) Vital Signs (Past 12 Hours) Vital Signs Temp Pulse Pulse Resp BP Pulse Ox 06/29/19 07:00 37.0 C 58 L 18 129/66 92 06/29/19 04:09 37 C 59 L 18 125/68 93 06/29/19 00:00 58 L 06/28/19 23:23 37.1 C 60 18 138/67 94 Laboratory Results 06/29/19 06:04 06/29/19 06:04 WBC 4.61 L RBC 2.61 L MCV 91.2 MCH 29.5 MCHC 32.4 RDW Std Deviation 55.3 H RDW Coeff of Filiberto 16.6 H Plt Count 165 MPV 9.8 (1) Acute on chronic renal failure Acute renal failure type: unspecified Chronic kidney disease stage: stage 3 (moderate) Qualified Code(s): N17.9 - Acute kidney failure, unspecified; N18.3 - Chronic kidney disease, stage 3 (moderate)
[2019-06-29] MEDS ORDERED: POLYETHYLENE (MIRALAX) 17 GM PACK PO ONE (15:04)
[2019-06-29] MEDS ORDERED: POLYETHYLENE (MIRALAX) 17 GM PACK PO PRN (15:04)
--- NOTE | 2019-06-29 15:42 | Progress Note ---
Date of Service June 29, 2019 Assessment & Plan Admission and Anticipated Discharge Date Admission Date: June 23, 2019 Subjective New consult noted for renal cysts, LUQ / L flank pain. Inpatient chart and imag ing personally reviewed, care d/w Dr Evans. No clear hydro, normal caliber proximal ureter noted, no clear hydro nor any clear solid components to her renal lesions. No perinephric inflammation noted nor any stones. Patient's clinical presentation does not seem c/w a UPJ obstruction. As discussed, typically pain from large renal cysts are chronic, dull and achy, relieved by cyst decompression, recur with reaccumulation and definitively managed by lap renal cyst decortication. There seems to be no indication for acute surgical intervention or stent placement, although I think at some point in the future a noncontrast renal MRI might be indicated to r/o a solid lesion somewhat more clearly than on limited US. Due to COVID pandemic, our service is attempting to minimize foot traffic and social isolation in non-emergent cases. Will therefore plan on outpatient follow-up, ideally after our limited office parameters have been relaxed (currently August 07, 2019). We remains present for further discussion of patient's care or if her clinical acuity changes. Results & Data ([facility]) Vital Signs (Past 12 Hours) Vital Signs Temp Pulse Pulse Resp BP Pulse Ox 06/29/19 14:30 36.5 C 61 19 151/75 H 96 06/29/19 11:00 36.6 C 61 19 123/68 96 06/29/19 10:00 60 06/29/19 07:00 37.0 C 58 L 18 129/66 92 06/29/19 04:09 37 C 59 L 18 125/68 93 PG Care Time/CCT Total # of Minutes Spent Total Time Spent with Patient: Total time spent is greater than 50% in coordination of care (as documented) at patient's floor/unit and/or counseling patient: Coding Level of Care Code None
[2019-06-29] MEDS: TRAMADOL HCL 50 MG TABLET PO PRN (20:38)
[2019-06-29] MEDS: LORATADINE 10 MG TAB PO SCH (20:39)
--- NOTE | 2019-06-29 21:28 | Hospitalist Progress Note ---
Date of Service June 29, 2019 Assessment & Plan (1) Hypoxia: Supplemental O2 as needed. Wean as tolerated. (2) Abnormal CT scan of lung: CT of lung without contrast: IMPRESSION: 1. Cardiomegaly and coronary artery calcifications 2. Persistent dilatation of the ascending thoracic aorta which measures 4 cm. 3. Marked progression in the bilateral multifocal groundglass pulmonary opacities. The findings are nonspecific but infectious/inflammatory process is favored over pulmonary edema. Clinical correlation and follow-up is recommended. ACT 112: Negative or not required by law. Electronically signed by: Nitin Cavanaugh M.D. 06/23/2019 7:24 PM No fever or cough. Seen in consultation by Pulmonary Medicine. Differential diagnosis includes CHF, TACO or TRALI from recent transfusions, and other etiologies. Pulmonary infection felt to be unlikely. Echo 06/14/19 showed mild concentric LVH, LVEF 55-60%. Received IV furosemide for suspected CHF. Chest x-ray improved, but creatinine becky. Received doxycycline x 7 days for possible atypical pneumnia. Legionella urine Ag negative. Mycoplasma IgM negative. (3) Abdominal pain: Patient complained of what seemed to be LUQ abdominal pain day of admission. CT of abdomen did not show any apparent acute process. Symptoms improved, but worse today. Repeat CT abd/pelvis today- no change (tics without diverticulitis, renal cysts). Has atherosclerosis. Consider bowel ischemia. Lactate OK. General Surgery and Urology consulted. (4) Coronary artery disease: No anginal symptoms. (5) CKD (chronic kidney disease), stage III: CKD III with baseline creatinine around 1.3 - 1.4. History of hypertension and renovascular disease. Creatinine was 2.49 on 06/12 in the setting of GI bleed with Hgb of 7. Creatinine down to 2.17 on 06/19/19. Creatinine 2.56 at time of current admission. Creatinine becky as high as 3.1; today = 2.53. Nephrology consulted. Watch fluid status. Follow. (6) FORREST (acute kidney injury): As noted above. (7) Anemia: Baseline Hgb around 11 in Dec 2018. Recent admission for GI bleed; Hgb was 7 at time of admission. EGD showed small duodenal ulcer without hemorrhage; colonoscopy showed polyps, tics, internal hemorrhoids without active bleeding. Outpatient capsule endoscopy recommended. Received 3 units pRBC's. Discharge Hgb was 9.4. Hgb 9.2 at time of this admission. Hgb today = 7.7. No gross GI bleeding. Recheck stools for OB. Fe levels OK. B12 normal. Folic acid low. SPEP pending. Trying to avoid additional transfusions if possible. Received EPO. Follow H/H. (8) Hypertension: Continue metoprolol and hydralazine. (9) Duodenal ulcer: EGD 06/15/19 demonstrated duodenal ulcer. Continue pantoprazole. (10) DVT prophylaxis: No anticoagulants because of recent GI bleed. SCD's. Ambulate. (11) Discharge planning issues: Discharge disposition to be determined; probable DC to her daughter's home until she is able to return to her apartment. Family Medicine follow-up with Dr. Sands. Daughter given update this evening by phone. Admission and Anticipated Discharge Date Admission Date: June 23, 2019 Subjective Recheck for multiple problems. Patient seen in their room around 1450. Left-sided abdominal pain improved. No BM for a few days. No N/V. No dysuria or gross hematuria. Review of Systems: Constitutional- no fever. Cardiac- no anginal symptoms. Pulmonary- as noted above. GI- as noted above - no urinary symptoms. Otherwise, as noted above. Physical Exam Constitutional: no acute distress Respiratory: normal respiratory effort, lungs clear to auscultation Au scultation: + rales (bibasilar) Cardiovascular: Rate/Rhythm: regular rate and regular rhythm Heart Sounds: + murmur (I/ sys murmur at base); no gallop and no cardiac rub Vessels: no JVD Extremities: + edema (trace pretibial); no calf tenderness Gastrointestinal (Abdomen): normal bowel sounds, soft, nontender, no hepatosplenomegaly Inspection/Auscultation: normal bowel sounds; abdomen not distended Percussion/Palpation: + abdomen tender (mild tenderness left lateral abdomen) Skin: no rashes, warm and dry Psychiatric: Orientation: alert Results & Data ([facility]) Vital Signs (Past 12 Hours) Vital Signs Temp Pulse Pulse Pulse Resp BP BP 06/29/19 20:36 69 161/67 H 06/29/19 19:41 36.7 C 61 18 167/69 H 06/29/19 18:05 60 06/29/19 14:30 36.5 C 61 19 151/75 H 06/29/19 11:00 36.6 C 61 19 123/68 06/29/19 10:00 60 Pulse Ox 06/29/19 20:36 06/29/19 19:41 06/29/19 18:05 06/29/19 14:30 96 06/29/19 11:00 96 06/29/19 10:00 Laboratory Results 06/29/19 06:04 06/29/19 06:04 (1) Abdominal pain Abdominal location: left upper quadrant Qualified Code(s): R10.12 - Left upper quadrant pain
[2019-06-30 06:09] LABS: Hematocrit (blood only) 22.2 % (37-47); Hemoglobin 7.3 g/dL (12.0-16.0); Mean Corpuscular Hemoglobin 30.4 pg (25-34); Mean Corpuscular Hgb Conc 32.9 g/dL (32-36); Mean Corpuscular Volume 92.5 fL (80-100); Mean Platelet Volume 10.2 fL (7.4-10.4); Platelet Count 163 K/uL (130-400); RDW Coefficient of Variation 16.7 % (11.5-14.5); RDW Standard Deviation 55.9 fL (36.4-46.3); White Blood Count 4.28 K/uL (4.8-10.8)
[2019-06-30 06:34] LABS: BUN Creatinine Ratio 18.8 (10-20); Calcium 9.1 mg/dl (8.5-10.1); Creatinine Clr Calc Pharmacy 16.8 ml/min; Est GFR (African American) 19.6; Est GFR (Non-African American) 16.9; Potassium 3.7 mmol/L (3.5-5.1)
[2019-06-30] MEDS ORDERED: SODIUM CHLORIDE 0.9% 250 ML IV PRN (07:58)
[2019-06-30] MEDS ORDERED: FUROSEMIDE 40 MG/4 ML VIAL IV SCH (08:00)
[2019-06-30] MEDS: TRAMADOL HCL 50 MG TABLET PO PRN (08:12)
[2019-06-30] MEDS: HydrALAZINE TAB 50 MG TAB PO SCH ×2 (08:16→14:13)
[2019-06-30] MEDS: NYSTATIN SUSP 500,000 U/5 ML UDC PO SCH ×2 (08:16→12:56)
[2019-06-30] MEDS: ASPIRIN 81 MG ECTAB PO SCH (08:16)
[2019-06-30] MEDS: METOPROLOL TARTRATE 25 MG TAB PO SCH (08:16)
[2019-06-30] MEDS: ATORVASTATIN 20 MG TAB PO SCH (08:16)
[2019-06-30] MEDS: DOXYCYCLINE HYCLATE 100 MG CAP PO SCH (08:16)
[2019-06-30] MEDS: PANTOprazole 40 MG TAB PO SCH (08:16)
[2019-06-30] MEDS ORDERED: ACETAMINOPHEN 500 MG TAB PO SCH (09:00)
[2019-06-30 09:14] LABS: ANCA Screen P-ANCA POS (Negative); Albumin 2.8 g/dL (3.8-4.8); Alpha 1 Globulin 0.4 g/dL (0.2-0.3); Alpha 2 Globulin 0.7 g/dL (0.5-0.9); Anti-Glom Basement Antibody <1.0 AI (<1.0); Beta-1-Globulin 0.4 g/dL (0.4-0.6); Beta-2-Globulin 0.5 g/dL (0.2-0.5); Complement C3 104 mg/dL (83-193); Gamma Globulin 1.4 g/dL (0.8-1.7); Monoclonal Protein Band 1 DNR g/dL (NONE DETECTED); Monoclonal Protein Band 2 DNR g/dL (NONE DETECTED); Monoclonal Protein Band 3 DNR g/dL (NONE DETECTED); Total Protein 6.3 g/dL (6.1-8.1)
[2019-06-30] MEDS ORDERED: FUROSEMIDE 40 MG in SYRINGE 0 ML IV SCH (10:00)
--- NOTE | 2019-06-30 10:29 | XRay Report ---
KUB HISTORY: Generalized abdominal pain COMPARISON: Abdomen and pelvis CT 06/28/2019. FINDINGS: The bowel gas pattern is unremarkable. There are no dilated loops of small bowel to suggest an obstruction. No renal calculi. No ureteral calculi. No pneumoperitoneum or pneumatosis. Residual contrast within the colon with multiple sigmoid diverticula. 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 There is also moderate degenerative disc disease within the lumbar spine. Poststernotomy changes are noted. IMPRESSION: No evidence for bowel obstruction. ACT 112: Negative or not required by law. Electronically signed by: Justin Bates M.D. 06/30/2019 10:27 AM
--- NOTE | 2019-06-30 11:17 | Surgery Progress Note ---
Date of Service June 30, 2019 Assessment & Plan (1) Abdominal pain: CT negative, lactate negative. pain over area of left kidney. I do not suspect a GI source however will add carafate b/c of recent ulcer finding and anemia no acute surgery indicated from our standpoint. agree could consider pill endoscopy study. please call if we can offer any further assistance. Subjective pt seen. states she had a terrible night. still having pain left lateral abdomen. Physical Exam Physical Exam: alert. resting. no distress/pain currently ( but recently had pain med given per patient) abd: soft. obese. no guarding or rigidity. Results & Data Vital Signs (Past 12 Hours) Vital Signs Temp Pulse Pulse Pulse Resp BP BP 06/30/19 10:50 36.6 C 55 L 18 146/69 H 06/30/19 10:20 36.7 C 63 63 18 146/69 H 06/30/19 10:05 36.5 C 66 18 148/69 H 06/30/19 09:45 36.5 C 64 18 152/64 H 06/30/19 07:36 63 06/30/19 07:24 37.0 C 63 18 06/30/19 05:03 37.1 C 79 18 147/63 H 06/30/19 03:20 61 BP Pulse Ox 06/30/19 10:50 92 06/30/19 10:20 146/69 H 93 06/30/19 10:05 93 06/30/19 09:45 94 06/30/19 07:36 06/30/19 07:24 160/69 H 91 06/30/19 05:03 96 06/30/19 03:20 PG Care Time/CCT Total # of Minutes Spent Total Time Spent with Patient: Total time spent is greater than 50% in coordination of care (as documented) at patient's floor/unit and/or counseling patient: Coding Level of Care Code 10792 Subseq Hosp Care Lvl 2 Diagnoses Abdominal pain R10.12 Abdominal location: left upper quadrant (1) Abdominal pain Abdominal location: left upper quadrant Qualified Code(s): R10.12 - Left upper quadrant pain
[2019-06-30] MEDS ORDERED: SUCRALFATE 1 GM/10 ML UDC PO SCH (13:00)
--- NOTE | 2019-06-30 15:07 | Hospitalist Progress Note ---
Date of Service June 30, 2019 Assessment & Plan (1) Hypoxia: O2 saturation as low as 87%. Received supplemental O2 as needed. Supplemental O2 weaned and was oxygenating well on room air by discharge. (2) Abnormal CT scan of lung: CT of lung without contrast: IMPRESSION: 1. Cardiomegaly and coronary artery calcifications 2. Persistent dilatation of the ascending thoracic aorta which measures 4 cm. 3. Marked progression in the bilateral multifocal groundglass pulmonary opacities. The findings are nonspecific but infectious/inflammatory process is favored over pulmonary edema. Clinical correlation and follow-up is recommended. ACT 112: Negative or not required by law. Electronically signed by: Nitin Cavanaugh M.D. 06/23/2019 7:24 PM No fever or cough. Seen in consultation by Pulmonary Medicine. Differential diagnosis includes CHF, TACO or TRALI from recent transfusions, and other etiologies. Pulmonary infection felt to be unlikely. Echo 06/14/19 showed mild concentric LVH, LVEF 55-60%. Received IV furosemide for suspected CHF. Chest x-ray improved, but creatinine becky. Received doxycycline x 7 days for possible atypical pneumnia. Legionella urine Ag negative. Mycoplasma IgM negative. Hypoxia / CT abnormalities most like secondary to transfusion-associated circulatory overload from recent transfusions. Follow-up CT (without contrast) recommended in 6-8 weeks. (3) Abdominal pain: Patient complained of what seemed to be LUQ abdominal pain day of admission. CT of abdomen did not show any apparent acute process. Symptoms improved, but worse today. Repeat CT abd/pelvis today- no change (tics without diverticulitis, no renal calculi, bilat renal cysts). Has atherosclerosis. Consider bowel ischemia. Lactate OK. General Surgery and Urology consulted. No identified cause of abdominal pain. Urology felt that unlikely that renal cysts causing pain; outpatient Urology f ollow-up and MRI recommended. Outpatient follow-up recommended. (4) Coronary artery disease: No anginal symptoms. (5) CKD (chronic kidney disease), stage III: CKD III with baseline creatinine around 1.3 - 1.4. History of hypertension and renovascular disease. Creatinine was 2.49 on 06/12 in the setting of GI bleed with Hgb of 7. Creatinine down to 2.17 on 06/19/19. Creatinine 2.56 at time of current admission. Creatinine becky as high as 3.1; today = 2.58. Nephrology consulted. ATN and other pathologies considered. UA showed RBC's and granular casts. P-ANCA was positive. Anti-glomerular basement membrane AB negative. C3 and C4 levels normal. Follow. (6) FORREST (acute kidney injury): As noted above. (7) Anemia: Baseline Hgb around 11 in Dec 2018. Recent admission for GI bleed; Hgb was 7 at time of admission. EGD showed small duodenal ulcer without hemorrhage; colonoscopy showed polyps, tics, internal hemorrhoids without active bleeding. Outpatient capsule endoscopy recommended and is pending. Received 3 units pRBC's during that admission. Discharge Hgb was 9.4. Hgb 9.2 at time of this admission. Hgb today = 7.3. Received 1 unit of pRBC's before DC. No gross GI bleeding. Fe levels OK. B12 normal. Folic acid 4.81. SPEP showed a faint restricted band (M-spike) migrating in the gamma globulin region. Immunofixation recommended and should be checked as outpatient. Received EPO. Referral made to [facility]. Consider Hematology consultation as outpatient if anemia does not improve. (8) Hypertension: Continue metoprolol and hydralazine. (9) Duodenal ulcer: EGD 06/15/19 demonstrated duodenal ulcer. Continue pantoprazole. (10) DVT prophylaxis: No anticoagulants because of recent GI bleed. SCD's. Ambulate. (11) Discharge planning issues: Discharge disposition to be determined; probable DC to her daughter's home until she is able to return to her apartment. Family Medicine follow-up with Dr. Sands. Nephrology follow-up with Dr. Menjivar. Follow-up with [facility] GI re: capsule endoscopy. Daughter given update this afternoon by phone. Admission and Anticipated Discharge Date Admission Date: June 23, 2019 Subjective Recheck for multiple problems. Patient seen in their room around 0820 and rechecked in the afternoon. Still having some left-sided abdominal pain, but seems to be better than it was. Large bowel movement yesterday after MiraLax without apparent melena or hematochezia. No nausea or vomiting. No fever, cough, SOB. Oxygenating well on RA. Ambulating in hallway. Would like to be discharged. Review of Systems: Constitutional- no fever. Cardiac- no anginal symptoms. Pulmonary- as noted above. GI- as noted above - no urinary symptoms. Otherwise, as noted above. Physical Exam Constitutional: no acute distress Respiratory: normal respiratory effort, lungs clear to auscultation no respiratory distress Auscultation: lungs clear to auscultation bilaterally (before and after today's pRBC's) Cardiovascular: Rate/Rhythm: regular rate and regular rhythm Heart Sounds: + murmur (I/ sys murmur at base); no gallop and no cardiac rub Vessels: no JVD Extremities: + edema (trace pretibial); no calf tenderness Gastrointestinal (Abdomen): normal bowel sounds, soft, nontender, no hepatosplenomegaly Inspection/Auscultation: normal bowel sounds; abdomen not distended Percussion/Palpation: + abdomen tender (mild tenderness left lateral abdomen) and abdomen soft Skin: no rashes, warm and dry Psychiatric: Orientation: alert Results & Data ([facility]) Vital Signs (Past 12 Hours) Vital Signs Temp Pulse Pulse Pulse Resp BP BP 06/30/19 12:50 36.5 C 60 18 136/75 06/30/19 11:50 36.9 C 61 18 147/75 H 06/30/19 11:20 36.8 C 62 18 145/72 H 06/30/19 10:50 36.6 C 55 L 18 146/69 H 06/30/19 10:20 36.7 C 63 63 18 146/69 H 06/30/19 10:05 36.5 C 66 18 148/69 H 06/30/19 09:45 36.5 C 64 18 152/64 H 06/30/19 07:36 63 06/30/19 07:24 37.0 C 63 18 06/30/19 05:03 37.1 C 79 18 147/63 H 06/30/19 03:20 61 Laboratory Results 06/30/19 05:38 06/30/19 05:38 Diagnostic Findings KUB FINDINGS: The bowel gas pattern is unremarkable. There are no dilated loops of small bowel to suggest an obstruction. No renal calculi. No ureteral calculi. No pneumoperitoneum or pneumatosis. Residual contrast within the colon with multiple sigmoid diverticula. Moderate osteoarthritis within the bilateral hips. There is also moderate degenerative disc disease within the lumbar spine. Poststernotomy changes are noted. IMPRESSION: No evidence for bowel obstruction. ACT 112: Negative or not required by law. Electronically signed by: Justin Bates M.D. 06/30/2019 10:27 AM (1) Abdominal pain Abdominal location: left upper quadrant Qualified Code(s): R10.12 - Left upper quadrant pain
[2019-06-30] MEDS ORDERED: TRAMADOL HCL 50 MG TABLET PO ONE (15:08)
--- NOTE | 2019-07-01 05:04 | Discharge Summary ---
Date of Service Date of Admission: 06/23/19 Date of Discharge: 06/30/19 Admission HPI Per Admitting Provider This is a 86-year-old female who has significant past medical history of CAD with history of CABG x4, HTN, HLD, CKD stage III, renal artery stenosis, benign essential tremor, duodenal ulcer who presents to ED secondary to left upper quadrant abdominal pain x3 to 4 days. Of significance patient recently hospitalized on 06/12 to 06/18 secondary to bright red blood per rectum and admission hemoglobin of 6.9 on aspirin therapy. She also had FORREST. She underwent EGD and colonoscopy which revealed a nonbleeding duodenal ulcer as well as colon polyps. She required 3 units PRBC per patient and was placed on daily Protonix. She was also seen and evaluated by nephrology secondary to an FORREST with a creatinine of 2.49 on admission. She underwent renal ultrasound which revealed atrophy significant for chronic renal disease as well as multiple notable cyst. She was stabilized and discharged to home. Since being home she is overall felt unwell and weak. She has been having left upper quadrant abdominal pain that feels similar to prior presentation; however her pain approximately 10 days ago was on the right side. She complains of pain in her left upper quadrant, nonradiating, currently 7/10, it comes and goes lasting seconds to minutes and goes away, described as stabbing, nothing makes it better or worse, does not seem to be affected by food and unable to attribute certain pattern to pain. Recalls similar pain to previous admission. Her last bowel movement was here in the ED which was diarrhea. Prior to that her last BM was approximately 2 to 3 days ago. Denies any difficulty urinating, dysuria, increased frequency urgency with urination, hematuria, melena, hematochezia. She does admit to feeling feverish but denies any chills or sweats. She denies any lightheadedness, dizziness, syncope, chest pain, palpitations, hemoptysis, shortness breath at rest, nausea, vomiting, hematemesis. She does admit to having a mild cough that is occasionally productive and complains of dyspnea on exertion, both of which are chronic. Overall her appetite has been poor and feels she has lost a significant amount of weight. Weight this morning was 168. She does elicit that she has been undergoing a lot of stress in her life as her of 40 years left her approximately 9 months ago and his family took everything in their house. Since then she has been with her daughter and this is been very difficult on her. In ED patient remained hemodynamically stable. According to nurse she was saturating in the low 90s and did drop into the high 80s which required some oxygen supplementation. Lab work revealed stable H&H at 9.2 and 28.3, WBC 5.65, platelet 152, K3.8, BUN 34, creatinine 2.56, glucose 145, lactate 1.6, total bili 1.4, albumin 2.9, stool for C. difficile was negative. Her lipase was normal. CXR/KUB:Revealed mild pulmonary vascular congestion with no acute process in the abdomen. In ED she received IV Zofran, IV morphine with improvement of pain. A CT scan of abdomen with oral contrast has been ordered but not completed. Principal Diagnosis hypoxia abnormal CT chest (probably due to transfusion associated circulatory overload) OTHER ACUTE / NEW DIAGNOSES: abdominal pain acute kidney injury bilateral renal cysts microscopic hematuria + p-ANCA Discharge Data Allergies Allergy/AdvReac Type Severity Reaction Status Date / Time lisinopril Allergy Severe Angioedema Verified 06/23/19 14:12 Consultations 06/23/19 15:39 ED Decision to Admit Stat 06/23/19 19:31 Consult Case Management - Discharge Planning Routine 06/23/19 20:03 Consult Pulmonology Routine 06/25/19 08:15 Consult Nephrology Routine 06/29/19 07:00 Consult General Surgery Routine 06/29/19 15:04 Consult Urology Routine Ordered Studies 06/23/19 15:38 CT abdomen w oral con only Stat 06/23/19 18:19 CT chest wo con Urgent 06/24/19 15:05 US venous doppler LE BI Urgent 06/28/19 08:57 CT abd pelvis wo con Urgent Hospital Course (1) Hypoxia: O2 saturation as low as 87%. Received supplemental O2 as needed. Supplemental O2 weaned and was oxygenating well on room air by discharge. (2) Abnormal CT scan of lung: CT of lung without contrast: IMPRESSION: 1. Cardiomegaly and coronary artery calcifications 2. Persistent dilatation of the ascending thoracic aorta which measures 4 cm. 3. Marked progression in the bilateral multifocal groundglass pulmonary opa cities. The findings are nonspecific but infectious/inflammatory process is favored over pulmonary edema. Clinical correlation and follow-up is recommended. ACT 112: Negative or not required by law. Electronically signed by: Nitin Cavanaugh M.D. 06/23/2019 7:24 PM No fever or cough. Seen in consultation by Pulmonary Medicine. Differential diagnosis includes CHF, TACO or TRALI from recent transfusions, and other etiologies. Pulmonary infection felt to be unlikely. Echo 06/14/19 showed mild concentric LVH, LVEF 55-60%. Received IV furosemide for suspected CHF. Chest x-ray improved, but creatinine becky. Received doxycycline x 7 days for possible atypical pneumnia. Legionella urine Ag negative. Mycoplasma IgM negative. Hypoxia / CT abnormalities most like secondary to transfusion-associated circulatory overload from recent transfusions. Follow-up CT (without contrast) recommended in 6-8 weeks. (3) Abdominal pain: Patient complained of what seemed to be LUQ abdominal pain day of admission. CT of abdomen did not show any apparent acute process. Symptoms improved, but worse today. Repeat CT abd/pelvis today- no change (tics without diverticulitis, no renal calculi, bilat renal cysts). Has atherosclerosis. Consider bowel ischemia. Lactate OK. General Surgery and Urology consulted. No identified cause of abdominal pain. Urology felt that unlikely that renal cysts causing pain; outpatient Urology follow-up and MRI recommended. Outpatient follow-up recommended. (4) Coronary artery disease: No anginal symptoms. (5) CKD (chronic kidney disease), stage III: CKD III with baseline creatinine around 1.3 - 1.4. History of hypertension and renovascular disease. Creatinine was 2.49 on 06/12 in the setting of GI bleed with Hgb of 7. Creatinine down to 2.17 on 06/19/19. Creatinine 2.56 at time of current admission. Creatinine becky as high as 3.1; today = 2.58. Nephrology consulted. ATN and other pathologies considered. UA showed RBC's and granular casts. P-ANCA was positive. C3 and C4 levels normal. ESR 63. Consider microscopic polyangiitis or renal-limited vasculitis (including drug- induced vasculitis from hydralazine), although complement levels normal and ESR only moderately elevated. Anti-glomerular basement membrane AB negative. Outpatient follow-up with Nephrology. (6) FORREST (acute kidney injury): As noted above. (7) Anemia: Baseline Hgb around 11 in Dec 2018. Recent admission for GI bleed; Hgb was 7 at time of admission. EGD showed small duodenal ulcer without hemorrhage; colonoscopy showed polyps, tics, internal hemorrhoids without active bleeding. Outpatient capsule endoscopy recommended and is pending. Received 3 units pRBC's during that admission. Discharge Hgb was 9.4. Hgb 9.2 at time of this admission. Hgb today = 7.3. Received 1 unit of pRBC's before DC. No gross GI bleeding. Fe levels OK. B12 normal. Folic acid 4.81. SPEP showed a faint restricted band (M-spike) migrating in the gamma globulin region. Immunofixation recommended and should be checked as outpatient. Received EPO. Referral made to [facility]. Consider Hematology consultation as outpatient if anemia does not improve. (8) Hypertension: Continue metoprolol and hydralazine. (9) Duodenal ulcer: EGD 06/15/19 demonstrated duodenal ulcer. Continue pantoprazole. (10) DVT prophylaxis: No anticoagulants because of recent GI bleed. SCD's. Ambulate. (11) Discharge planning issues: Discharge disposition to be determined; probable DC to her daughter's home until she is able to return to her apartment. Family Medicine follow-up with Dr. Sands. Nephrology follow-up with Dr. Menjivar. Follow-up with [facility] GI re: capsule endoscopy. Daughter given update this afternoon by phone. Total Time Total Time Spent Total Time Spent (In Minutes): 40 Discharge Plan Discharge Items Patient Disposition: Home - Home Health Services Reason For Visit: abdominal pain Discharge Diagnosis: abdominal pain low oxygen levels- resolved Activity: As commented below Activity Comment: Light activity as tolerated. Rest if tired. Non-emergency contact: Primary Care Provider and Hospitalist Call non-emergency contact if: you have any medication questions, your symptoms worsen and your temperature is above 101 Follow-up/Referrals: Suleman Sands MD [Primary Care Provider] - 07/03/19 11:00 am (07/03/2019 11:00 AM with Suleman Sands MD [facility] ) Diet: Heart Healthy Addtl Attending Provider Instructions: MEDICATION CHANGES: FOR PAIN: acetaminophen 500 mg tablets take 2 pills every 8 hours as needed for mild-moderate pain tramadol 50 mg tablets take 1 pill every 6 hours as needed for moderate pain no more than 3 times a day oxycodone 5 mg pills take 1 pill up to twice a day as needed for severe pain FOR CONSTIPATION: docusate sodium (Colace) 100 mg take 1 pill twice a day polyethylene glycol (MiraLax) 1 scoop or packet in 4 ounces of water or other beverage twice a day as needed for constipation SUMMARY OF TEST RESULTS: X-rays and CT scans did not show any sign of bowel blockage, diverticulitis, or kidney stones. CT scan showed some cysts in your kidneys. Ultrasound of your legs did not show any blood clots. RECOMMENDATIONS FOR FOLLOW-UP: Please ask Dr. Sands to check lab tests (basic metabolic profile and CBC). Please ask Dr. Sands for appointment with Dr. Dunne or one of his colleagues at [facility]. They will keep an eye on the kidney cysts. Please ask Dr. aSnds for a referral for Dr. Menjivar. Dr. Menjivar will be arranging for Anemia Clinic to keep an eye on your blood counts. Gastroenterology follow-up regarding capsule endoscopy ("pill camera"). 07/15/2019 2:00 PM Bouchra oGuld MD [facility] OTHER INSTRUCTIONS: Seek medical attention if you have: * temperature above 101 * chest pain or trouble breathing * abdominal pain, nausea, vomiting * diarrhea, dark stools or bloody stools * any unanswered questions or concerns Call 911 if symptoms are severe. Please take good care of yourself. Call if you have any questions or problems. You can reach a [facility] hospitalist on duty at [facility] 24 hours a day by calling [phone]. My cell # is [phone]. Pending Studies at Discharge: No Stand-Alone Forms: My [facility] [email or web address], Smoking Cessation Medications and DC Order Prescriptions: New oxycodone 5 mg tablet 5 mg PO BID PRN (Reason: severe pain) Qty: 10 RF: 0 acetaminophen [Tylenol Extra Strength] 500 mg tablet 1,000 mg PO Q8H PRN (Reason: pain) Qty: 60 RF: 0 docusate sodium [Colace] 100 mg capsule 100 mg PO BID Qty: 60 RF: 0 Continued atorvastatin 20 mg tablet 20 mg PO QAM RF: 0 potassium chloride 10 mEq tablet extended release 10 meq PO DIRECTED RF: 0 hydralazine 50 mg tablet 50 mg PO TID RF: 0 furosemide 20 mg tablet 20 mg PO DIRECTED RF: 0 epinephrine [EpiPen] 0.3 mg/0.3 mL Auto-Injector 0.3 mg IM DIRECTED PRN (Reason: Allergic Reaction) RF: 0 metoprolol tartrate 25 mg tablet 25 mg PO BID RF: 0 aspirin 81 mg Tablet,Delayed Release (Dr/Ec) 81 mg PO QAM RF: 0 loratadine 10 mg Tablet 10 mg PO HS RF: 0 amlodipine 5 mg tablet 5 mg PO DIRECTED RF: 0 pantoprazole 40 mg Tablet,Delayed Release (Dr/Ec) 40 mg PO QAM 30 Days Qty: 30 RF: 0 Changed tramadol 50 mg tablet 50 mg PO Q6H PRN (Reason: moderate pain) Qty: 20 RF: 0 Discharge Orders: Discharge Order (Routine); Ordered 06/30/19 Ordered By: Richi Evans Admission Data Admit Date/Time: 06/23/19 15:57 Attending Provider: Richi Evans Admit Provider: Malik Castro Primary Care Provider: Suleman Sands Other Providers: Malik Castro ; Cong Landers ; [facility] ; Alessia Menjivar ; Philip Villanueva ; José Miguel Dunne I. Other Interventions: Discharge Summary Assessment (RN) Last Done: 06/30/19 15:15 DC Date/Time DO NOT enter until pt leaves facility: 06/30/19 15:47
== END 2019-06-30 15:47 | disposition home health service (06) | DRG 391 ==
LOC: ED 12:34 → 2N 15:57 → SUATTDRO 15:57 → 2N 18:44

== ENCOUNTER 2019-08-20 09:33 | Inpatient (IN) ==
--- NOTE | 2019-08-20 09:48 | Emergency Department Note ---
History of Present Illness General Chief complaint: Chest Pain Stated complaint: CHEST PAIN Time Seen by Provider: 08/20/19 09:41 Source: patient, RN notes reviewed and old records reviewed Mode of arrival: ambulatory Limitations: no limitations History of Present Illness Maximum Pain Intensity: 7 This patient is an 78-year-old white female history of a bypass among other medical problems comes in after being sent over from her doctor's office after having intermittent chest pain since yesterday she has had some shortness of breath. 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 She may have had a low- grade temperature of 100.3 but she denies any to me she is been on prednisone for a month she is had some increasing shortness of breath since Saturday she did have some nausea. No fall or trauma. No pain or swelling in her legs. The pain hurts with breathing and moving. Home Medications Home Medications Medication Instructions Recorded Confirmed Type aspirin 81 mg PO QAM 12/29/18 08/20/19 History atorvastatin 20 mg PO HS 12/29/18 08/20/19 History epinephrine [EpiPen] 0.3 mg IM DIRECTED PRN 12/29/18 08/20/19 History furosemide 20 mg PO DIRECTED 12/29/18 08/20/19 History loratadine 10 mg PO HS 12/29/18 08/20/19 History metoprolol tartrate 25 mg PO BID 12/29/18 08/20/19 History amlodipine 5 mg PO DAILY 06/13/19 08/20/19 History acetaminophen [Tylenol Extra 1,000 mg PO Q8H PRN #60 tab 06/30/19 08/20/19 Rx Strength] docusate sodium [Colace] 100 mg PO BID #60 cap 06/30/19 08/20/19 Rx tramadol 50 mg PO Q6H PRN #20 tab 06/30/19 08/20/19 Rx pantoprazole 40 mg PO BID 08/20/19 08/20/19 History prednisone 40 mg PO QAM 08/20/19 08/20/19 History Allergies Allergy/AdvReac Type Severity Reaction Status Date / Time lisinopril Allergy Severe Angioedema Verified 08/20/19 10:19 Past Med/Surg History Medical History Anemia of renal disease Benign essential tremor Chronic diastolic heart failure CKD (chronic kidney disease), stage III (Chronic) Colonic polyp Coronary artery disease Duodenal ulcer Hyperlipidemia Hypertension Renal artery stenosis Surgical History (Updated 08/20/19 @ 12:45 by Sujey Velez PA-C) History of appendectomy History of cholecystectomy History of hysterectomy with oophorectomy History of lumbar surgery S/P CABG x 4 2015 Family History Father Coronary heart disease Pulmonary embolism Mother Cancer Sister Parkinson disease Social History Preferred Language: German Communication Ability: Effective Chick Sexer Required: No Beliefs That Will Affect Care: None marital status: Unknown Current Living Situation: Parent Current Living Situation Comment: lives with daughter Other Information That Helps Us Care for You: No Feels Safe at Home: Yes Safety Concerns: Feels Safe At This Time Smoking Status: Never smoker Do You Dip or Chew Tobacco: No ; Second Hand Exposure: No ; Tobacco Cessation Education Requested by Patient: No Hx Alcohol Use: No Hx Substance Use: No Review of Systems A total of 10 systems reviewed and were otherwise negative Physical Exam Vital Signs Vital Signs - 24 hr 08/20/19 09:36 08/20/19 10:08 08/20/19 10:54 Temperature 36.9 C Temperature Source Oral Pulse Rate 80 Pulse Rate [Right Finger] 64 Pulse Rate from SpO2 Sensor Respiratory Rate 18 18 Respiratory Effort / Characteristics Non-Labored Spontaneous Respiratory Depth Normal Respiratory Pattern Regular Blood Pressure 140/73 Blood Pressure [Right Arm] 143/72 H Blood Pressure Mean 95 Blood Pressure Mean [Right Arm] 95 Blood Pressure Position Sitting Pulse Oximetry 98 97 96 Oxygen Delivery Method Room Air Room Air Room Air Sepsis Recent Fever Within 48 Hours No Sepsis New/Unexplained Change in Mental Status No Sepsis Action Taken by Nursing No Action Required 08/20/19 11:00 08/20/19 11:30 08/20/19 12:00 Temperature Temperature Source Pulse Rate 60 62 70 Pulse Rate [Right Finger] Pulse Rate from SpO2 Sensor 62 63 68 Respiratory Rate 14 15 23 Respiratory Effort / Characteristics Respiratory Depth Respiratory Pattern Blood Pressure 150/74 H 162/76 H 148/85 H Blood Pressure [Right Arm] Blood Pressure Mean 106 108 114 Blood Pressure Mean [Right Arm] Blood Pressure Position Pulse Oximetry 96 96 96 Oxygen Delivery Method Sepsis Recent Fever Within 48 Hours Sepsis New/Unexplained Change in Mental Status Sepsis Action Taken by Nursing General: Well developed well nourished older female who in no acute distress, breathing comfortably on room air. Normal speech HEENT: Normal cephalic atraumatic. Pupils are equal round and reactive to light. Extraocular movements are intact. Oropharynx is pink with moist mucous membranes. No swelling of the mouth lips or tongue. Neck: Supple with a midline trachea. No meningeal signs or stiffness, no JVD or bruits. No Stridor. Chest: Clear to auscultation bilaterally. No wheezes or rhonchi. No increased work of breathing. Heart: Regular rate and rhythm without murmurs or gallops. Abdomen: Soft nontender, nondistended without rebound guarding or rigidity. Extremities: No cyanosis clubbing or edema. No calf tenderness or assymetry Spine/Back. Non tender to palpation. No CVA tenderness Skin: Good turgor without rashes. Neurologic exam: Cranial nerves two through 12 are intact. Motor and sensation are intact and symmetrical throughout. Course Administered Medications Discontinued Medications Aspirin (Aspirin Chew) 324 mg PO NOW STA Stop: 08/20/19 11:53 Last Admin: 08/20/19 11:55 Dose: Not Given Documented by: [id number] Aspirin (Aspirin) Confirm Administered Dose 324 mg .ROUTE .K-MED ONE Stop: 08/20/19 11:55 Last Admin: 08/20/19 11:54 Dose: 324 mg Documented by: [id number] Medical Decision Making Differential Diagnosis Includes but is not limited to: Acute coronary syndrome, vasculitis, CHF, infection, electrolyte or metabolic abnormality, pneumonia, sepsis, PE, aortic pathology Medical Records Attestation: I reviewed the patient's medical records. Home Medications Current Medication List: was personally reviewed by me Laboratory Data Attestation: I reviewed the patient's lab results. Result diagrams: 08/20/19 10:05 08/20/19 10:05 Lab Results 08/20/19 08/20/19 08/20/19 Range/Units 10:05 10:05 10:05 WBC 12.18 H (4.8-10.8) K/uL RBC 3.35 L (4.2-5.4) M/uL Hgb 10.5 L (12.0-16.0) g/dL Hct 32.0 L (37-47) % MCV 95.5 (80-100) fL MCH 31.3 (25-34) pg MCHC 32.8 (32-36) g/dL RDW Std Deviation 61.2 H (36.4-46.3) fL RDW Coeff of Filiberto 17.4 H (11.5-14.5) % Plt Count 114 L (130-400) K/uL MPV 9.9 (7.4-10.4) fL Immature Gran % (Auto) 1.5 % Neut % (Auto) 90.9 % Lymph % (Auto) 6.0 % [place] % (Auto) 1.1 % Eos % (Auto) 0.4 % Baso % (Auto) 0.1 % Immature Gran # (Auto) 0.18 H (0.00-0.02) K/uL Neut # (Auto) 11.07 H (1.4-6.5) K/uL Lymph # (Auto) 0.73 L (1.2-3.4) K/uL [place] # (Auto) 0.14 (0.11-0.59) K/uL Eos # (Auto) 0.05 (0-0.5) K/uL Baso # (Auto) 0.01 (0-0.2) K/uL PT 10.7 (9.0-12.0) Seconds INR 1.0 (0.9-1.1) APTT 20.2 L (21.0-31.0) Seconds PTT Ratio 0.7 Sodium 141 (136-145) mmol/L Potassium 4.3 (3.5-5.1) mmol/L Chloride 109 H (98-107) mmol/L Carbon Dioxide 23 (21-32) mmol/L Anion Gap 9.0 (3-11) BUN 43 H (7-18) mg/dl Creatinine 1.84 H (0.6-1.2) mg/dl Est Cr Clr Drug Dosing 23.3 ml/min Est GFR ( Amer) 29.5 Est GFR (Non-Af Amer) 25.4 BUN/Creatinine Ratio 23.3 H (10-20) Glucose 180 H (70-99) mg/dl Calcium 8.0 L (8.5-10.1) mg/dl Total Bilirubin 0.7 (0.2-1) mg/dl AST 15 (15-37) U/L ALT 32 (12-78) U/L Alkaline Phosphatase 63 (45-117) U/L Troponin I 0.057 H* (0-0.045) ng/ml Total Protein 6.1 L (6.4-8.2) gm/dl Albumin 2.8 L (3.4-5.0) gm/dl Globulin 3.3 (2.5-4.0) gm/dl Albumin/Globulin Ratio 0.9 (0.9-2) Lipase 142 (73-393) U/L Imaging Data Radiologist's Impression: Chest x-ray: No acute finding ECG Data Attestation: I personally reviewed and interpreted this ECG as follows: Indication: + chest pain Rate (beats per minute): 73 Rhythm: + normal sinus ECG Intervals/blocks: + First degree AV block, + Normal QRS, + Prolonged QT and + Normal CT ECG [place]: + Normal ECG ST segments: + ST depression (Inf/lat) and + T-wave inversions (Inf/lat) ECG Findings: no PACs and no PVCs Comparison ECG Date: from (06/23/19) Change: the following changes noted (There are significant ST depressions inferiorly and laterally with T wave inversions that are new from the old EKG) Additional Comments: EKG #2: Normal sinus rhythm with a rate of 66. First- degree AV block. She does have ST segment depression with T wave inversions inferiorly and laterally which may look worse than EKG #1 however EKG #1 had poor baseline. There certainly significantly changed however from June 23, 2019 Blood Pressure Blood Pressure Findings: Normal blood pressure Blood Pressure Disposition: did not require urgent referral MDM Narrative This patient comes in with intermittent chest pain she has a very complex medical history. She was placed on a quality assurance monitor body in room C7. IV access was established. EKG and multiple blood testing was obtained. She was reassessed frequently. She remained stable and initially has some chest pain but when I went to recheck her she no longer had any chest pain while she was in the ED. Her EKG does have some ST segment depressions which are new as well as T wave inversions compared to her old EKG. She is currently being treated for vasc ulitis is on steroids thus does complicate this significantly. Troponin is mildly elevated. She has no significant electrolyte or metabolic abnormalities with exception of chronic renal failure/insufficiency which actually looks better than the most recent. Her creatinine today is 1.84 with her baseline running around 2.5. She was given aspirin chewable 324 mg here. Given her EKG changes a I do think she needs to be admitted/observed. I called the [facility] admission team and they recommended I talk to cardiology. I did talk to Dr. Valentino who recommended we order an echo in the ED and he would come see her. She has nothing to suggest COVID at this point. He did an echo and evaluated her in the ED and is going to admit her as she has no wall motion abnormalities. Continuous cardiac monitoring: An order was placed for continuous cardiac monitoring due to the patient's complaint of chest pain. She was noted to be in normal sinus rhythm with a rate of 62 when interpreted by myself. Impression & Plan Chest pain, Acute electrocardiogram changes, Elevated troponin I level, Chronic renal insufficiency Discharge Plan Visit Data *Final* Discharge Date/Time: 08/20/19 12:45 Chief Complaint: Chest Pain Stated Complaint: CHEST PAIN ED Provider: James Pedersen Discharge Problem: Chest pain, Acute electrocardiogram changes, Elevated troponin I level, Chronic renal insufficiency Patient Disposition: Admitted As Inpatient Discharge Instructions Interventions: ED Discharge Assessment Last Done: 08/20/19 12:45 Discharge Problem: Chest pain Qualifiers: Chest pain type: unspecified Qualified Code(s): R07.9 - Chest pain, unspecified Chronic renal insufficiency Qualifiers: Chronic kidney disease stage: unspecified stage Qualified Code(s): N18.9 - Chronic kidney disease, unspecified
--- NOTE | 2019-08-20 09:54 | XRay Report ---
SINGLE VIEW CHEST CLINICAL HISTORY: Atypical chest pain. FINDINGS: An AP, portable, upright chest radiograph is compared to study dated 06/25/2019 and correlat ed with chest CT dated 06/23/2019. The patient is status post midline sternotomy. The heart is enlarge d noting atherosclerotic calcification of the thoracic aorta. The pulmonary vasculature is noncongest ed. There is minimal bibasilar atelectasis. The lungs and pleural spaces are otherwise clear. No pneu mothorax is seen. The skeletal structures are osteopenic. The bony thorax is grossly intact. IMPRESSION: Cardiomegaly with no active disease in the chest. ACT 112: Negative or not required by law. Electronically signed by: Get Hanson M.D. 08/20/2019 9:53 AM
[2019-08-20 10:12] LABS: Basophils # (auto) 0.01 K/uL (0-0.2); Basophils % (auto) 0.1 %; Eosinophils # (auto) 0.05 K/uL (0-0.5); Eosinophils % (auto) 0.4 %; Hemoglobin 10.5 g/dL (12.0-16.0); Immature Granulocytes # (auto) 0.18 K/uL (0.00-0.02); Immature Granulocytes % (auto) 1.5 %; Lymphocytes # (auto) 0.73 K/uL (1.2-3.4); Mean Corpuscular Hemoglobin 31.3 pg (25-34); Mean Corpuscular Hgb Conc 32.8 g/dL (32-36); Mean Corpuscular Volume 95.5 fL (80-100); Mean Platelet Volume 9.9 fL (7.4-10.4); Monocytes # (auto) 0.14 K/uL (0.11-0.59); Monocytes % (auto) 1.1 %; Neutrophils # (auto) 11.07 K/uL (1.4-6.5); Neutrophils % (auto) 90.9 %; Platelet Count 114 K/uL (130-400); RDW Coefficient of Variation 17.4 % (11.5-14.5); RDW Standard Deviation 61.2 fL (36.4-46.3); Red Blood Count 3.35 M/uL (4.2-5.4); White Blood Count 12.18 K/uL (4.8-10.8)
[2019-08-20 10:24] LABS: Partial Thromboplastin Ratio 0.7; Partial Thromboplastin Time 20.2 Seconds (21.0-31.0); Prothrombin Time 10.7 Seconds (9.0-12.0)
[2019-08-20 10:27] LABS: Albumin Level 2.8 gm/dl (3.4-5.0); BUN Creatinine Ratio 23.3 (10-20); Creatinine Clr Calc Pharmacy 23.3 ml/min; Est GFR (African American) 29.5; Est GFR (Non-African American) 25.4; Potassium 4.3 mmol/L (3.5-5.1)
[2019-08-20 10:44] LABS: Albumin Globulin Ratio 0.9 (0.9-2); Bilirubin,Total 0.7 mg/dl (0.2-1); Globulin 3.3 gm/dl (2.5-4.0); Total Protein 6.1 gm/dl (6.4-8.2); Troponin I 0.057 ng/ml (0-0.045)
[2019-08-20] MEDS ORDERED: ASPIRIN 81 MG CHEW PO STA (11:52)
[2019-08-20] MEDS ORDERED: ASPIRIN CHEW 324 MG ONE (11:54)
--- NOTE | 2019-08-20 11:54 | History & Physical Report ---
Date of Service August 20, 2019 Assessment & Plan (1) Shortness of breath: -patient with rather nonspecific consternation of symptoms. Reports waking up this morning feeling shortness of breath. she went to outpatient clinic and was told to go to the ED. patient allegedly had a tympanic temperature somewhat elevated on 100.3 F when she proceeded through hospital checkpoints. in the ED, patient was not found to have fever. patient denies sick contacts. she declines COVID-19 screening. no hypoxia in the ED. no lung infiltrates on CXR -PT/OT evaluation to assess ambulation and oxygen requirements when walking Chest pain Elevated troponin History of Coronary artery disease with CABG in the past -patient denies active chest pain in the ED, but when questioned further, she said that she did have chest pain the day before ED presentation. patient's daughter affirms that pain occurred the day before admission and lasted for about an hour and associated with an episode of vomiting -elevated troponin as 0.057, trend troponin, cardiology requested as there appears to be some EKG changes compared to June 2019 stay -echocardiogram to rule out wall motion abnormalities or pericarditis or pericardial effusion -emergency room physician ordered aspirin 324 mg x 1 -home medication of aspirin 81 mg daily starting tomorrow and atorvastatin Chronic Kidney Disease stage III to IV History of renal artery stenosis as per records -in June 2019 hospitalization patient had acute kidney injury around 2.5 before trending down -on the admission the creatinine is much improved as 1.8 -monitor renal function Hypertension -continue home dose amlodipine of 5 mg daily -on metoprolol tartrate 25 mg BID, continue for now 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 Sam Leukocytosis -could be from steroid use at home versus potential inflammation from other etiologies. will send urine analysis and send blood culture. will not start antibiotics at this time unless patient spikes a legitimate febrile temperature or if a source of infection identified in cultures Anemia History of Duodenal ulcer in the past -admission hemoglobin of 10.5 is improved compared to June 2019 -patient denies recent blood in stool -on protonics at home, continue Full Code My colleague Dr. Mcdowell will be following the patient starting on 08/21/2019 History of Present Illness patient with rather nonspecific consternation of symptoms. Reports waking up this morning feeling shortness of breath. she went to outpatient clinic and was told to go to the ED. patient allegedly had a tympanic temperature somewhat elevated on 100.3 F when she proceeded through hospital checkpoints. in the ED, patient was not found to have fever. patient denies sick contacts. she declines COVID-19 screening. no hypoxia in the ED. no lung infiltrates on CXR patient denies active chest pain in the ED, but when questioned further, she said that she did have chest pain the day before ED presentation. patient's daughter affirms that pain occurred the day before admission and lasted for about an hour and associated with an episode of vomiting patient denies recent blood in stool. denies abdominal pain. denies vomiting Primary Care Provider: Suleman Sands MD Allergies Allergy/AdvReac Type Severity Reaction Status Date / Time lisinopril Allergy Severe Angioedema Verified 08/20/19 10:19 Home Medications Home Medications Medication Instructions Recorded Confirmed Type aspirin 81 mg PO QAM 12/29/18 08/20/19 History atorvastatin 20 mg PO HS 12/29/18 08/20/19 History epinephrine [EpiPen] 0.3 mg IM DIRECTED PRN 12/29/18 08/20/19 History furosemide 20 mg PO DIRECTED 12/29/18 08/20/19 History loratadine 10 mg PO HS 12/29/18 08/20/19 History metoprolol tartrate 25 mg PO BID 12/29/18 08/20/19 History amlodipine 5 mg PO DAILY 06/13/19 08/20/19 History acetaminophen [Tylenol Extra 1,000 mg PO Q8H PRN #60 tab 06/30/19 08/20/19 Rx Strength] docusate sodium [Colace] 100 mg PO BID #60 cap 06/30/19 08/20/19 Rx tramadol 50 mg PO Q6H PRN #20 tab 06/30/19 08/20/19 Rx pantoprazole 40 mg PO BID 08/20/19 08/20/19 History prednisone 40 mg PO QAM 08/20/19 08/20/19 History Past Med/Surg History Medical History Anemia of renal disease Benign essential tremor CKD (chronic kidney disease), stage III Colonic polyp Coronary artery disease Duodenal ulcer Hyperlipidemia Hypertension Renal artery stenosis Surgical History History of appendectomy History of cholecystectomy History of hysterectomy with oophorectomy History of lumbar surgery History of quadruple bypass S/P CABG x 4 Family History Father Coronary heart disease Pulmonary embolism Mother Cancer Sister Parkinson disease Social History Preferred Language: Vietnamese Communication Ability: Effective Civil Cad Tech Required: No Beliefs That Will Affect Care: None marital status: Unknown Current Living Situation: Parent Current Living Situation Comment: lives with daughter Other Information That Helps Us Care for You: No Feels Safe at Home: Yes Safety Concerns: Feels Safe At This Time Smoking Status: Never smoker Do You Dip or Chew Tobacco: No ; Second Hand Exposure: No ; Tobacco Cessation Education Requested by Patient: No Hx Alcohol Use: No Hx Substance Use: No Review of Systems Review of Systems: All systems reviewed & are unremarkable except as noted in HPI & below Physical Exam Constitutional: cooperative Eyes: PERRL, conjunctivae normal, anicteric sclerae EOM intact bilaterally ENMT: external ear and nose normal, oropharynx normal Neck: trachea midline, no thyromegaly Respiratory: normal respiratory effort, lungs clear to auscultation Cardiovascular: Rate/Rhythm: + bradycardic Gastrointestinal (Abdomen): normal bowel sounds, soft, nontender, no hepatosplenomegaly Musculoskeletal: Head/Neck/Chest: normocephalic and head atraumatic Neurologic: PERRL, EOMI, accommodation nl, no face palsy, no dysarthria Psychiatric: A+Ox3, euthymic affect Results & Data Results & Data ([facility]) Vital Signs (Past 12 Hours) Vital Signs Temp Pulse Pulse Resp BP BP Pulse Ox 08/20/19 11:30 62 15 162/76 H 96 08/20/19 11:00 60 14 150/74 H 96 08/20/19 10:54 64 18 143/72 H 96 08/20/19 10:08 97 08/20/19 09:36 36.9 C 80 18 140/73 98
--- NOTE | 2019-08-20 12:58 | Cardiology Consultation ---
Date of Consultation August 20, 2019 Assessment & Plan (1) Chest pain: (2) Acute electrocardiogram changes: (3) Shortness of breath: (4) Renal artery stenosis: (5) CKD (chronic kidney disease), stage III: (6) Hypertension: (7) Hyperlipidemia: (8) Coronary artery disease: (9) GI bleed: Her description of the chest discomfort is atypical for acute ischemia, however, her ischemic EKG changes are obviously concerning. Luckily she is now discomfort free and her echocardiogram showed no new wall motion abnormalities. I believe the most prudent course of action at this point will be to admit the patient to telemetry for observation and serial cardiac enzymes. Should her troponin levels elevate I would initiate heparin at that time. If she has any recurrent chest discomfort that is not amenable to medical therapy then cardiac catheterization may be necessary. I believe would be prudent to review with the patient and daughter how aggressive they would like to be in terms of invasive procedures given her advanced age, dementia and comorbidities. Remain n.p.o. for now. Continue aspirin, amlodipine, metoprolol and atorvastatin. History of Present Illness Reason for Consultation: Chest pain Requesting Physician: Dr. Pedersen Attending Physician: Sujey Velez PA-C History of Present Illness It was my pleasure to see Mrs. Parker in consultation today August 20, 2019. She is a very pleasant 78-year-old woman who presented to [facility] emergency department with reports of chest discomfort and shortness of breath. The patient is somewhat confused and the majority of the history was obtained through discussion with her daughter. Patient remarked that she was having chest discomfort on the day prior to arrival to her daughter. She is also voiced complaints of some shortness of breath starting yesterday after waking up. She is reported that it is worse with movement or deep inhalation and rather sharp and stabbing in nature. She is not sure if this is similar to her anginal equivalent that she is experienced in the past. In the emergency department her EKG drastically changed to suggest ischemia, however, she is now symptom-free. Initial troponin is not remarkable. Bedside 2D echocardiogram was performed which showed normal wall motion. Of note, the patient underwent upper endoscopy the day prior to presentation. Unfortunately, I am unable to find the results in [facility]. Past medical history: 1.(04/25/2015) Coronary bypass x4, STILES--LAD, SVG--D1, SVG--OM, and SVG--PDA. 2. Renal artery stenosis 3. Hypertension 4. 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 Osteoarthritis 7. Dementia 8. History of GI hemorrhage 9. History of malnutrition Allergies Allergy/AdvReac Type Severity Reaction Status Date / Time lisinopril Allergy Severe Angioedema Verified 08/20/19 10:19 Home Medications Home Medications Medication Instructions Recorded Confirmed Type aspirin 81 mg PO QAM 12/29/18 08/20/19 History atorvastatin 20 mg PO HS 12/29/18 08/20/19 History epinephrine [EpiPen] 0.3 mg IM DIRECTED PRN 12/29/18 08/20/19 History furosemide 20 mg PO DIRECTED 12/29/18 08/20/19 History loratadine 10 mg PO HS 12/29/18 08/20/19 History metoprolol tartrate 25 mg PO BID 12/29/18 08/20/19 History amlodipine 5 mg PO DAILY 06/13/19 08/20/19 History acetaminophen [Tylenol Extra 1,000 mg PO Q8H PRN #60 tab 06/30/19 08/20/19 Rx Strength] docusate sodium [Colace] 100 mg PO BID #60 cap 06/30/19 08/20/19 Rx tramadol 50 mg PO Q6H PRN #20 tab 06/30/19 08/20/19 Rx pantoprazole 40 mg PO BID 08/20/19 08/20/19 History prednisone 40 mg PO QAM 08/20/19 08/20/19 History Patient History Medical History Anemia of renal disease Benign essential tremor Chronic diastolic heart failure CKD (chronic kidney disease), stage III (Chronic) Colonic polyp Coronary artery disease Duodenal ulcer Hyperlipidemia Hypertension Renal artery stenosis Surgical History (Updated 08/20/19 @ 12:45 by Sujey Velez PA-C) History of appendectomy History of cholecystectomy History of hysterectomy with oophorectomy History of lumbar surgery S/P CABG x 4 2015 Family History Father Coronary heart disease Pulmonary embolism Mother Cancer Sister Parkinson disease Social History Preferred Language: Yakut Communication Ability: Effective Film Flat Inspector Required: No Beliefs That Will Affect Care: None marital status: Unknown Current Living Situation: Parent Current Living Situation Comment: lives with daughter Other Information That Helps Us Care for You: No Feels Safe at Home: Yes Safety Concerns: Feels Safe At This Time Smoking Status: Never smoker Do You Dip or Chew Tobacco: No ; Second Hand Exposure: No ; Tobacco Cessation Education Requested by Patient: No Hx Alcohol Use: No Hx Substance Use: No Review of Systems Review of Systems: All systems reviewed & are unremarkable except as noted in HPI & below Physical Exam Physical Exam: General: Awake, alert and oriented x 3. No acute distress. HEENT: Normocephalic, atraumatic. Pupils equal, round and reactive to light and accommodation. Extraocular muscles are intact. Anicteric sclera. Moist mucous membranes. Neck: No JVD. No bruit. Cardiovascular: Regular. Positive S-4. Normal S-1 and S-2. No S-3. 3/6 mid to late systolic ejection murmur, greatest at the right sternal border, second intercostal space with radiation to the bilateral carotids. No rubs. Pulmonary: Clear to auscultation bilaterally. No rales, rhonchi, or wheezing. Abdomen: Bowel sounds x 4, soft. No rebound, guarding or tenderness. No or ganomegaly. Extremities: No clubbing, cyanosis or edema. +2 pedal pulses bilaterally. Skin: Warm and dry. Results & Data ([facility]) Vital Signs (Past 12 Hours) Vital Signs Temp Pulse Pulse Resp BP BP Pulse Ox 08/20/19 12:45 64 18 164/80 H 96 08/20/19 12:00 70 23 148/85 H 96 08/20/19 11:30 62 15 162/76 H 96 08/20/19 11:00 60 14 150/74 H 08/20/19 10:54 64 18 143/72 H 08/20/19 10:08 97 08/20/19 09:36 36.9 C 80 18 140/73 98 Laboratory Results Laboratory Results - last 24 hr 08/20/19 08/20/19 08/20/19 10:05 10:05 10:05 WBC 12.18 H RBC 3.35 L Hgb 10.5 L Hct 32.0 L MCV 95.5 MCH 31.3 MCHC 32.8 RDW Std Deviation 61.2 H RDW Coeff of Filiberto 17.4 H Plt Count 114 L MPV 9.9 Immature Gran % (Auto) 1.5 Neut % (Auto) 90.9 Lymph % (Auto) 6.0 [place] % (Auto) 1.1 Eos % (Auto) 0.4 Baso % (Auto) 0.1 Immature Gran # (Auto) 0.18 H Neut # (Auto) 11.07 H Lymph # (Auto) 0.73 L [place] # (Auto) 0.14 Eos # (Auto) 0.05 Baso # (Auto) 0.01 PT 10.7 INR 1.0 APTT 20.2 L PTT Ratio 0.7 Sodium 141 Potassium 4.3 Chloride 109 H Carbon Dioxide 23 Anion Gap 9.0 BUN 43 H Creatinine 1.84 H Est Cr Clr Drug Dosing 23.3 Est GFR ( Amer) 29.5 Est GFR (Non-Af Amer) 25.4 BUN/Creatinine Ratio 23.3 H Glucose 180 H Calcium 8.0 L Total Bilirubin 0.7 AST 15 ALT 32 Alkaline Phosphatase 63 Troponin I 0.057 H* Total Protein 6.1 L Albumin 2.8 L Globulin 3.3 Albumin/Globulin Ratio 0.9 Lipase 142 (1) Chest pain Chest pain type: unspecified Qualified Code(s): R07.9 - Chest pain, unspecified (2) GI bleed GI bleed type/associated pathology: unspecified gastrointestinal hemorrhage type Qualified Code(s): K92.2 - Gastrointestinal hemorrhage, unspecified
[2019-08-20] MEDS ORDERED: POLYETHYLENE (MIRALAX) 17 GM PACK PO PRN (13:24)
[2019-08-20] MEDS ORDERED: ONDANSETRON INJ 2 MG/ML 2 ML VIAL IV PRN (13:24)
[2019-08-20] MEDS ORDERED: EPINEPHRINE ADULT AUTO-INJECT 0.3 MG SYR IM PRN (13:24)
[2019-08-20] MEDS ORDERED: DOCUSATE SODIUM 100 MG CAP PO PRN (13:24)
[2019-08-20] MEDS ORDERED: TRAMADOL HCL 50 MG TABLET PO PRN (13:24)
[2019-08-20] MEDS ORDERED: ACETAMINOPHEN 500 MG TAB PO PRN (13:24)
[2019-08-20 16:48] LABS: Appearance Urine Clear (Clear); Bacteria Urine Automated 1+ (Negative); Bilirubin Urine Negative (Negative); Blood Urine 2+ (Negative); Cast Urine Automated 0 /lpf (0-5); Color Urine Yellow; Epithelial Cell Urine Auto 20-30 /lpf (0-5); Glucose Urine UA Negative (Negative); Ketones Urine Negative (Negative); Leukocyte Esterase Urine 1+ (Negative); Nitrite Urine Negative (Negative); Protein Urine Negative (Negative); Specific Gravity Urine 1.015 (1.000-1.030); Urobilinogen Urine Negative (Negative)
[2019-08-20] MEDS: ATORVASTATIN 20 MG TAB PO SCH (20:51)
[2019-08-20] MEDS: LORATADINE 10 MG TAB PO SCH (20:51)
[2019-08-20] MEDS: METOPROLOL TARTRATE 25 MG TAB PO SCH (20:52)
[2019-08-20] MEDS: PANTOprazole 40 MG TAB PO SCH (20:52)
--- NOTE | 2019-08-20 22:54 | Electrocardiogram Report ---
Test Reason : Blood Pressure : / mmHG Vent. Rate : 073 BPM Atrial Rate : 073 BPM P-R Int : 238 ms QRS Dur : 102 ms QT Int : 382 ms P-R-T Axes : 037 -23 214 degrees QTc Int : 420 ms Sinus rhythm with 1st degree A-V block Left ventricular hypertrophy with repolarization abnormality Cannot rule out Septal infarct (cited on or before 20-AUG-2019) Abnormal ECG When compared with ECG of 23-JUN-2019 13:46, Premature ventricular complexes are no longer Present T wave inversion now evident in Inferior leads and anterior leads Confirmed by Checo Cuello ([id number]) on 08/20/2019 10:54:03 PM Referred By: Confirmed By:Checo Cuello
--- NOTE | 2019-08-21 06:09 | Electrocardiogram Report ---
Test Reason : Blood Pressure : / mmHG Vent. Rate : 066 BPM Atrial Rate : 066 BPM P-R Int : 242 ms QRS Dur : 100 ms QT Int : 404 ms P-R-T Axes : 090 -26 257 degrees QTc Int : 423 ms Sinus rhythm with 1st degree A-V block Left ventricular hypertrophy with repolarization abnormality Abnormal ECG When compared with ECG of 20-AUG-2019 09:46, No significant change was found Confirmed by Checo Cuello ([id number]) on 08/21/2019 6:09:09 AM Referred By: REFERRED SELF Confirmed By:Checo Cuello
[2019-08-21 07:23] LABS: Hematocrit (blood only) 29.5 % (37-47); Hemoglobin 9.7 g/dL (12.0-16.0); Mean Corpuscular Hgb Conc 32.9 g/dL (32-36); Mean Corpuscular Volume 94.2 fL (80-100); Mean Platelet Volume 10.5 fL (7.4-10.4); Platelet Count 101 K/uL (130-400); RDW Coefficient of Variation 17.1 % (11.5-14.5); RDW Standard Deviation 59.1 fL (36.4-46.3); Red Blood Count 3.13 M/uL (4.2-5.4); White Blood Count 8.51 K/uL (4.8-10.8)
[2019-08-21 07:51] LABS: BUN Creatinine Ratio 22.2 (10-20); Calcium 8.1 mg/dl (8.5-10.1); Creatinine Clr Calc Pharmacy 23.5 ml/min; Est GFR (African American) 30.1; Est GFR (Non-African American) 25.9; Potassium 4.2 mmol/L (3.5-5.1)
[2019-08-21] MEDS: predniSONE 20 MG TAB PO SCH (07:54)
[2019-08-21] MEDS: ASPIRIN 81 MG ECTAB PO SCH (07:54)
[2019-08-21] MEDS: AMLODIPINE BESYLATE 5 MG TAB PO SCH (07:54)
[2019-08-21] MEDS: PANTOprazole 40 MG TAB PO SCH ×2 (07:54→20:16)
--- NOTE | 2019-08-21 11:46 | Hospitalist Progress Note ---
Date of Service August 21, 2019 Assessment & Plan (1) Shortness of breath: Admitted with exertional shortness of breath with some chest pain and noted to have significant EKG changes Chest pain Elevated troponin History of Coronary artery disease with CABG in the past Initial troponin was minimally high at 0.057 with significant EKG changes Serial troponins and EKGs were unremarkable Echo of the heart showed-no significant change compared with prior study in November 2016, normal LV systolic function with EF of 60 to 65%, no segmental LV wall motion abnormalities, grade 1 diastolic dysfunction, right ventricular cavity size is normal with mildly reduced RV systolic function and mild tricuspid regurgitation. Appreciate cardiology input and recommendation She remains free for any symptoms as of this morning Discussed with loader operator and she will be discharged home this afternoon Chronic Kidney Disease stage III to IV History of renal artery stenosis as per records -in June 2019 hospitalization patient had acute kidney injury around 2.5 before trending down -on the admission the creatinine is much improved as 1.8 -Kidney function remains stable with creatinine of 1.81 this morning on 08/21/2019 Hypertension -continue home dose amlodipine of 5 mg daily -on metoprolol tartrate 25 mg BID, continue for now -Blood pressure is controlled 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 Sam -No acute symptoms Leukocytosis -could be from steroid use at home versus potential inflammation from other etiologies. will send urine analysis and send blood culture. will not start antibiotics at this time unless patient spikes a legitimate febrile temperature or if a source of infection identified in cultures -Has a streptococcal UTI. Sensitivities pending -Will start IV ceftriaxone Anemia History of Duodenal ulcer in the past -admission hemoglobin of 10.5 is improved compared to June 2019 -patient denies recent blood in stool -on protonics at home, continue -Hemoglobin 9.7 Full Code Await urine culture and sensitivity lian Will start intravenous ceftriaxone Likely discharge tomorrow l Admission and Anticipated Discharge Date Admission Date: August 20, 2019 Subjective The patient was seen and examined in telemetry unit She remains free from any symptoms No more chest pain and/or palpitation, no shortness of breath Has been ambulating in the room without any difficulty Will be sent home this afternoon Review of Systems Review of Systems: All systems reviewed and are unremarkable except as noted below Respiratory: no cough and no dyspnea Cardiovascular: + dyspnea at rest; no chest pain and no palpitations Physical Exam Physical Exam: Sitting on a chair without any acute symptoms Constitutional: well developed and well nourished; no acute distress and not ill appearing Eyes: PERRL, conjunctivae normal, anicteric sclerae ENMT: external ear and nose normal, oropharynx normal Neck: trachea midline, no thyromegaly Respiratory: normal respiratory effort; no respiratory distress Auscultation: lungs clear to auscultation bilaterally Cardiovascular: Rate/Rhythm: regular rate and regular rhythm Heart Sounds: no murmur Gastrointestinal (Abdomen): Inspection/Auscultation: abdomen normal to inspection and normal bowel sounds Percussion/Palpation: abdomen soft; abdomen nontender Musculoskeletal: No acute arthritis in the joints Results & Data Results & Data ([facility]) Vital Signs (Past 12 Hours) Vital Signs Temp Pulse Resp BP BP Pulse Ox 08/21/19 11:18 37.2 C 69 17 125/74 96 08/21/19 07:06 36.7 C 53 L 18 165/74 H 96 08/21/19 03:22 36.6 C 60 18 144/84 H 95 08/20/19 23:46 36.4 C L 51 L 18 156/75 H 96 Laboratory Results Short CBC 08/21/19 Range/Units 06:52 WBC 8.51 (4.8-10.8) K/uL Hgb 9.7 L (12.0-16.0) g/dL Hct 29.5 L (37-47) % Plt Count 101 L (130-400) K/uL BMP 08/21/19 06:52 Sodium 140 Potassium 4.2 Chloride 109 H Carbon Dioxide 26 BUN 40 H Creatinine 1.81 H Glucose 101 H Calcium 8.1 L Cardiac Enzymes 08/20/19 08/20/19 Range/Units 16:07 22:23 Troponin I 0.057 H* 0.039 (0-0.045) ng/ml Urine 08/20/19 Range/Units 10:05 Urine Color Yellow Urine Appearance Clear (Clear) Urine pH 5.0 (4.5-7.5) Ur Specific [place] 1.015 (1.000-1.030) Urine Protein Negative (Negative) Urine Glucose (UA) Negative (Negative) Medications Administered Current Inpatient Medications Acetaminophen (Tylenol) 1,000 mg PO Q8H PRN PRN Reason: pain Stop: 09/19/19 13:23 Amlodipine Besylate (Norvasc) 5 mg PO DAILY [facility] Stop: 09/20/19 08:59 Last Admin: 08/21/19 07:54 Dose: 5 mg Documented by: Aspirin (Ecotrin Ectab) 81 mg PO QAM [facility] Stop: 09/20/19 08:59 Last Admin: 08/21/19 07:54 Dose: 81 mg Documented by: Atorvastatin Calcium (Lipitor) 20 mg PO [facility] Stop: 09/19/19 20:59 Last Admin: 08/20/19 20:51 Dose: 20 mg Documented by: Docusate Sodium (Colace) 100 mg PO BID PRN PRN Reason: Constipation Stop: 09/19/19 13:23 Epinephrine HCl (Epipen) 0.3 mg IM UD PRN PRN Reason: Allergic Reaction Stop: 09/19/19 13:23 Loratadine (Claritin) 10 mg PO [facility] Stop: 09/19/19 20:59 Last Admin: 08/20/19 20:51 Dose: 10 mg Documented by: Metoprolol Tartrate (Lopressor) 25 mg PO BID [facility] Stop: 09/19/19 20:59 Last Admin: 08/20/19 20:52 Dose: 25 mg Documented by: Ondansetron HCl (Zofran) 4 mg IV Q6H PRN PRN Reason: Nausea Stop: 09/19/19 13:23 Pantoprazole Sodium (Protonix) 40 mg PO BID [facility] Stop: 09/19/19 20:59 Last Admin: 08/21/19 07:54 Dose: 40 mg Documented by: Polyethylene Glycol (Miralax Powder Packet) 17 gm PO DAILY PRN PRN Reason: Constipation Stop: 09/19/19 13:23 [facility]) [facility] Stop: 09/20/19 08:59 Last Admin: 08/21/19 07:54 Dose: 40 mg Documented by: Tramadol HCl (Ultram) 50 mg PO Q6H PRN PRN Reason: moderate pain Stop: 09/19/19 13:23
[2019-08-21] MEDS: cefTRIAXone SODIUM 1,000 MG in DEXTROSE 5% 50 ML IV SCH (12:32)
[2019-08-21] MEDS: METOPROLOL TARTRATE 25 MG TAB PO SCH ×2 (12:32→20:16)
--- NOTE | 2019-08-21 13:44 | Cardiology Progress Note ---
Date of Service August 21, 2019 Assessment & Plan (1) Chest pain: (2) Acute electrocardiogram changes: (3) Shortness of breath: (4) Renal artery stenosis: (5) CKD (chronic kidney disease), stage III: (6) Hypertension: (7) Hyperlipidemia: (8) Coronary artery disease: (9) GI bleed: Patient remains symptom-free. Cardiac enzymes unremarkable. Repeat EKG today shows resolution of no wall motion abnormalities on echocardiogram. I do not believe her chest pain represents an ischemic event and more likely GI in nature given the fact that occurred after undergoing an endoscopy and was associated with vomiting. No further cardiac testing intervention necessary at this time. Okay to discharge home from a cardiac standpoint. Continue aspirin, amlodipine, metoprolol and atorvastatin. Has not followed up with cardiology since 2018, will need to reestablish. My office will call to schedule follow-up in approximately 1 month. Subjective Patient seen and examined, states that she is feeling well today. Has not had any recurrence of chest discomfort, nausea or vomiting. She denies any shortness of breath, palpitations, lightheadedness, dizziness or syncope. Telemetry reviewed normal sinus rhythm without arrhythmia or significant ectopy. Review of Systems Review of Systems: All systems reviewed & are unremarkable except as noted in HPI & below Physical Exam Physical Exam: General: Awake, alert and oriented x 3. No acute distress. HEENT: Normocephalic, atraumatic. Pupils equal, round and reactive to light and accommodation. Extraocular muscles are intact. Anicteric sclera. Moist mucous membranes. Neck: No JVD. No bruit. Cardiovascular: Regular. Positive S-4. Normal S-1 and S-2. No S-3. 3/6 mid to late systolic ejection murmur, greatest at the right sternal border, second intercostal space with radiation to the bilateral carotids. No rubs. Pulmonary: Clear to auscultation bilaterally. No rales, rhonchi, or wheezing. Abdomen: Bowel sounds x 4, soft. No rebound, guarding or tenderness. No organomegaly. Extremities: No clubbing, cyanosis or edema. +2 pedal pulses bilaterally. Skin: Warm and dry. Results & Data Vital Signs (Past 12 Hours) Vital Signs Temp Pulse Resp BP BP Pulse Ox 08/21/19 11:18 37.2 C 69 17 125/74 96 05/15/20 07:06 36.7 C 53 L 18 165/74 H 96 08/21/19 03:22 36.6 C 60 18 144/84 H 95 (1) Chest pain Chest pain type: unspecified Qualified Code(s): R07.9 - Chest pain, unspecified (2) GI bleed GI bleed type/associated pathology: unspecified gastrointestinal hemorrhage type Qualified Code(s): K92.2 - Gastrointestinal hemorrhage, unspecified
--- NOTE | 2019-08-21 17:18 | Electrocardiogram Report ---
Test Reason : Blood Pressure : / mmHG Vent. Rate : 071 BPM Atrial Rate : 071 BPM P-R Int : 244 ms QRS Dur : 110 ms QT Int : 408 ms P-R-T Axes : 089 -20 172 degrees QTc Int : 443 ms Sinus rhythm with 1st degree A-V block with frequent Premature ventricular complexes Left ventricular hypertrophy with repolarization abnormality Abnormal ECG When compared with ECG of 20-AUG-2019 10:52, Premature ventricular complexes are now Present ST no longer depressed in Anterior leads T wave inversion less evident in Inferior leads Confirmed by Checo Cuello ([id number]) on 08/21/2019 5:18:29 PM Referred By: REFERRED SELF Confirmed By:Checo Cuello
[2019-08-21] MEDS: ATORVASTATIN 20 MG TAB PO SCH (20:16)
[2019-08-21] MEDS: LORATADINE 10 MG TAB PO SCH (20:16)
[2019-08-22 04:33] LABS: Hematocrit (blood only) 28.5 % (37-47); Hemoglobin 9.5 g/dL (12.0-16.0); Mean Corpuscular Hemoglobin 31.3 pg (25-34); Mean Corpuscular Hgb Conc 33.3 g/dL (32-36); Mean Corpuscular Volume 93.8 fL (80-100); RDW Coefficient of Variation 16.9 % (11.5-14.5); Red Blood Count 3.04 M/uL (4.2-5.4); White Blood Count 10.05 K/uL (4.8-10.8)
[2019-08-22 04:50] LABS: BUN Creatinine Ratio 23.3 (10-20); Calcium 7.8 mg/dl (8.5-10.1); Est GFR (African American) 32.4; Potassium 3.9 mmol/L (3.5-5.1)
[2019-08-22 05:22] LABS: Mean Platelet Volume 10.4 fL (7.4-10.4); Platelet Count 99 K/uL (130-400); Platelet Estimate Decreased (Normal)
[2019-08-22] MEDS: predniSONE 20 MG TAB PO SCH (08:15)
[2019-08-22] MEDS: ASPIRIN 81 MG ECTAB PO SCH (08:15)
[2019-08-22] MEDS: METOPROLOL TARTRATE 25 MG TAB PO SCH (08:16)
[2019-08-22] MEDS: AMLODIPINE BESYLATE 5 MG TAB PO SCH (08:16)
[2019-08-22] MEDS: PANTOprazole 40 MG TAB PO SCH (08:16)
[2019-08-22] MEDS: cefTRIAXone SODIUM 1,000 MG in DEXTROSE 5% 50 ML IV SCH (08:53)
--- NOTE | 2019-08-22 11:33 | Hospitalist Progress Note ---
Date of Service August 22, 2019 Assessment & Plan (1) Shortness of breath: Admitted with exertional shortness of breath with some chest pain and noted to have significant EKG changes Chest pain Elevated troponin History of Coronary artery disease with CABG in the past Initial troponin was minimally high at 0.057 with significant EKG changes Serial troponins and EKGs were unremarkable Echo of the heart showed-no significant change compared with prior study in November 2016, normal LV systolic function with EF of 60 to 65%, no segmental LV wall motion abnormalities, grade 1 diastolic dysfunction, right ventricular cavity size is normal with mildly reduced RV systolic function and mild tricuspid regurgitation. Appreciate cardiology input and recommendation She remains free for any symptoms as of this morning Discussed with assault amphibious vehicle officer and she will be discharged home this afternoon Remains stable without any chest pain, palpitation or shortness of breath Ambulating well in the room and will be discharged home this afternoon Chronic Kidney Disease stage III to IV History of renal artery stenosis as per records -in June 2019 hospitalization patient had acute kidney injury around 2.5 before trending down -on the admission the creatinine is much improved as 1.8 -Kidney function remains stable with creatinine of 1.81 this morning on 08/21/2019 Creatinine is improved to 1.70 as of 08/22/2019 Hypertension -continue home dose amlodipine of 5 mg daily -on metoprolol tartrate 25 mg BID, continue for now -Blood pressure is controlled 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 Sam -No acute symptoms Leukocytosis -could be from steroid use at home versus potential inflammation from other etiologies. will send urine analysis and send blood culture. will not start antibiotics at this time unless patient spikes a legitimate febrile temperature or if a source of infection identified in cultures -Has a streptococcal UTI. Sensitivities pending -Will start IV ceftriaxone -Urine culture grew Enterococcus faecalis and that is sensitive to ampicillin -She will be discharged this afternoon with oral ampicillin to finish the course for a total of 7 days Anemia History of Duodenal ulcer in the past -admission hemoglobin of 10.5 is improved compared to June 2019 -patient denies recent blood in stool -on protonics at home, continue -Hemoglobin 9.7 Full Code Await urine culture and sensitivity lian Will start intravenous ceftriaxone Likely discharge tomorrow l Admission and Anticipated Discharge Date Admission Date: August 20, 2019 Subjective The patient was seen and examined in telemetry unit She remains free from any symptoms No more chest pain and/or palpitation, no shortness of breath Has been ambulating in the room without any difficulty Will be sent home this afternoon 08/22/2019 Patient was seen and examined in telemetry unit She denies any more chest pain and no shortness of breath Denies any symptoms of UTI at this time No fever and/or chills and she has been ambulating in the room without any symptoms Review of Systems Review of Systems: All systems reviewed and are unremarkable except as noted below Cardiovascular: no chest pain, no dyspnea at rest and no palpitations Physical Exam Physical Exam: Sitting on a chair without any acute symptoms Constitutional: well developed and well nourished; no acute distress and not ill appearing Eyes: PERRL, conjunctivae normal, anicteric sclerae ENMT: external ear and nose normal, oropharynx normal Neck: trachea midline, no thyromegaly Respiratory: normal respiratory effort; no respiratory distress Auscultation: lungs clear to auscultation bilaterally Cardiovascular: Rate/Rhythm: regular rate and regular rhythm Heart Sounds: no murmur Extremities: + edema (Trace edema bilateral) Gastrointestinal (Abdomen): Inspection/Auscultation: abdomen normal to inspection and normal bowel sounds Percussion/Palpation: abdomen soft; abdomen nontender Musculoskeletal: No acute arthritis in any joints Neurologic: moves all extremities; no focal motor deficits Results & Data Results & Data ([facility]) Vital Signs (Past 12 Hours) Vital Signs Temp Pulse Pulse Resp BP Pulse Ox 08/22/19 11:04 36.6 C 63 18 130/79 96 08/22/19 07:48 36.7 C 65 18 145/75 H 97 08/22/19 03:20 36.5 C 62 20 149/83 H 94 08/22/19 00:52 46 L Laboratory Results Short CBC 08/22/19 Range/Units 04:07 WBC 10.05 (4.8-10.8) K/uL Hgb 9.5 L (12.0-16.0) g/dL Hct 28.5 L (37-47) % Plt Count 99 L (130-400) K/uL BMP 08/22/19 04:07 Sodium 139 Potassium 3.9 Chloride 108 H Carbon Dioxide 24 BUN 40 H Creatinine 1.70 H Glucose 117 H Calcium 7.8 L Medications Administered Current Inpatient Medications Acetaminophen (Tylenol) 1,000 mg PO Q8H PRN PRN Reason: pain Stop: 09/19/19 13:23 Amlodipine Besylate (Norvasc) 5 mg PO DAILY [facility] Stop: 09/20/19 08:59 Last Admin: 08/22/19 08:16 Dose: 5 mg Documented by: Aspirin (Ecotrin Ectab) 81 mg PO QAM [facility] Stop: 09/20/19 08:59 Last Admin: 08/22/19 08:15 Dose: 81 mg Documented by: Atorvastatin Calcium (Lipitor) 20 mg PO HS [facility] Stop: 09/19/19 20:59 Last Admin: 08/21/19 20:16 Dose: 20 mg Documented by: Docusate Sodium (Colace) 100 mg PO BID PRN PRN Reason: Constipation Stop: 09/19/19 13:23 Epinephrine HCl (Epipen) 0.3 mg IM UD PRN PRN Reason: Allergic Reaction Stop: 09/19/19 13:23 Ceftriaxone Sodium 1,000 mg/ (Dextrose) 60 mls @ 100 mls/hr IV DAILY [facility]; Protocol Stop: 08/26/19 11:59 Last Infusion: 08/22/19 09:37 Dose: Infused Documented by: Loratadine (Claritin) 10 mg PO HS [facility] Stop: 09/19/19 20:59 Last Admin: 08/21/19 20:16 Dose: 10 mg Documented by: Metoprolol Tartrate (Lopressor) 25 mg PO BID [facility] Stop: 09/19/19 20:59 Last Admin: 08/22/19 08:16 Dose: 25 mg Documented by: Ondansetron HCl (Zofran) 4 mg IV Q6H PRN PRN Reason: Nausea Stop: 09/19/19 13:23 Pantoprazole Sodium (Protonix) 40 mg PO BID [facility] Stop: 09/19/19 20:59 Last Admin: 08/22/19 08:16 Dose: 40 mg Documented by: Polyethylene Glycol (Miralax Powder Packet) 17 gm PO DAILY PRN PRN Reason: Constipation Stop: 09/19/19 13:23 Prednisone (Prednisone) 40 mg PO QAM [facility] Stop: 09/20/19 08:59 Last Admin: 08/22/19 08:15 Dose: 40 mg Documented by: Tramadol HCl (Ultram) 50 mg PO Q6H PRN PRN Reason: moderate pain Stop: 09/19/19 13:23
--- NOTE | 2019-08-22 15:26 | Discharge Summary ---
Date of Service August 22, 2019 Admission HPI Per Admitting Provider patient with rather nonspecific consternation of symptoms. Reports waking up this morning feeling shortness of breath. she went to outpatient clinic and was told to go to the ED. patient allegedly had a tympanic temperature somewhat elevated on 100.3 F when she proceeded through hospital checkpoints. in the ED, patient was not found to have fever. patient denies sick contacts. she declines COVID-19 screening. no hypoxia in the ED. no lung infiltrates on CXR patient denies active chest pain in the ED, but when questioned further, she said that she did have chest pain the day before ED presentation. patient's daughter affirms that pain occurred the day before admission and lasted for about an hour and associated with an episode of vomiting patient denies recent blood in stool. denies abdominal pain. denies vomiting Primary Care Provider: Suleman Sands MD Admission Exam Per Admitting Provider Constitutional: cooperative Eyes: PERRL, conjunctivae normal, anicteric sclerae EOM intact bilaterally ENMT: external ear and nose normal, oropharynx normal Neck: trachea midline, no thyromegaly Respiratory: normal respiratory effort, lungs clear to auscultation Cardiovascular: Rate/Rhythm: + bradycardic Gastrointestinal (Abdomen): normal bowel sounds, soft, nontender, no hepatosplenomegaly Musculoskeletal: Head/Neck/Chest: normocephalic and head atraumatic Neurologic: PERRL, EOMI, accommodation nl, no face palsy, no dysarthria Psychiatric: A+Ox3, euthymic affect Principal Diagnosis Chest pain-no ACS, shortness of breath-resolved, acute UTI, hypertension, CKD Discharge Exam Constitutional well developed and well nourished; no acute distress and not ill appearing Eyes PERRL, conjunctivae normal, anicteric sclerae ENMT external ear and nose normal, oropharynx normal Neck trachea midline, no thyromegaly Respiratory normal respiratory effort; no respiratory distress Auscultation: lungs clear to auscultation bilaterally Cardiovascular Rate/Rhythm: regular rate and regular rhythm Heart Sounds: no murmur Extremities: + edema (Trace edema bilateral) Gastrointestinal (Abdomen) Inspection/Auscultation: abdomen normal to inspection and normal bowel sounds Percussion/Palpation: abdomen soft; abdomen nontender Neurologic moves all extremities; no focal motor deficits Discharge Data Allergies Allergy/AdvReac Type Severity Reaction Status Date / Time lisinopril Allergy Severe Angioedema Verified 08/20/19 10:19 Consultations 08/20/19 11:05 ED Decision to Admit Stat 08/20/19 13:24 Consult Cardiology Routine Total Time Total Time Spent Total Time Spent (In Minutes): 35 minutes Total Time Includes: Examination of the Patient, Discharge Planning, Medication Reconciliation and Communication With Other Providers Discharge Plan Discharge Items Patient Disposition: Home - Self-Care Reason For Visit: ACUTE EKG CHANGES Discharge Diagnosis: Chest pain-no ACS, shortness of breath-resolved, acute UTI, hypertension, CKD Condition on Discharge: Good Activity: Resume your previous activity Non-emergency contact: Primary Care Provider Call non-emergency contact if: you have any medication questions and your symptoms worsen Follow-up/Referrals: Suleman Sands MD [Primary Care Provider] - 08/28/19 12:00 pm (08/28/2019 12:00 PM Katie Brock, [facility] cardiology will call you with an appointment ) Diet: Heart Healthy Addtl Attending Provider Instructions: Please take precaution to avoid falls Drink more fluid Finish the course of antibiotic Pending Studies at Discharge: No Stand-Alone Forms: My [facility] [employer], Smoking Cessation Medications and DC Order Prescriptions: New ampicillin 500 mg capsule 500 mg PO TID Qty: 15 RF: 0 Lactinex 1 million cell tablet,chewable 1 tab PO TID Qty: 30 RF: 0 Continued acetaminophen [Tylenol Extra Strength] 500 mg tablet 1,000 mg PO Q8H PRN (Reason: pain) Qty: 60 RF: 0 tramadol 50 mg tablet 50 mg PO Q6H PRN (Reason: moderate pain) Qty: 20 RF: 0 docusate sodium [Colace] 100 mg capsule 100 mg PO BID Qty: 60 RF: 0 atorvastatin 20 mg tablet 20 mg PO HS RF: 0 furosemide 20 mg tablet 20 mg PO DIRECTED RF: 0 epinephrine [EpiPen] 0.3 mg/0.3 mL Auto-Injector 0.3 mg IM DIRECTED PRN (Reason: Allergic Reaction) RF: 0 metoprolol tartrate 25 mg tablet 25 mg PO BID RF: 0 aspirin 81 mg Tablet,Delayed Release (Dr/Ec) 81 mg PO QAM RF: 0 loratadine 10 mg Tablet 10 mg PO HS RF: 0 amlodipine 5 mg tablet 5 mg PO DAILY RF: 0 prednisone 20 mg tablet 40 mg PO QAM RF: 0 pantoprazole 40 mg tablet,delayed release (DR/EC) 40 mg PO BID RF: 0 Discharge Orders: Discharge Order (Routine); Ordered 08/22/19 Ordered By: Davie Mcdowell Admission Data Admit Date/Time: 08/20/19 12:27 Attending Provider: Davie Mcdowell Admit Provider: Howard Santana Primary Care Provider: Suleman Sands Other Providers: Howard Santana ; Mj Valentino Other Interventions: Discharge Summary Assessment (RN) Last Done: 08/22/19 11:48 DC Date/Time DO NOT enter until pt leaves facility: 08/22/19 13:01
== END 2019-08-22 13:01 | disposition home or self-care (01) | DRG 313 ==
LOC: ED 09:33 → 2S 12:27 → SUATTDRO 12:27 → 2S 12:45

== ENCOUNTER 2020-01-05 13:13 | Inpatient (IN) ==
--- NOTE | 2020-01-05 14:55 | Emergency Department Note ---
Impression & Plan AMS (altered mental status), Cough, CHF (congestive heart failure) ED Provider Note INFORMANT: Patient ED PROVIDER(S): Richi Coronel MD CHIEF COMPLAINT: Cough PLAN: Disposition: Admitted Condition: Good MEDICAL DECISION MAKING: Patient presented complaining of cough. She had congestion and also had some hallucinations over the last few nights. She is not a smoker but does have a significant secondhand smoke exposure history. She did not have any acute ischemic change in her ECG. Chest x-ray reviewed and did not reveal any evidence of infiltrate even though she had a significant productive cough. She was wheezing and had rhonchi. The patient underwent cover testing which was negative. Her CBC showed a mild anemia but a left shift on differential. Her coags were negative. Creatinine was mildly elevated at 1.93. The patient BNP was markedly elevated over 3000. Her troponin was negative. Elevated BNP is concerning for a component of CHF. The patient was given a DuoNeb, Solu-Medrol, and IV Lasix. Given the reports of hallucinations and confusion I feel the patient would be best served by treatment in the hospital for further work-up and monitoring. Patient and daughter felt this was reasonable and were in agreement. [facility] The patient was evaluated in the ER for further management. Triage Nursing notes reviewed and agree them. Additional history obtained from patient's daughter Vital Signs: reviewed and remarkable for mild hypertension. Differential diagnosis: Reactive airway disease, pneumonia, pneumothorax, COPD, CHF, infections, cardiac ischemia, pulmonary embolism, musculoskeletal, gastrointestinal, as well as other pathologies. Diagnostics interpreted by me: ECG: Twelve-lead ECG reveals sinus bradycardia first-degree AV block with at 54 bpm. LVH with repolarization laterally. When compared to August 21, 2019 the repolarization lateral changes are actually improved. There is no acute ST elevation. Normal axis. Cardiac Monitoring: Cardiac monitoring ordered by me: The patient was placed on continuous cardiac monitoring and observed. It revealed a sinus bradycardia at 54 beats per minute without ectopy or evidence of dysrhythmia. Imaging studies: Chest x-ray: Mild cardiomegaly. No evidence of focal pulmonary consolidation. No evidence of overt failure. [facility]ation(s[facility] Gamaliel Velez PA-C. The patient will be admitted by Dr. Coughlin HPI: The patient is a 79 year old female who presents to the Emergency Room with complaints of cough. This started 3 days ago and is worsening. Son in law has a "bad cold". The patient also notes the following associated symptoms, cough, fevers, CP and SOB. The patient has found no relieving factors. Current pain is rated as 3/10. No loss of taste or smell.Daughter noted pt was hallucinating. Pt denies LOC, headache, chills, diaphoresis, visual changes, neck pain, nausea, vomiting, abdominal pain, back pain, melena, hematochezia, urinary symptoms, numbness, weakness, lymphadenopathy, rash, or other complaints. ROS: See above HPI for pertinent positives & negatives. A total of 10 systems reviewed and were otherwise negative. PAST MEDICAL HISTORY:See Below, CAD< CKD PAST SURGICAL HISTORY:See Below, CABG FAMILY HISTORY:See Below SOCIAL HISTORY:See Below, Lives with family HOME MEDICATIONS:See Below ALLERGIES:See Below VITALS:See Below PHYSICAL EXAMINATION: GENERAL: Awake, alert, mildly ill-appearing, in no distress HENT: Normocephalic, atraumatic. Oropharynx unremarkable. EYES: Normal conjunctiva. Sclera non-icteric. NECK: Inspection normal. Non-tender. Supple. No nuchal rigidity. FROM. No masses. RESPIRATORY: Coarse rhonchi. No wheezes. No rales. Normal respiratory effort. CARDIAC: Normal rate. Normal rhythm. No murmurs. No rubs. Extremities warm and well perfused. Pulses equal. No JVD. GI: Soft, non-distended. No tenderness to palpation. No rebound or guarding. No masses. RECTAL: Deferred. MUSCULOSKELETAL: Atraumatic. Chest examination reveals no tenderness. The back is symmetrical on inspection without obvious abnormality. There is no CVA tenderness to palpation. No joint edema. LOWER EXTREMITIES: Calves are equal size bilaterally and non-tender. No edema. No discoloration. NEURO: Normal sensorium. No sensory or motor deficits noted. SKIN: No rash or jaundice noted. Richi Coronel MD Past Med/Surg History Medical History (Updated 01/05/20 @ 18:10 by Richi Coronel MD) Anemia of renal disease Benign essential tremor Chronic diastolic heart failure CKD (chronic kidney disease), stage III Colonic polyp Coronary artery disease Duodenal ulcer Hyperlipidemia Hypertension Renal artery stenosis Surgical History (Updated 08/20/19 @ 12:45 by Sujey Velez PA-C) History of appendectomy History of cholecystectomy History of hysterectomy with oophorectomy History of lumbar surgery S/P CABG x 4 2015 Family History Father Coronary heart disease Pulmonary embolism Mother Cancer Sister Parkinson disease Social History Smoking Status: Never smoker Second Hand Exposure: No; Hx Alcohol Use: No Hx Substance Use: No Preferred Language: [place] Communication Ability: Effective [employer] Required: No Beliefs That Will Affect Care: None marital status: Unknown Current Living Situation: Parent Current Living Situation Comment: lives with daughter Feels Safe at Home: Yes Assistive Devices: None Allergies Allergies Allergy/AdvReac Type Severity Reaction Status Date / Time lisinopril Allergy Severe Angioedema Verified 01/05/20 17:33 Home Meds Home Medications Medication Instructions Recorded Confirmed aspirin 81 mg PO QAM 12/29/18 01/05/20 atorvastatin 20 mg PO HS 12/29/18 01/05/20 epinephrine [EpiPen] 0.3 mg IM DIRECTED PRN 12/29/18 01/05/20 furosemide 20 mg PO DAILY 12/29/18 01/05/20 loratadine 10 mg PO HS 12/29/18 01/05/20 metoprolol tartrate 25 mg PO BID 12/29/18 01/05/20 amlodipine 2.5 mg PO DAILY 06/13/19 01/05/20 pantoprazole 40 mg PO BID 08/20/19 01/05/20 atorvastatin [Lipitor] 20 mg PO HS 01/05/20 01/05/20 carbidopa-levodopa 1 tab PO TID 01/05/20 01/05/20 escitalopram oxalate 10 mg PO HS 01/05/20 01/05/20 potassium chloride [Klor-Con 10] 10 meq PO QPM 01/05/20 01/05/20 Previous Rx's Medication Instructions Recorded acetaminophen [Tylenol Extra 1,000 mg PO Q8H PRN #60 tab 06/30/19 Strength] tramadol 50 mg PO Q6H PRN #20 tab 06/30/19 Results & Data (ED) Vital Signs Vital Signs - 24 hr 01/05/20 13:15 01/05/20 15:21 01/05/20 15:27 Temperature 36.4 C L Temperature Source Temporal Artery Scan Pulse Rate 59 L 54 L Pulse Rate [Apical] Pulse Rate from SpO2 Sensor Respiratory Rate 18 13 Respiratory Effort / Characteristics Non-Labored Spontaneous Respiratory Depth Normal Respiratory Pattern Regular Blood Pressure 145/70 H Blood Pressure Mean 95 Blood Pressure Position Sitting Pulse Oximetry 95 98 Oxygen Delivery Method Room Air Room Air Sepsis Recent Fever Within 48 Hours No Sepsis New/Unexplained Change in Mental Status N/A Sepsis Action Taken by Nursing No Action Required 01/05/20 15:30 01/05/20 15:40 01/05/20 15:50 Temperature Temperature Source Pulse Rate 52 L 53 L 52 L Pulse Rate [Apical] Pulse Rate from SpO2 Sensor 52 L 54 L 52 L Respiratory Rate 14 18 17 Respiratory Effort / Characteristics Respiratory Depth Respiratory Pattern Blood Pressure Blood Pressure Mean Blood Pressure Position Pulse Oximetry 95 97 97 Oxygen Delivery Method Sepsis Recent Fever Within 48 Hours Sepsis New/Unexplained Change in Mental Status Sepsis Action Taken by Nursing 01/05/20 16:00 01/05/20 16:10 01/05/20 17:06 Temperature Temperature Source Pulse Rate 53 L 51 L Pulse Rate [Apical] 53 L Pulse Rate from SpO2 Sensor 52 L 52 L Respiratory Rate 18 20 16 Respiratory Effort / Characteristics Non-Labored Spontaneous Respiratory Depth Respiratory Pattern Blood Pressure 141/72 H Blood Pressure Mean 98 Blood Pressure Position Pulse Oximetry 96 96 95 Oxygen Delivery Method Room Air Sepsis Recent Fever Within 48 Hours Sepsis New/Unexplained Change in Mental Status Sepsis Action Taken by Nursing Laboratory Data Result diagrams: 01/05/20 15:30 01/05/20 15:30 Lab Results 01/05/20 01/05/20 01/05/20 Range/Units 15:30 15:30 15:30 WBC 9.76 (4.8-10.8) K/uL RBC 3.81 L (4.2-5.4) M/uL Hgb 11.4 L (12.0-16.0) g/dL Hct 35.6 L (37-47) % MCV 93.4 (80-100) fL MCH 29.9 (25-34) pg MCHC 32.0 (32-36) g/dL RDW Std Deviation 51.7 H (36.4-46.3) fL RDW Coeff of Filiberto 15.2 H (11.5-14.5) % Plt Count 180 (130-400) K/uL MPV 10.5 H (7.4-10.4) fL Immature Gran % (Auto) 0.2 % Neut % (Auto) 80.8 % Lymph % (Auto) 10.2 % Hubbard % (Auto) 6.8 % Eos % (Auto) 1.7 % Baso % (Auto) 0.3 % Neut # (Auto) 7.88 H (1.4-6.5) K/uL Lymph # (Auto) 1.00 L (1.2-3.4) K/uL Hubbard # (Auto) 0.66 H (0.11-0.59) K/uL Eos # (Auto) 0.17 (0-0.5) K/uL Baso # (Auto) 0.03 (0-0.2) K/uL Immature Gran # (Auto) 0.02 (0.00-0.02) K/uL PT 11.3 (9.0-12.0) Seconds INR 1.1 (0.9-1.1) APTT 27.3 (21.0-31.0) Seconds PTT Ratio 1.0 Sodium 140 (136-145) mmol/L Potassium 3.8 (3.5-5.1) mmol/L Chloride 108 H (98-107) mmol/L Carbon Dioxide 25 (21-32) mmol/L Anion Gap 7.0 (3-11) BUN 24 H (7-18) mg/dl Creatinine 1.93 H (0.6-1.2) mg/dl Est Cr Clr Drug Dosing 22.4 ml/min Est GFR ( Amer) 27.6 Est GFR (Non-Af Amer) 23.8 BUN/Creatinine Ratio 12.5 (10-20) Glucose 128 H (70-99) mg/dl Calcium 9.6 (8.5-10.1) mg/dl Magnesium 2.2 (1.8-2.4) mg/dl Total Bilirubin 0.7 (0.2-1) mg/dl AST 18 (15-37) U/L ALT 7 L (12-78) U/L Alkaline Phosphatase 108 (45-117) U/L Troponin I < 0.015 (0-0.045) ng/ml NT-Pro-B Natriuret Pep 3342 H (0-1800) pg/ml Total Protein 7.4 (6.4-8.2) gm/dl Albumin 3.5 (3.4-5.0) gm/dl Globulin 3.9 (2.5-4.0) gm/dl Albumin/Globulin Ratio 0.9 (0.9-2) COVID-19 Eval Order COVID-19 PCR (Negative) 01/05/20 01/05/20 Range/Units 15:30 15:30 WBC (4.8-10.8) K/uL RBC (4.2-5.4) M/uL Hgb (12.0-16.0) g/dL Hct (37-47) % MCV (80-100) fL MCH (25-34) pg MCHC (32-36) g/dL RDW Std Deviation (36.4-46.3) fL RDW Coeff of Filiberto (11.5-14.5) % Plt Count (130-400) K/uL MPV (7.4-10.4) fL Immature Gran % (Auto) % Neut % (Auto) % Lymph % (Auto) % Hubbard % (Auto) % Eos % (Auto) % Baso % (Auto) % Neut # (Auto) (1.4-6.5) K/uL Lymph # (Auto) (1.2-3.4) K/uL Hubbard # (Auto) (0.11-0.59) K/uL Eos # (Auto) (0-0.5) K/uL Baso # (Auto) (0-0.2) K/uL Immature Gran # (Auto) (0.00-0.02) K/uL PT (9.0-12.0) Seconds INR (0.9-1.1) APTT (21.0-31.0) Seconds PTT Ratio Sodium (136-145) mmol/L Potassium (3.5-5.1) mmol/L Chloride (98-107) mmol/L Carbon Dioxide (21-32) mmol/L Anion Gap (3-11) BUN (7-18) mg/dl Creatinine (0.6-1.2) mg/dl Est Cr Clr Drug Dosing ml/min Est GFR ( Amer) Est GFR (Non-Af Amer) BUN/Creatinine Ratio (10-20) Glucose (70-99) mg/dl Calcium (8.5-10.1) mg/dl Magnesium (1.8-2.4) mg/dl Total Bilirubin (0.2-1) mg/dl AST (15-37) U/L ALT (12-78) U/L Alkaline Phosphatase (45-117) U/L Troponin I (0-0.045) ng/ml NT-Pro-B Natriuret Pep (0-1800) pg/ml Total Protein (6.4-8.2) gm/dl Albumin (3.4-5.0) gm/dl Globulin (2.5-4.0) gm/dl Albumin/Globulin Ratio (0.9-2) COVID-19 Eval Order Covid19 Done at [facility] COVID-19 PCR NEGATIVE (Negative) Administered Medications Doxycycline Hyclate 100 mg/ (Dextrose) 110 mls @ 50 mls/hr IV NOW STA Stop: 01/05/20 19:10 Last Admin: 01/05/20 17:44 Dose: 50 mls/hr Documented by: [id number] Discontinued Medications Albuterol (Albut/Ipratrop 3mg/0.5mg Neb 3 Ml Vial) 3 ml NEB NOW STA Stop: 01/05/20 16:55 Last Admin: 01/05/20 17:06 Dose: 3 ml Documented by: [id number] Furosemide (Furosemide 40 Mg/4 Ml Vial) 40 mg IV NOW STA Stop: 01/05/20 16:55 Last Admin: 01/05/20 17:00 Dose: 40 mg Documented by: [id number] Methylprednisolone (Methylprednisolone 125 Mg/2 Ml Vial) 125 mg IV NOW STA Stop: 01/05/20 16:55 Last Admin: 01/05/20 17:00 Dose: 125 mg Documented by: [id number] Discharge Plan Visit Data Chief Complaint: Illness Stated Complaint: BAD COLD ED Provider: Richi Coronel Discharge Problem: AMS (altered mental status), Cough, CHF (congestive heart failure) Forms Stand Alone Forms: My [employer] Prescriptions Prescriptions: No Action acetaminophen [Tylenol Extra Strength] 500 mg tablet 1,000 mg PO Q8H PRN (Reason: pain) Qty: 60 RF: 0 tramadol 50 mg tablet 50 mg PO Q6H PRN (Reason: moderate pain) Qty: 20 RF: 0 atorvastatin [Lipitor] 20 mg tablet 20 mg PO HS RF: 0 potassium chloride [Klor-Con 10] 10 mEq tablet extended release 10 meq PO QPM RF: 0 carbidopa-levodopa 25-100 mg tablet 1 tab PO TID RF: 0 escitalopram oxalate 10 mg tablet 10 mg PO HS RF: 0 atorvastatin 20 mg tablet 20 mg PO HS RF: 0 furosemide 20 mg tablet 20 mg PO DAILY RF: 0 epinephrine [EpiPen] 0.3 mg/0.3 mL Auto-Injector 0.3 mg IM DIRECTED PRN (Reason: Allergic Reaction) RF: 0 metoprolol tartrate 25 mg tablet 25 mg PO BID RF: 0 aspirin 81 mg Tablet,Delayed Release (Dr/Ec) 81 mg PO QAM RF: 0 loratadine 10 mg Tablet 10 mg PO HS RF: 0 amlodipine 5 mg tablet 2.5 mg PO DAILY RF: 0 pantoprazole 40 mg tablet,delayed release (DR/EC) 40 mg PO BID RF: 0
[2020-01-05 15:55] LABS: Basophils # (auto) 0.03 K/uL (0-0.2); Basophils % (auto) 0.3 %; Eosinophils # (auto) 0.17 K/uL (0-0.5); Eosinophils % (auto) 1.7 %; Hematocrit (blood only) 35.6 % (37-47); Hemoglobin 11.4 g/dL (12.0-16.0); Immature Granulocytes # (auto) 0.02 K/uL (0.00-0.02); Immature Granulocytes % (auto) 0.2 %; Lymphocytes % (auto) 10.2 %; Mean Corpuscular Hemoglobin 29.9 pg (25-34); Mean Corpuscular Volume 93.4 fL (80-100); Mean Platelet Volume 10.5 fL (7.4-10.4); Monocytes # (auto) 0.66 K/uL (0.11-0.59); Monocytes % (auto) 6.8 %; Neutrophils # (auto) 7.88 K/uL (1.4-6.5); Neutrophils % (auto) 80.8 %; Platelet Count 180 K/uL (130-400); RDW Coefficient of Variation 15.2 % (11.5-14.5); RDW Standard Deviation 51.7 fL (36.4-46.3); Red Blood Count 3.81 M/uL (4.2-5.4); White Blood Count 9.76 K/uL (4.8-10.8)
[2020-01-05 16:04] LABS: INR 1.1 (0.9-1.1); Partial Thromboplastin Time 27.3 Seconds (21.0-31.0); Prothrombin Time 11.3 Seconds (9.0-12.0)
--- NOTE | 2020-01-05 16:05 | XRay Report ---
XR chest 1V portable CLINICAL HISTORY: Dyspnea COMPARISON STUDY: 08/20/2019 FINDINGS: There are postsurgical changes of midline sternotomy. There is aortic tortuosity/ectasia. T here is mild interstitial prominence a finding which is likely accentuated by the AP technique and jackson boptimal inspiration. There is no focal pulmonary consolidation. There are no pleural effusions. Ther e is no overt failure.[ IMPRESSION: Mild cardiomegaly. No evidence of focal pulmonary consolidation. No evidence of overt alberto lure. ACT 112: Negative or not required by law. Electronically signed by: Nitin Cavanaugh M.D. 01/05/2020 4:04 PM
[2020-01-05 16:09] LABS: Alanine Aminotransferase 7 U/L (12-78); Albumin Level 3.5 gm/dl (3.4-5.0); Aspartate Aminotransferase 18 U/L (15-37); BUN Creatinine Ratio 12.5 (10-20); Blood Urea Nitrogen 24 mg/dl (7-18); Calcium 9.6 mg/dl (8.5-10.1); Carbon Dioxide 25 mmol/L (21-32); Chloride 108 mmol/L (98-107); Creatinine Clr Calc Pharmacy 22.4 ml/min; Est GFR (African American) 27.6; Est GFR (Non-African American) 23.8; Glucose 128 mg/dl (70-99); Magnesium 2.2 mg/dl (1.8-2.4); Potassium 3.8 mmol/L (3.5-5.1); Sodium 140 mmol/L (136-145)
[2020-01-05 16:14] LABS: Albumin Globulin Ratio 0.9 (0.9-2); Alkaline Phosphatase 108 U/L (45-117); Bilirubin,Total 0.7 mg/dl (0.2-1); Globulin 3.9 gm/dl (2.5-4.0); NT Pro B Type Natriuretic Pept 3342 pg/ml (0-1800); Total Protein 7.4 gm/dl (6.4-8.2); Troponin I < 0.015 ng/ml (0-0.045)
[2020-01-05] MEDS ORDERED: ALBUT/IPRATROP 3MG/0.5MG NEB 3 ML VIAL NEB STA (16:54)
[2020-01-05] MEDS ORDERED: FUROSEMIDE 40 MG/4 ML VIAL IV STA (16:54)
[2020-01-05] MEDS ORDERED: methylPREDNISolone 125 MG/2 ML VIAL IV STA (16:54)
[2020-01-05] MEDS ORDERED: DOXYCYCLINE HYCLATE 100 MG in DEXTROSE 5% 100 ML IV STA (16:59)
--- NOTE | 2020-01-05 18:35 | History & Physical Report ---
Date of Service January 05, 2020 Assessment & Plan (1) URI (upper respiratory infection): This is an 79yo F with PMH of CAD with history of CABG x4, HTN, HLD, CKD stage IV, ANKA-associated vasculitis, recently diagnosed Parkinson's disease and other medical problems listed below who presents with cough. -Sick contact, productive cough and SOB x 3 days. -Afebrile and without leukocytosis. Saturating 94% on room air. Chest x-ray with mild cardiomegaly. No evidence of focal pulmonary consolidation. No evidence of overt failure -BNP elevated over 3,000 so given Lasix 40 mg IV x1 in ED. EKG with any acute ischemic change. Initial troponin negative -COVID PCR negative and flu PCR pending. Droplet isolation precautions for now -Given DuoNeb, doxycycline and IV 125 mg Solu-Medrol in ED. Plan to continue duoneb Q4H and Q2H PRN as well as prednisone 40mg daily -No indication to continue antibiotic at this time. Re-evaluate in AM. Blood cultures pending (2) Hallucinations: In setting of recent Parkinson's disease diagnosis in October and start of Sinemet medication -A&O x4 right now. Monitor. Consider CT head if recurs (3) Coronary artery disease: H/o CABG x 4. No chest pain or EKG changes. Continue aspirin, atorvastatin, metoprolol tartrate (4) Parkinson disease: Continue Sinemet (5) CKD (chronic kidney disease), stage IV: Follows with Dr. Graves, also with history of renal artery stenosis and ANCA associated vasculitis. Creatinine at baseline (1.8-1.9). Monitor with daily BMP DVT Ppx: SQ heparin Code status: FULL PCP: [facility] Dispo: Observation med tele. Plan to return home once medically stable. Patient seen in collaboration with Dr. Coughlin. Please see addendum. History of Present Illness Chief Complaint: SOB Primary Care Provider: Suleman Sands MD This is an 79yo F with PMH of CAD with history of CABG x4, HTN, HLD, CKD stage IV, ANKA-associated vasculitis, recently diagnosed Parkinson's disease and other medical problems listed below who presents with cough. Has been congested with productive cough as well as some wheezing and shortness of breath. Her family member was sick recently and was in the same home. Denies any fever, chills or lightheadedness. No weight gain, lower extremity edema or orthopnea. No visual changes, chest pain, palpitations, nausea, vomiting, abdominal pain, dysuria, diarrhea constipation. Has been experiencing hallucinations over the past few nights where she feels like she sees a video projected onto her bedroom wall. Was recently diagnosed with Parkinson's disease in October and was started on Sinemet 3 times daily at that time. Patient is afebrile and without leukocytosis. Saturating 94% on room air. Chest x-ray with mild cardiomegaly. No evidence of focal pulmonary consolidation. No evidence of overt failure. BNP elevated over 3000. EKG with any acute ischemic change. Initial troponin negative. COVID PCR negative and flu PCR pending. Allergies Allergy/AdvReac Type Severity Reaction Status Date / Time lisinopril Allergy Severe Angioedema Verified 01/05/20 17:33 Home Medications Home Medications Medication Instructions Recorded Confirmed Type aspirin 81 mg PO QAM 12/29/18 01/05/20 History atorvastatin 20 mg PO HS 12/29/18 01/05/20 History epinephrine [EpiPen] 0.3 mg IM DIRECTED PRN 12/29/18 01/05/20 History furosemide 20 mg PO DAILY 12/29/18 01/05/20 History loratadine 10 mg PO HS 12/29/18 01/05/20 History metoprolol tartrate 25 mg PO BID 12/29/18 01/05/20 History amlodipine 2.5 mg PO DAILY 06/13/19 01/05/20 History acetaminophen [Tylenol Extra 1,000 mg PO Q8H PRN #60 tab 06/30/19 01/05/20 Rx Strength] tramadol 50 mg PO Q6H PRN #20 tab 06/30/19 01/05/20 Rx pantoprazole 40 mg PO BID 08/20/19 01/05/20 History carbidopa-levodopa 1 tab PO TID 01/05/20 01/05/20 History escitalopram oxalate 10 mg PO HS 01/05/20 01/05/20 History potassium chloride [Klor-Con 10] 10 meq PO QPM 01/05/20 01/05/20 History Past Med/Surg History Medical History (Updated 01/05/20 @ 21:00 by Sujey Agustin, PA-C) Anemia of renal disease Benign essential tremor Chronic diastolic heart failure CKD (chronic kidney disease), stage IV Colonic polyp Coronary artery disease Duodenal ulcer Hyperlipidemia Hypertension Parkinson disease Renal artery stenosis Surgical History (Updated 08/20/19 @ 12:45 by Sujey Velez PA-C) History of appendectomy History of cholecystectomy History of hysterectomy with oophorectomy History of lumbar surgery S/P CABG x 4 2015 Family History Father Coronary heart disease Pulmonary embolism Mother Cancer Sister Parkinson disease Social History Smoking Status: Never smoker Second Hand Exposure: No; Hx Alcohol Use: No Hx Substance Use: No Preferred Language: Georgian Communication Ability: Effective 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 Physical Exam Physical Exam: General Appearance: WD/WN, vitals as above, NAD, sitting up in bed, pleasant, conversing easily Head: normocephalic, atraumatic Eyes: normal inspection, PERRL, conjunctivae normal, anicteric sclerae ENT: external ear and nose normal, oropharynx normal Neck: normal visual inspection, trachea midline, no thyromegaly Respiratory: normal respiratory effort, coarse breath sounds, rhonchi throughout, no rales. No accessory muscle use Cardiovascular: regular rate, rhythm, no murmur appreciated, normal peripheral pulses, no BLE edema. Vessels: no JVD Chest: normal inspection of chest Abdomen/GI: normal bowel sounds, soft, nontender, no hepatosplenomegaly Extremities/Musculoskeletal: no cyanosis or clubbing, extremities motor strength 5/5 Neurologic: PERRL, EOMI, accommodation nl, no face palsy, no dysarthria, CN's II-XI intact bilaterally and moves all extremities Psychiatric: A+Ox3, euthymic affect Skin: no rashes, normal color, warm/dry Results & Data Results & Data ([facility]) Vital Signs (Past 12 Hours) Vital Signs Temp Pulse Pulse Resp BP Pulse Ox 01/05/20 17:06 53 L 16 95 01/05/20 16:10 51 L 20 141/72 H 96 01/05/20 16:00 53 L 18 96 01/05/20 15:50 52 L 17 97 01/05/20 15:40 53 L 18 97 01/05/20 15:30 52 L 14 95 01/05/20 15:27 54 L 13 01/05/20 15:21 98 01/05/20 13:15 36.4 C L 59 L 18 145/70 H 95 Laboratory Results Short CBC 01/05/20 01/05/20 01/05/20 Range/Units 15:30 15:30 15:30 WBC 9.76 (4.8-10.8) K/uL RBC 3.81 L (4.2-5.4) M/uL Hgb 11.4 L (12.0-16.0) g/dL Hct 35.6 L (37-47) % MCV 93.4 (80-100) fL MCH 29.9 (25-34) pg MCHC 32.0 (32-36) g/dL RDW Std Deviation 51.7 H (36.4-46.3) fL RDW Coeff of Filiberto 15.2 H (11.5-14.5) % Plt Count 180 (130-400) K/uL MPV 10.5 H (7.4-10.4) fL Immature Gran % (Auto) 0.2 % Neut % (Auto) 80.8 % Lymph % (Auto) 10.2 % [place] % (Auto) 6.8 % Eos % (Auto) 1.7 % Baso % (Auto) 0.3 % Neut # (Auto) 7.88 H (1.4-6.5) K/uL Lymph # (Auto) 1.00 L (1.2-3.4) K/uL [place] # (Auto) 0.66 H (0.11-0.59) K/uL Eos # (Auto) 0.17 (0-0.5) K/uL Baso # (Auto) 0.03 (0-0.2) K/uL Immature Gran # (Auto) 0.02 (0.00-0.02) K/uL PT 11.3 (9.0-12.0) Seconds INR 1.1 (0.9-1.1) APTT 27.3 (21.0-31.0) Seconds PTT Ratio 1.0 Sodium 140 (136-145) mmol/L Potassium 3.8 (3.5-5.1) mmol/L Chloride 108 H (98-107) mmol/L Carbon Dioxide 25 (21-32) mmol/L Anion Gap 7.0 (3-11) BUN 24 H (7-18) mg/dl Creatinine 1.93 H (0.6-1.2) mg/dl Est Cr Clr Drug Dosing 22.4 ml/min Est GFR ( Amer) 27.6 Est GFR (Non-Af Amer) 23.8 BUN/Creatinine Ratio 12.5 (10-20) Glucose 128 H (70-99) mg/dl Calcium 9.6 (8.5-10.1) mg/dl Magnesium 2.2 (1.8-2.4) mg/dl Total Bilirubin 0.7 (0.2-1) mg/dl AST 18 (15-37) U/L ALT 7 L (12-78) U/L Alkaline Phosphatase 108 (45-117) U/L Troponin I < 0.015 (0-0.045) ng/ml NT-Pro-B Natriuret Pep 3342 H (0-1800) pg/ml Total Protein 7.4 (6.4-8.2) gm/dl Albumin 3.5 (3.4-5.0) gm/dl Globulin 3.9 (2.5-4.0) gm/dl Albumin/Globulin Ratio 0.9 (0.9-2) COVID-19 Eval Order COVID-19 PCR (Negative) 01/05/20 01/05/20 Range/Units 15:30 15:30 WBC (4.8-10.8) K/uL RBC (4.2-5.4) M/uL Hgb (12.0-16.0) g/dL Hct (37-47) % MCV (80-100) fL MCH (25-34) pg MCHC (32-36) g/dL RDW Std Deviation (36.4-46.3) fL RDW Coeff of Filiberto (11.5-14.5) % Plt Count (130-400) K/uL MPV (7.4-10.4) fL Immature Gran % (Auto) % Neut % (Auto) % Lymph % (Auto) % [place] % (Auto) % Eos % (Auto) % Baso % (Auto) % Neut # (Auto) (1.4-6.5) K/uL Lymph # (Auto) (1.2-3.4) K/uL [place] # (Auto) (0.11-0.59) K/uL Eos # (Auto) (0-0.5) K/uL Baso # (Auto) (0-0.2) K/uL Immature Gran # (Auto) (0.00-0.02) K/uL PT (9.0-12.0) Seconds INR (0.9-1.1) APTT (21.0-31.0) Seconds PTT Ratio Sodium (136-145) mmol/L Potassium (3.5-5.1) mmol/L Chloride (98-107) mmol/L Carbon Dioxide (21-32) mmol/L Anion Gap (3-11) BUN (7-18) mg/dl Creatinine (0.6-1.2) mg/dl Est Cr Clr Drug Dosing ml/min Est GFR ( Amer) Est GFR (Non-Af Amer) BUN/Creatinine Ratio (10-20) Glucose (70-99) mg/dl Calcium (8.5-10.1) mg/dl Magnesium (1.8-2.4) mg/dl Total Bilirubin (0.2-1) mg/dl AST (15-37) U/L ALT (12-78) U/L Alkaline Phosphatase (45-117) U/L Troponin I (0-0.045) ng/ml NT-Pro-B Natriuret Pep (0-1800) pg/ml Total Protein (6.4-8.2) gm/dl Albumin (3.4-5.0) gm/dl Globulin (2.5-4.0) gm/dl Albumin/Globulin Ratio (0.9-2) COVID-19 Eval Order Covid19 Done at [facility] COVID-19 PCR NEGATIVE (Negative) BMP 01/05/20 15:30 Sodium 140 Potassium 3.8 Chloride 108 H Carbon Dioxide 25 BUN 24 H Creatinine 1.93 H Glucose 128 H Calcium 9.6 Cardiac Enzymes 01/05/20 Range/Units 15:30 Troponin I < 0.015 (0-0.045) ng/ml Liver Function 01/05/20 Range/Units 15:30 Total Bilirubin 0.7 (0.2-1) mg/dl AST 18 (15-37) U/L ALT 7 L (12-78) U/L Alkaline Phosphatase 108 (45-117) U/L Albumin 3.5 (3.4-5.0) gm/dl Diagnostic Findings CXR: IMPRESSION: Mild cardiomegaly. No evidence of focal pulmonary consolidation. No evidence of overt failure. ECG Rhythm: sinus bradycardia Code Status & VTE Plan VTE Prophylaxis Plan VTE Prophylaxis will be ordered: Yes Supervising Physician Co-Signing Physician Notes Patient was seen and examined by me, care coordinated with Sujey Velez PA-C. Please see her note above for further details. Pt is an 79yo F with hx of CAD, CABG x4, HTN, HLD, CKD stage IV, ANKA-associated vasculitis, recently diagnosed Parkinson's disease who presents with cough. Reports being congested with productive cough. Her family member (and household member) was sick recently, patient reports likely cold. She denies any fever, chills or lightheadedness. No weight gain, lower extremity edema or orthopnea. No visual changes, chest pain, palpitations, nausea, vomiting, abdominal pain, dysuria, diarrhea constipation. Has been experiencing hallucinations over the past few nights where she feels like she sees a video projected onto her bedroom wall. Was recently diagnosed with Parkinson's disease in October and was started on Sinemet 3 times daily at that time. Patient is currently lying in bed, in no acute distress. She is alert and oriented and answering questions appropriately. Lung sounds are coarse/diffuse rhonchi noted without any wheezing. Heart sounds distant due to loud lung sounds. Abdomen soft, nondistended, obese, nontender to palpation. Patient moves all 4 extremities spontaneously and w/o difficulty, there is no lower extremity edema. Skin is warm, dry, well perfused. Patient received IV Lasix in the ED, Solu-Medrol, albuterol and doxycycline. She was negative for COVID. We will continue supportive treatment, will closely monitor her weight and fluid status. At this point patient does not look fluid overloaded. Patient was likely exposed to upper respiratory infection, likely viral infection. Will test for influenza. Govind Coughlin MD
[2020-01-05] MEDS ORDERED: ACETAMINOPHEN 325 MG TAB PO PRN (19:30)
[2020-01-05] MEDS ORDERED: POLYETHYLENE (MIRALAX) 17 GM PACK PO PRN (19:30)
[2020-01-05] MEDS ORDERED: EPINEPHRINE ADULT AUTO-INJECT 0.3 MG SYR IM PRN (21:05)
[2020-01-05] MEDS ORDERED: ACETAMINOPHEN 500 MG TAB PO PRN (21:05)
[2020-01-05] MEDS: HEPARIN SOD 5,000 UNIT/0.5 ML VIAL SQ SCH (21:26)
[2020-01-05 23:16] LABS: Influenza A virus by PCR Neg for Influ A (Neg); Influenza B virus by PCR Neg for Influ B (Neg)
[2020-01-06 05:30] LABS: Appearance Urine Clear (Clear); Bilirubin Urine Negative (Negative); Blood Urine Negative (Negative); Color Urine Yellow; Glucose Urine UA Negative (Negative); Ketones Urine Negative (Negative); Leukocyte Esterase Urine Negative (Negative); Nitrite Urine Negative (Negative); Protein Urine Negative (Negative); Specific Gravity Urine 1.014 (1.000-1.030); Urobilinogen Urine Negative (Negative)
[2020-01-06] MEDS: HEPARIN SOD 5,000 UNIT/0.5 ML VIAL SQ SCH ×3 (06:00→21:01)
--- NOTE | 2020-01-06 06:13 | Electrocardiogram Report ---
Test Reason : Blood Pressure : / mmHG Vent. Rate : 054 BPM Atrial Rate : 054 BPM P-R Int : 242 ms QRS Dur : 108 ms QT Int : 480 ms P-R-T Axes : 029 -22 246 degrees QTc Int : 455 ms Poor data quality, interpretation may be adversely affected Sinus bradycardia with 1st degree A-V block Left ventricular hypertrophy with repolarization abnormality Abnormal ECG When compared with ECG of 21-AUG-2019 09:09, Premature ventricular complexes are no longer Present ST less depressed in Lateral leads Confirmed by Checo Cuello ([id number]) on 01/06/2020 6:12:52 AM Referred By: REFERRED SELF Confirmed By:Checo Cuello
[2020-01-06] MEDS: ALBUT/IPRATROP 3MG/0.5MG NEB 3 ML VIAL NEB SCH ×4 (06:43→19:32)
[2020-01-06 07:55] LABS: Hematocrit (blood only) 36.3 % (37-47); Hemoglobin 11.8 g/dL (12.0-16.0); Mean Corpuscular Hemoglobin 29.6 pg (25-34); Mean Corpuscular Hgb Conc 32.5 g/dL (32-36); Mean Platelet Volume 10.6 fL (7.4-10.4); Platelet Count 178 K/uL (130-400); RDW Coefficient of Variation 14.8 % (11.5-14.5); RDW Standard Deviation 50.1 fL (36.4-46.3); Red Blood Count 3.99 M/uL (4.2-5.4); White Blood Count 7.09 K/uL (4.8-10.8)
[2020-01-06] MEDS: CARBIDOPA/LEVODOPA 25/100MG TAB PO SCH ×3 (08:14→20:49)
[2020-01-06] MEDS: AMLODIPINE BESYLATE 5 MG TAB PO SCH (08:14)
[2020-01-06] MEDS: METOPROLOL TARTRATE 25 MG TAB PO SCH ×2 (08:15→20:48)
[2020-01-06] MEDS: PANTOprazole 40 MG TAB PO SCH ×2 (08:16→20:49)
[2020-01-06] MEDS: ASPIRIN 81 MG ECTAB PO SCH (08:16)
[2020-01-06] MEDS: FUROSEMIDE 20 MG TAB PO SCH (08:17)
[2020-01-06 08:28] LABS: BUN Creatinine Ratio 15.8 (10-20); Calcium 9.9 mg/dl (8.5-10.1); Creatinine Clr Calc Pharmacy 20.4 ml/min; Est GFR (African American) 25.4; Est GFR (Non-African American) 21.9; Potassium 3.1 mmol/L (3.5-5.1)
[2020-01-06] MEDS ORDERED: POTASSIUM CHLORIDE 20 MEQ TABCR PO STA (08:34)
[2020-01-06] MEDS: predniSONE 20 MG TAB PO SCH (09:04)
--- NOTE | 2020-01-06 14:00 | Hospitalist Progress Note ---
Date of Service January 06, 2020 Assessment & Plan (1) URI (upper respiratory infection): This is an 79yo F with PMH of CAD with history of CABG x4, HTN, HLD, CKD stage IV, ANKA-associated vasculitis, recently diagnosed Parkinson's disease and other medical problems listed below who presents with cough. -Sick contact, productive cough and SOB x 3 days. -Afebrile and without leukocytosis. Saturating 94% on room air. Chest x-ray with mild cardiomegaly. No evidence of focal pulmonary consolidation. No evidence of overt failure -BNP elevated over 3,000 so given Lasix 40 mg IV x1 in ED. EKG with any acute ischemic change. Initial troponin negative -COVID PCR negative and flu negative. droplet isolation precautions for now -Given DuoNeb, doxycycline and IV 125 mg Solu-Medrol in ED. -Plan to continue duoneb Q4H and Q2H PRN as well as prednisone 40mg daily -Will continue oral doxycycline -Clinically a little better (2) Hallucinations: In setting of recent Parkinson's disease diagnosis in October and start of Sinemet medication -A&O x4 right now. Monitor. Consider CT head if recurs No more hallucination (3) Coronary artery disease: H/o CABG x 4. No chest pain or EKG changes. Continue aspirin, atorvastatin, metoprolol tartrate No acute symptoms (4) Parkinson disease: Continue Sinemet (5) CKD (chronic kidney disease), stage IV: Follows with Dr. Graves, also with history of renal artery stenosis and ANCA associated vasculitis. Creatinine at baseline (1.8-1.9). Monitor with daily BMP DVT Ppx: SQ heparin Code status: FULL PCP: [facility] Dispo: Observation med tele. Plan to return home once medically stable. We will get PT and OT evaluation Admission and Anticipated Discharge Date Admission Date: January 05, 2020 Subjective 01/06/2020 The patient was seen and examined in medical telemetry unit She was admitted with acute upper respiratory infection with shortness of breath and cough and congestion Has been feeling a little bit better this morning Review of Systems Review of Systems: All systems reviewed and are unremarkable except as noted below Respiratory: + cough, + chest congestion, + dyspnea and + wheezing Physical Exam Physical Exam: Lying in bed comfortably Constitutional: well developed, well nourished, + ill appearing and + obese; no acute distress Eyes: PERRL, conjunctivae normal, anicteric sclerae ENMT: external ear and nose normal, oropharynx normal Neck: trachea midline, no thyromegaly Respiratory: + respiratory distress (Minimal distress at rest); no labored breathing Auscultation: + diminished lung sounds, + crackles and + wheezes Cardiovascular: Rate/Rhythm: regular rate and regular rhythm Heart Sounds: no murmur Gastrointestinal (Abdomen): Inspection/Auscultation: abdomen normal to inspection and normal bowel sounds; abdomen not distended Per cussion/Palpation: abdomen soft; abdomen nontender Musculoskeletal: No acute arthritis involving any joints Neurologic: moves all extremities; no focal motor deficits Psychiatric: A+Ox3, euthymic affect Lymphatic: no cervical or axillary lymphadenopathy Results & Data Results & Data ([facility]) Vital Signs (Past 12 Hours) Vital Signs Temp Pulse Pulse Resp BP Pulse Ox 01/06/20 11:31 36.5 C 67 18 146/61 H 96 01/06/20 11:23 60 18 98 01/06/20 07:41 52 L 01/06/20 07:19 36.4 C L 61 18 138/65 96 01/06/20 06:43 54 L 17 95 01/06/20 04:43 36.3 C L 48 L 18 140/77 96 Laboratory Results Short CBC 01/05/20 01/06/20 Range/Units 15:30 07:28 WBC 9.76 7.09 (4.8-10.8) K/uL Hgb 11.4 L 11.8 L (12.0-16.0) g/dL Hct 35.6 L 36.3 L (37-47) % Plt Count 180 178 (130-400) K/uL BMP 01/05/20 01/06/20 15:30 07:28 Sodium 140 139 Potassium 3.8 3.1 L D Chloride 108 H 107 Carbon Dioxide 25 20 L BUN 24 H 33 H Creatinine 1.93 H 2.07 H Glucose 128 H 175 H Calcium 9.6 9.9 Cardiac Enzymes 01/05/20 Range/Units 15:30 Troponin I < 0.015 (0-0.045) ng/ml Liver Function 01/05/20 Range/Units 15:30 Total Bilirubin 0.7 (0.2-1) mg/dl AST 18 (15-37) U/L ALT 7 L (12-78) U/L Alkaline Phosphatase 108 (45-117) U/L Albumin 3.5 (3.4-5.0) gm/dl Urine 01/06/20 Range/Units 04:45 Urine Color Yellow Urine Appearance Clear (Clear) Urine pH 5.0 (4.5-7.5) Ur Specific [place] 1.014 (1.000-1.030) Urine Protein Negative (Negative) Urine Glucose (UA) Negative (Negative) Medications Administered Current Inpatient Medications Acetaminophen (Acetaminophen 325 Mg Tab) 650 mg PO Q4H PRN PRN Reason: Pain or Fever Stop: 02/04/20 19:29 Acetaminophen (Acetaminophen 500 Mg Tab) 1,000 mg PO Q8H PRN PRN Reason: pain Stop: 02/04/20 21:04 Albuterol (Albut/Ipratrop 3mg/0.5mg Neb 3 Ml Vial) 3 ml NEB QIDR CAROLE Stop: 02/05/20 06:59 Last Admin: 01/06/20 11:21 Dose: 3 ml Documented by: Amlodipine Besylate (Amlodipine Besylate 5 Mg Tab) 2.5 mg PO DAILY CAROLE Stop: 02/05/20 08:59 Last Admin: 01/06/20 08:14 Dose: 2.5 mg Documented by: Aspirin (Aspirin 81 Mg Ectab) 81 mg PO QAM CAROLE Stop: 02/05/20 08:59 Last Admin: 01/06/20 08:16 Dose: 81 mg Documented by: Atorvastatin Calcium (Atorvastatin 20 Mg Tab) 20 mg PO HS CAROLE Stop: 02/05/20 20:59 Carbidopa/Levodopa (Carbidopa/Levodopa 25/100mg Tab) 1 tab PO TID CAROLE Stop: 02/05/20 08:59 Last Admin: 01/06/20 13:22 Dose: 1 tab Documented by: Epinephrine HCl (Epinephrine Adult Auto-Inject 0.3 Mg Syr) 0.3 mg IM UD PRN PRN Reason: Allergic Reaction Stop: 02/04/20 21:04 Escitalopram Oxalate (Escitalopram Oxalate 10 Mg Tab) 10 mg PO HS CAROLE Stop: 02/05/20 20:59 Furosemide (Furosemide 20 Mg Tab) 20 mg PO DAILY CAROLE Stop: 02/05/20 08:59 Last Admin: 01/06/20 08:17 Dose: 20 mg Documented by: Heparin Sodium (Porcine) (Heparin Sod 5,000 Unit/0.5 Ml Vial) 5,000 units SQ Q8 CAROLE Stop: 02/04/20 21:59 Last Admin: 01/06/20 13:23 Dose: 5,000 units Documented by: Loratadine (Loratadine 10 Mg Tab) 10 mg PO HS CAROLE Stop: 02/05/20 20:59 Metoprolol Tartrate (Metoprolol Tartrate 25 Mg Tab) 25 mg PO BID CAROLE Stop: 02/05/20 08:59 Last Admin: 01/06/20 08:15 Dose: 25 mg Documented by: Pantoprazole Sodium (Pantoprazole 40 Mg Tab) 40 mg PO BID CAROLE Stop: 02/05/20 08:59 Last Admin: 01/06/20 08:16 Dose: 40 mg Documented by: Polyethylene Glycol (Polyethylene (Miralax) 17 Gm Pack) 17 gm PO DAILY PRN PRN Reason: Constipation Stop: 02/04/20 19:29 Potassium Chloride (Potassium Chloride 10 Meq Tabcr) 10 meq PO QPM CAROLE Stop: 02/05/20 20:59 Prednisone (Prednisone 20 Mg Tab) 40 mg PO DAILY CAROLE Stop: 02/05/20 08:59 Last Admin: 01/06/20 09:04 Dose: 40 mg Documented by:
[2020-01-06] MEDS: POTASSIUM CHLORIDE 10 MEQ TABCR PO SCH (20:48)
[2020-01-06] MEDS: LORATADINE 10 MG TAB PO SCH (20:48)
[2020-01-06] MEDS: ATORVASTATIN 20 MG TAB PO SCH (20:48)
[2020-01-06] MEDS: ESCITALOPRAM OXALATE 10 MG TAB PO SCH (20:48)
[2020-01-07 05:59] LABS: Hematocrit (blood only) 32.2 % (37-47); Hemoglobin 10.7 g/dL (12.0-16.0); Immature Granulocytes # (auto) 0.07 K/uL (0.00-0.02); Immature Granulocytes % (auto) 0.5 %; Lymphocytes # (auto) 0.94 K/uL (1.2-3.4); Lymphocytes % (auto) 6.9 %; Mean Corpuscular Hemoglobin 30.1 pg (25-34); Mean Corpuscular Hgb Conc 33.2 g/dL (32-36); Mean Corpuscular Volume 90.7 fL (80-100); Mean Platelet Volume 10.2 fL (7.4-10.4); Monocytes # (auto) 0.93 K/uL (0.11-0.59); Monocytes % (auto) 6.8 %; Neutrophils # (auto) 11.65 K/uL (1.4-6.5); Neutrophils % (auto) 85.8 %; Platelet Count 184 K/uL (130-400); RDW Coefficient of Variation 14.9 % (11.5-14.5); RDW Standard Deviation 49.9 fL (36.4-46.3); Red Blood Count 3.55 M/uL (4.2-5.4); White Blood Count 13.59 K/uL (4.8-10.8)
[2020-01-07] MEDS: HEPARIN SOD 5,000 UNIT/0.5 ML VIAL SQ SCH ×3 (06:08→21:23)
[2020-01-07 06:30] LABS: BUN Creatinine Ratio 18.1 (10-20); Calcium 9.2 mg/dl (8.5-10.1); Creatinine Clr Calc Pharmacy 16.9 ml/min; Est GFR (African American) 19.9; Est GFR (Non-African American) 17.2; Magnesium 1.8 mg/dl (1.8-2.4); Phosphorus 3.3 mg/dl (2.5-4.9)
[2020-01-07] MEDS: ALBUT/IPRATROP 3MG/0.5MG NEB 3 ML VIAL NEB SCH ×4 (07:19→19:10)
[2020-01-07] MEDS: CARBIDOPA/LEVODOPA 25/100MG TAB PO SCH ×3 (09:51→20:07)
[2020-01-07] MEDS: AMLODIPINE BESYLATE 5 MG TAB PO SCH (09:52)
[2020-01-07] MEDS: METOPROLOL TARTRATE 25 MG TAB PO SCH ×2 (09:55→20:08)
[2020-01-07] MEDS: FUROSEMIDE 20 MG TAB PO SCH ×2 (09:56→10:04)
[2020-01-07] MEDS: predniSONE 20 MG TAB PO SCH (09:57)
[2020-01-07] MEDS: ASPIRIN 81 MG ECTAB PO SCH (09:57)
[2020-01-07] MEDS: PANTOprazole 40 MG TAB PO SCH ×2 (09:58→20:07)
[2020-01-07] MEDS: DOXYCYCLINE HYCLATE 100 MG CAP PO SCH ×2 (10:44→20:07)
[2020-01-07] MEDS: SODIUM CHLORIDE 0.9% 1000ML 1,000 ML IV SCH ×2 (10:45→21:23)
--- NOTE | 2020-01-07 16:10 | Hospitalist Progress Note ---
Date of Service January 07, 2020 Assessment & Plan (1) URI (upper respiratory infection): This is an 79yo F with PMH of CAD with history of CABG x4, HTN, HLD, CKD stage IV, ANKA-associated vasculitis, recently diagnosed Parkinson's disease and other medical problems listed below who presents with cough. -Acute tracheobronchitis -Sick contact, productive cough and SOB x 3 days. -Afebrile and without leukocytosis. Saturating 94% on room air. Chest x-ray with mild cardiomegaly. No evidence of focal pulmonary consolidation. No evidence of overt failure -BNP elevated over 3,000 so given Lasix 40 mg IV x1 in ED. EKG with any acute ischemic change. Initial troponin negative -COVID PCR negative and flu negative. droplet isolation precautions for now -Given DuoNeb, doxycycline and IV 125 mg Solu-Medrol in ED. -Plan to continue duoneb Q4H and Q2H PRN as well as prednisone 40mg daily -Will continue oral doxycycline -Has been feeling lot better today but he still has minimal cough with wheezing -We will advise PT and OT evaluation before discharging home tomorrow (2) Hallucinations: In setting of recent Parkinson's disease diagnosis in October and start of Sinemet medication -A&O x4 right now. Monitor. Consider CT head if recurs No more hallucination (3) Coronary artery disease: H/o CABG x 4. No chest pain or EKG changes. Continue aspirin, atorvastatin, metoprolol tartrate No acute symptoms (4) Parkinson disease: Continue Sinemet (5) CKD (chronic kidney disease), stage IV: Follows with Dr. Graves, also with history of renal artery stenosis and ANCA associated vasculitis. Creatinine at baseline (1.8-1.9). Monitor with daily BMP DVT Ppx: SQ heparin Code status: FULL PCP: [facility] Dispo: Observation med tele. Plan to return home once medically stable. We will get PT and OT evaluation Likely discharge in the morning Admission and Anticipated Discharge Date Admission Date: January 05, 2020 Subjective 01/06/2020 The patient was seen and examined in medical telemetry unit She was admitted with acute upper respiratory infection with shortness of breath and cough and congestion Has been feeling a little bit better this morning 01/07/2020 Patient was seen and examined in medical telemetry unit She has been feeling a lot better but not yet ready to be discharged Shortness of breath and wheezing are much improved Review of Systems Review of Systems: All systems reviewed and are unremarkable except as noted below Respiratory: + cough, + chest congestion, + dyspnea and + wheezing Physical Exam Physical Exam: Lying in bed comfortably Constitutional: well developed, well nourished, + ill appearing and + obese; no acute distress Eyes: PERRL, conjunctivae normal, anicteric sclerae ENMT: external ear and nose normal, oropharynx normal Neck: trachea midline, no thyromegaly Respiratory: no respiratory distress (Minimal distress at rest) and no labored breathing Auscultation: + diminished lung sounds, + crackles and + wheezes Crackles and wheezing have diminished in both sides Cardiovascular: Rate/Rhythm: regular rate and regular rhythm Heart Sounds: no murmur Gastrointestinal (Abdomen): Inspection/Auscultation: abdomen normal to inspection and normal bowel sounds; abdomen not distended Percussion/Palpation: abdomen soft; abdomen nontender Neurologic: moves all extremities; no focal motor deficits Psychiatric: A+Ox3, euthymic affect Lymphatic: no cervical or axillary lymphadenopathy Results & Data Results & Data ([facility]) Vital Signs (Past 12 Hours) Vital Signs Temp Pulse Pulse Resp BP Pulse Ox 01/07/20 15:01 64 18 97 01/07/20 11:24 58 L 18 96 01/07/20 11:21 36.7 C 56 L 18 163/70 H 98 01/07/20 07:34 53 L 01/07/20 07:22 55 L 16 95 01/07/20 07:14 36.5 C 55 L 18 151/72 H 98 01/07/20 04:53 71 Laboratory Results Short CBC 01/07/20 Range/Units 05:49 WBC 13.59 H (4.8-10.8) K/uL Hgb 10.7 L (12.0-16.0) g/dL Hct 32.2 L (37-47) % Plt Count 184 (130-400) K/uL BMP 01/07/20 05:49 Sodium 139 Potassium 4.0 D Chloride 108 H Carbon Dioxide 23 BUN 46 H Creatinine 2.53 H D Glucose 132 H Calcium 9.2 Medications Administered Current Inpatient Medications Acetaminophen (Acetaminophen 325 Mg Tab) 650 mg PO Q4H PRN PRN Reason: Pain or Fever Stop: 02/04/20 19:29 Acetaminophen (Acetaminophen 500 Mg Tab) 1,000 mg PO Q8H PRN PRN Reason: pain Stop: 02/04/20 21:04 Albuterol (Albut/Ipratrop 3mg/0.5mg Neb 3 Ml Vial) 3 ml NEB QIDR CAROLE Stop: 02/05/20 06:59 Last Admin: 01/07/20 14:59 Dose: 3 ml Documented by: Amlodipine Besylate (Amlodipine Besylate 5 Mg Tab) 2.5 mg PO DAILY CAROLE Stop: 02/05/20 08:59 Last Admin: 01/07/20 09:52 Dose: 2.5 mg Documented by: Aspirin (Aspirin 81 Mg Ectab) 81 mg PO QAM CAROLE Stop: 02/05/20 08:59 Last Admin: 01/07/20 09:57 Dose: 81 mg Documented by: Atorvastatin Calcium (Atorvastatin 20 Mg Tab) 20 mg PO HS CAROLE Stop: 02/05/20 20:59 Last Admin: 01/06/20 20:48 Dose: 20 mg Documented by: Carbidopa/Levodopa (Carbidopa/Levodopa 25/100mg Tab) 1 tab PO TID CAROLE Stop: 02/05/20 08:59 Last Admin: 01/07/20 14:28 Dose: 1 tab Documented by: Doxycycline Hyclate (Doxycycline Hyclate 100 Mg Cap) 100 mg PO BID CAROLE Stop: 01/14/20 09:59 Last Admin: 01/07/20 10:44 Dose: 100 mg Documented by: Epinephrine HCl (Epinephrine Adult Auto-Inject 0.3 Mg Syr) 0.3 mg IM UD PRN PRN Reason: Allergic Reaction Stop: 02/04/20 21:04 Escitalopram Oxalate (Escitalopram Oxalate 10 Mg Tab) 10 mg PO HS CAROLE Stop: 02/05/20 20:59 Last Admin: 01/06/20 20:48 Dose: 10 mg Documented by: Furosemide (Furosemide 20 Mg Tab) 20 mg PO DAILY CAROLE Stop: 02/05/20 08:59 Last Admin: 01/07/20 10:04 Dose: Not Given Documented by: Heparin Sodium (Porcine) (Heparin Sod 5,000 Unit/0.5 Ml Vial) 5,000 units SQ Q8 CAROLE Stop: 02/04/20 21:59 Last Admin: 01/07/20 14:27 Dose: 5,000 units Documented by: Sodium Chloride (Nss 1000ml) 1,000 mls @ 125 mls/hr IV .Q8H CAROLE Stop: 01/08/20 09:59 Last Infusion: 01/07/20 16:05 Dose: 125 mls/hr Documented by: Loratadine (Loratadine 10 Mg Tab) 10 mg PO HS CAROLE Stop: 02/05/20 20:59 Last Admin: 01/06/20 20:48 Dose: 10 mg Documented by: Metoprolol Tartrate (Metoprolol Tartrate 25 Mg Tab) 25 mg PO BID CAROLE Stop: 02/05/20 08:59 Last Admin: 01/07/20 09:55 Dose: Not Given Documented by: Pantoprazole Sodium (Pantoprazole 40 Mg Tab) 40 mg PO BID CAROLE Stop: 02/05/20 08:59 Last Admin: 01/07/20 09:58 Dose: 40 mg Documented by: Polyethylene Glycol (Polyethylene (Miralax) 17 Gm Pack) 17 gm PO DAILY PRN PRN Reason: Constipation Stop: 02/04/20 19:29 Potassium Chloride (Potassium Chloride 10 Meq Tabcr) 10 meq PO QPM CAROLE Stop: 02/05/20 20:59 Last Admin: 01/06/20 20:48 Dose: 10 meq Documented by: Prednisone (Prednisone 20 Mg Tab) 40 mg PO DAILY CAROLE Stop: 02/05/20 08:59 Last Admin: 01/07/20 09:57 Dose: 40 mg Documented by:
[2020-01-07] MEDS ORDERED: Nursing to Pharmacy Communication SCH (17:30)
[2020-01-07] MEDS: POTASSIUM CHLORIDE 10 MEQ TABCR PO SCH (20:06)
[2020-01-07] MEDS: ESCITALOPRAM OXALATE 10 MG TAB PO SCH (20:06)
[2020-01-07] MEDS: LORATADINE 10 MG TAB PO SCH (20:06)
[2020-01-07] MEDS: ATORVASTATIN 20 MG TAB PO SCH (20:08)
[2020-01-08] MEDS: HEPARIN SOD 5,000 UNIT/0.5 ML VIAL SQ SCH ×2 (05:20→13:13)
[2020-01-08] MEDS: SODIUM CHLORIDE 0.9% 1000ML 1,000 ML IV SCH (05:21)
[2020-01-08] MEDS: ALBUT/IPRATROP 3MG/0.5MG NEB 3 ML VIAL NEB SCH ×2 (07:38→11:02)
[2020-01-08] MEDS: METOPROLOL TARTRATE 25 MG TAB PO SCH (08:49)
[2020-01-08] MEDS: AMLODIPINE BESYLATE 5 MG TAB PO SCH (08:49)
[2020-01-08] MEDS: predniSONE 20 MG TAB PO SCH (08:49)
[2020-01-08] MEDS: ASPIRIN 81 MG ECTAB PO SCH (08:50)
[2020-01-08] MEDS: PANTOprazole 40 MG TAB PO SCH (08:50)
[2020-01-08] MEDS: CARBIDOPA/LEVODOPA 25/100MG TAB PO SCH ×2 (08:50→13:27)
[2020-01-08] MEDS: DOXYCYCLINE HYCLATE 100 MG CAP PO SCH (08:51)
--- NOTE | 2020-01-08 12:30 | Hospitalist Progress Note ---
Date of Service January 08, 2020 Assessment & Plan (1) URI (upper respiratory infection): This is an 79yo F with PMH of CAD with history of CABG x4, HTN, HLD, CKD stage IV, ANKA-associated vasculitis, recently diagnosed Parkinson's disease and other medical problems listed below who presents with cough. -Acute tracheobronchitis -Sick contact, productive cough and SOB x 3 days. -Afebrile and without leukocytosis. Saturating 94% on room air. Chest x-ray with mild cardiomegaly. No evidence of focal pulmonary consolidation. No evidence of overt failure -BNP elevated over 3,000 so given Lasix 40 mg IV x1 in ED. EKG with any acute ischemic change. Initial troponin negative -COVID PCR negative and flu negative. droplet isolation precautions for now -Given DuoNeb, doxycycline and IV 125 mg Solu-Medrol in ED. -Plan to continue duoneb Q4H and Q2H PRN as well as prednisone 40mg daily -Will continue oral doxycycline -Has been feeling lot better today but he still has minimal cough with wheezing -We will advise PT and OT evaluation before discharging home tomorrow -Clinically a lot better and denies any wheezing and/or shortness of breath with exertion -We will be discharged home this afternoon (2) Hallucinations: Presented with acute confusion likely due to metabolic encephalopathy which is resolved subsequently In setting of recent Parkinson's disease diagnosis in October and start of Sinemet medication -A&O x4 right now. Monitor. Consider CT head if recurs No more hallucination (3) Coronary artery disease: H/o CABG x 4. No chest pain or EKG changes. Continue aspirin, atorvastatin, metoprolol tartrate No acute symptoms Echo in June of this year did show EF of 60 to 65% and grade 1 diastolic dysfunction No evidence of CHF during this admission (4) Parkinson disease: Continue Sinemet (5) CKD (chronic kidney disease), stage IV: Follows with Dr. Graves, also with history of renal artery stenosis and ANCA associated vasculitis. Creatinine at baseline (1.8-1.9). Monitor with daily BMP Creatinine remains high at 2.53 which is seems to be at her baseline DVT Ppx: SQ heparin Code status: FULL PCP: [facility]o Dispo: Observation med tele. Plan to return home once medically stable. We will get PT and OT evaluation She will be discharged this afternoon Admission and Anticipated Discharge Date Admission Date: January 07, 2020 Subjective 01/06/2020 The patient was seen and examined in medical telemetry unit She was admitted with acute upper respiratory infection with shortness of breath and cough and congestion Has been feeling a little bit better this morning 01/07/2020 Patient was seen and examined in medical telemetry unit She has been feeling a lot better but not yet ready to be discharged Shortness of breath and wheezing are much improved 01/08/2020 The patient was seen and examined in medical floor She has been doing much better and denies any shortness of breath, cough or wheezing She has been ambulating in the room without any problem She will have PT and OT evaluation before going home this afternoon Review of Systems Review of Systems: All systems reviewed and are unremarkable except as noted below Respiratory: + wheezing (Minimal to no wheezing); no cough, no chest congestion and no dyspnea Physical Exam Physical Exam: Lying in bed comfortably Constitutional: well developed, well nourished, + ill appearing and + obese; no acute distress Eyes: PERRL, conjunctivae normal, anicteric sclerae ENMT: external ear and nose normal, oropharynx normal Neck: trachea midline, no thyromegaly Respiratory: no respiratory distress (Minimal distress at rest) and no labored breathing Auscultation: + diminished lung sounds and + wheezes (Minimal to no wheezing); no crackles Cardiovascular: Rate/Rhythm: regular rate and regular rhythm Heart Sounds: no murmur Gastrointestinal (Abdomen): Inspection/Auscultation: abdomen normal to inspection and normal bowel sounds; abdomen not distended Percussion/Palpation: abdomen soft; abdomen nontender Musculoskeletal: No acute arthritis involving any joints Neurologic: moves all extremities; no focal motor deficits Psychiatric: A+Ox3, euthymic affect Lymphatic: no cervical or axillary lymphadenopathy Results & Data Results & Data ([facility]) Vital Signs (Past 12 Hours) Vital Signs Temp Pulse Pulse Resp BP BP Pulse Ox 01/08/20 11:34 73 151/74 H 100 01/08/20 11:02 61 16 98 01/08/20 08:16 36.8 C 80 17 190/81 H 93 01/08/20 08:00 61 01/08/20 07:39 60 16 95 01/08/20 04:50 64 01/08/20 04:00 36.4 C L 65 18 162/65 H 91 Medications Administered Current Inpatient Medications Acetaminophen (Acetaminophen 325 Mg Tab) 650 mg PO Q4H PRN PRN Reason: Pain or Fever Stop: 02/04/20 19:29 Acetaminophen (Acetaminophen 500 Mg Tab) 1,000 mg PO Q8H PRN PRN Reason: pain Stop: 02/04/20 21:04 Albuterol (Albut/Ipratrop 3mg/0.5mg Neb 3 Ml Vial) 3 ml NEB QIDR CAROLE Stop: 02/05/20 06:59 Last Admin: 01/08/20 11:02 Dose: 3 ml Documented by: Amlodipine Besylate (Amlodipine Besylate 5 Mg Tab) 2.5 mg PO DAILY CAROLE Stop: 02/05/20 08:59 Last Admin: 01/08/20 08:49 Dose: 2.5 mg Documented by: Aspirin (Aspirin 81 Mg Ectab) 81 mg PO QAM CAROLE Stop: 02/05/20 08:59 Last Admin: 01/08/20 08:50 Dose: 81 mg Documented by: Atorvastatin Calcium (Atorvastatin 20 Mg Tab) 20 mg PO HS CAORLE Stop: 02/05/20 20:59 Last Admin: 01/07/20 20:08 Dose: 20 mg Documented by: Carbidopa/Levodopa (Carbidopa/Levodopa 25/100mg Tab) 1 tab PO TID CAROLE Stop: 02/05/20 08:59 Last Admin: 01/08/20 08:50 Dose: 1 tab Documented by: Doxycycline Hyclate (Doxycycline Hyclate 100 Mg Cap) 100 mg PO BID CAROLE Stop: 01/14/20 09:59 Last Admin: 01/08/20 08:51 Dose: 100 mg Documented by: Epinephrine HCl (Epinephrine Adult Auto-Inject 0.3 Mg Syr) 0.3 mg IM UD PRN PRN Reason: Allergic Reaction Stop: 02/04/20 21:04 Escitalopram Oxalate (Escitalopram Oxalate 10 Mg Tab) 10 mg PO HS CAROLE Stop: 02/05/20 20:59 Last Admin: 01/07/20 20:06 Dose: 10 mg Documented by: Furosemide (Furosemide 20 Mg Tab) 20 mg PO DAILY CAROLE Stop: 02/05/20 08:59 Last Admin: 01/07/20 10:04 Dose: Not Given Documented by: Heparin Sodium (Porcine) (Heparin Sod 5,000 Unit/0.5 Ml Vial) 5,000 units SQ Q8 CAROLE Stop: 02/04/20 21:59 Last Admin: 01/08/20 05:20 Dose: 5,000 units Documented by: Sodium Chloride (Nss 1000ml) 1,000 mls @ 125 mls/hr IV .Q8H CAROLE Stop: 01/08/20 12:59 Last Admin: 01/08/20 05:21 Dose: 125 mls/hr Documented by: Loratadine (Loratadine 10 Mg Tab) 10 mg PO HS CAROLE Stop: 02/05/20 20:59 Last Admin: 01/07/20 20:06 Dose: 10 mg Documented by: Metoprolol Tartrate (Metoprolol Tartrate 25 Mg Tab) 25 mg PO BID CAROLE Stop: 02/05/20 08:59 Last Admin: 01/08/20 08:49 Dose: 25 mg Documented by: Pantoprazole Sodium (Pantoprazole 40 Mg Tab) 40 mg PO BID CAROLE Stop: 02/05/20 08:59 Last Admin: 01/08/20 08:50 Dose: 40 mg Documented by: Polyethylene Glycol (Polyethylene (Miralax) 17 Gm Pack) 17 gm PO DAILY PRN PRN Reason: Constipation Stop: 02/04/20 19:29 Potassium Chloride (Potassium Chloride 10 Meq Tabcr) 10 meq PO QPM CAROLE Stop: 02/05/20 20:59 Last Admin: 01/07/20 20:06 Dose: 10 meq Documented by: Prednisone (Prednisone 20 Mg Tab) 40 mg PO DAILY CAROLE Stop: 02/05/20 08:59 Last Admin: 01/08/20 08:49 Dose: 40 mg Documented by:
--- NOTE | 2020-01-09 09:01 | Discharge Summary ---
Date of Service January 09, 2020 Admission HPI Per Admitting Provider This is an 79yo F with PMH of CAD with history of CABG x4, HTN, HLD, CKD stage IV, ANKA-associated vasculitis, recently diagnosed Parkinson's disease and other medical problems listed below who presents with cough. Has been congested with productive cough as well as some wheezing and shortness of breath. Her family member was sick recently and was in the same home. Denies any fever, chills or lightheadedness. No weight gain, lower extremity edema or orthopnea. No visual changes, chest pain, palpitations, nausea, vomiting, abdominal pain, dysuria, diarrhea constipation. Has been experiencing hallucinations over the past few nights where she feels like she sees a video projected onto her bedroom wall. Was recently diagnosed with Parkinson's disease in October and was started on Sinemet 3 times daily at that time. Patient is afebrile and without leukocytosis. Saturating 94% on room air. Chest x-ray with mild cardiomegaly. No evidence of focal pulmonary consolidation. No evidence of overt failure. BNP elevated over 3000. EKG with any acute ischemic change. Initial troponin negative. COVID PCR negative and flu PCR pending. Admission Exam Per Admitting Provider Physical Exam: General Appearance: WD/WN, vitals as above, NAD, sitting up in bed, pleasant, conversing easily Head: normocephalic, atraumatic Eyes: normal inspection, PERRL, conjunctivae normal, anicteric sclerae ENT: external ear and nose normal, oropharynx normal Neck: normal visual inspection, trachea midline, no thyromegaly Respiratory: normal respiratory effort, coarse breath sounds, rhonchi throughout, no rales. No accessory muscle use Cardiovascular: regular rate, rhythm, no murmur appreciated, normal peripheral pulses, no BLE edema. Vessels: no JVD Chest: normal inspection of chest Abdomen/GI: normal bowel sounds, soft, nontender, no hepatosplenomegaly Extremities/Musculoskeletal: no cyanosis or clubbing, extremities motor str ength 5/5 Neurologic: PERRL, EOMI, accommodation nl, no face palsy, no dysarthria, CN's II-XI intact bilaterally and moves all extremities Psychiatric: A+Ox3, euthymic affect Skin: no rashes, normal color, warm/dry Principal Diagnosis Acute tracheobronchitis, chronic kidney disease, Parkinson's disease, stable CAD Discharge Exam Constitutional well developed, well nourished, + ill appearing and + obese; no acute distress Eyes PERRL, conjunctivae normal, anicteric sclerae ENMT external ear and nose normal, oropharynx normal Neck trachea midline, no thyromegaly Respiratory no respiratory distress (Minimal distress at rest) and no labored breathing Auscultation: + diminished lung sounds and + wheezes (Minimal to no wheezing); no crackles Cardiovascular Rate/Rhythm: regular rate and regular rhythm Heart Sounds: no murmur Gastrointestinal (Abdomen) Inspection/Auscultation: abdomen normal to inspection and normal bowel sounds; abdomen not distended Percussion/Palpation: abdomen soft; abdomen nontender Neurologic moves all extremities; no focal motor deficits Psychiatric A+Ox3, euthymic affect Lymphatic no cervical or axillary lymphadenopathy Discharge Data Allergies Allergy/AdvReac Type Severity Reaction Status Date / Time lisinopril Allergy Severe Angioedema Verified 01/05/20 17:33 Consultations 01/05/20 17:22 ED Decision to Admit Stat Hospital Course (1) URI (upper respiratory infection): This is an 79yo F with PMH of CAD with history of CABG x4, HTN, HLD, CKD stage IV, ANKA-associated vasculitis, recently diagnosed Parkinson's disease and other medical problems listed below who presents with cough. -Acute tracheobronchitis -Sick contact, productive cough and SOB x 3 days. -Afebrile and without leukocytosis. Saturating 94% on room air. Chest x-ray with mild cardiomegaly. No evidence of focal pulmonary consolidation. No evidence of overt failure -BNP elevated over 3,000 so given Lasix 40 mg IV x1 in ED. EKG with any acute ischemic change. Initial troponin negative -COVID PCR negative and flu negative. droplet isolation precautions for now -Given DuoNeb, doxycycline and IV 125 mg Solu-Medrol in ED. -Plan to continue duoneb Q4H and Q2H PRN as well as prednisone 40mg daily -Will continue oral doxycycline -Has been feeling lot better today but he still has minimal cough with wheezing -We will advise PT and OT evaluation before discharging home tomorrow -Clinically a lot better and denies any wheezing and/or shortness of breath with exertion -We will be discharged home this afternoon (2) Hallucinations: Presented with acute confusion likely due to metabolic encephalopathy which is resolved subsequently In setting of recent Parkinson's disease diagnosis in October and start of Sinemet medication -A&O x4 right now. Monitor. Consider CT head if recurs No more hallucination (3) Coronary artery disease: H/o CABG x 4. No chest pain or EKG changes. Continue aspirin, atorvastatin, metoprolol tartrate No acute symptoms Echo in June of this year did show EF of 60 to 65% and grade 1 diastolic dysfunction No evidence of CHF during this admission (4) Parkinson disease: Continue Sinemet (5) CKD (chronic kidney disease), stage IV: Follows with Dr. Graves, also with history of renal artery stenosis and ANCA associated vasculitis. Creatinine at baseline (1.8-1.9). Monitor with daily BMP Creatinine remains high at 2.53 which is seems to be at her baseline DVT Ppx: SQ heparin Code status: FULL PCP: [facility] Dispo: Observation med tele. Plan to return home once medically stable. We will get PT and OT evaluation She will be discharged this afternoon Total Time Total Time Spent Total Time Spent (In Minutes): 35 minutes Total Time Includes: Examination of the Patient, Discharge Planning, Medication Reconciliation and Communication With Other Providers Discharge Plan Discharge Items Patient Disposition: Home - Self-Care Reason For Visit: Dyspnea on Exertion Discharge Diagnosis: Acute tracheobronchitis, chronic kidney disease, Parkinson's disease, stable CAD Condition on Discharge: Good Activity: Resume your previous activity Non-emergency contact: Primary Care Provider Call non-emergency contact if: you have any medication questions Follow-up/Referrals: Suleman Sands MD [Primary Care Provider] - (Date & Time 01/13/2020 11:20 AM Provider Gian Jackson MD Department [facility] ) Diet: Heart Healthy Addtl Attending Provider Instructions: Please take precaution to avoid fall Try to drink more fluid Pending Studies at Discharge: No Stand-Alone Forms: My [employer] (Proprietary), Smoking Cessation Medications and DC Order Prescriptions: New doxycycline hyclate 100 mg Capsule 100 mg PO BID 5 Days Qty: 10 RF: 0 prednisone 20 mg tablet 20 mg PO DAILY 3 Days Qty: 3 RF: 0 Continued acetaminophen [Tylenol Extra Strength] 500 mg tablet 1,000 mg PO Q8H PRN (Reason: pain) Qty: 60 RF: 0 tramadol 50 mg tablet 50 mg PO Q6H PRN (Reason: moderate pain) Qty: 20 RF: 0 potassium chloride [Klor-Con 10] 10 mEq tablet extended release 10 meq PO QPM RF: 0 carbidopa-levodopa 25-100 mg tablet 1 tab PO TID RF: 0 escitalopram oxalate 10 mg tablet 10 mg PO HS RF: 0 atorvastatin 20 mg tablet 20 mg PO HS RF: 0 furosemide 20 mg tablet 20 mg PO DAILY RF: 0 epinephrine [EpiPen] 0.3 mg/0.3 mL Auto-Injector 0.3 mg IM DIRECTED PRN (Reason: Allergic Reaction) RF: 0 metoprolol tartrate 25 mg tablet 25 mg PO BID RF: 0 aspirin 81 mg Tablet,Delayed Release (Dr/Ec) 81 mg PO QAM RF: 0 loratadine 10 mg Tablet 10 mg PO HS RF: 0 amlodipine 5 mg tablet 2.5 mg PO DAILY RF: 0 pantoprazole 40 mg tablet,delayed release (DR/EC) 40 mg PO BID RF: 0 Discharge Orders: Discharge Order (Routine); Ordered 01/08/20 Ordered By: Davie Mcdowell Admission Data Admit Date/Time: 01/07/20 15:21 Attending Provider: Davie Mcdowell Admit Provider: Pablo Coughlin Primary Care Provider: Suleman Sands Other Providers: Pablo Coughlin Other Interventions: Discharge Summary Assessment (RN) Last Done: 01/08/20 13:05
== END 2020-01-08 15:25 | disposition home or self-care (01) | DRG 202 ==
LOC: ED 13:13 → 2W 13:13 → SUATTDRO 18:14 → 2W 18:51
DX: G20 Parkinson's disease; Z82.0 Family history of epilepsy and other diseases of the nervous system; I50.32 Chronic diastolic (congestive) heart failure; Z79.899 Other long term (current) drug therapy; I70.1 Atherosclerosis of renal artery; G93.41 Metabolic encephalopathy; I13.0 Hypertensive heart and chronic kidney disease with heart failure and stage 1 through stage 4 chronic kidney disease, or unspecified chronic kidney disease; J20.9 Acute bronchitis, unspecified; Z79.82 Long term (current) use of aspirin; Z95.1 Presence of aortocoronary bypass graft; Z82.49 Family history of ischemic heart disease and other diseases of the circulatory system; Z88.8 Allergy status to other drugs, medicaments and biological substances; E78.5 Hyperlipidemia, unspecified; N18.4 Chronic kidney disease, stage 4 (severe); R44.3 Hallucinations, unspecified; I25.10 Atherosclerotic heart disease of native coronary artery without angina pectoris

== ENCOUNTER 2024-05-10 15:10 | Observation (INO) ==
--- OUTSIDE RECORDS SUMMARY | 2024-05-10 15:14 | External Medical Summary | Summary of Care ---
Author Name Unknown Organization [facility] Address [address] [place] [address] Phone [phone] Care Team Providers Care Cattle Tester Name Role Phone Suleman Sands MD Primary Care Provider [phone] Reason for Visit * Reason Comments Joint Pain Left shoulder Encounter Details Date Type Department Care Team (Latest Contact Info) Description 12/02/2023 2:30 PM EDT Office Visit Orthopaedics [facility] [address] [place] [address] Jeramy Paris MD [address] [place] [phone] Rotator cuff impingement syndrome of left shoulder*; Parkinson's disease with dyskinesia, unspecified whether manifestations fluctuate (HCC) Allergies Active Allergy Reactions Criticality Noted Date Comments Lisinopril Edema face/lips/tongue High 07/20/2015 Noted in records received from Dr Okeefe documented as of this encounter (statuses as of 12/02/2023) Medications Medication Sig Dispensed Refills Start Date End Date Status Aspirin 81 MG Tablet Take 1 Tablet by mouth in the morning. Active EPINEPHrine, anaphylaxis, (EPI-PEN) 0.3 MG/0.3ML SOAJ injectionIndications :Angioedema For a severe reaction: Inject in outer thigh following instructions on package and go to the Emergency room. 2 Each 1 06/22/2019 Active Tuberculin Syringe (BD TB SYRINGE) 27G X 1/2" 1 ML MISC Use as directed with Procrit 2 Each 5 07/10/2019 Active Additional Information Patient not taking.Reported on 10/30/2022 nitroglycerin (NITROSTAT) 0.[address] 1 Tab under the tongue every 5 minutes as needed for Pain, Chest. up to 3 doses in 15 minutes 25 Tab 11 09/18/2019 Active Vitamin D3 25 MCG (1000 UT) Oral Tablet (Vitamin D3) Take 5 Tablets by mouth every other day. 04/26/2020 Active Loratadine 10 MG Oral Tablet (Claritin) TAKE ONE TABLET BY MOUTH AT BEDTIME TO PREVENT SWELLING EPISODES 30 Tab 08/01/2020 Active Benzonatate 100 MG Oral Capsule (Tessalon Perles) Take by mouth 1 Capsule as needed in the morning AND 1 Capsule as needed at noon AND 1 Capsule as needed in the evening for Cough. Do not cut, crush, or chew.. 50 Capsule 1 12/26/2021 Active Carbidopa-Levodopa 25-100 MG Oral Tablet (Sinemet)Indications :Parkinson's disease (HCC) Take 1 Tablet by mouth in the morning and 1 Tablet at noon and 1 Tablet before bedtime. 270 Tablet 2 03/13/2023 Active Atorvastatin Calcium 20 MG Oral Tablet (Lipitor)Indications :ASCVD (arteriosclerotic cardiovascular disease) Take 1 Tablet by mouth in the morning. 90 Tablet 1 03/13/2023 Active Escitalopram Oxalate 10 MG Oral Tablet (Lexapro)Indications :Mild major depression (HCC),Adjustment disorder with depressed mood TAKE 1 TABLET BY MOUTH EVERY EVENING 90 Tablet 1 03/13/2023 Active Furosemide 20 MG Oral Tablet (Lasix)Indications:H ypertensive kidney disease with chronic kidney disease stage IV (HCC) TAKE 1 TABLET BY MOUTH ONCE DAILY FOR FLUID OR WEIGHT GAIN. MAY SKIP DOSE UP TO TWICE WEEKLY 90 Tablet 1 03/13/2023 Active Metoprolol Tartrate 25 MG Oral Tablet (Lopressor)Indicatio ns:Coronary artery disease involving chinik coronary artery of chinik heart without angina pectoris,Essential hypertension TAKE 1 TABLET BY MOUTH TWICE DAILY every morning and before bedtime 180 Tablet 1 03/13/2023 Active Pantoprazole Sodium 40 MG Oral Tablet Delayed Release (Protonix)Indication s:Gastroesophageal reflux disease, unspecified whether esophagitis present TAKE 1 TABLET BY MOUTH TWICE DAILY every morning and before bedtime 180 Tablet 1 03/13/2023 Active Potassium Chloride ER 10 MEQ Oral Tablet Extended ReleaseIndications:H ypertensive kidney disease with chronic kidney disease stage IV (HCC) take 1 tablet by mouth on saturday and and hold if you are having a higher potassium meal - may take 1 extra tablet weekly for cramps 45 Tablet 1 03/13/2023 Active Allopurinol 100 MG Oral Tablet (Zyloprim)Indication s:Hyperuricemia,HTN, goal below 150/90 Take 1 Tablet by mouth in the morning. 30 Tablet 11 04/05/2023 Active amLODIPine Besylate 2.5 MG Oral Tablet (Norvasc)Indications :HTN, goal below 150/90 Take 1 Tablet by mouth at bedtime. 30 Tablet 5 04/05/2023 Active Levothyroxine Sodium 25 MCG Oral Tablet (Levoxyl) Take 1 tab 5 days per week and 2 tabs two days per week for total of 9 tabs per week(at least 30 min prior to breakfast or other meds) 04/07/2023 Active Hospital, Clinic, or Other Facility Administered Medication Ordered Dose Route Frequency Start Date End Date Status lidocaine 1% 1 mL - triamcinolone acetonide 40 mg/mL 1 mL inj 2 mLIndications:Rotator cuff impingement syndrome of left shoulder 2 mL IJ ONCE 12/02/2023 12/02/2023 Ended documented as of this encounter (statuses as of 12/02/2023) Active Problems Problem Noted Date Diagnosed Date Acquired hypothyroidism 04/01/2023 Alzheimer's disease, unspecified (CODE) 02/23/20 23 Adjustment disorder with depressed mood 08/22/19 23 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 08/20/2022 Chronic diastolic congestive heart failure 01/18 Major depressive disorder, single episode, mild 01/18/2021 Gastro-esophageal reflux disease without esophag itis 01/18/2021 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 01/18/2021 Hyperparathyroidism 01/18/2021 Kidney disease, chronic, stage IV (GFR 15-29 ml/ min) 08/16/2020 Overview: Per CKD protocol Parkinson's disease 01/13/2020 Anemia 07/15/2019 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 Benign essential tremor 03/06/2019 Generalized osteoarthritis of multiple sites Nocturnal muscle cramps 03/03/2018 HTN, goal below 150/90 01/25/2016 Dyslipidemia, goal LDL below 70 06/06/2015 S/P CABG x 4 05/05/2015 Renal artery stenosis 04/19/2015 documented as of this encounter (statuses as of 12/02/2023) Resolved Problems Problem Noted Date Diagnosed Date Resolved Date Thrombocytopenia 01/18/2021 08/21/2022 Hypertensive kidney disease with chronic kidney disease stage IV 10/19/2019 09/19/2022 Overview: Per CKD protocol Gastrointestinal hemorrhage 07/15/2019 02/22/2023 Severe malnutrition 07/03/2019 01/19/20 FORREST (acute kidney injury) 07/02/2019 Overview: history Dementia without behavioral disturbance 01/05/2019 01/18/2021 Hypertensive kidney disease with chronic kidney disease stage III 08/28/2018 10/22/2019 Overview: Per CKD protocol Bronchopneumonia 05/29/2016 10/02/2016 Viral URI with cough 05/29/2016 017 ASCVD (arteriosclerotic card iovascular disease) 05/29/2016 02/22/2023 Kidney disease, chronic, sta ge III (GFR 30-59 ml/min) 01/16/2016 09/17/2018 Overview: Per CKD protocol #1 HTN, goal below 140/90 09/19/201501/24 Overview: Per HTN Protocol Angioedema 06/13/2015 07/04/2019 HTN (hypertension) 04/19/2015 6 Overview: Per HTN Protocol documented as of this encounter (statuses as of 12/02/2023) Immunizations Name Administration Dates Next Due COVID-19 mRNA, LNP-s, No Pre serve, 2-Dose Series ([employer]) 07/21/2020,06/30/2020 Hepatitis B, 20+ yrs 08/18/2019 Pneumococcal Conjugate Vacc, 13 Valent (Prevnar) 11/05/2017 Pneumococcal Polysaccharide PPV23 (Pneumovax) 05/04/2015,03/31/2015,01/09/2010 Season Influenza, Quad, PF, Adjuvanted, 65+ Yrs, IM (FLUAD) 01/13/2020 Seasonal Influenza, PF, 6 M & above, IM , (FluLaval or Fluzone) 03/03/2018,02/20/2017 Seasonal Influenza, Quadriva lent Hd (Fluzone Hd) 02/22/2023,02/10/2022,01/18/2021 Seasonal Influenza, Quadriva lent, No Preserve, IM 01/25/2016 Seasonal Influenza, Split, I IV3, With Preserve, Inj 03/31/2015,02/10/2015,04/06/2013,07/2009 Seasonal Influenza, Trivalen t, Adjuvanted, 65+ yrs 03/06/2019 TDAP (age 10 and older)(Boostrix) 09/21/2015 09/20/2025 Zoster Vaccine Recombinant (Shingrix) 04/09/2019 ,02/05/2019 documented as of this encounter Social History Tobacco Use Types Packs/Day Years Used Date Smoking Tobacco: Never Passive Smoke Exposure: Past Smokeless Tobacco: Never Comments:As a child her pare nts smoked. Alcohol Use Standard Drinks/Week Comments No 0 (1 standard drink = 0.6 oz pur e alcohol) PHQ-2 Answer Date Recorded PHQ-2 Score 0 09/02/2018 Utilities Answer Date Recorded Do you have trouble paying y our heating, water, or electric bill? (Adult - for ages 18 years and over) Not on file 09/24/2023 Is your family able to pay t he heat, water, or electric bill? (Household - for ages 0-17 years) Not on file 09/24/2023 Does your family have access to good internet? (Household - for ages 0-17 years) Not on file 09/24/2023 Social Connections Answer Date Recorded How often do you feel lonely or isolated from those around you? (Adult - for ages 18 years and over) Not on file 09/24/2023 Sex and Gender Information Value Date Recorded Sex Assigned at Female 09/02/2018 2:24 PM EDT Gender Identity Female 09/02/2018 2:24 PM EDT Sexual Orientation Straight 09/02/2018 2: 24 PM EDT Job Start Date Occupation Industry Not on file Not on file Not on file documented as of this encounter Functional Status Functional Status Response Date of Assess ment Are you deaf or do you have serious difficulty h earing? No 07/02/2019 Are you blind or do you have serious difficulty seeing, even when wearing glasses? No 07/02/2019 Do you have serious difficul ty walking or climbing stairs? (5 years old or older) No 07/03/2019 Do you have difficulty dress ing or bathing? (5 years old or older) No 07/02/2019 Because of a physical, menta l, or emotional condition, do you have difficulty doing errands alone such as visiting a doctor s office or shopping? (15 years old or older) No 07/02/19 20 Cognitive Status Response Date of Assessm ent Because of a physical, menta l, or emotional condition, do you have serious difficulty concentrating, remembering, or making decisions? (5 years old or older) No 07/02/2019 documented as of this encounter Progress Notes * Jeramy Paris MD - 12/02/2023 2:30 PM EDT ORTHOPAEDIC SURGERY - [facility] Vani Parker is a 83 year old female. Chief Complaint Patient presents with Joint Pain Left shoulder ASSESSMENT: (M75.42) Rotator cuff impingement syndrome of left shoulder (primary encounter diagnosis) (G20.B1) Parkinson's disease with dyskinesia, unspecified whether manifestations fluctuate (HCC) PLAN: We discussed the diagnosis and treatment options with the patient today. At this time patient will proceed with a repeat cortisone injections since the last 1 was in March. She will continue with the Thera-Band exercises. Injection Procedure Note: LEFT Shoulder: Time out: Prior to injection, a time out was called to confirm the administration of appropriate medicine, patient name, procedure and confirm to the best of our ability and knowledge the presence of any necessary risks and benefits. Patient verbalizes understanding. Consent obtained. Sterile techinique applied. Skin was prepped with Hibiclens swab. The left shoulder subacromial/glenohumeral joint was injected using 1.5 inch, 25 gauge needle with 1 mL 0.5% ropivacaine, 1 mL 1% lidocaine and 1 mL Depo-Medrol 40 mg/mL. Skin cleansed with alcohol and Band-Aid placed. Patient tolerated procedure with no significant bleeding or adverse reaction. Patient instructed to call or return to clinic for fever or warmth and redness at injection site for potential infection. Patient also advised as to potential for steroid flare reaction including increased pain and redness at injection site which should be treated with ice and resolve within 24 hours. Follow Up: Return if symptoms worsen or fail to improve. If her symptoms return she may benefit from a repeat injection. There are no Patient Instructions on file for this visit. HPI: Vani Parker presents today for follow up. Patient states that the cortisone injection that she received in March did help until just recently. She complains of pain over the posterior shoulder region. She continues to do her band exercises at home. She denies any new injury. Patient isrequesting a repeat injection today. Parathesia negative: Calf pain negative: Fevers or chills negative. Ambulating with crutches negative Review of patient's allergies indicates: Allergen Reactions Lisinopril Edema face/lips/tongue Noted in records received from Dr Okeefe Current Outpatient Medications Medication Sig Dispense Refill Aspirin 81 MG Tablet Take 1 Tablet by mouth in the morning. EPINEPHrine, anaphylaxis, (EPI-PEN) 0.3 MG/0.3ML SOAJ injection For a severe reaction: Inject in outer thigh following instructions on package and go to the Emergency room. 2 Each 1 Tuberculin Syringe (BD TB SYRINGE) 27G X 1/2" 1 ML MISC Use as directed with Procrit (Patient not taking: Reported on 10/30/2022) 2 Each 5 nitroglycerin (NITROSTAT) 0.[address] 1 Tab under the tongue every 5 minutes as needed for Pain, Chest. up to 3 doses in 15 minutes 25 Tab 11 Vitamin D3 25 MCG (1000 UT) Oral Tablet (Vitamin D3) Take 5 Tablets by mouth every other day. Loratadine 10 MG Oral Tablet (Claritin) TAKE ONE TABLET BY MOUTH AT BEDTIME TO PREVENT SWELLING EPISODES 30 Tab 0 Benzonatate 100 MG Oral Capsule (Tessalon Perles) Take by mouth 1 Capsule as needed in the morning AND 1 Capsule as needed at noon AND 1 Capsule as needed in the evening for Cough. Do not cut, crush,or chew.. 50 Capsule 1 Carbidopa-Levodopa 25-100 MG Oral Tablet (Sinemet) Take 1 Tablet by mouth in the morning and 1 Tablet at noon and 1 Tablet before bedtime. 270 Tablet 2 Atorvastatin Calcium 20 MG Oral Tablet (Lipitor) Take 1 Tablet by mouth in the morning. 90 Tablet 1 Escitalopram Oxalate 10 MG Oral Tablet (Lexapro) TAKE 1 TABLET BY MOUTH EVERY EVENING 90 Tablet 1 Furosemide 20 MG Oral Tablet (Lasix) TAKE 1 TABLET BY MOUTH ONCE DAILY FOR FLUID OR WEIGHT GAIN. MAY SKIP DOSE UP TO TWICE WEEKLY 90 Tablet 1 Metoprolol Tartrate 25 MG Oral Tablet (Lopressor) TAKE 1 TABLET BY MOUTH TWICE DAILY every morning and before bedtime 180 Tablet 1 Pantoprazole Sodium 40 MG Oral Tablet Delayed Release (Protonix) TAKE 1 TABLET BY MOUTH TWICE DAILYevery morning and before bedtime 180 Tablet 1 Potassium Chloride ER 10 MEQ Oral Tablet Extended Release take 1 tablet by mouth on saturday and and hold if you are having a higher potassium meal - may take 1 extra tablet weekly for cramps 45 Tablet 1 Allopurinol 100 MG Oral Tablet (Zyloprim) Take 1 Tablet by mouth in the morning. 30 Tablet 11 amLODIPine Besylate 2.5 MG Oral Tablet (Norvasc) Take 1 Tablet by mouth at bedtime. 30 Tablet 5 Levothyroxine Sodium 25 MCG Oral Tablet (Levoxyl) Take 1 tab 5 days per week and 2 tabs two days per week for total of 9 tabs per week(at least 30 min prior to breakfast or other meds) No current facility-administered medications for this visit. OBJECTIVE: Diagnostic studies: None Vital Signs: There were no vitals taken for this visit. Physical Exam: Patient is in a wheelchair today which limits the exam. Evaluation of the left shoulder. Patient is tender to palpation diffusely. She was significantly tender over the posterior aspect of the shoulder. Range of motion is forward flexion to 100. Jeramy Paris MD Orthopaedics [address] [address] Orthopedic Sports Medicine Surgery 12/02/2023 2:30 PM This chart was completed in part utilizing [employer] Speech Voice Recognition Software. Grammatical errors, random word insertions, pronoun errors, and incomplete sentences are an occasional consequence of this system due to software limitations, ambient noise, and hardware issues. Any formal questions or concerns about the content, text, or information contained within the body of this dictation should be directly addressed to the provider for clarification. documented in this encounter Nursing Notes * Noa Stephen LPN - 12/02/2023 2:15 PM EDT Left shoulder pain, last injected 04/03/23. Noa Burgos LPN documented in this encounter Plan of Treatment Health Maintenance Due Date Last Done Comments Adult Wellness Visit 2004 Depression Monitoring 09/03/2019 09/02/2018 Hepatitis B Vaccine (2 of 3 - 19+ 3-dose series) 09/15/2019 08/18/2019 COVID-19 Vaccine (2022- season) 2022 02/27/2021, 07/21/2020, 06/30/2020 Hgb 08/22/2023 08/21/2022, 10/07, 09/08/2020, Additional history exists Influenza Vaccine (FLU shot) (#1) 2023 02/22/2023, 02/10/2022, 01/18/2021, Additional history exists Phosphate 02/23/2024 02/22/2023, 10/07, 01/18/2021, Additional history exists Nephrology Referral 03/18/2024 03/18/2023 PTH 03/18/2024 03/18/2023, 10/07, 05/25/2020, Additional history exists Albumin/Creatinine Ratio 03/19/2024 023, 05/08/2022, 10/30/2021, Additional history exists TSH 04/03/2024 04/03/2023, 02/06, 08/21/2022, Additional history exists DTaP,Tdap,and Td Vaccines (2 - Td or Tdap) 09/20/2025 09/21/2015 Pneumococcal Vaccine: 65+ Years Completed 11/05/2017, 05/04/2015, 03/31/2015, Additional history exists Zoster Vaccines Completed 04/09/2019, 02/05/2019 HPV (Gardasil) Vaccine Aged Out No lo nger eligible based on patient's age to complete this topic MENINGOCOCCAL (MENACTRA/MENVEO) Aged Out No longer eligible based on patient's age to complete this topic documented as of this encounter Medical Devices Implanted Type Area Radio Broadcaster Device Identifier Shelf Expiration Date Model / Serial / Lot Sut Steel 6 M654g - [id number] Implanted:Qty: 5 on 04/25/2015 by Bran [place] [facility] [place]: Chest JNJ : [employer] 01/06/2020 [id number] / / [id number] Graft Marker Coronary - [id number] Implanted:Qty: 2 on 04/25/2015 by Bran Matthews MD [place] [facility] [place]/A: Aorta VM CARDIO VASCULAR 01/05/2017 [id number] / / [id number] Lens Li61ao 13.00mm 26.50 - [id number] - [id number] Implanted:Qty: 1 on 10/16/2022 by Boris Connell MD at OR [facility] Left: Eye [employer] LOMB 09/05/2026 [id number] 0 / [id number] / [id number] Lens Li61ao 13.00mm 26.50 - [id number] - [id number] Implanted:Qty: 1 on 10/30/2022 by Boris Connell MD at OR [facility] Right: Eye BAUSCH [employer] LOMB 09/05/2026 [id number] / [id number] / [id number] documented as of this encounter Visit Diagnoses Diagnosis Rotator cuff impingement syndrome of left shoulder- Primary Parkinson's disease with dyskinesia, unspecified whether manifestations fluctuate (HCC) documented in this encounter Administered Medications Inactive Administered Medications - up to 3 most recent administrations Medication Order MAR Action Action Date Dose Rate Site lidocaine 1% 1 mL - triamcinolone acetonide 40 mg/mL 1 mL inj 2 mL 2 mL, Injection, ONCE, On Sat12/02/23 at 1515, For 1 dose, Lidocaine 1% 1mL Triamcinolone Acetonide 40 mg/mL 1 mL (Final concentration = 20 mg/mL) REFRIGERATE and SHAKE WELL Given 12/02/2023 2:44 PM EDT 2 mL Shoulder Left documented in this encounter Advance Directives * No Code (Latest Code Status on File) Date Activated Date Inactivated Comments 07/02/2019 11:18 PM 07/04/2019 6:14 PM This order reflects the patients wishes and were consensually agreed upon. Question Answer Comments Discussion of Advance Directives occurred with: Patient Does the patient have a Living Will? No Does the patient have Health Care Power of Attor dalton? No * Full Code Date Activated Date Inactivated Comments 07/02/2019 11:12 PM 07/02/2019 11:18 PM This order reflects the patients wishes and were consensually agreed upon. Question Answer Comments Discussion of Advance Directives occurred with: Patient Does the patient have a Living Will? No Does the patient have Health Care Power of Attor dalton? No * Full Code Date Activated Date Inactivated Comments 04/25/2015 1:18 PM 05/04/2015 3:32 PM This order r eflects the patients wishes and were consensually agreed upon. Care Teams Cattle Tester Relationship Specialty Start Date End Date Suleman Sands MD [address] [place] [address] PCP - General Family Medicine 05/19/15 documented as of this encounter
--- OUTSIDE RECORDS SUMMARY | 2024-05-10 15:14 | External Medical Summary | Summary of Care ---
Author Name Unknown Organization [facility] Address [address] [place] [address] Phone [phone] Care Team Providers Care Sales And Marketing Manager Name Role Phone Suleman Sands MD Primary Care Provider [phone] Reason for Visit * Reason Comments Joint Pain Left shoulder Encounter Details Date Type Department Care Team (Latest Contact Info) Description 12/02/2023 2:30 PM EDT Office Visit Orthopaedics [facility] [address] [place] [address] Jeramy Paris MD [address] [place] [phone] Rotator cuff impingement syndrome of left shoulder*; [...] Oral Tablet (Lopressor)Indicatio ns:Coronary artery disease involving nez perce coronary artery of nez perce heart without angina pectoris,Essential hypertension TAKE 1 [...] disease without esophag itis 01/18/2021 Atherosclerosis of nez perce co ronary artery of nez perce heart with stable angina pectoris 01/18/2021 Hyperparathyroidism [...] mRNA, LNP-s, No Pre serve, 2-Dose Series ([employer]) 07/21/2020,06/30/2020 Hepatitis B, 20+ yrs 08/18/2019 Pneumococcal [...] flexion to 100. Jeramy Paris MD Orthopaedics [address] [address] Orthopedic Sports Medicine Surgery 12/02/2023 2:30 PM This chart was completed in part utilizing [employer] Speech Voice Recognition Software. Grammatical errors, random [...] this encounter Medical Devices Implanted Type Area Business Operations Consultant Device Identifier Shelf Expiration Date Model / Serial / Lot Sut Steel 6 M654g - [id number] Implanted:Qty: 5 on 04/25/2015 by Bran Matthews MD at [place] [facility] [place] N/A: Chest JNJ : [employer] 01/06/2020 M654G / / [id number] Graft Marker Coronary - [id number] Implanted:Qty: 2 on 04/25/2015 by Bran Matthews MD at [place] [facility] [place] N/A: Aorta VM CARDIO VASCULAR 01/05/2017 [id number] / / [id number] Lens Li61ao 13.00mm 26.50 - [id number] - [id number] Implanted:Qty: 1 on 10/16/2022 by Boris Connell MD at OR [facility] Left: Eye [employer] LOMB 09/05/2026 [id number] 0 / [id number] / [id number] Lens Li61ao 13.00mm 26.50 - [id number] - [id number] Implanted:Qty: 1 on 10/30/2022 by Boris Connell MD at OR [facility] Right: Eye [employer]CH [employer] LOMB 09/05/2026 [id number] / [id number] / [id number] documented as of this encounter Visit Diagnoses [...] and were consensually agreed upon. Care Teams Sales And Marketing Manager Relationship Specialty Start Date End Date Suleman Sands MD [address] [place] [address] PCP - General Family Medicine 05/19/15 documented as of this encounter
--- NOTE | 2024-05-10 15:27 | Emergency Department Note ---
Impression & Plan Atrial fibrillation with slow ventricular response, Hypomagnesemia, Mid sternal chest pain ED Provider Note Name: LEEROY FELIX Age: 83 Sex: Female Arrives Via: Ambulance Informant: Patient, daughter ED Provider: Jerrell White MD Chief Complaint: Chest pain Impression: As per impressions above Medical Decision Makin-year-old female arrives for evaluation of sternal chest pain. By examination she very much clearly has reproducible sternal chest pain. Unfortunately she also is complaining of some radiation to the jaw and she is in a new onset a A- fib with slow ventricular response. She had not responded to nitro thus was given IV fentanyl with some improvement. Laboratory workup is reassuring there is no clear evidence of ACS at this time. In the setting of new onset A-fib and the ongoing chest pain with radiation I think it is reasonable to bring her in for closer monitoring and management given her age and CABG history. I do not feel symptoms are consistent with a PE. She does not have dissection findings and otherwise there is no clear evidence of infectious etiology. Triage/Nursing Notes reviewed by Me External Chart Review by me: Discharge summary from 01/09/2020 was reviewed to obtain past history of patient. Differential:Cardiac ischemia, aortic dissection, pulmonary embolism, pneumothorax, pneumonia, pericarditis, myocarditis, esophageal rupture, GERD, cholecystitis, pancreatitis, musculoskeletal, as well as other pathologies. Vital Signs: reviewed and remarkable for bradycardic Interventions: Fentanyl IV Labs:ED labs Reviewed by me and remarkable for no significant abnormalities Imagin view chest x-ray no infiltrate nor effusion appreciated. EKG:As per my interpretation. Indication chest pain. Atrial fibrillation with slow ventricular response of 42 bpm QTc of 430. There are nonspecific ST depressions inferiorly. When compared to EKG of December 20, 2021 morphology is relatively similar however A-fib is new and she is no longer in sinus rhythm. Cardiac/Tele Monitoring: Cardiac Monitoring: An Order was placed for continuous cardiac monitoring. The monitor shows a rate of 40 with a afib rhythm. Consults:Discussed with hospitalist who will further evaluate and manage Plan: Disposition:Hospitalization. Condition: Good History of Present Illness: 83-year-old female arrives for evaluation of sternal chest pain. Patient notes she awoke this morning with sternal chest pain. Pain radiates to the left jaw and left shoulder. Pain is pressure-like. It is worse with movement. She denies any falls, trauma, injuries. She denies any difficulty breathing, cough, fevers, chills, abdominal pain, nausea, vomiting or other concerning signs or symptoms. Denies any leg swelling or calf pain. Patient arrives via EMS and received 3 doses of nitroglycerin and 324 mg p.o. aspirin without improvement in her pain. Patient with a history of CABG 5 years ago at [facility]. Patient reportedly has a history of A-fib however this is not in the chart nor she on any anticoagulant. Past Medical History:See Below Home Medications:See Below Allergies:See Below Vitals:Blood Pressure: 132/83, Pulse 99, RR 18, T 36.8C, O2 95% on RA Physical Exam: GENERAL: Patient is unwell/uncomfortable appearing and in mild distress. Chronically unwell appearing RESPIRATORY: No dyspnea. Clear to auscultation and equal bilaterally. CARDIOVASCULAR: Regular rate and rhythm.No murmur appreciated. GASTROINTESTINAL: Abdomen soft, non-tender, no peritonitis. CHEST: TTP over sternum, no rash EXTREMITIES: Normal motion all extremities, no cyanosis, no edema. NEUROLOGIC: Alert and oriented. No focal neurologic deficits appreciated SKIN: No rash, no jaundice, no diaphoresis. PSYCH: Appropriate GCS: 15 ED Course: Times/Reassessments: Patient does appear bit more comfortable following IV fentanyl. Jerrell White MD Past Med/Surg History Problem List (Updated 05/11/24 @ 14:55 by Augusto Ayon MD) Chronic sinus bradycardia Mid sternal chest pain (Acute) Hypomagnesemia (Acute) Atrial fibrillation with slow ventricular response (Acute) Atrial fibrillation Parkinson disease URI (upper respiratory infection) CKD (chronic kidney disease), stage IV ANCA-associated vasculitis (Acute) Acute electrocardiogram changes (Acute) Elevated troponin I level (Acute) Shortness of breath Anemia of chronic disease Hypokalemia Abnormal CT scan of lung Benign essential tremor Renal artery stenosis S/P CABG x 4 2015 Hyperlipidemia Hypertension Duodenal ulcer Colonic polyp Anemia of renal disease Coronary artery disease Medical History Chronic diastolic heart failure Surgical History History of lumbar surgery History of hysterectomy with oophorectomy History of appendectomy History of cholecystectomy Family History Father Coronary heart disease Pulmonary embolism Mother Cancer Sister Parkinson disease Social History Smoking Status: Never smoker Second Hand Exposure: No; Do You Dip or Chew Tobacco: No; Tobacco Cessation Education Requested by Patient: No Hx Alcohol Use: No Hx Substance Use: No Preferred Language: Kiswahili Communication Ability: Effective [employer] Required: No Beliefs That Will Affect Care: None marital status: Unknown Current Living Situation: Alf Current Living Situation Comment: lives w/ dtr Other Information That Helps Us Care for You: No Feels Safe at Home: Yes Safety Concerns: Feels Safe At This Time Assistive Devices: Walker Allergies Allergies Allergy/AdvReac Type Severity Reaction Status Date / Time lisinopril Allergy Severe Angioedema Verified 02/26/20 14:45 Home Meds Home Medications Medication Instructions Recorded Confirmed aspirin 81 mg tablet,delayed 81 mg PO QAM 12/29/18 05/10/24 release atorvastatin 20 mg tablet 20 mg PO HS 12/29/18 05/10/24 epinephrine 0.3 mg/0.3 mL 0.3 mg IM DIRECTED PRN Allergic 12/29/18 05/10/24 injection, auto-injector (EpiPen) Reaction metoprolol tartrate 25 mg tablet 25 mg PO BID 12/29/18 05/10/24 carbidopa 25 mg-levodopa 100 mg 1 tab PO QID 01/05/20 05/10/24 tablet acetaminophen 325 mg tablet 650 mg PO Q6 PRN Fever Or Pain 05/10/24 05/10/24 allopurinol 100 mg tablet 100 mg PO DAILY 05/10/24 05/10/24 bisacodyl 10 mg rectal suppository 10 mg IA DAILY PRN Constipation 05/10/24 05/10/24 (Dulcolax (bisacodyl)) cholecalciferol (vitamin D3) 25 125 mcg PO Q OTHER DAY 05/10/24 05/10/24 mcg (1,000 unit) tablet (Vitamin D3) diclofenac sodium 1 % topical gel 2 g topical QID 05/10/24 05/10/24 escitalopram oxalate 5 mg tablet 5 mg PO DAILY 05/10/24 05/10/24 furosemide 40 mg tablet 40 mg PO DAILY 05/10/24 05/10/24 levothyroxine 25 mcg tablet 25 mcg PO DIRECTED 05/10/24 05/10/24 loratadine 10 mg tablet 10 mg PO HS 05/10/24 05/10/24 nitroglycerin 0.4 mg sublingual 0.4 mg sublingual .EVERY 5 MINUTES 05/10/24 05/10/24 tablet (Nitrostat) PRN Chest Pain pantoprazole 40 mg tablet,delayed 40 mg PO DAILY 05/10/24 05/10/24 release polyethylene glycol 3350 17 17 g PO QAM 05/10/24 05/10/24 gram/dose oral powder (Miralax) potassium chloride 10 mEq 10 meq PO 2XWK 05/10/24 05/10/24 tablet,extended release potassium chloride 10 mEq 10 meq PO UD 05/10/24 05/10/24 tablet,extended release sodium phosphates 19 gram-7 118 ml IA DAILY PRN Constipation 05/10/24 05/10/24 gram/118 mL enema (Fleet Enema) Results & Data (ED) Vital Signs Vital Signs - 24 hr 05/11/24 19:16 05/11/24 19:17 05/11/24 21:45 Temperature 37.4 C Temperature Source Oral Pulse Rate 75 Pulse Rate [Apical] 70 Respiratory Rate 18 Respiratory Effort / Characteristics Respiratory Depth Respiratory Pattern Blood Pressure [Left Arm] 180/70 H Blood Pressure Mean [Left Arm] 106 Blood Pressure Position [Left Arm] Semi-fowlers Pulse Oximetry 94 Oxygen Delivery Method Room Air EWS Level of Consciousness - Last Result Spontaneously Alert EWS Temperature - Last Result 37.4 EWS Respiratory Rate - Last Result 18 EWS Oxygen Saturation - Last Result 94 EWS Oxygen in Use - Last Result No EWS Score 1 EWS Clinical Risk Low Risk 05/11/24 22:00 05/11/24 22:44 05/11/24 22:44 Temperature 37.2 C Temperature Source Oral Pulse Rate Pulse Rate [Apical] 74 Respiratory Rate 18 Respiratory Effort / Characteristics Respiratory Depth Respiratory Pattern Blood Pressure [Left Arm] 171/70 H Blood Pressure Mean [Left Arm] 103 Blood Pressure Position [Left Arm] Semi-fowlers Pulse Oximetry 92 Oxygen Delivery Method Room Air Room Air EWS Level of Consciousness - Last Result Spontaneously Alert EWS Temperature - Last Result 37.2 EWS Respiratory Rate - Last Result 18 EWS Oxygen Saturation - Last Result 92 EWS Oxygen in Use - Last Result No EWS Score 2 EWS Clinical Risk Low Risk 05/12/24 02:38 05/12/24 02:39 05/12/24 07:32 Temperature 36.8 C Temperature Source Oral Pulse Rate 58 L Pulse Rate [Apical] 63 Respiratory Rate 18 Respiratory Effort / Characteristics Respiratory Depth Respiratory Pattern Blood Pressure [Left Arm] 148/75 H Blood Pressure Mean [Left Arm] 99 Blood Pressure Position [Left Arm] Semi-fowlers Pulse Oximetry 94 Oxygen Delivery Method Room Air EWS Level of Consciousness - Last Result Spontaneously Alert EWS Temperature - Last Result 36.8 EWS Respiratory Rate - Last Result 18 EWS Oxygen Saturation - Last Result 94 EWS Oxygen in Use - Last Result No EWS Score 1 EWS Clinical Risk Low Risk 05/12/24 07:45 05/12/24 07:45 05/12/24 08:41 Temperature 36.3 C L Temperature Source Oral Pulse Rate Pulse Rate [Apical] 51 L Respiratory Rate 19 Respiratory Effort / Characteristics SOB on Exertion Respiratory Depth Normal Normal Respiratory Pattern Regular Blood Pressure [Left Arm] 123/67 Blood Pressure Mean [Left Arm] 85 Blood Pressure Position [Left Arm] Lying Pulse Oximetry 96 Oxygen Delivery Method Room Air Room Air EWS Level of Consciousness - Last Result Spontaneously Alert EWS Temperature - Last Result 36.8 EWS Respiratory Rate - Last Result 18 EWS Oxygen Saturation - Last Result 94 EWS Oxygen in Use - Last Result No EWS Score 1 EWS Clinical Risk Low Risk Laboratory Data 05/12/24 06:16 05/12/24 06:16 Lab Results 05/10/24 05/10/24 05/10/24 Range/Units 15:20 18:02 18:42 WBC 8.51 (4.8-10.8) K/ul RBC 2.48 L (4.20-5.40) M/uL Hgb 8.1 L (12.0-16.0) g/dl Hct 25.6 L (37.0-47.0) % MCV 103.2 H (80.0-100.0) fL MCH 32.7 (25.0-34.0) pg MCHC 31.6 L (32.0-36.0) g/dL RDW Std Deviation 61.7 H (36.4-46.3) fL RDW Coeff of Filiberto 16.5 H (11.5-14.5) % Plt Count 142 (130-400) K/uL MPV 11.1 (9.4-12.4) fL Immature Gran % (Auto) 0.2 % Neut % (Auto) 67.1 % Lymph % (Auto) 22.0 % Whitfield % (Auto) 7.5 % Eos % (Auto) 2.8 % Baso % (Auto) 0.4 % Neut # (Auto) 5.71 (1.40-6.50) K/uL Lymph # (Auto) 1.87 (1.20-3.40) K/uL Whitfield # (Auto) 0.64 H (0.11-0.59) K/uL Eos # (Auto) 0.24 (0.00-0.50) K/uL Baso # (Auto) 0.03 (0.00-0.20) K/uL Immature Gran # (Auto) 0.02 (0.01-0.20) K/uL Absolute Nucleated RBC (0.00-0.12) K/uL Nucleated RBC % (auto) % Sodium 144 (136-145) mmol/L Potassium 3.5 (3.5-5.1) mmol/L Chloride 119 H (98-107) mmol/L Carbon Dioxide 20 L (21-32) mmol/L Anion Gap 5 (3-11) BUN 24 H (6-23) mg/dl Creatinine 1.01 (0.6-1.2) mg/dl Est Cr Clr Drug Dosing 44.0 ml/min eGFR 54.55 BUN/Creatinine Ratio 23.8 H (10-20) Glucose 82 (70-99(Fasting)) mg/dl Calcium 6.3 L (8.6-10.3) mg/dl Magnesium 1.5 L (1.7-2.4) mg/dl Iron 35 (35-150) mcg/dl TIBC 189 L (250-450) mcg/dl Transferrin 135 L (200-360) mg/dl Transferrin % Sat 19 (15-50) % Total Bilirubin 0.4 (0.2-1.0) mg/dl Direct Bilirubin 0.1 (0-0.2) mg/dl AST 10 L (13-39) U/L ALT < 3 L (7-52) U/L Alkaline Phosphatase 62 (34-104) U/L Troponin I High Sens 5.3 8.5 (0-14) pg/ml Total Protein 4.6 L (6.0-8.3) gm/dl Albumin 2.5 L (3.4-5.0) gm/dl Globulin (2.5-4.0) gm/dl Albumin/Globulin Ratio (0.9-2) Triglycerides (0-150) mg/dl Cholesterol (0-200) mg/dl LDL Cholesterol, Calc mg/dl VLDL Cholesterol, Calc (0-30) mg/dl HDL Cholesterol mg/dl Cholesterol/HDL Ratio (0-5) TSH 2.069 (0.300-4.500) uIu/ml Urine Color Urine Appearance (Clear) Urine pH (4.5-7.5) Ur Specific Barry (1.000-1.030) Urine Protein (Negative) Urine Glucose (UA) (Negative) Urine Ketones (Negative) Urine Blood (Negative) Urine Nitrite (Negative) Urine Bilirubin (Negative) Urine Urobilinogen (Negative) Ur Leukocyte Esterase (Negative) Urine WBC (Auto) (0-5) /hpf Urine RBC (Auto) (0-2) /hpf U Hyaline Cast (Auto) (0-2) /lpf U Epithel Cells (Auto) (0-2) /hpf Urine Bacteria (Auto) (None Seen) Nasal Screen MRSA (PCR) (Negative) Adenovirus (PCR) Not Detected (NotDetected) B. pertussis DNA (PCR) Not Detected (NotDetected) B.parapertussis DNA PCR Not Detected (NotDetected) C. pneumoniae DNA (PCR) Not Detected (NotDetected) Coronavirus OC43 (PCR) Not Detected (NotDetected) Coronavirus HKU1 (PCR) Not Detected (NotDetected) Coronavirus 229E (PCR) Not Detected (NotDetected) SARS-CoV-2 (PCR) Not Detected (NotDetected) Coronavirus NL63 (PCR) Not Detected (NotDetected) Human Metapneumovir PCR Not Detected (NotDetected) Influenza Type A (PCR) Not Detected (NotDetected) Influenza Type B (PCR) Not Detected (NotDetected) M. pneumoniae (PCR) Not Detected (NotDetected) Parainfluenza 1 (PCR) Not Detected (NotDetected) Parainfluenza 2 (PCR) Not Detected (NotDetected) Parainfluenza 3 (PCR) Not Detected (NotDetected) Parainfluenza 4 (PCR) Not Detected (NotDetected) RSV (PCR) Not Detected (NotDetected) Entero/Rhino (PCR) Not Detected (NotDetected) 05/10/24 05/10/24 05/10/24 Range/Units 19:40 21:30 22:46 WBC (4.8-10.8) K/ul RBC (4.20-5.40) M/uL Hgb (12.0-16.0) g/dl Hct (37.0-47.0) % MCV (80.0-100.0) fL MCH (25.0-34.0) pg MCHC (32.0-36.0) g/dL RDW Std Deviation (36.4-46.3) fL RDW Coeff of Filiberto (11.5-14.5) % Plt Count (130-400) K/uL MPV (9.4-12.4) fL Immature Gran % (Auto) % Neut % (Auto) % Lymph % (Auto) % Whitfield % (Auto) % Eos % (Auto) % Baso % (Auto) % Neut # (Auto) (1.40-6.50) K/uL Lymph # (Auto) (1.20-3.40) K/uL Whitfield # (Auto) (0.11-0.59) K/uL Eos # (Auto) (0.00-0.50) K/uL Baso # (Auto) (0.00-0.20) K/uL Immature Gran # (Auto) (0.01-0.20) K/uL Absolute Nucleated RBC (0.00-0.12) K/uL Nucleated RBC % (auto) % Sodium (136-145) mmol/L Potassium (3.5-5.1) mmol/L Chloride (98-107) mmol/L Carbon Dioxide (21-32) mmol/L Anion Gap (3-11) BUN (6-23) mg/dl Creatinine (0.6-1.2) mg/dl Est Cr Clr Drug Dosing ml/min eGFR BUN/Creatinine Ratio (10-20) Glucose (70-99(Fasting)) mg/dl Calcium (8.6-10.3) mg/dl Magnesium (1.7-2.4) mg/dl Iron (35-150) mcg/dl TIBC (250-450) mcg/dl Transferrin (200-360) mg/dl Transferrin % Sat (15-50) % Total Bilirubin (0.2-1.0) mg/dl Direct Bilirubin (0-0.2) mg/dl AST (13-39) U/L ALT (7-52) U/L Alkaline Phosphatase (34-104) U/L Troponin I High Sens 12.2 (0-14) pg/ml Total Protein (6.0-8.3) gm/dl Albumin (3.4-5.0) gm/dl Globulin (2.5-4.0) gm/dl Albumin/Globulin Ratio (0.9-2) Triglycerides (0-150) mg/dl Cholesterol (0-200) mg/dl LDL Cholesterol, Calc mg/dl VLDL Cholesterol, Calc (0-30) mg/dl HDL Cholesterol mg/dl Cholesterol/HDL Ratio (0-5) TSH (0.300-4.500) uIu/ml Urine Color Yellow Urine Appearance Clear (Clear) Urine pH 5.5 (4.5-7.5) Ur Specific Barry 1.011 (1.000-1.030) Urine Protein Negative (Negative) Urine Glucose (UA) Negative (Negative) Urine Ketones Negative (Negative) Urine Blood Negative (Negative) Urine Nitrite Positive A (Negative) Urine Bilirubin Negative (Negative) Urine Urobilinogen Negative (Negative) Ur Leukocyte Esterase 2+ H (Negative) Urine WBC (Auto) 21-50 H (0-5) /hpf Urine RBC (Auto) 0-2 (0-2) /hpf U Hyaline Cast (Auto) 0-2 (0-2) /lpf U Epithel Cells (Auto) 0-2 (0-2) /hpf Urine Bacteria (Auto) 4+ H (None Seen) Nasal Screen MRSA (PCR) Positive A (Negative) Adenovirus (PCR) (NotDetected) B. pertussis DNA (PCR) (NotDetected) B.parapertussis DNA PCR (NotDetected) C. pneumoniae DNA (PCR) (NotDetected) Coronavirus OC43 (PCR) (NotDetected) Coronavirus HKU1 (PCR) (NotDetected) Coronavirus 229E (PCR) (NotDetected) SARS-CoV-2 (PCR) (NotDetected) Coronavirus NL63 (PCR) (NotDetected) Human Metapneumovir PCR (NotDetected) Influenza Type A (PCR) (NotDetected) Influenza Type B (PCR) (NotDetected) M. pneumoniae (PCR) (NotDetected) Parainfluenza 1 (PCR) (NotDetected) Parainfluenza 2 (PCR) (NotDetected) Parainfluenza 3 (PCR) (NotDetected) Parainfluenza 4 (PCR) (NotDetected) RSV (PCR) (NotDetected) Entero/Rhino (PCR) (NotDetected) 05/11/24 05/12/24 Range/Units 07:31 06:16 WBC 8.09 8.21 (4.8-10.8) K/ul RBC 3.25 L 3.00 L (4.20-5.40) M/uL Hgb 10.5 L 9.8 L (12.0-16.0) g/dl Hct 32.4 L 30.2 L (37.0-47.0) % MCV 99.7 100.7 H (80.0-100.0) fL MCH 32.3 32.7 (25.0-34.0) pg MCHC 32.4 32.5 (32.0-36.0) g/dL RDW Std Deviation 59.3 H 60.1 H (36.4-46.3) fL RDW Coeff of Filiberto 16.3 H 16.4 H (11.5-14.5) % Plt Count 155 144 (130-400) K/uL MPV 10.3 9.8 (9.4-12.4) fL Immature Gran % (Auto) 0.5 % Neut % (Auto) 65.7 % Lymph % (Auto) 22.0 % Whitfield % (Auto) 7.4 % Eos % (Auto) 4.0 % Baso % (Auto) 0.4 % Neut # (Auto) 5.32 (1.40-6.50) K/uL Lymph # (Auto) 1.78 (1.20-3.40) K/uL Whitfield # (Auto) 0.60 H (0.11-0.59) K/uL Eos # (Auto) 0.32 (0.00-0.50) K/uL Baso # (Auto) 0.03 (0.00-0.20) K/uL Immature Gran # (Auto) 0.04 (0.01-0.20) K/uL Absolute Nucleated RBC 0.02 (0.00-0.12) K/uL Nucleated RBC % (auto) 0.2 % Sodium 139 140 (136-145) mmol/L Potassium 4.2 4.2 (3.5-5.1) mmol/L Chloride 108 H 110 H (98-107) mmol/L Carbon Dioxide 24 25 (21-32) mmol/L Anion Gap 7 5 (3-11) BUN 31 H 32 H (6-23) mg/dl Creatinine 1.55 H D 1.64 H (0.6-1.2) mg/dl Est Cr Clr Drug Dosing 28.0 26.5 ml/min eGFR 32.63 30.49 BUN/Creatinine Ratio 20.0 19.5 (10-20) Glucose 109 H 109 H (70-99(Fasting)) mg/dl Calcium 8.9 D 8.9 (8.6-10.3) mg/dl Magnesium 2.6 H (1.7-2.4) mg/dl Iron (35-150) mcg/dl TIBC (250-450) mcg/dl Transferrin (200-360) mg/dl Transferrin % Sat (15-50) % Total Bilirubin 0.8 (0.2-1.0) mg/dl Direct Bilirubin (0-0.2) mg/dl AST 9 L (13-39) U/L ALT 3 L (7-52) U/L Alkaline Phosphatase 83 (34-104) U/L Troponin I High Sens 19.8 H D (0-14) pg/ml Total Protein 6.2 D (6.0-8.3) gm/dl Albumin 3.3 L (3.4-5.0) gm/dl Globulin 2.9 (2.5-4.0) gm/dl Albumin/Globulin Ratio 1.1 (0.9-2) Triglycerides 128 (0-150) mg/dl Cholesterol 99 (0-200) mg/dl LDL Cholesterol, Calc 47 mg/dl VLDL Cholesterol, Calc 26 (0-30) mg/dl HDL Cholesterol 26 mg/dl Cholesterol/HDL Ratio 3.8 (0-5) TSH (0.300-4.500) uIu/ml Urine Color Urine Appearance (Clear) Urine pH (4.5-7.5) Ur Specific Barry (1.000-1.030) Urine Protein (Negative) Urine Glucose (UA) (Negative) Urine Ketones (Negative) Urine Blood (Negative) Urine Nitrite (Negative) Urine Bilirubin (Negative) Urine Urobilinogen (Negative) Ur Leukocyte Esterase (Negative) Urine WBC (Auto) (0-5) /hpf Urine RBC (Auto) (0-2) /hpf U Hyaline Cast (Auto) (0-2) /lpf U Epithel Cells (Auto) (0-2) /hpf Urine Bacteria (Auto) (None Seen) Nasal Screen MRSA (PCR) (Negative) Adenovirus (PCR) (NotDetected) B. pertussis DNA (PCR) (NotDetected) B.parapertussis DNA PCR (NotDetected) C. pneumoniae DNA (PCR) (NotDetected) Coronavirus OC43 (PCR) (NotDetected) Coronavirus HKU1 (PCR) (NotDetected) Coronavirus 229E (PCR) (NotDetected) SARS-CoV-2 (PCR) (NotDetected) Coronavirus NL63 (PCR) (NotDetected) Human Metapneumovir PCR (NotDetected) Influenza Type A (PCR) (NotDetected) Influenza Type B (PCR) (NotDetected) M. pneumoniae (PCR) (NotDetected) Parainfluenza 1 (PCR) (NotDetected) Parainfluenza 2 (PCR) (NotDetected) Parainfluenza 3 (PCR) (NotDetected) Parainfluenza 4 (PCR) (NotDetected) RSV (PCR) (NotDetected) Entero/Rhino (PCR) (NotDetected) Administered Medications Acetaminophen (Acetaminophen 325 Mg Tab) 650 mg PO Q4H PRN PRN Reason: Pain or Fever Stop: 06/09/24 17:47 Last Admin: 05/12/24 13:03 Dose: 650 mg Documented By: Admin: 05/11/24 22:23 Dose: 650 mg Documented By: Admin: 05/11/24 01:03 Dose: 650 mg Documented By: Admin: 05/10/24 20:11 Dose: 650 mg Documented By: SOLO Allopurinol (Allopurinol 100 Mg Tab) 100 mg PO DAILY CAROLE Stop: 06/11/24 08:59 Last Admin: 05/12/24 08:27 Dose: 100 mg Documented By: MICHAEL Atorvastatin Calcium (Atorvastatin 20 Mg Tab) 20 mg PO HS CAROLE Stop: 06/10/24 20:59 Last Admin: 05/11/24 22:23 Dose: 20 mg Documented By: REFUGIO Carbidopa/Levodopa (Carbidopa/Levodopa 25/100mg Tab) 1 tab PO QID CAROLE Stop: 06/10/24 22:29 Last Admin: 05/12/24 12:12 Dose: 1 tab Documented By: Admin: 05/12/24 08:27 Dose: 1 tab Documented By: Admin: 05/11/24 22:53 Dose: 1 tab Documented By: REFUGIO Levothyroxine Sodium (Levothyroxine Sodium 25 Mcg Tablet) 25 mcg PO [id number] CAROLE Stop: 06/11/24 06:29 Last Admin: 05/12/24 05:45 Dose: 25 mcg Documented By: REFUGIO Pantoprazole Sodium (Pantoprazole 40 Mg Tab) 40 mg PO DAILY CAROLE Stop: 06/09/24 18:14 Last Admin: 05/12/24 08:27 Dose: 40 mg Documented By: Admin: 05/11/24 08:38 Dose: 40 mg Documented By: Admin: 05/10/24 18:42 Dose: 40 mg Documented By: HAO Discontinued Medications Fentanyl Citrate (Fentanyl Citrate Pf 100 Mcg/2 Ml Vial) 25 mcg IV NOW STA Stop: 05/10/24 15:26 Last Admin: 05/10/24 15:44 Dose: 25 mcg Documented By: BRANT Hydromorphone HCl (Hydromorphone Inj 0.5 Mg/0.5 Ml Syr) 0.25 mg IV NOW STA Stop: 05/10/24 16:44 Last Admin: 05/10/24 17:16 Dose: 0.25 mg Documented By: HAO Magnesium Sulfate/Dextrose (Magnesium Sulfate / D5w) 1 gm in 100 mls @ 100 mls/hr IV NOW STA Stop: 05/10/24 17:30 Last Infusion: 05/10/24 17:45 Dose: Infused Documented By: Admin: 05/10/24 16:40 Dose: 100 mls/hr Documented By: HAO Magnesium Sulfate/Dextrose (Magnesium Sulfate / D5w) 1 gm in 100 mls @ 50 mls/hr IV ONE ONE Stop: 05/10/24 20:06 Last Infusion: 05/10/24 21:17 Dose: Infused Documented By: Admin: 05/10/24 18:34 Dose: 50 mls/hr Documented By: HAO Potassium Chloride (K Cordell / Wtr) 10 meq in 100 mls @ 100 mls/hr IV Q1H CAROLE Stop: 05/10/24 20:14 Last Infusion: 05/10/24 21:17 Dose: Infused Documented By: Admin: 05/10/24 19:58 Dose: 100 mls/hr Documented By: Infusion: 05/10/24 19:55 Dose: Infused Documented By: Admin: 05/10/24 18:34 Dose: 100 mls/hr Documented By: HAO Imaging Data Radiologist's Impression: Chest X-Ray 05/10/24 15:25 Chest radiograph, one view History: Chest pain Comparison: 12/20/2021 Findings: Single AP view of the chest performed. A rounded retrocardiac opacity is seen. No focal consolidation or pleural effusion. No pneumothorax. The cardiomediastinal silhouette is within normal limits. Normal pulmonary vascularity. No evidence for lymphadenopathy. No visualized bony or soft tissue abnormality. Median sternotomy wires appear intact. Impression: No acute process. A rounded retrocardiac opacity favors a hiatal hernia. Electronically signed by Jonny Velazquez 05-10-2024 3:41 PM Discharge Plan Visit Data Chief Complaint: Chest Pain Stated Complaint: CHEST PAIN ED Provider: Jerrell White Discharge Problem: Atrial fibrillation with slow ventricular response, Hypomagnesemia, Mid sternal chest pain Patient Disposition: Admitted As Inpatient Discharge Instructions Interventions: ED Discharge Assessment Last Done: 05/10/24 20:32
--- NOTE | 2024-05-10 15:41 | XRay Report ---
Chest radiograph, one view History: Chest pain Comparison: 12/20/2021 Findings: Single AP view of the chest performed. A rounded retrocardiac opacity is seen. No focal consolidation or pleural effusion. No pneumothorax. The cardiomediastinal silhouette is within normal limits. Normal pulmonary vascularity. No evidence for lymphadenopathy. No visualized bony or soft tissue abnormality. Median sternotomy wires appear intact. Impression: No acute process. A rounded retrocardiac opacity favors a hiatal hernia. Electronically signed by Jonny Velazquez 05-10-2024 3:41 PM
[2024-05-10] MEDS: fentaNYL citrate PF 100 MCG/2 ML VIAL IV STA (15:44)
[2024-05-10 15:48] LABS: Basophils # (auto) 0.03 K/uL (0.00-0.20); Basophils % (auto) 0.4 %; Eosinophils # (auto) 0.24 K/uL (0.00-0.50); Eosinophils % (auto) 2.8 %; Hematocrit (blood only) 25.6 % (37.0-47.0); Hemoglobin 8.1 g/dl (12.0-16.0); Immature Granulocytes # (auto) 0.02 K/uL (0.01-0.20); Immature Granulocytes % (auto) 0.2 %; Lymphocytes # (auto) 1.87 K/uL (1.20-3.40); Mean Corpuscular Hemoglobin 32.7 pg (25.0-34.0); Mean Corpuscular Hgb Conc 31.6 g/dL (32.0-36.0); Mean Corpuscular Volume 103.2 fL (80.0-100.0); Mean Platelet Volume 11.1 fL (9.4-12.4); Monocytes # (auto) 0.64 K/uL (0.11-0.59); Monocytes % (auto) 7.5 %; Neutrophils # (auto) 5.71 K/uL (1.40-6.50); Neutrophils % (auto) 67.1 %; Platelet Count 142 K/uL (130-400); RDW Coefficient of Variation 16.5 % (11.5-14.5); RDW Standard Deviation 61.7 fL (36.4-46.3); Red Blood Count 2.48 M/uL (4.20-5.40); White Blood Count 8.51 K/ul (4.8-10.8)
[2024-05-10 16:15] LABS: Alanine Aminotransferase < 3 U/L (7-52); Albumin Level 2.5 gm/dl (3.4-5.0); Alkaline Phosphatase 62 U/L (34-104); Anion Gap 5 (3-11); Aspartate Aminotransferase 10 U/L (13-39); BUN Creatinine Ratio 23.8 (10-20); Bilirubin,Total 0.4 mg/dl (0.2-1.0); Blood Urea Nitrogen 24 mg/dl (6-23); Calcium 6.3 mg/dl (8.6-10.3); Carbon Dioxide 20 mmol/L (21-32); Chloride 119 mmol/L (98-107); Glucose 82 mg/dl (70-99(Fasting)); Magnesium 1.5 mg/dl (1.7-2.4); Potassium 3.5 mmol/L (3.5-5.1); Sodium 144 mmol/L (136-145); Total Protein 4.6 gm/dl (6.0-8.3); Troponin I High Sensitivity 5.3 pg/ml (0-14)
[2024-05-10 16:23] LABS: Thyroid Stimulating Hormone 2.069 uIu/ml (0.300-4.500)
[2024-05-10] MEDS: MAGNESIUM SULFATE / D5W 1 GM/100 ML BAG IV STA (16:40)
[2024-05-10] MEDS: HYDROmorphone INJ 0.5 MG/0.5 ML SYR IV STA (17:16)
--- NOTE | 2024-05-10 18:09 | History & Physical Report ---
Date of Service May 10, 2024 Assessment & Plan (1) Atrial fibrillation: Plan: Assessment: 1. Chest pain. Seems atypical. At least partially reproducible with palpation as discussed above. She is receiving fentanyl and Dilaudid in the ER. We are going do a Bio[employer] respiratory panel on her to rule out respiratory etiology. We have ordered serial troponins and an echocardiogram to rule out acute coronary syndrome. EKG and first troponin is reassuring 2. New onset atrial fibrillation with slow ventricular response. Serial troponins. Echocardiogram. No anticoagulation at this time given the anemia. See discussion below. Cardiology consultation. We will hold all negative chronotropic at this time. She does appear to be on Norvasc and metoprolol. 3. Anemia. Appears acute on chronic. Hemoglobin is 8.1 baseline appears to be 9.5. Iron studies ordered stat. Stools for occult blood ordered. We have requested to be called if positive. If these things are reassuring consideration for full anticoagulation for the atrial fibrillation can be considered. In the past he has carried a diagnosis of a history of chronic disease due to her chronic kidney disease. 4. History of duodenal ulcers. We have started the patient on Protonix. Again stools for occult blood been ordered. 5. History of coronary artery disease status post CABG.. 6. History of Parkinson's disease. With associated tremor. 7. History of Alzheimer's dementia. Appears to be mild to moderate. Does fairly well especially with her daughter at the bedside. Continue home meds. 8. CKD stage III-IV. Monitor renal function carefully. 9. Probably electrolyte abnormalities including A. Hypomagnesemia. 1.5. 1 g magnesium sulfate given in the ER given the dysrhythmia will give an additional gram of mag sulfate recheck magnesium in the morning. B. Borderline hypokalemia. 3.5. 20 mL equivalents of IV potassium chloride ordered given the dysrhythmia. Recheck in the a.m. 10. Bradycardia again consistent with A-fib with slow ventricular response. Replace electrolytes. Hold negative chronotropic including Norvasc and metoprolol. Monitor carefully. TSH is noted to be normal/reassuring 11. Rule out acute viral respiratory infection bio fire is pending. Plan: As discussed above. Please refer to orders for further planning. History of Present Illness Chief Complaint: Chest pain Primary Care Provider: Tee Gold III, Is a pleasant 83-year-old female who lives at an extended care facility who developed some mid sternal chest discomfort today. She brought to the ER for further evaluation and treatment. In the ER the patient was found to be in atrial fibrillation with slow ventricular response without a history of this rate was as low as in the mid 40s. At the current time she is 52. Troponin was normal. EKG was otherwise nonacute. Other laboratory studies were nonacute with exception of some anemia at 8.1 g/dL hemoglobin with a baseline of around 9.5. Additionally magnesium was found to be mildly low at 1.5 she did receive 1 g of magnesium sulfate I will supplement that with an additional gram given the dysrhythmia. In addition the patient's potassium was found to be low normal at 3.5. Again given the cardiac history of a I will replace that give her total of 20 mEq potassium chloride IV. Course in the emergency department the patient received a dose of IV fentanyl for her chest discomfort as well as a dose of IV Dilaudid. It is improved signi ficantly. It was reproducible on palpation per the ER provider. In addition she received oral acetaminophen. At this time given the fact the patient is institutionalized and I do a stat respiratory viral panel. Again to rule out COVID influenza and RSV. This is pending at the time of this dictation. Otherwise provide admit the patient do serial troponins. Do an echocardiogram. In addition given the patient's new onset atrial fibrillation we will consult cardiology as a routine consultation. I would not anticoagulate this patient at this point given the fact her hemoglobin is 8.1. She has a history of duodenal ulcers in the past. Will place her on some Protonix. The stools for occult blood and iron studies and get all of these results prior to anticoagulation considerations as I do feel the risk of the anticoagulation currently outweigh the potential benefits given her significant anemia until we determine the potential etiologies of her anemia. Allergies Allergy/AdvReac Type Severity Reaction Status Date / Time lisinopril Allergy Severe Angioedema Verified 02/26/20 14:45 Home Medications Medication Instructions Recorded Confirmed Type aspirin 81 mg tablet,delayed 0 mg PO QAM 12/29/18 02/26/20 History release atorvastatin 20 mg tablet 20 mg PO HS 12/29/18 02/26/20 History epinephrine 0.3 mg/0.3 mL 0.3 mg IM DIRECTED PRN Allergic 12/29/18 02/26/20 History injection, auto-injector (EpiPen) Reaction furosemide 20 mg tablet 20 mg PO DAILY 12/29/18 02/26/20 History metoprolol tartrate 25 mg tablet 25 mg PO BID 12/29/18 02/26/20 History amlodipine 5 mg tablet 0 mg PO DAILY 06/13/19 02/26/20 History acetaminophen 500 mg tablet 1,000 mg (2 x 500 mg) PO Q8H PRN 06/30/19 02/26/20 Rx (Tylenol Extra Strength) pain #60 tabs tramadol 50 mg tablet 50 mg PO Q6H PRN moderate pain #20 06/30/19 02/26/20 Rx tabs pantoprazole 40 mg tablet,delayed 40 mg PO BID 08/20/19 02/26/20 History release carbidopa 25 mg-levodopa 100 mg 1 tab PO TID 01/05/20 02/26/20 History tablet escitalopram oxalate 10 mg tablet 10 mg PO HS 01/05/20 02/26/20 History potassium chloride 10 mEq 10 meq PO QPM 01/05/20 02/26/20 History tablet,extended release (Klor-Con) nitroglycerin 0.4 mg sublingual 0.4 mg sublingual UD PRN Chest Pain 02/26/20 02/26/20 History tablet albuterol sulfate 90 mcg/actuation 2 inh inhalation Q4H PRN shortness 12/20/21 Rx aerosol inhaler (Proventil HFA) of breath or wheezing #8.5 grams Past Med/Surg History Problem List (Updated 05/10/24 @ 18:17 by Misael Bravo, PhD, DO) Atrial fibrillation Parkinson disease URI (upper respiratory infection) CKD (chronic kidney disease), stage IV ANCA-associated vasculitis (Acute) Acute electrocardiogram changes (Acute) Elevated troponin I level (Acute) Shortness of breath Anemia of chronic disease Hypokalemia Abnormal CT scan of lung Benign essential tremor Renal artery stenosis S/P CABG x 4 2015 Hyperlipidemia Hypertension Duodenal ulcer Colonic polyp Anemia of renal disease Coronary artery disease Medical History Anemia of renal disease Benign essential tremor Chronic diastolic heart failure CKD (chronic kidney disease), stage IV Colonic polyp Coronary artery disease Duodenal ulcer Hyperlipidemia Hypertension Parkinson disease Renal artery stenosis Surgical History History of appendectomy History of cholecystectomy History of hysterectomy with oophorectomy History of lumbar surgery S/P CABG x 4 2015 Family History Father Coronary heart disease Pulmonary embolism Mother Cancer Sister Parkinson disease Social History Smoking Status: Never smoker Second Hand Exposure: No; Do You Dip or Chew Tobacco: No; Hx Alcohol Use: No Hx Substance Use: No Preferred Language: Somali Communication Ability: Effective Director Public Required: No Beliefs That Will Affect Care: None marital status: Unknown Current Living Situation: Family Current Living Situation Comment: lives w/ dtr Feels Safe at Home: Yes Assistive Devices: Glasses and Walker Review of Systems Review of Systems: A 10 point review of system was obtained and unless otherwise stated here or in history of present illness are negative and noncontributory to chief complaint. Physical Exam Physical Exam: In General: In general very pleasant 83-year-old female who is alert and oriented to person and place at the time my exam she is accompanied by her daughter at the time of my examination who is her POA. Patient interacts appropriate pleasantly. Both the patient and her daughter confirm there is no personal history of atrial fibrillation. HEENT: Normocephalic atraumatic pupils are equal round and reactive to light bilaterally. No scleral icterus no conjunctival injection external auditory canals are patent septum is in the midline nose is without discharge oral mucosa is pink and moist without lesion. NECK: Supple no rigidity no lymphadenopathy no thyromegaly no carotid bruits no JVD no masses. HEART: Irregular rate and rhythm consistent with atrial fibrillation with slow ventricular response. Heart rates currently in the mid 50s time my exam. Patient does have a faint 2 out of 6 systolic ejection murmur best heard at the right sternal border. The patient does have reproducible anterior chest wall pain across the whole precordial region. Left and right and midline of the sternum. This is the pain she states she presented with. This seems to be mostly musculoskeletal. LUNGS: Clear to auscultation bilaterally and anteriorly with no evidence of adventitious sounds/wheezes rales or rhonchi. ABDOMEN: Protuberant, soft nontender, no rebound, no peritoneal signs, positive bowel sounds, no appreciable organomegaly. EXTREMITIES: Intact, no peripheral cyanosis, clubbing or edema. Strength is 5 out of 5 in extremities x4,. NEUROLOGICAL: Debilitated. Tremor as described below. However, cranial nerves II through XII are otherwise grossly intact with no focal deficit elicited upon examination. The patient does have a globalized tremor of Parkinson's which is chronic. Results & Data Results & Data Vital Signs (Past 12 Hours) Vital Signs Pulse Pulse Resp BP Pulse Ox O2 Del Method 05/10/24 15:50 49 L 05/10/24 15:37 51 L 05/10/24 15:37 39 L 05/10/24 15:25 95 Room Air 05/10/24 15:03 48 L 18 132/83 95 Room Air Code Status & VTE Plan Code Status Full code. Personally discussed with the patient and her daughters power of sleeping car porter at the bedside in addition there was advance directives dated May 07, 2023 accompanied the patient from the [place] [facility]. VTE Prophylaxis Plan VTE Prophylaxis will be ordered: Yes PG Care Time/CCT Total # of Minutes Spent Total Time Spent with Patient: Total time spent is greater than 50% in coordination of care (as documented) at patient's floor/unit and/or counseling patient: Coding Level of Care Code 58706 INT INP/OBS CARE 375MIN Diagnoses Atrial fibrillation I48.91
[2024-05-10] MEDS: POTASSIUM CHLORIDE / WTR 10 MEQ/100 ML PLCT IV SCH (18:34)
[2024-05-10] MEDS: MAGNESIUM SULFATE / D5W 1 GM/100 ML BAG IV ONE (18:34)
[2024-05-10 18:38] LABS: Bilirubin Direct 0.1 mg/dl (0-0.2); Iron 35 mcg/dl (35-150); Total Iron Binding Cap Calc 189 mcg/dl (250-450); Transferrin 135 mg/dl (200-360); Transferrin (FE) Percent Satur 19 % (15-50)
[2024-05-10] MEDS: PANTOprazole 40 MG TAB PO SCH (18:42)
[2024-05-10 19:51] LABS: Adenovirus PCR Not Detected (NotDetected); Bordetella parapertussis PCR Not Detected (NotDetected); Bordetella pertussis PCR Not Detected (NotDetected); Chlamydia pneumoniae PCR Not Detected (NotDetected); Coronavirus 229E PCR Not Detected (NotDetected); Coronavirus CoV-2 (COVID19)PCR Not Detected (NotDetected); Coronavirus HKU1 PCR Not Detected (NotDetected); Coronavirus NL63 PCR Not Detected (NotDetected); Coronavirus OC43PCR Not Detected (NotDetected); Human Metapneumovirus PCR Not Detected (NotDetected); Influenza A PCR Not Detected (NotDetected); Influenza B PCR Not Detected (NotDetected); Mycoplasma pneumoniae PCR Not Detected (NotDetected); Parainfluenza Virus 1 PCR Not Detected (NotDetected); Parainfluenza Virus 2 PCR Not Detected (NotDetected); Parainfluenza Virus 3 PCR Not Detected (NotDetected); Parainfluenza Virus 4 PCR Not Detected (NotDetected); Respiratory Syncytial VirusPCR Not Detected (NotDetected); Rhinovirus/Enterovirus PCR Not Detected (NotDetected)
[2024-05-10 20:02] LABS: Appearance Urine Clear (Clear); Bacteria Urine Automated 4+ (None Seen); Bilirubin Urine Negative (Negative); Blood Urine Negative (Negative); Cast Urine Automated 0-2 /lpf (0-2); Color Urine Yellow; Epithelial Cell Urine Auto 0-2 /hpf (0-2); Glucose Urine UA Negative (Negative); Ketones Urine Negative (Negative); Leukocyte Esterase Urine 2+ (Negative); Nitrite Urine Positive (Negative); Protein Urine Negative (Negative); RBC Urine Automated 0-2 /hpf (0-2); Specific Gravity Urine 1.011 (1.000-1.030); Urobilinogen Urine Negative (Negative); WBC Urine Automated 21-50 /hpf (0-5); pH Urine 5.5 (4.5-7.5)
[2024-05-10] MEDS: ACETAMINOPHEN 325 MG TAB PO PRN (20:11)
[2024-05-11 08:11] LABS: Basophils # (auto) 0.03 K/uL (0.00-0.20); Basophils % (auto) 0.4 %; Eosinophils # (auto) 0.32 K/uL (0.00-0.50); Hematocrit (blood only) 32.4 % (37.0-47.0); Hemoglobin 10.5 g/dl (12.0-16.0); Immature Granulocytes # (auto) 0.04 K/uL (0.01-0.20); Immature Granulocytes % (auto) 0.5 %; Lymphocytes # (auto) 1.78 K/uL (1.20-3.40); Mean Corpuscular Hemoglobin 32.3 pg (25.0-34.0); Mean Corpuscular Hgb Conc 32.4 g/dL (32.0-36.0); Mean Corpuscular Volume 99.7 fL (80.0-100.0); Mean Platelet Volume 10.3 fL (9.4-12.4); Monocytes % (auto) 7.4 %; Neutrophils # (auto) 5.32 K/uL (1.40-6.50); Neutrophils % (auto) 65.7 %; Nucleated RBC # (auto) 0.02 K/uL (0.00-0.12); Nucleated RBC % (auto) 0.2 %; Platelet Count 155 K/uL (130-400); RDW Coefficient of Variation 16.3 % (11.5-14.5); RDW Standard Deviation 59.3 fL (36.4-46.3); Red Blood Count 3.25 M/uL (4.20-5.40); White Blood Count 8.09 K/ul (4.8-10.8)
--- NOTE | 2024-05-11 08:19 | Electrocardiogram Report ---
Test Reason : Blood Pressure : */* mmHG Vent. Rate : 42 BPM Atrial Rate : 42 BPM P-R Int : * ms QRS Dur : 106 ms QT Int : 516 ms P-R-T Axes : * -22 254 degrees QTcB Int : 430 ms Atrial fibrillation with slow ventricular response Incomplete left bundle block Left ventricular hypertrophy with repolarization abnormality Abnormal ECG When compared with ECG of 20-Dec-2021 10:20, Sinus rhythm no longer present HR has decreased by 19 bpm Confirmed by Augusto Ayon ([id number]) on 05/11/2024 8:18:59 AM Referred By: Confirmed By: Augusto Ayon
--- NOTE | 2024-05-11 09:00 | XCELERA ---
[id number]
[2024-05-11 09:06] LABS: Albumin Globulin Ratio 1.1 (0.9-2); Albumin Level 3.3 gm/dl (3.4-5.0); Bilirubin,Total 0.8 mg/dl (0.2-1.0); Calcium 8.9 mg/dl (8.6-10.3); Chol HDL Ratio 3.8 (0-5); Globulin 2.9 gm/dl (2.5-4.0); Magnesium 2.6 mg/dl (1.7-2.4); Potassium 4.2 mmol/L (3.5-5.1); Total Protein 6.2 gm/dl (6.0-8.3); Troponin I High Sensitivity 19.8 pg/ml (0-14)
--- NOTE | 2024-05-11 13:41 | Electrocardiogram Report ---
Test Reason : Blood Pressure : */* mmHG Vent. Rate : 58 BPM Atrial Rate : * BPM P-R Int : * ms QRS Dur : 114 ms QT Int : 466 ms P-R-T Axes : * -29 182 degrees QTcB Int : 457 ms Sinus bradycardia Left ventricular hypertrophy with QRS widening and repolarization abnormality Poor R wave progression, consider anterior IN vs. lead placement vs. LVH Abnormal ECG When compared with ECG of 10-May-2024 15:18, HR has increased by 16 bpm Atrial fibrillation no longer present Confirmed by Augusto Ayon ([id number]) on 05/11/2024 1:41:16 PM Referred By: Tee Gold Confirmed By: Augusto Ayon
--- NOTE | 2024-05-11 15:01 | Cardiology Consultation ---
Date of Consultation May 11, 2024 Assessment & Plan (1) Chronic sinus bradycardia: (2) Atrial fibrillation with slow ventricular response: (3) Mid sternal chest pain: (4) Coronary artery disease: (5) S/P CABG x 4: Plan 83-year-old woman with CAD (remote CABG) admitted with chest pain, bradycardia, and apparent new onset atrial fibrillation. As noted, she reverted to sinus bradycardia early this morning. Doubt acute coronary syndrome with minimal troponin elevation and relatively flat curve, she may have some level of demand ischemia related to reduced cardiac output from bradycardia. She was on metoprolol tartrate 25 mg twice daily at home (last dose presumably yesterday), she should remain off metoprolol and on telemetry while medication washes out. Since she has a longstanding bradycardia and seems to be tolerating it well, no urgent intervention necessary. Will reevaluate rate/rhythm tomorrow once negative chronotropic medication has dissipated to help determine whether she ultimately would benefit from a pacemaker. Given evidence of atrial fibrillation and elevated [id number] score (age, gender), need to consider chronic anticoagulation. However, rhythm is currently sinus so initiation of anticoagulation is not urgent, a discussion of risks/benefits of chronic anticoagulation would be reasonable prior to initiating apixaban (would utilize reduced dose of apixaban 2.5 mg twice daily given age greater than 80 and creatinine greater than 1.5). Will continue to follow. History of Present Illness Reason for Consultation: ebony mcpherson Requesting Physician: Perry Mooney Attending Physician: Perry Mooney History of Present Illness 83-year-old woman with history of CAD (CABG 2016, STILES--LAD, SVG--D1, SVG--OM, and SVG--PDA), dementia, and multiple medical problems, who appears to have had a chronic bradycardia and was admitted yesterday with chest discomfort and noted to have new onset atrial fibrillation with slow ventricular response (42 bpm). Review of her inpatient records notes frequent mild sinus bradycardia with rates in the 50 bpm range as long ago as 2018 occurring frequently, when not bradycardic her heart rate is in the 60s and only rarely above 70 bpm (maximum 88 bpm on 1 reading). Overnight on telemetry, she appeared to have atrial fibrillation with variable RR intervals until approximately 3:30 AM, when she reverted to sinus bradycardia with a rate generally in the 50 bpm range, occasionally dropping briefly to the 30 bpm range but without prolonged pauses. Initial ECG showed atrial fibrillation with rate 42 bpm, LVH with diffuse repolarization abnormalities. ECG today showed sinus bradycardia 58 bpm, no change in LVH with repolarization abnormalities. Echocardiogram showed EF 55 to 60% with moderate LVH, grade 2 diastolic dysfunction, and no wall motion abnormalities. There is mild to moderate MR/moderate to severe TR, mild pulmonary hypertension. Compared with 2020 studies, modest increase in mitral and tricuspid regurgitation and worsening diastolic dysfunction. Troponin values 5.3, 8.5, 12.2, 19.8. At the time of my evaluation this morning, she was sitting comfortably and denied any chest pain, dyspnea, palpitations, or lightheadedness. Allergies Allergy/AdvReac Type Severity Reaction Status Date / Time lisinopril Allergy Severe Angioedema Verified 02/26/20 14:45 Home Medications Medication Instructions Recorded Confirmed Type aspirin 81 mg tablet,delayed 81 mg PO QAM 12/29/18 05/10/24 History release atorvastatin 20 mg tablet 20 mg PO HS 12/29/18 05/10/24 History epinephrine 0.3 mg/0.3 mL 0.3 mg IM DIRECTED PRN Allergic 12/29/18 05/10/24 History injection, auto-injector (EpiPen) Reaction metoprolol tartrate 25 mg tablet 25 mg PO BID 12/29/18 05/10/24 History carbidopa 25 mg-levodopa 100 mg 1 tab PO QID 01/05/20 05/10/24 History tablet acetaminophen 325 mg tablet 650 mg PO Q6 PRN Fever Or Pain 05/10/24 05/10/24 History allopurinol 100 mg tablet 100 mg PO DAILY 05/10/24 05/10/24 History bisacodyl 10 mg rectal suppository 10 mg [place] DAILY PRN Constipation 05/10/24 05/10/24 History (Dulcolax (bisacodyl)) cholecalciferol (vitamin D3) 25 125 mcg PO Q OTHER DAY 05/10/24 05/10/24 History mcg (1,000 unit) tablet (Vitamin D3) diclofenac sodium 1 % topical gel 2 g topical QID 05/10/24 05/10/24 History escitalopram oxalate 5 mg tablet 5 mg PO DAILY 05/10/24 05/10/24 History furosemide 40 mg tablet 40 mg PO DAILY 05/10/24 05/10/24 History levothyroxine 25 mcg tablet 25 mcg PO DIRECTED 05/10/24 05/10/24 History loratadine 10 mg tablet 10 mg PO HS 05/10/24 05/10/24 History nitroglycerin 0.4 mg sublingual 0.4 mg sublingual .EVERY 5 MINUTES 05/10/24 05/10/24 History tablet (Nitrostat) PRN Chest Pain pantoprazole 40 mg tablet,delayed 40 mg PO DAILY 05/10/24 05/10/24 History release polyethylene glycol 3350 17 17 g PO QAM 05/10/24 05/10/24 History gram/dose oral powder (Miralax) potassium chloride 10 mEq 10 meq PO 2XWK 05/10/24 05/10/24 History tablet,extended release potassium chloride 10 mEq 10 meq PO UD 05/10/24 05/10/24 History tablet,extended release sodium phosphates 19 gram-7 118 ml [place] DAILY PRN Constipation 05/10/24 05/10/24 H istory gram/118 mL enema (Fleet Enema) Patient History Medical History Chronic diastolic heart failure Surgical History History of lumbar surgery History of hysterectomy with oophorectomy History of appendectomy History of cholecystectomy Family History Father Coronary heart disease Pulmonary embolism Mother Cancer Sister Parkinson disease Social History Smoking Status: Never smoker Second Hand Exposure: No; Do You Dip or Chew Tobacco: No; Tobacco Cessation Education Requested by Patient: No Hx Alcohol Use: No Hx Substance Use: No Preferred Language: Syrian Communication Ability: Effective 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 BP 148/71 mmHg. Pulse 52 bpm and regular. Respirations 18 unlabored Skin: no ecchymoses or generalized lesions. HEENT: unremarkable. Neck: JVP at the clavicle at 90 degrees, no carotid bruits. Lungs: clear bilaterally. Cardiac: regular rhythm, normal S1-2, no murmur. Abdomen: benign. Extremities: no edema, pulses intact. Neurologic: Answers simple questions appropriately, grossly nonfocal. Results & Data Vital Signs (Past 12 Hours) Vital Signs Temp Pulse Resp BP Pulse Ox O2 Del Method 05/11/24 11:00 97.9 F 60 18 148/71 H 96 Room Air 05/11/24 07:00 98.1 F 52 L 20 131/67 98 Room Air Laboratory Results Hemoglobin 10.5 with normal white count and platelet count. Normal electrolytes, BUN 31, creatinine 1.55. Magnesium 2.6. Troponin as per HPI. LDL 47 Diagnostic Findings Chest x-ray unremarkable. PG Care Time/CCT Total # of Minutes Spent Total Time Spent with Patient: Total time spent is greater than 50% in coordination of care (as documented) at patient's floor/unit and/or counseling patient: Coding Level of Care Code 35462 IN/OBS CONSULT LVL 4,60M Diagnoses Chronic sinus bradycardia R00.1 Atrial fibrillation with slow ventricular response I48.91 Mid sternal chest pain R07.89 Coronary artery disease I25.10 S/P CABG x 4 Z95.1
[2024-05-11] MEDS: ATORVASTATIN 20 MG TAB PO SCH (22:23)
--- NOTE | 2024-05-11 22:40 | Hospitalist Progress Note ---
Date of Service May 11, 2024 Assessment & Plan (1) Atrial fibrillation: Plan: Assessment: 1. Chest pain. Seems atypical. At least partially reproducible with palpation as discussed above. She is receiving fentanyl and Dilaudid in the ER. We are going do a [employer] respiratory panel on her to rule out respiratory etiology. We have ordered serial troponins and an echocardiogram to rule out acute coronary syndrome. EKG and first troponin is reassuring 2. New onset atrial fibrillation with slow ventricular response. Serial troponins. Echocardiogram. No anticoagulation at this time given the anemia. See discussion below. Cardiology consultation. We will hold all negative chronotropic at this time. She does appear to be on Norvasc and metoprolol. will continue to hold metoprolol. if patient remains bradycardic, will need pacemake. 3. Anemia. Appears acute on chronic. Hemoglobin is 8.1 baseline appears to be 9.5. Iron studies ordered stat. Stools for occult blood ordered. We have requested to be called if positive. If these things are reassuring consideration for full anticoagulation for the atrial fibrillation can be considered. In the past he has carried a diagnosis of a history of chronic disease due to her chronic kidney disease. 4. History of duodenal ulcers. We have started the patient on Protonix. Again stools for occult blood been ordered. 5. History of coronary artery disease status post CABG.. 6. History of Parkinson's disease. With associated tremor. 7. History of Alzheimer's dementia. Appears to be mild to moderate. Does fairly well especially with her daughter at the bedside. Continue home meds. 8. CKD stage III-IV. Monitor renal function carefully. 9. Probably electrolyte abnormalities including A. Hypomagnesemia. 1.5. 1 g magnesium sulfate given in the ER given the dysrhythmia will give an additional gram of mag sulfate recheck magnesium in the morning. B. Borderline hypokalemia. 3.5. 20 mL equivalents of IV potassium chloride ordered given the dysrhythmia. Recheck in the a.m. 10. Bradycardia again consistent with A-fib with slow ventricular response. Replace electrolytes. Hold negative chronotropic including Norvasc and metoprolol. Monitor carefully. TSH is noted to be normal/reassuring 11. Rule out acute viral respiratory infection bio fire is pending. Plan: As discussed above. Please refer to orders for further planning. Admission and Anticipated Discharge Date Admission Date: May 10, 2024 Subjective 83 yo female reports chest pain has resolved. Physical Exam Physical Exam: In General: NAD HEENT: Normocephalic atraumatic NECK: Supple no rigidity no lymphadenopathy no thyromegaly no carotid bruits no JVD no masses. HEART: Irregular rate and rhythm LUNGS: Clear to auscultation bilaterally and anteriorly with no evidence of adventitious sounds/wheezes rales or rhonchi. ABDOMEN: Protuberant, soft nontender, no rebound, no peritoneal signs, positive bowel sounds, no appreciable organomegaly. EXTREMITIES: Intact, no peripheral cyanosis, clubbing or edema. Strength is 5 out of 5 in extremities x4,. Results & Data Results & Data Vital Signs (Past 12 Hours) Vital Signs Temp Pulse Resp BP Pulse Ox O2 Del Method 05/11/24 19:16 37.4 C 70 18 180/70 H 94 Room Air 05/11/24 14:55 36.6 C 66 18 178/75 H 94 Room Air 05/11/24 11:00 36.6 C 60 18 148/71 H 96 Room Air PG Care Time/CCT Total # of Minutes Spent Total Time Spent with Patient: Total time spent is greater than 50% in coordination of care (as documented) at patient's floor/unit and/or counseling patient: Coding Level of Care Code 89259 SUB INP/OBS CARE 2/35MIN Diagnoses Atrial fibrillation I48.91
[2024-05-11] MEDS: CARBIDOPA/LEVODOPA 25/100MG TAB PO SCH (22:53)
[2024-05-12] MEDS: LEVOTHYROXINE SODIUM 25 MCG TABLET PO SCH (05:45)
[2024-05-12 06:32] LABS: Hematocrit (blood only) 30.2 % (37.0-47.0); Hemoglobin 9.8 g/dl (12.0-16.0); Mean Corpuscular Hemoglobin 32.7 pg (25.0-34.0); Mean Corpuscular Hgb Conc 32.5 g/dL (32.0-36.0); Mean Corpuscular Volume 100.7 fL (80.0-100.0); Mean Platelet Volume 9.8 fL (9.4-12.4); Platelet Count 144 K/uL (130-400); RDW Coefficient of Variation 16.4 % (11.5-14.5); RDW Standard Deviation 60.1 fL (36.4-46.3); White Blood Count 8.21 K/ul (4.8-10.8)
[2024-05-12 06:48] LABS: BUN Creatinine Ratio 19.5 (10-20); Calcium 8.9 mg/dl (8.6-10.3); Creatinine Clr Calc Pharmacy 26.5 ml/min; Potassium 4.2 mmol/L (3.5-5.1)
[2024-05-12] MEDS: allopurinoL 100 MG TAB PO SCH (08:27)
--- NOTE | 2024-05-12 10:00 | Cardiology Progress Note ---
Date of Service May 12, 2024 Assessment & Plan (1) Chronic sinus bradycardia: (2) Atrial fibrillation with slow ventricular response: (3) Mid sternal chest pain: (4) Coronary artery disease: (5) S/P CABG x 4: Plan Still somewhat intermittently bradycardic but no symptoms clearly attributable to this. Will check twelve-lead ECG and also attempt to assess response to ambulation (she walks with a walker and will need assistance). Further recommendations based on ECG and response to activity. Admission and Anticipated Discharge Date Admission Date: May 10, 2024 Subjective Uneventful night. Patient has no complaints, denies chest pain, dyspnea, subjective palpitations, or lightheadedness. Telemetry showed improvement in heart rate to 6070 overnight, but reduction back to 50 bpm range again today. Rhythm is unclear, P waves are very diminutive but intermittently present, making atrial fibrillation less likely. Will check twelve-lead ECG. Physical Exam Physical Exam: No distress. BP normotensive. Pulse 51 bpm and slightly irregular. Respirations 19 but unlabored. Skin: no ecchymoses or generalized lesions. HEENT: unremarkable. Neck: JVP at the clavicle at 90 degrees, no carotid bruits. Lungs: clear bilaterally. Cardiac: regular rhythm, normal S1-2, no murmur. Abdomen: benign. Extremities: no edema, pulses intact. Neurologic: Answers simple questions appropriately, grossly nonfocal. Results & Data Vital Signs (Past 12 Hours) Vital Signs Temp Pulse Pulse Resp BP Pulse Ox O2 Del Method 05/12/24 08:41 Room Air 05/12/24 07:45 97.3 F L 51 L 19 123/67 96 Room Air 05/12/24 07:32 58 L 05/12/24 02:38 98.2 F 63 18 148/75 H 94 Room Air 05/11/24 22:44 99.0 F 74 18 171/70 H 92 Room Air 05/11/24 22:00 Room Air Laboratory Results Hemoglobin 9.8, normal white count platelet count. Normal electrolytes, BUN 32, creatinine 1.64. PG Care Time/CCT Total # of Minutes Spent Total Time Spent with Patient: Total time spent is greater than 50% in coordination of care (as documented) at patient's floor/unit and/or counseling patient: Coding Level of Care Code 86640 SUB INP/OBS CARE 2/35MIN Diagnoses Chronic sinus bradycardia R00.1 Atrial fibrillation with slow ventricular response I48.91 Mid sternal chest pain R07.89 Coronary artery disease I25.10 S/P CABG x 4 Z95.1
[2024-05-12 11:46] VITALS: RESP 18
--- NOTE | 2024-05-12 13:01 | Electrocardiogram Report ---
Test Reason : Blood Pressure : */* mmHG Vent. Rate : 64 BPM Atrial Rate : * BPM P-R Int : * ms QRS Dur : 98 ms QT Int : 282 ms P-R-T Axes : * -26 199 degrees QTcB Int : 290 ms Poor data quality, interpretation may be adversely affected Atrial flutter vs. tremor artifact with underlying sinus with PACs Left ventricular hypertrophy with QRS widening and repolarization abnormality Abnormal ECG When compared with ECG of 11-May-2024 08:55, Baseline "fllutter" more prominent Confirmed by Augusto Ayon ([id number]) on 05/12/2024 1:01:24 PM Referred By: Tee Gold Confirmed By: Augusto Ayon
[2024-05-12 18:11] LABS: C Reactive Protein 1.83 mg/dl (0-0.5)
[2024-05-12] MEDS: SUCRALFATE 1 GM/10 ML UDC PO SCH (21:51)
--- NOTE | 2024-05-12 23:15 | Hospitalist Progress Note ---
Date of Service May 12, 2024 Assessment & Plan (1) Atrial fibrillation: Plan: Assessment: 1. Chest pain. Seems atypical. At least partially reproducible with palpation as discussed above. She is receiving fentanyl and Dilaudid in the ER. BIOFIRE negative trops are negative. Echo no wall motion abormalities. Chest pain can be plueritic from possible viral infection vs GERD. Ordered sucralfate and celebrex. 2. New onset atrial fibrillation with slow ventricular response. Serial troponins. Echocardiogram. No anticoagulation at this time given the anemia. See discussion below. Cardiology consultation. We will hold all negative chronotropic at this time. She does appear to be on Norvasc and metoprolol. will continue to hold metoprolol. will need followup with EP cardio. 3. Anemia. Appears acute on chronic. Hemoglobin is 9.8 baseline appears to be 9.5. Iron studies ordered stat. Stools for occult blood ordered. We have requested to be called if positive. If these things are reassuring consideration for full anticoagulation for the atrial fibrillation can be considered. In the past he has carried a diagnosis of a history of chronic disease due to her chronic kidney disease. 4. History of duodenal ulcers. We have started the patient on Protonix. Again stools for occult blood been ordered. 5. History of coronary artery disease status post CABG.. 6. History of Parkinson's disease. With associated tremor. 7. History of Alzheimer's dementia. Appears to be mild to moderate. Does fairly well especially with her daughter at the bedside. Continue home meds. 8. CKD stage III-IV. Monitor renal function carefully. 9. Probably electrolyte abnormalities including A. Hypomagnesemia. 1.5. 1 g magnesium sulfate given in the ER given the dysrhythmia will give an additional gram of mag sulfate recheck magnesium in the morning. B. Borderline hypokalemia. 3.5. 20 mL equivalents of IV potassium chloride ordered given the dysrhythmia. Recheck in the a.m. 10. Bradycardia again consistent with A-fib with slow ventricular response. Replace electrolytes. Hold negative chronotropic including Norvasc and metoprolol. Monitor carefully. TSH is noted to be normal/reassuring g. Admission and Anticipated Discharge Date Admission Date: May 12, 2024 Subjective Patient continues to complain of chest pain. Physical Exam Physical Exam: In General: NAD HEENT: Normocephalic atraumatic NECK: Supple no rigidity no lymphadenopathy no thyromegaly no carotid bruits no JVD no masses. HEART: Irregular rate and rhythm LUNGS: Clear to auscultation bilaterally and anteriorly with no evidence of adventitious sounds/wheezes rales or rhonchi. ABDOMEN: Protuberant, soft nontender, no rebound, no peritoneal signs, positive bowel sounds, no appreciable organomegaly. EXTREMITIES: Intact, no peripheral cyanosis, clubbing or edema. Strength is 5 out of 5 in extremities x4,. Results & Data Results & Data Vital Signs (Past 12 Hours) Vital Signs Temp Pulse Pulse Resp BP Pulse Ox O2 Del Method 05/12/24 22:53 36.5 C 60 18 158/82 H 94 Room Air 05/12/24 19:16 36.6 C 62 18 162/71 H 97 Room Air 05/12/24 15:25 68 18 157/69 H 94 Room Air 05/12/24 14:02 54 L 05/12/24 11:36 36.6 C 54 L 18 173/75 H 97 Room Air PG Care Time/CCT Total # of Minutes Spent Total Time Spent with Patient: Total time spent is greater than 50% in coordination of care (as documented) at patient's floor/unit and/or counseling patient: Coding Level of Care Code 63864 SUB INP/OBS CARE 3/50MIN Diagnoses Atrial fibrillation I48.91
[2024-05-12] MEDS: CELECOXIB 100 MG CAP PO ONE (23:16)
[2024-05-13 05:06] LABS: Hematocrit (blood only) 31.7 % (37.0-47.0); Hemoglobin 10.5 g/dl (12.0-16.0); Mean Corpuscular Hemoglobin 32.8 pg (25.0-34.0); Mean Corpuscular Hgb Conc 33.1 g/dL (32.0-36.0); Mean Corpuscular Volume 99.1 fL (80.0-100.0); Mean Platelet Volume 10.6 fL (9.4-12.4); Platelet Count 168 K/uL (130-400); RDW Coefficient of Variation 15.9 % (11.5-14.5); RDW Standard Deviation 58.3 fL (36.4-46.3); White Blood Count 7.95 K/ul (4.8-10.8)
[2024-05-13 05:27] LABS: BUN Creatinine Ratio 20.1 (10-20); Creatinine Clr Calc Pharmacy 29.1 ml/min; Potassium 4.3 mmol/L (3.5-5.1)
[2024-05-13 10:37] VITALS: BP 151/77; PULSE 67; TEMP 97.3; O2SAT 97
--- NOTE | 2024-05-13 12:14 | Cardiology Progress Note ---
Date of Service May 13, 2024 Assessment & Plan (1) Chronic sinus bradycardia: (2) Atrial fibrillation with slow ventricular response: (3) Mid sternal chest pain: (4) Coronary artery disease: (5) S/P CABG x 4: Plan Still somewhat bradycardic but no symptoms clearly attributable to this. Discussed with electrophysiology, no current indication for pacemaker in the absence of symptoms attributable to her bradycardia. She should continue to remain off metoprolol. No immediate role for anticoagulation with chronic anemia and some degree of uncertainty as to whether she currently has true atrial fibrillation (her Parkinson's tremor interferes with ECG and telemetry interpretation). Recommend follow-up with Dr. Bishop, he is familiar with her clinical scenario, she could see aMyco Chamberlain PA-C for short-term follow-up. Admission and Anticipated Discharge Date Admission Date: May 12, 2024 Subjective Uneventful night. Patient denies any chest pain, dyspnea, palpitations, or lightheadedness. Telemetry showed atrial fibrillation with ventricular rate 50-60 bpm. Physical Exam 2 Physical Exam: No distress. BP 151/77 mmHg. Pulse 67 bpm and slightly irregular. Respirations 18 but unlabored. Skin: no ecchymoses or generalized lesions. HEENT: unremarkable. Neck: JVP at the clavicle at 90 degrees, no carotid bruits. Lungs: clear bilaterally. Cardiac: regular rhythm, normal S1-2, no murmur. Abdomen: benign. Extremities: no edema, pulses intact. Neurologic: Answers simple questions appropriately, grossly nonfocal. Results & Data Vital Signs (Past 12 Hours) Vital Signs Temp Pulse Pulse Resp BP BP Pulse Ox 05/13/24 10:37 97.3 F L 67 18 151/77 H 97 05/13/24 10:33 98.1 F 57 L 18 123/67 155/81 H 96 05/13/24 08:53 50 L 05/13/24 07:32 98.1 F 57 L 18 155/81 H 96 05/13/24 02:34 98.1 F 57 L 18 161/73 H 95 O2 Del Method 05/13/24 10:37 Room Air 05/13/24 10:33 05/13/24 08:53 05/13/24 07:32 Room Air 05/13/24 02:34 Room Air Laboratory Results Hemoglobin 10.5, normal platelet count and white count. Normal electrolytes, BUN 30, creatinine 1.49. PG Care Time/CCT Total # of Minutes Spent Total Time Spent with Patient: Total time spent is greater than 50% in coordination of care (as documented) at patient's floor/unit and/or counseling patient: Coding Level of Care Code 76716 SUB INP/OBS CARE 3/50MIN Diagnoses Chronic sinus bradycardia R00.1 Atrial fibrillation with slow ventricular response I48.91 Mid sternal chest pain R07.89 Coronary artery disease I25.10 S/P CABG x 4 Z95.1
[2024-05-16] MEDS ORDERED: LEVOTHYROXINE SODIUM 50 MCG TABLET PO SCH (06:30)
--- NOTE | 2024-05-17 11:33 | Discharge Summary ---
Discharge Summary Date of Service May 13, 2024 Principal Dx & Hospital Course #1 = Principal Diagnosis (1) Atrial fibrillation: Assessment: 1. Chest pain. Seems atypical. At least partially reproducible with palpation as discussed above. She is receiving fentanyl and Dilaudid in the ER. BIOFIRE negative trops are negative. Echo no wall motion abormalities. Chest pain can be pleuritic from possible viral infection vs GERD. Pain resolved after starting sucralfate QID and celebrex one time dose. will continue sucralfate at discharge. 2. New onset atrial fibrillation with slow ventricular response. Serial troponins. Echocardiogram. No anticoagulation at this time given the anemia. See discussion below. Cardiology consultation. We will hold all negative chronotropic at this time. She does appear to be on Norvasc and metoprolol. will continue to hold metoprolol. will need followup with EP cardio. 3. Anemia. Appears acute on chronic. Hemoglobin is 9.8 baseline appears to be 9.5. Iron studies ordered stat. Stools for occult blood ordered. We have requested to be called if positive. If these things are reassuring consideration for full anticoagulation for the atrial fibrillation can be considered. In the past he has carried a diagnosis of a history of chronic disease due to her chronic kidney disease. 4. History of duodenal ulcers. We have started the patient on Protonix. 5. History of coronary artery disease status post CABG.. 6. History of Parkinson's disease. With associated tremor. 7. History of Alzheimer's dementia. Appears to be mild to moderate. Does fairly well especially with her daughter at the bedside. Continue home meds. 8. CKD stage III-IV. Monitor renal function carefully. 9. Probably electrolyte abnormalities including A. Hypomagnesemia. 1.5. 1 g magnesium sulfate given in the ER given the dysrhythmia will give an additional gram of mag sulfate recheck magnesium in the morning. B. Borderline hypokalemia. 3.5. 20 mL equivalents of IV potassium chloride ordered given the dysrhythmia. 10. Bradycardia again consistent with A-fib with slow ventricular response. Replace electrolytes. Hold negative chronotropic including Norvasc and metoprolol. Monitor carefully. TSH is noted to be normal/reassuring g. Admission HPI Per Admitting Provider Is a pleasant 83-year-old female who lives at an extended care facility who developed some mid sternal chest discomfort today. She brought to the ER for further evaluation and treatment. In the ER the patient was found to be in atrial fibrillation with slow ventricular response without a history of this rate was as low as in the mid 40s. At the current time she is 52. Troponin was normal. EKG was otherwise nonacute. Other laboratory studies were nonacute with exception of some anemia at 8.1 g/dL hemoglobin with a baseline of around 9.5. Additionally magnesium was found to be mildly low at 1.5 she did receive 1 g of magnesium sulfate I will supplement that with an additional gram given the dysrhythmia. In addition the patient's potassium was found to be low normal at 3.5. Again given the cardiac history of a I will replace that give her total of 20 mEq potassium chloride IV. Course in the emergency department the patient received a dose of IV fentanyl for her chest discomfort as well as a dose of IV Dilaudid. It is improved significantly. It was reproducible on palpation per the ER provider. In addition she received oral acetaminophen. At this time given the fact the patient is institutionalized and I do a stat respiratory viral panel. Again to rule out COVID influenza and RSV. This is pending at the time of this dictation. Otherwise provide admit the patient do serial troponins. Do an echocardiogram. In addition given the patient's new onset atrial fibrillation we will consult cardiology as a routine consultation. I would not anticoagulate this patient at this point given the fact her hemoglobin is 8.1. She has a history of duodenal ulcers in the past. Will place her on some Protonix. The stools for occult blood and iron studies and get all of these results prior to anticoagulation considerations as I do feel the risk of the anticoagulation currently outweigh the potential benefits given her significant anemia until we determine the potential etiologies of her anemia. Discharge Exam In General: NAD HEENT: Normocephalic atraumatic NECK: Supple no rigidity no lymphadenopathy no thyromegaly no carotid bruits no JVD no masses. HEART: Irregular rate and rhythm LUNGS: Clear to auscultation bilaterally and anteriorly with no evidence of adventitious sounds/wheezes rales or rhonchi. ABDOMEN: Protuberant, soft nontender, no rebound, no peritoneal signs, positive bowel sounds, no appreciable organomegaly. EXTREMITIES: Intact, no peripheral cyanosis, clubbing or edema. Strength is 5 out of 5 in extremities x4,. Discharge Plan Discharge Items Patient Disposition: Transfer Long Term Fac Reason For Visit: CP, PALP Discharge Diagnosis: chest pain Activity: Resume your previous activity Non-emergency contact: Primary Care Provider Call non-emergency contact if: you have any medication questions Follow-up/Referrals: Tee Gold III, MD [Primary Care Provider] - Diet: Heart Healthy Addtl Attending Provider Instructions: Patient was seen for bradycardia. Cardiology recommends to stop metoprolol. Patient has not had any symptoms from her bradycardia. Patient should ultimately discuss with Dr. Mcwilliams need for pacer as he is an continuous improvement director but he is not available to see patient until much later. In the meantime, patient should followup with Mayco Chamberlain or one of the cardiology midlevels in the near term, next few weeks ti discuss possible need for pacer. Patient was evaluated for chest pain. This appears to be non cardiac. Patient improved after adding sucralfate and one dose of celebrex. Likely sucralfate is helping as she remained pain free over 12 hours after celebrex dose. Plan will be to continue sucralfate for 4 weeks. If pain returns may consider placing on celebrex but patient would need to hold diclofenac gel. Pending Studies at Discharge: No Stand-Alone Forms: My [employer], Smoking Cessation Skilled Items Patient informed of condition?: Yes DNR: No Discharge Level of Care: Skilled Communicable Disease: No Discharge Prognosis: Stable Lines: None Urinary Catheter: No Medications and DC Order Prescriptions: New sucralfate 100 mg/mL suspension 1 g PO ACHS 28 Days Qty: 280 0RF Continued carbidopa-levodopa 25-100 mg tablet 1 tab PO QID Rx Instructions: confirmed via rx history atorvastatin 20 mg tablet 20 mg PO HS Rx Instructions: confirmed via rx history epinephrine [EpiPen] 0.3 mg/0.3 mL Auto-Injector 0.3 mg IM DIRECTED PRN (Reason: Allergic Reaction) Rx Instructions: confirmed via rx history aspirin 81 mg Tablet,Delayed Release (Dr/Ec) 81 mg PO QAM furosemide 40 mg tablet 40 mg PO DAILY allopurinol 100 mg tablet 100 mg PO DAILY levothyroxine 25 mcg tablet 25 mcg PO DIRECTED Rx Instructions: take 1 tablet every mon, wed, thur, fri. Take 2 tablets every sat & sun. bisacodyl [Dulcolax (bisacodyl)] 10 mg Suppository 10 mg IA DAILY PRN (Reason: Constipation) Fleet Enema 19-7 gram/118 mL Enema 118 ml IA DAILY PRN (Reason: Constipation) loratadine 10 mg Tablet 10 mg PO HS escitalopram oxalate 5 mg tablet 5 mg PO DAILY diclofenac sodium 1 % Gel 2 g TOPICAL QID Rx Instructions: apply to 1 g to shoulders four times a day pantoprazole 40 mg Tablet,Delayed Release (Dr/Ec) 40 mg PO DAILY potassium chloride 10 mEq tablet extended release 10 meq PO UD Rx Instructions: GIVE 1 TABLET NEEDED FORE CRAMPS MAY ADMINISTER ONCE WEEKLY NEEDED FOR CRAMPS nitroglycerin [Nitrostat] 0.4 mg Tablet, Sublingual 0.4 mg sublingual .EVERY 5 MINUTES PRN (Reason: Chest Pain) Rx Instructions: X 3 DOSES IF NO RELIEF CALL DR polyethylene glycol 3350 [Miralax] 17 gram/dose Powder 17 g PO QAM cholecalciferol (vitamin D3) [Vitamin D3] 25 mcg (1,000 unit) Tablet 125 mcg PO Q OTHER DAY acetaminophen 325 mg Tablet 650 mg PO Q6 PRN (Reason: Fever Or Pain) potassium chloride 10 mEq tablet extended release 10 meq PO 2XWK Rx Instructions: GIVE 10MEQ BY MOUTH IN T HE MORNING EVERY SATURDAY & SATURDAY Discontinued metoprolol tartrate 25 mg tablet 25 mg PO BID Rx Instructions: confirmed via rx history Discharge Orders: Discharge Order (Routine); Ordered 05/13/24 Ordered By: Perry Mooney Admission Data Admit Date/Time: 05/12/24 10:42 Attending Provider: Perry Mooney Admit Provider: Misael Bravo Primary Care Provider: Tee Gold III Other Providers: Misael Bravo; Augusto Ayon; [place], [place] Other Interventions: Discharge Summary Assessment (RN) Last Done: 05/13/24 10:33 Hospital Stay Data Consultations 05/10/24 16:59 ED Decision to Admit Stat 05/10/24 17:48 Consult Cardiology Routine Pending Results Patient Have Any Pending Studies at Discharge: No Discharge Instructions Given to Patient (Per Discharging Provider) Patient was seen for bradycardia. Cardiology recommends to stop metoprolol. Patient has not had any symptoms from her bradycardia. Patient should ultimately discuss with Dr. Mcwilliams need for pacer as he is an continuous improvement director but he is not available to see patient until much later. In the meantime, patient should followup with Mayco Chamberlain or one of the cardiology midlevels in the near term, next few weeks ti discuss possible need for pacer. Patient was evaluated for chest pain. This appears to be non cardiac. Patient improved after adding sucralfate and one dose of celebrex. Likely sucralfate is helping as she remained pain free over 12 hours after celebrex dose. Plan will be to continue sucralfate for 4 weeks. If pain returns may consider placing on celebrex but patient would need to hold diclofenac gel. Total Time Total Time Spent Total Time Spent (In Minutes): 32 Coding Level of Care Code 55769 INP/OBS DISCH >30 MIN Diagnoses Atrial fibrillation I48.91
== END 2024-05-13 12:58 | DRG 309 ==
LOC: 2S 15:10 → ED 15:10 → SUATTDRO 18:43 → 2S 20:32